=== PATIENT | male | born 1985 | race Caucasian/White ===

== ENCOUNTER 2024-01-12 14:35 | Emergency (ER) | payer SELFPAY ==
[2024-01-12 14:50] VITALS: BP 150/85; PULSE 82; TEMP 36.6; O2SAT 99; BMI 29.2
--- NOTE | 2024-01-12 14:58 | XR_ITS ---
The [address] [address] Patient Name: QUAN MAHAJAN MRN: [id number] date: 1985 Sex: M Assigned Patient Location: ER Current Patient Location: ED.MAIN Accession/Order Number: [id number] Exam Date: 01/12/2024 16:00 Report Date: 01/12/2024 16:39 At the request of: KAIT PELLETIER Procedure: XR finger RT min 2V EXAM: XR finger RT min 2V HISTORY: pain right thumb smashed with laceration COMPARISON: None. FINDINGS/IMPRESSION: 1. Oblique fracture of the first proximal phalanx with mild displacement. There is surrounding soft tissue swelling. 2. No significant joint degeneration 3. No radiopaque foreign body. Electronically authenticated by: GARY AMATO Date: 01/12/2024 16:39
--- NOTE | 2024-01-12 15:04 | ED_ITS ---
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 Patient has a laceration 2.2 cm on the dorsal surface just proximal to the IP joint of the thumb. Patient is right-hand dominant. Pain is moderate but tolerable, no active bleeding. Patient has intact motion of the thumb. He believes his tetanus shot may have been 10 years ago. Patient has family at the bedside. He denies any other injury. MD complaint: injury to: Reports right and finger (Thumb) Hand dominance: right Place: Reports home Severity: moderate Context: Reports crush and injury Related Data Home Medications ?Medication ?Instructions ?Recorded ?Confirmed baclofen 10 mg tablet 10 mg PO TID 01/12/24 01/12/24 oxybutynin chloride 10 mg 10 mg PO DAILY 01/12/24 01/12/24 tablet,extended release 24 hr propranolol 20 mg tablet 20 mg PO DAILY 01/12/24 01/12/24 Previous Rx's ?Medication ?Instructions ?Recorded cephalexin 500 mg capsule 500 mg PO TID 7 days #21 caps 01/12/24 ibuprofen 600 mg tablet 600 mg PO TID PRN pain #30 tabs 01/12/24 Allergies Allergy/AdvReac Type Severity Reaction Status Date / Time ampicillin Allergy Severe Rash Verified 01/12/24 14:49 Opioid HPI Opioid Management Most Recent Pain and Opioid Data: Last Pain Scale 6 01/12/24 15:03 Last ED Pain Assessment 01/12/24 15:03 Review of Systems ROS Constitutional Denies: fever or chills Eyes Denies: change in vision Ears, nose, mouth, and throat Denies: throat pain or neck pain Cardiovascular Denies: chest pain, palpitations or edema Respiratory Denies: shortness of breath or cough Musculoskeletal Denies: back pain, neck pain or extremity pain Neurological Denies: headache Psychiatric Denies: anxiety Hematologic/Lymphatic Denies: easy bruising Exam Narrative Exam Narrative: Nurse's notes and vital signs reviewed. Patient is not hypoxic. General: The patient appears well and in no apparent distress. Patient is resting comfortably on cart. Skin: Warm, dry, no pallor noted. Head: Normocephalic, atraumatic Eye: Normal conjunctiva Respiratory: Patient is in no distress Musculoskeletal: The Right hand and wrist shows no obvious deformity. Right thumb noted for transverse linear laceration just proximal to the IP joint dorsal surface of the thumb, no nail injury. There was minimal swelling noted. The patient had limited ROM due to pain.No evidence of tendon disruption. Able to make the okay sign. Patient demonstrates intact flexion and extension at the IP and MCP joint. No pain to the MCP joint on stressing UCL. The patient had tenderness noted To the distal phalanx, localized tenderness to laceration and proximal phalanx The patient had no tenderness in the anatomical snuff box. Pulses are intact at brachial and radial 2+. There was no deficit at the elbow or shoulder. The patient has normal capillary refill to all distal digits. The patient has no evidence of cyanosis or mottling. The patient is able to flex and extend all digits without difficulty. Neurological: A&O x4, normal sensory, normal motor Psychiatric: Cooperative Constitutional Vital Signs, click to edit/add: Last Vital Signs Temp 97.9 F 01/12/24 14:50 Pulse 82 01/12/24 14:50 Resp 20 01/12/24 14:50 BP 150/85 H 01/12/24 14:50 Pulse Ox 99 01/12/24 14:50 O2 Del Method Room Air 01/12/24 14:50 Course Vital Signs Vital signs: Vital Signs Temperature 97.9 F 01/12/24 14:50 Pulse Rate 82 01/12/24 14:50 Respiratory Rate 20 01/12/24 14:50 Blood Pressure 150/85 H 01/12/24 14:50 Pulse Oximetry 99 01/12/24 14:50 Oxygen Delivery Method Room Air 01/12/24 14:50 Temperature 97.9 F 01/12/24 14:50 Pulse Rate 82 01/12/24 14:50 Respiratory Rate 20 01/12/24 14:50 Blood Pressure 150/85 H 01/12/24 14:50 Pulse Oximetry 99 01/12/24 14:50 Oxygen Delivery Method Room Air 01/12/24 14:50 MDM - Extremity Injury (Upper) MDM Narrative Medical decision making narrative: Soft tissue laceration, patient had tetanus updated, x-ray performed given nature of injury to rule out fracture. Fracture noted on x-ray, given laceration on the dorsal surface a open fracture is noted. We discussed case with orthopedics, Dr. Villegas recommends appointment Sunday at 2:20 PM. Recommends Ancef and Keflex p.o. pending follow- up in the office. Discussed x-ray and recommendations with patient, he was verbally consenting. We discussed his history of rash remotely as a child with ampicillin. He denies any lip swelling or difficulty breathing. We discussed the importance of ice and elevation. He declines anything stronger than Motrin for pain. We discussed the importance of follow-up for optimal healing. Patient thankful The patient is to followup with Dr. Villegas on Sunday @ 2:20pm or to return to the emergency department should any of the signs or symptoms worsen or new symptoms develop. Patient had questions answered. The patient agrees with the following Diagnosis and Treatment plan and the patient will be discharged home. p Imaging Data right thumb xray: My impression: 3-view right thumb x-ray shows transverse fracture through Proximal phalanx of the thumb. Slight volar apex angulation. Discharge Plan Discharge Stand Alone Forms: Portal Instructions Chief Complaint: Extremity Injury, Upper Clinical Impression: Laceration of right thumb Open fracture of phalanx of right thumb Qualifiers: Encounter type: initial encounter Phalanx: proximal Fracture alignment: disp laced Qualified Code(s): S62.511B - Displaced fracture of proximal phalanx of right thumb, initial encounter for open fracture Patient Disposition: Home, Self-Care Time of Disposition Decision: 16:34 Condition: Good Prescriptions / Home Meds: New cephalexin 500 mg capsule 500 mg PO TID 7 Days Qty: 21 0RF ibuprofen 600 mg tablet 600 mg PO TID PRN (Reason: pain) Qty: 30 0RF No Action baclofen 10 mg tablet 10 mg PO TID oxybutynin chloride 10 mg tablet extended release 24hr 10 mg PO DAILY propranolol 20 mg tablet 20 mg PO DAILY Print Language: Salvadorean Instructions: Thumb Fracture (ED) Referrals: Kory Villegas MD [Physician] - 01/14/24 2:20 pm Procedures ED Laceration Laceration Laceration 1: Additional comments: Laceration repair: ( Right thumb) Done under sterile conditions. The use of chlorahexadine was used to prep and clean the area. Local injection with lidocaine 1% was used, approximately 4cc. The wound was irrigated copiously with normal saline. The wound was explored there was no evidence of foreign material. extensor tendon visualized, no tendon injury seen. motion intact. The laceration was approximated with 4-0 nylon. 5 simple interrupted sutures were placed.. The patient was neurovascularly intact post. the patient had bacitracin applied to the laceration and a dry sterile dressing was place. The patient will need to follow-up in the next 10 days for removal. Splint Application: The patient was placed in a thumb spica splint with Orthoglass splint material, 4 inch. The patient had 2 rolls of the web roll applied to the affected site. Patient then had the splint material placed with felt side against web roll and skin. The patient had the splint secured in place with derek bandage. The patient was neurovascularly intact post application of the splint.
[2024-01-12] MEDS: BACITRACIN 0.9 GM PACKET 1 PACKET TOPICAL (15:15)
[2024-01-12] MEDS: LIDOCAINE HCL 1% PF 20 MG/2 ML VIAL INJ ×2 (15:15)
[2024-01-12] MEDS: ADACEL DIPH,PERTUSS(ACELL),TET VAC/PF 0.5 ML ADULT SYRINGE IM (15:16)
[2024-01-12] MEDS: SODIUM CHLORIDE 0.9% IRRIG SOLUTION 1,000 ML BOTTLE 1000 ML IRR (15:18)
[2024-01-12] MEDS: CEFAZOLIN SODIUM/DEXTROSE,ISO 1 GM/50 ML IV.SOLN IV (16:20)
== END 2024-01-12 17:09 | disposition home or self-care (01) ==
PROVIDERS: Emergency Provider Emergency Medicine Emergency Medical Services; PCP Family Medicine
DX: S62.511B Displaced fracture of proximal phalanx of right thumb, initial encounter for open fracture (principal); Z23 Encounter for immunization; W23.0XXA Caught, crushed, jammed, or pinched between moving objects, initial encounter
CPT/HCPCS: 12001; 73140; 90471; 90715; 96365; 99284

== ENCOUNTER 2024-01-28 12:39 | Outpatient (OUT) | payer SELFPAY ==
--- NOTE | 2024-01-28 | XR_ITS ---
The [address] [address] Patient Name: QUAN MAHAJAN MRN: [id number] date: 1985 Sex: M Assigned Patient Location: Current Patient Location: Accession/Order Number: [id number] Exam Date: 01/28/2024 12:45 Report Date: 01/29/2024 10:32 At the request of: CARROLL CHAUDHARY Procedure: XR hand RT min 3V PROCEDURE: XR hand RT min 3V HISTORY: RIGHT HAND PAIN COMPARISON: XR finger right 01/12/2024 FINDINGS: BONES:Oblique fracture through distal diaphysis of the first digit proximal phalanx with slightly greater displacement than seen on prior study. No appreciable callus formation or increased density of the fracture line. SOFT TISSUES:Swelling of thumb. EFFUSION:None visible. OTHER: Negative. XR/XR hand RT min 3V IMPRESSION: 1. Subacute, oblique fracture of first proximal phalanx with slightly greater displacement/angulation when compared to prior study. No radiographic evidence of early bone healing. Electronically authenticated by: CARROLL WALTON Date: 01/29/2024 10:32
--- OUTSIDE RECORDS SUMMARY | 2024-01-28 12:42 | XMS_ITS | CCD ---
Author Organization [facility] Care Team Providers Care Customer Retention Specialist Name Role Phone Gabrielle Muñoz MD Primary Care Provider GABRIELLE MUÑOZ Referring Unavailable GABRIELLE MUÑOZ Primary Care Unavailable GABRIELLE MUÑOZ Referring Unavailable GABRIELLE MUÑOZ Primary Care Unavailable GABRIELLE MUÑOZ Attending Unavailable GABRIELLE MUÑOZ Attending Unavailable Medications Completed/Discontinued Medications Medication Drug Class(es) Dates Sig (Normalized) Sig (Original) sincalide (KINEVAC) 2.09 mcg in sodium chloride 0.9 % 50 mL infusion (1 source) Start: 10-20-2022 End: 10-20-2022 sincalide (KINEVAC) 2.09 mcg in sodium chloride 0.9 % 50 mL infusion technetium mebrofenin (CHOLETEC) injection 5 millicurie (1 source) Start: 10-20-2022 End: 10-20-2022 technetium mebrofenin (CHOLETEC) injection 5 millicurie Problems Problem Classification Problem Date Documented Da te Episodic/Chronic Abdominal pain (3 sources) Right upper quadrant pain; Translations: [Right upper quadrant pain] Onset: 10-20-2022 Episodic Results Test Name Value Interpretation Reference Range Facility NM HEPATOBILIARY SCAN W EJEC TION FRACTIONon 10-20-2022 No acute cholecystitis. Gallbladder ejection fraction is approximately 91%. [facility] CONSOLIDATED EXAMINATION: NUCLEAR MEDICINE HEPATOBILIARY SCINTIGRAPHY (HIDA SCAN) WITH EJECTION FRACTION. TECHNIQUE: Approximately 5.4 millicuries Tc99m Mebrofenin (Choletec) was administered IV. Then, dynamic images of the abdomen were obtained in the anterior projection for 60 mins. A right lateral view was also obtained at 60 mins. Slow infusion of 2.09 mcg cholecystokinin was administered intravenously over 30-60 mins. Images were obtained in the ARABIC projection and regions of interest were drawn around the gallbladder and ejection fraction was calculated. COMPARISON: No prior for comparison. HISTORY: ORDERING SYSTEM PROVIDED HISTORY: RUQ abdominal pain FINDINGS: Prompt, homogenous uptake by the liver is noted with normal appearance of radiotracer excretion into the biliary system. Clearance of bloodpool activity appears appropriate. Gallbladder and small bowel is visualized in appropriate sequence and time. Gallbladder ejection fraction measured 91%. Normal value is >38% for CCK protocol and >33% for Ensure protocol. Note, Ensure normal range is based on a limited study. [facility] Jerry Pimentel MD - 10/20/2022 EXAMINATION: NUCLEAR MEDICINE HEPATOBILIARY SCINTIGRAPHY (HIDA SCAN) WITH EJECTION FRACTION. TECHNIQUE: Approximately 5.4 millicuries Tc99m Mebrofenin (Choletec) was administered IV. Then, dynamic images of the abdomen were obtained in the anterior projection for 60 mins. A right lateral view was also obtained at 60 mins. Slow infusion of 2.09 mcg cholecystokinin was administered intravenously over 30-60 mins. Images were obtained in the ARABIC projection and regions of interest were drawn around the gallbladder and ejection fraction was calculated. COMPARISON: No prior for comparison. HISTORY: ORDERING SYSTEM PROVIDED HISTORY: RUQ abdominal pain FINDINGS: Prompt, homogenous uptake by the liver is noted with normal appearance of radiotracer excretion into the biliary system. Clearance of bloodpool activity appears appropriate. Gallbladder and small bowel is visualized in appropriate sequence and time. Gallbladder ejection fraction measured 91%. Normal value is >38% for CCK protocol and >33% for Ensure protocol. Note, Ensure normal range is based on a limited study. IMPRESSION: No acute cholecystitis. Gallbladder ejection fraction is approximately 91%. [employer] Phone: Radiology Study observation (narrative) [employer] Phone: NM HEPATOBILIARY SCAN W EJEC TION FRACTIONOrdered By: Jerry Armstrong on 10-20-2022 [employer] Phone: NM HEPATOBILIARY SCAN W PHAR MACOLOGICAL INTERVENTIONon 10-20-2022 NM HEPATOBILIARY SCAN W PHARMACOLOGICAL INTERVENTION EXAMINATION: NUCLEAR MEDICINE HEPATOBILIARY SCINTIGRAPHY (HIDA SCAN) WITH EJECTION FRACTION. TECHNIQUE: Approximately 5.4 millicuries Tc99m Mebrofenin (Choletec) was administered IV. Then, dynamic images of the abdomen were obtained in the anterior projection for 60 mins. A right lateral view was also obtained at 60 mins. Slow infusion of 2.09 mcg cholecystokinin was administered intravenously over 30-60 mins. Images were obtained in the ARABIC projection and regions of interest were drawn around the gallbladder and ejection fraction was calculated. COMPARISON: No prior for comparison. HISTORY: ORDERING SYSTEM PROVIDED HISTORY: RUQ abdominal pain FINDINGS: Prompt, homogenous uptake by the liver is noted with normal appearance of radiotracer excretion into the biliary system. Clearance of bloodpool activity appears appropriate. Gallbladder and small bowel is visualized in appropriate sequence and time. Gallbladder ejection fraction measured 91%. Normal value is >38% for CCK protocol and >33% for Ensure protocol. Note, Ensure normal range is based on a limited study. IMPRESSION: No acute cholecystitis. Gallbladder ejection fraction is approximately 91%. Interpreted by: Jerry Armstrong MD Signed by: Jerry Armstrong MD 10/20/22 Final result Normal [facility] US GALLBLADDER RUQon 023 US GALLBLADDER RUQ EXAMINATION: RIGHT UPPER QUADRANT ULTRASOUND 09/27/2022 11:02 am COMPARISON: None. HISTORY: ORDERING SYSTEM PROVIDED HISTORY: Right upper quadrant pain FINDINGS: LIVER: The liver demonstrates normal echogenicity without evidence of intrahepatic biliary ductal dilatation. BILIARY SYSTEM: Gallbladder is unremarkable without evidence of pericholecystic fluid, wall thickening or stones. Negative sonographic Maravilla's sign. Common bile duct is within normal limits measuring 0.3 cm. RIGHT KIDNEY: The right kidney is grossly unremarkable without evidence of hydronephrosis. PANCREAS: Visualized portions of the pancreas are unremarkable. OTHER: No evidence of right upper quadrant ascites. IMPRESSION: Unremarkable right upper quadrant ultrasound. Interpreted by: Negin Bustillos MD Signed by: Negin Bustillos MD 09/27/22 Final result Normal [facility] Unremarkable right upper quadrant ultrasound. [facility]IS CONSOLIDATED EXAMINATION: RIGHT UPPER QUADRANT ULTRASOUND 09/27/2022 11:02 am COMPARISON: None. HISTORY: ORDERING SYSTEM PROVIDED HISTORY: Right upper quadrant pain FINDINGS: LIVER: The liver demonstrates normal echogenicity without evidence of intrahepatic biliary ductal dilatation. BILIARY SYSTEM: Gallbladder is unremarkable without evidence of pericholecystic fluid, wall thickening or stones. Negative sonographic Maravilla's sign. Common bile duct is within normal limits measuring 0.3 cm. RIGHT KIDNEY: The right kidney is grossly unremarkable without evidence of hydronephrosis. PANCREAS: Visualized portions of the pancreas are unremarkable. OTHER: No evidence of right upper quadrant ascites. [facility] Negin Ibarra MD - 09/27/2022 EXAMINATION: RIGHT UPPER QUADRANT ULTRASOUND 09/27/2022 11:02 am COMPARISON: None. HISTORY: ORDERING SYSTEM PROVIDED HISTORY: Right upper quadrant pain FINDINGS: LIVER: The liver demonstrates normal echogenicity without evidence of intrahepatic biliary ductal dilatation. BILIARY SYSTEM: Gallbladder is unremarkable without evidence of pericholecystic fluid, wall thickening or stones. Negative sonographic Maravilla's sign. Common bile duct is within normal limits measuring 0.3 cm. RIGHT KIDNEY: The right kidney is grossly unremarkable without evidence of hydronephrosis. PANCREAS: Visualized portions of the pancreas are unremarkable. OTHER: No evidence of right upper quadrant ascites. IMPRESSION: Unremarkable right upper quadrant ultrasound. [employer] Phone: Radiology Study observation (narrative) [employer] Phone: US GALLBLADDER RUQOrdered By : Negin Bustillos on 09-27-2022 [employer] Phone: Q - CBC W/DIFF AND PLTon BASOABS 53 cells/uL Normal 0-200 [facility] Change Control Manager Comment on above: Order Comment: [facility] performed at: [employer] [facility], [address] [place] [address], [address] [place] [address], [id number], Laundry Folder: Otto Nuñez MD [facility] Collection Date/Time: [id number] [facility] Results Received Date/Time: [facility] Reported Date/Time: [id number] Performed By: #### 9 68T, [id number], 42A #### [facility] Default [address] [place] [address] Basophils/100 WBC (Bld) 0.9 % Normal [facility] Change Control Manager Comment on above: Order Comment: [facility] performed at: [employer] [facility], [address] [facility], [address] [place] [address], [address] [place] [address], Laundry Folder: Otto Nuñez MD [facility] Collection Date/Time: [facility] Results Received Date/Time: [facility] Reported Date/Time: Performed By: #### 9 68T, [id number], 42A #### [facility] Default [address] [place] [address] EOSABS 271 cells/uL Normal 15-500 [facility] Change Control Manager Comment on above: Order Comment: [facility] performed at: [employer] [employer] [facility], [address] [place] [address], [address] [place] [address], [address] [place] [address], Laundry Folder: Otto Nuñez MD [facility] Date/Time: [facility] Results Received Date/Time: [facility] Reported Date/Time: Performed By: #### 9 68T, [id number], 42A #### [facility] Default [address] [place] [address] Eosinophils/100 WBC (Bld) 4.6 % Normal [facility] Specialist Comment on above: Order Comment: [facility] performed at: [employer], [employer] [facility], [address] [facility], [address] [place] [address], [address] [place] [address], Laundry Folder: Otto Nuñez MD [facility] Date/Time: [facility] Results Received Date/Time: [facility] Reported Date/Time: Performed By: #### 9 68T, [id number], 42A #### [facility] Default [address] [place] [address] Erythrocyte distribution width (RBC) [Ratio] 11.9 % Normal 11.0-15.0 [facility] Specialist Comment on above: Order Comment: [facility] performed at: [employer] [employer] [facility], [address] [facility], [address] [place] [address], [address] [place] [address], Laundry Folder: Otto Nuñez MD [facility] Date/Time: [facility] Results Received Date/Time: [facility] Reported Date/Time: Performed By: #### 9 68T, [id number], 42A #### [facility] Default [address] [place] [address] Hematocrit (Bld) [Volume fraction] 50.9 % High 38.5-50.0 [facility] Change Control Manager Comment on above: Order Comment: [facility] performed at: [employer], [employer] [facility], [address] , [address] [place] [address], [address] [place] [address], Laundry Folder: Otto Nuñez MD [facility] Date/Time: [facility] Results Received Date/Time: [facility] Reported Date/Time: Performed By: #### 9 68T, [id number], 42A #### [facility] [address] [place] [address] Hemoglobin (Bld) [Mass/Vol] 17.3 g/dL High 13.2-17.1 [facility] Change Control Manager Comment on above: Order Comment: [facility] performed at: [employer] [employer] [facility], [address] [facility], [address] [place] [address], [address] [place] [address], Laundry Folder: Otto Nuñez MD [facility] Date/Time: [facility] Results Received Date/Time: [facility] Reported Date/Time: Performed By: #### 9 68T, [id number], 42A #### [facility] Default [address] [place] [address] Lymphocytes (Bld) [#/Vol] 1.611 10*3/uL Normal 850-3900 [facility] Change Control Manager Comment on above: Order Comment: [facility] performed at: [employer] [employer] [facility], [address] , [address] [place] [address], [address] [place] [address], Laundry Folder: Otto Nuñez MD [facility] Date/Time: [facility] Results Received Date/Time: [facility] Reported Date/Time: [id number] Performed By: #### 9 68T, [id number], 42A #### [facility] Default [address] [place] [address] Lymphocytes/100 WBC (Bld) 27.3 % Normal [facility] Change Control Manager Comment on above: Order Comment: [facility] performed at: [employer] [employer] [facility], [address] [place] [address], [address] [place] [address], [address] [place] [address], Laundry Folder: Otto Nuñez MD [facility] Date/Time: [facility] Results Received Date/Time: [facility] Reported Date/Time: Performed By: #### 9 68T, [id number], 42A #### [facility] [address] [place] [address] MCH (RBC) [Entitic mass] 31.3 pg Normal 27.0-33.0 [facility] Change Control Manager Comment on above: Order Comment: [facility] performed at: [employer] [employer] [facility], [address] [place] [address], [address] [place] [address], [address] [place] [address], Laundry Folder: Otto Nuñez MD [facility] Collection Date/Time: [facility] Results Received Date/Time: [facility] Reported Date/Time: Performed By: #### 9 68T, [id number], 42A #### [facility] Default [address] [place] [address] MCHC (RBC) [Mass/Vol] 34.0 g/dL Normal 32.0-36.0 [facility] Change Control Manager Comment on above: Order Comment: [facility] performed at: [employer] [employer] [facility], [address] [place] [address], [address] [place] [address], [address] [place] [address], Laundry Folder: Otto Nuñez MD [facility] Collection Date/Time: [facility] Results Received Date/Time: [facility] Reported Date/Time: Performed By: #### 9 68T, [id number], 42A #### [facility] [address] [place] [address] MCV (RBC) [Entitic vol] 92.0 fL Normal 80.0-100.0 [facility] Change Control Manager Comment on above: Order Comment: [facility] performed at: [employer] [employer] [facility], [address] [facility], [address] [place] [address], [address] [place] [address], Laundry Folder: Otto Nuñez MD [facility] Date/Time: [facility] Results Received Date/Time: [facility] Reported Date/Time: Performed By: #### 9 68T, [id number], 42A #### [facility] [address] [place] [address] MONOABS 726 cells/uL Normal 200-950 [facility] Change Control Manager Comment on above: Order Comment: [facility] performed at: [employer] [employer] [facility], [address] [place] [address], [address] [place] [address], [address] [place] [address], Laundry Folder: Otto Nuñez MD [facility] Collection Date/Time: [facility] Results Received Date/Time: [facility] Reported Date/Time: Performed By: #### 9 68T, [id number], 42A #### [facility] [address] [place] [address] Monocytes/100 WBC (Bld) 12.3 % Normal [facility] Change Control Manager Comment on above: Order Comment: [facility] performed at: [employer] [employer] [facility], [address] [place] [address], [address] [place] [address], [address] [place] [address], Laundry Folder: Otto Nuñez MD [facility] Collection Date/Time: [facility] Results Received Date/Time: [facility] Reported Date/Time: Performed By: #### 9 68T, [id number], 42A #### [facility] [address] [place] [address] Neutrophils (Bld) [#/Vol] 3.239 10*3/uL Normal 7698-9966 [facility] Change Control Manager Comment on above: Order Comment: [facility] performed at: [employer] [employer] [facility], [address] [place] [address], [address] [place] [address], [address] [place] [address], Laundry Folder: Otto Nuñez MD [facility] Collection Date/Time: [facility] Results Received Date/Time: [facility] Reported Date/Time: Performed By: #### 9 68T, [id number], 42A #### [facility] [address] [place] [address] Neutrophils/100 WBC (Bld) 54.9 % Normal [facility] Change Control Manager Comment on above: Order Comment: [facility] performed at: [employer] [employer] [facility], [address] [place] [address], [address] [place] [address], [address] [place] [address], Laundry Folder: Otto Nuñez MD [facility] Collection Date/Time: [facility] Results Received Date/Time: [facility] Reported Date/Time: Performed By: #### 9 68T, [id number], 42A #### [facility] [address] [place] [address] Platelet mean volume (Bld) [Entitic vol] 10.5 fL Normal 7.5-12.5 [facility] Change Control Manager Comment on above: Order Comment: [facility] performed at: [employer] [facility], [address] [place] [address], [address] [place] [address], [address] [place] [address], Laundry Folder: Otto Nuñez MD [facility] Date/Time: [facility] Results Received Date/Time: [facility] Reported Date/Time: Performed By: #### 9 68T, [id number], 42A #### [facility] Default [address] [place] [address] Platelets (Bld) [#/Vol] 296 10*3/uL Normal 140-400 [facility] Change Control Manager Comment on above: Order Comment: [facility] performed at: [employer] [employer] [facility], [address] [place] [address], [address] [place] [address], [address] [place] [address], Laundry Folder: Otto Nuñez MD [facility] Date/Time: [facility] Results Received Date/Time: [facility] Reported Date/Time: Performed By: #### 9 68T, [id number], 42A #### [facility] Default [address] [place] [address] RBC (Bld) [#/Vol] 5.53 10*6/uL Normal 4.20-5.80 Tyrell li [place] Change Control Manager Comment on above: Order Comment: [facility] performed at: [employer] [employer] [facility], [address] [facility], [address] [place] [address], [address] [place] [address], Laundry Folder: Otto Nuñez MD [facility] Collection Date/Time: [id number] [facility] Results Received Date/Time: [facility] Reported Date/Time: Performed By: #### 9 68T, [id number], 42A #### [facility] Default [address] [place] [address] WBC (Bld) [#/Vol] 5.9 10*3/uL Normal 3.8-10.8 Terrance mackenzie [place] Change Control Manager Comment on above: Order Comment: [facility] performed at: [employer] [employer] [facility], [address] [place] [address], [address] [place] [address], [address] [place] [address], Laundry Folder: Otto Nuñez MD [facility] Collection Date/Time: [id number] [facility] Results Received Date/Time: [facility] Reported Date/Time: Performed By: #### 9 68T, [id number], 42A #### [facility] Default [address] [place] [address] Q - COMPREHENSIVE METABOLIC PANEL W/EGFRon 10-07-2021 Albumin [Mass/Vol] 4.4 g/dL Normal 3.6-5.1 Terrance mackenzie [place] Change Control Manager Comment on above: Order Comment: [facility] performed at: [employer] [employer] [facility], [address] [facility], [address] [place] [address], [address] [place] [address], Laundry Folder: Otto Nuñez MD [facility] Collection Date/Time: [facility] Results Received Date/Time: [facility] Reported Date/Time: Performed By: #### 9 68T, [id number], 42A #### [facility] Default [address] [place] [address] Albumin/Globulin [Mass ratio] 1.7 {ratio} Normal 1.0-2.5 [facility] Specialist Comment on above: Order Comment: [facility] performed at: [employer] [employer] [facility], [address] [place] [address], [address] [place] [address], [address] [place] [address], Laundry Folder: Otto Nuñez MD [facility] Collection Date/Time: [facility] Results Received Date/Time: [facility] Reported Date/Time: Performed By: #### 9 68T, [id number], 42A #### [facility] Default [address] [place] [address] ALP [Catalytic activity/Vol] 42 U/L Normal 36-130 [facility] Change Control Manager Comment on above: Order Comment: [facility] performed at: [employer] [employer] [facility], [address] [place] [address], [address] [place] [address], [address] [place] [address], Laundry Folder: Otto Nuñez MD [facility] Date/Time: [facility] Results Received Date/Time: [facility] Reported Date/Time: Performed By: #### 9 68T, [id number], 42A #### [facility] Default [address] [place] [address] ALT [Catalytic activity/Vol] 19 U/L Normal 9-46 [facility] Change Control Manager Comment on above: Order Comment: [facility] performed at: [employer] [employer] [facility], [address] [place] [address], [address] [place] [address], [address] [place] [address], Laundry Folder: Otto Nuñez MD [facility] Date/Time: [facility] Results Received Date/Time: [facility] Reported Date/Time: Performed By: #### 9 68T, [id number], 42A #### [facility] Default [address] [place] [address] AST [Catalytic activity/Vol] 16 U/L Normal 10-40 [facility] Specialist Comment on above: Order Comment: [facility] performed at: [employer] [employer] [facility], [address] [place] [address], [address] [place] [address], [address] [place] [address], Laundry Folder: Otto Nuñez MD [facility] Collection Date/Time: [facility] Results Received Date/Time: [facility] Reported Date/Time: Performed By: #### 9 68T, [id number], 42A #### [facility] Default [address] [place] [address] Calcium [Mass/Vol] 9.5 mg/dL Normal 8.6-10.3 [facility] Comment on above: Order Comment: [facility] performed at: [employer] [employer] [facility], [address] [place] [address], [address] [place] [address], [address] [place] [address], Laundry Folder: Otto Nuñez MD [facility] Collection Date/Time: [facility] Results Received Date/Time: [facility] Reported Date/Time: Performed By: #### 9 68T, [id number], 42A #### [facility] Default [address] [place] [address] Chloride [Moles/Vol] 103 mmol/L Normal 98-110 [facility] Specialist Comment on above: Order Comment: [facility] performed at: [employer] [facility], [address] [facility], [address] [place] [address], [address] [place] [address], Laundry Folder: Otto Nuñez MD [facility] Date/Time: [facility] Results Received Date/Time: [facility] Reported Date/Time: Performed By: #### 9 68T, [id number], 42A #### [facility] Default [address] [place] [address] CO2 [Moles/Vol] 26 mmol/L Normal 20-32 [facility] Specialist Comment on above: Order Comment: [facility] performed at: [employer] [facility], [address] , [address] [place] [address], [address] [place] [address], Laundry Folder: Otto Nuñez MD [facility] Date/Time: [facility] Results Received Date/Time: [facility] Reported Date/Time: Performed By: #### 9 68T, [id number], 42A #### [facility] Default [address] [place] [address] Creatinine [Mass/Vol] 1.04 mg/dL Normal 0.60-1.35 [facility] Change Control Manager Comment on above: Order Comment: [facility] performed at: [employer] [employer] [facility], [facility], [address] [place] [address], [address] [place] [address], Laundry Folder: Otto Nuñez MD [facility] Collection Date/Time: [facility] Results Received Date/Time: [facility] Reported Date/Time: Performed By: #### 9 68T, [id number], 42A #### [facility] Default [address] [place] [address] eGFRAA ([facility]) 108 mL/min/1.73m2 Normal > OR = 60 [facility] Change Control Manager Comment on above: Order Comment: [facility] Testing performed at: [facility] [employer] [facility], [address] [facility], [address] [place] [address], [address] [place] [address], Laundry Folder: Otto Nuñez MD [facility] Date/Time: [facility] Results Received Date/Time: [facility] Reported Date/Time: Performed By: #### 9 68T, [id number], 42A #### [facility] Default [address] [place] [address] eGFRNAA ([facility]) 93 mL/min/1.73m2 Normal > OR = 60 [facility] Change Control Manager Comment on above: Order Comment: [facility] Testing performed at: [facility] [employer] [facility], [address] [facility], [address] [place] [address], [address] [place] [address], Laundry Folder: Otto Nuñez MD [facility] Date/Time: [facility] Results Received Date/Time: [facility] Reported Date/Time: Performed By: #### 9 68T, [id number], 42A #### [facility] Default [address] [place] [address] Globulin (S) [Mass/Vol] 2.6 g/dL Normal 1.9-3.7 [facility] Change Control Manager Comment on above: Order Comment: [facility] Testing performed at: [employer] [facility], [address] [place] [address], [address] [place] [address], [address] [place] [address], Laundry Folder: Otto Nuñez MD [facility] Date/Time: [facility] Results Received Date/Time: [facility] Reported Date/Time: Performed By: #### 9 68T, [id number], 42A #### [facility] [address] [place] [address] Glucose [Mass/Vol] 85 mg/dL Normal 65-[address] [facility] Specialist Comment on above: Order Comment: [facility] Testing performed at: [employer] [facility], [address] [place] [address], [address] [place] [address], [address] [place] [address], Laundry Folder: Otto Nuñez MD [facility] Date/Time: [facility] Results Received Date/Time: [facility] Reported Date/Time: Result Comment: Fasting reference interval Performed By: #### 9 68T, [id number], 42A #### [facility] Default [address] [place] [address] Potassium [Moles/Vol] 4.9 mmol/L Normal 3.5-5.3 [facility] Change Control Manager Comment on above: Order Comment: [facility] performed at: [employer] [facility], [address] [place] [address], [address] [place] [address], [address] [place] [address], Laundry Folder: Otto Nuñez MD [facility] Date/Time: [facility] Results Received Date/Time: [facility] Reported Date/Time: Performed By: #### 9 68T, [id number], 42A #### [facility] Default [address] [place] [address] Protein [Mass/Vol] 7.0 g/dL Normal 6.1-8.1 Terrance mackenzie [place] Change Control Manager Comment on above: Order Comment: [facility] performed at: [facility] [employer] [facility], [address] [place] [address], [address] [place] [address], [address] [place] [address], Laundry Folder: Otto Nuñez MD [facility] Date/Time: [facility] Results Received Date/Time: [facility] Reported Date/Time: Performed By: #### 9 68T, [id number], 42A #### [facility] Default [address] [place] [address] Sodium [Moles/Vol] 138 mmol/L Normal 135-146 Terrance rn [place] Change Control Manager Comment on above: Order Comment: [facility] performed at: [facility] [employer] [facility], [address] [place] [address], [address] [place] [address], [address] [place] [address], Laundry Folder: Otto Nuñez MD [facility] Date/Time: [facility] Results Received Date/Time: [facility] Reported Date/Time: Performed By: #### 9 68T, [id number], 42A #### [facility] [address] [place] [address] TBIL <0.3 Normal 0.2-1.2 [facility] Change Control Manager Comment on above: Order Comment: [facility] Testing performed at: [facility] [employer] [facility], [address] [place] [address], [address] [place] [address], [address] [place] [address], Laundry Folder: Otto Nuñez MD [facility] Date/Time: [facility] Results Received Date/Time: [facility] Reported Date/Time: Performed By: #### 9 68T, [id number], 42A #### [facility] [address] [place] [address] Urea nitrogen [Mass/Vol] 26 mg/dL High 7-25 [facility] Change Control Manager Comment on above: Order Comment: [facility] performed at: [facility] [employer] [facility], [address] [place] [address], [address] [place] [address], [address] [place] [address], Laundry Folder: Otto Nuñez MD [facility] Date/Time: [facility] Results Received Date/Time: [facility] Reported Date/Time: Performed By: #### 9 68T, [id number], 42A #### [facility] Default [address] [place] [address] Urea nitrogen/Creatinine [Mass ratio] 25 mg/mg High 6-22 [facility] Change Control Manager Comment on above: Order Comment: [facility] Testing performed at: [facility] [employer] [facility], [address] [place] [address], [address] [place] [address], [address] [place] [address], Laundry Folder: Otto Nuñez MD [facility] Date/Time: [facility] Results Received Date/Time: [facility] Reported Date/Time: Performed By: #### 9 68T, [id number], 42A #### [facility] Default [address] [place] [address] Q - Lipid Panelon 10-07-2021 Cholesterol [Mass/Vol] 224 mg/dL High <200 [facility] Change Control Manager Comment on above: Order Comment: [facility] performed at: [facility] [employer] [facility], [address] [place] [address], [address] [place] [address], [address] [place] [address], Laundry Folder: Otto Nuñez MD [facility] Date/Time: [facility] Results Received Date/Time: [facility] Reported Date/Time: Performed By: #### 9 68T, [id number], 42A #### [facility] Default [address] [place] [address] Cholesterol in HDL [Mass/Vol] 47 mg/dL Normal > OR = 40 [facility] Change Control Manager Comment on above: Order Comment: [facility] Testing performed at: [facility] [employer] [facility], [address] [facility], [address] [place], [place], [address] [place] [address], Laundry Folder: Otto Nuñez MD [facility] Date/Time: [facility] Results Received Date/Time: [facility] Reported Date/Time: Performed By: #### 9 68T, [id number], 42A #### [facility] Default [address] [place] [address] Cholesterol in LDL [Mass/Vol] 151 mg/dL High [facility] Change Control Manager Comment on above: Order Comment: [facility] performed at: [facility] [employer] [facility], [address] [place] [address], [address] [place] [address], [address] [place] [address], Laundry Folder: Otto Nuñez MD [facility] Collection Date/Time: [facility] Results Received Date/Time: [facility] Reported Date/Time: Result Comment: Refe rence range: <100 Desirable range <100 mg/dL for primary prevention; <70 mg/dL for patients with CHD or diabetic patients with > or = 2 CHD risk factors. LDL-C is now calculated using the Kamaljit-Velma calculation, which is a validated novel method providing better accuracy than the Friedewald equation in the estimation of LDL-C. Kamaljit SS et al. SAY. 2013;310(19): 1892-2421 (http://education.[employer].Respiratory Motion/faq/VHI233) Performed By: #### 9 68T, [id number], 42A #### [facility] Default [address] [place] [address] Cholesterol.total/C holesterol in HDL [Mass ratio] 4.8 {ratio} Normal <5.0 [facility] Change Control Manager Comment on above: Order Comment: [facility] Testing performed at: [facility] [employer] [facility], [address] [facility], [address] [place], [address] [place] [address], Laundry Folder: Otto Nuñez MD [facility] Date/Time: [facility] Results Received Date/Time: [facility] Reported Date/Time: Performed By: #### 9 68T, [id number], 42A #### [facility] Default [address] [place] [address] NON HDL CHOLESTEROL 177 mg/dL (calc) High <130 [facility] Change Control Manager Comment on above: Order Comment: [facility] performed at: [facility] [employer] [facility], [address] [facility], [address] [place], [address], Laundry Folder: Otto Nuñez MD [facility] Date/Time: [facility] Results Received Date/Time: [facility] Reported Date/Time: Result Comment: For patients with diabetes plus 1 major ASCVD risk factor, treating to a non-HDL-C goal of <100 mg/dL (LDL-C of <70 mg/dL) is considered a therapeutic option. Performed By: #### 9 68T, [id number], 42A #### [facility] Default [address] [place] [address] Triglyceride [Mass/Vol] 132 mg/dL Normal <150 [facility] Change Control Manager Comment on above: Order Comment: [facility] performed at: [facility] [employer] [facility], [facility], [address] [place] [address], [place], [address], Laundry Folder: Otto Nuñez MD [facility] Date/Time: [facility] Results Received Date/Time: [facility] Reported Date/Time: Performed By: #### 9 68T, [id number], 42A #### [facility] Default [address] [place] [address] Coding Summaryon 02-04-2021 Coding Summary HTMLBase 64 AoxiftjlZKm4tVy+PGh lYWQ+KG2ARFLtX49pmS ZxuH3SM5jIVM0PUPNXD DLJKB9JOD3mrGE4AXsk L9ZzsxJe GzirsCIoTB72SOv7TSA 1pJiqAJijqI9ngYSuD6 p3IvKeFH65gE37DAcoJ QWpGeX2GkDkrokogZJf I7smYaCkrNNxHbz+PHR hYmxlIHdpZHRoPScxMD JwOcJvxYzgRD3wNp9mC GVyLWNvbGxhcHNlOiBj w4bkLYMbXXwkCY5nnRu rI1DbuSA4EROxl4l6Ao 48dHI+FNPrGEZ2rEbfJ Jilx413BiZdm3znBTO2 zYKaHOohGYB6E94vq2C 3KAFrQKXmYBA5gFK3bK 7xkNatvsizI4NcgZGfV xJ6BVG7bQOfkE2jaJsz nixouB8gRjf+I30IES2 KUVZZPR6WNya9N5KiIw wvdHI+VB07FYZrDA36x VSbzHLwr4ogdFl5JtTr LFXzQTT7fIkdZNetn0C sRHKlF91qwCAme2C2HE MroJoteZZyHtGqeUY4l H8wHLwplimlt3fdolna Ekfty2bhpn40uY07W50 nYDvoCDDgDKK4FVBnAS RdvKslaa8peF8vQn8+I Xuwh7qpf1usjFn2NrPp PMJmnfOotSjkTFF4z1R aQb72H3HlsBrhi9CnXw c1zb44wXIhv2M7kQO8X KugKNDkhM2xATutReM3 UAIjDdMvmK27fFThDXs vUl6vwUpznPwlLQ6hSU JiehtfXQOpmP7yQMFzl JRnhRppTE5pCXSfsrpx r541LnFdCAF5ZIKwnVF qC8CdrN9aOjRdNIGiSX SdX2VagMMzOFydN637L DrmJeB8MCZiorCsH4Sc ZZTxiDzlEmB7o3O1Jw0 Fl7OtnzmwJYP8NPgcVG B4AlE4CjVlUaE6E4BkC gh1VHKhuHjpNY5eG1Hl YVSqetjmisbacSU2YZY uAZZjpB74aDLsWJpfEj 1lc2J9b442GCLbBDVql P19Ku8klZhuOSZnbXQP eT1gwxkey2zuxkvvBxM qRPVcBGa1OYc9EUFzmN hbAaTvIJR4EuD3CLH3z BHarV3lpKwwjmcxhR3m Oyc+T62irM1vBLX0NME 5hsdtNCUmxcKwVT38AL 50Q4WdZewgxWYouZB+P ONjpyIfuMqoSU2aZpJr k2yqr3XlNKjwJ8McTTA nDNcjQgw6TTLaFTR5nX Q3bF4pURRfWXwid4G6x BY8F7MyojRbgc4yy5ep KXBmUGykQ44ktWZox1Y 2JZUpxGU2MUOpoPfbHd AkyS62Dbz+PGNvbGdyb 0YpGtprk1ckt8odbYb1 IjMwJSIgdmFsaWduPSJ 1t4CsLr96P10lJYyjUE RoPSIxNSUiIHZhbGlnb e9rmV4qVd5+PGNvbCB3 yRA0yD2qFFLqAcK9MVp jI177RsVgtGJlFbbbg0 kyz6fgnIl4UsFhWTTnc qFnxBvsMEY1p0TdKo95 Z83fZKdoMFCmEUYuUPX mIGSqlBvosu1rsQ0zLg 8+OY9zt0nlxa92bB64x HI+BGUjWQH5jFjyVIje WWUejV5cQSofItI6JMJ bZeMaxL06cYJzUOtoBn 4agBoxvHvdXT4rYAAkr xbcf532XmKzk4ccLUUr aGQoPBjpBUM5B08xs2E 1FFSoOXKaERI5tLK5hW 1hbGlnbjogbGVmdDsgd qWhtHopPFgdOCqeL956 IHRvcDsnPlBhdGllbnQ tBgCtEJl5K1HfIiv5ZG HypGemRY3pzAIgABgeW f9bcRarzYuwKL8yXQId ekoee677AuBll8tcKQD prUFqNAhfWUF9E20qd5 W4VWRfPBZvETD6cYD9b B5uaXybjkooaMPsqAyh imWwsHmsZUqvPLbyU45 6IHRvcDsnPkJpcnRoIE SrqZA9WL31NK50iOLsa 4G3oJZ2F4XlGKMumavf ureqfHE5AROdESClaO2 0Tl2ipRnpRg2kDOOuAY K0DZNfvQGdO5EkbT0mP fRkCOFoTLQqT5AdeOEv BEqiW531QXgkIdW0OFZ zhwJuT6YbDSMaoQfuUk H8g0Q0Mx5DX0P4LH85Q C60oBDac3H2lBY9V3Dt MNVigwnnbeyraNS9VKE dBGXehW36Db9axAftVd 7gZKMcPQM1VSClmTPlX 7McpL6sWxBcQTRhRXWh O5NrdSKxPNbqK843QAc nQjV0NKLuokXaM6GrMY CztDkvXwJ6g9H3Ch5XN Yb4CC15BS06wZMir0M2 oLC5S2ByEYSgvaaahlv ngBC7SMAsHRUbnE23Fr 6ovSyiPm7fPONvAAO2G UIjaIIiW7MffQ4tDkKh BXFkSFDyL8WogYDlSBl gS625WBisAxT1UOGtug IuE0OqMNShyBrsYwK5l 0U0Yi3PKULaSZ64JEK4 lHN0OL07XC05S4IoSmm vdGFibGU+PHRhYmxlIH dpZHRoPScxMDAlJyBzd SmzXO7gDd2bWIPmSSJl xGbkjJRxXiVty9ylIOF cAEoxFN8ffVktL3HkcW Y5IVNqq3y5Nt41C62iO 3JvdXA+PGCcbEI6dER0 hY0iRgWaKcD1HAbmV82 5XcSczXOvPwztm4enf7 iglFm0CqD6OVIpbgWxe CiqITD6n9BuSs84W93m IHdpZHRoPSIxNSUiIHZ bsUqqkl9ifF1sFs3+PG LnjWA2qAG0cB0nBlKnS iK3CKqnM695VfTuuKSg Tkfdm8ofk9tmmFi7ByF tABKmhyVcmEalVBU7f4 SrAa11E8RchLbti0QaK mt4yg87zXTsy4R0wBF0 U8KcGJOvlfuyvRKscHj kOT5pLDBksvecNHEctB 3nUIOaR0k5XrNaEaF0A OcqQ9AfnwP1OZQvjHNm SIfcALM7G68lf3J7ZAU xIUAyJXC0oNL6nE3mlM lnbjogbGVmdDsgdmVyd ZbqYPssPOvlL086VPJd rVlgRKTvnC2iBAWvkCY hxHvpCW9oRZDbhaxuKs hBTEwsIEpBUkVEIFNDT 6UUGE83US78rFZty8M0 pBP0M9QcNBIsuhoqnvs zpIJ8PQKtFLRksQ92cO XuVSgfFp3rt2B9j894M SDbDFEoyY97Kk5uiFuy DRJgkSVIxM9oudejv0b bahisXdPeRBDsNZk8XH y2EYTceLxrThNiEQT1C mE3YMJ1aKWvqH9nqPqo qgbupY8aZqo+MDgvMTg dXSn4KztvlIB+PHRkIH Q4pYnfQZunGAYxuS2rY IQdW5y5OdPzFsQ9KRkm R1NqSTMmnbtkVz14jB2 yRvUkCjI0ZHzzS1Kfmu W2DUSnmYKyBDszGVM8I 53al4V0RTAuSWFfTZO3 vBB1mX0jwRrapeyaeEM mdDsgdmVydGljYWwtYW oxX365RGQhpGvdMkBdO HqqHVCaWE71EN49jLIj t6H3xAD8M5OxVJVqpjg otjhpvPX1RNHbJBQfbD 54vKArLHpdRn6ma5C4p 422RRVaZFAdyO24Xp4r pFmyBOXvyEPRiE5gplf sk3pphwcyXgBxUGSdRH i9YLc6TGYcjFxuSkFeM OX0VdI0GXK6iEPmbG0s xFmyskhgfW8xPng+TUF MRTwvdGQ+AECsGFF5lD ytMLntXIFmmM5vHTXwU 3q1MtWhVrT9UFfgJ6Km FJNoqsvrEv47qS9bXnC yMeB7FUuoH8RnknC3PQ XteAVqJLwjSDR6Q57eg 9I4LMXdZCGmTYI0bWV1 aX8myLnlknaksUYwnMm gdmVydGljYWwtYWxpZ2 46EPAymMgkYe4HJU82P W20Y6YjFlhpfAHuqGF+ PHRhYmxlIHdpZHRoPSc nZZFaMoAqqBneKE5pJp 9yZGVyLWNvbGxhcHNlO tEcr7vlCDBfZAalNN7c eTemJ7QiyAD5EWClg6k 0Db05H51jG8VqmHV+PG XjxYI0pUW3fX4qVoGxH uK7FWigG653HnWdhZRf Seewr9mdd1ftuJq4DaN sZKNmtmGrmMtgTKE6i4 SfJo09N53nXBkuFZDkM XVpWYRrQQWtvRjuom3q gN4mDh0+DNSztKZ4nJU 9bS9jSnPlJnX6SLyiY6 87JqIbbXDiInkzI58lU 3JvdXA+PJXfBus1QCDe yTfeZK2cpAWrHDfkEp7 zWZD7QmKpXaDhJUmdO5 QjLGSedkfeeakkaJO0Z YOmBUZrtR76De7vlIgr Ln7nVLEtFXF1ZDJdeFO nY9NnbT8aTyYeLAMfUZ WdI5MeoSIfLHouZ427S VytPrX6GXFfcmOqN4Og JJKksGwxRnL0r6G8Ra2 YcNuoqSAoQF0nVaOnLJ s0C0RmMwy6PNXzxNngG B6ntJEkTVgyNc6mcBlm jItuKS7sVUUlzqcxj06 3UuQto7fiNTNyjSIsUA kxVIP4O48xf3F4RYUpL ZZfDDR5mSP7dV3jwYbt bjogbGVmdDsgdmVydGl dGTwfABfgB798FLAjlJ epVcVVQkb0G9RqTgh4M TBriLdpAS9ehLUnRDlq Lw8sqYfayKlfEN2tGWY mnjrek772JtMbr9eeYF JjmIMoGCjtZID4W26ep 7B9GCVhDTTjHHY0jQB9 wQ3waVysdqllwQCzmZd gdmVydGljYWwtYWxpZ2 50PLYstAfmIq4DXvp5M 3SzYng7ITAvrRvrZP5q hKJfEVucVz0lrGesmBf bEJ1hIDAyflfrs077Kw Aec0eqGGZqxIKsNDhaX IZ9Q87di6C0VFXiCJBd MNJ5sFE0sX2eqJrtaln gbGVmdDsgdmVydGljYW lfUPpaD879JOObpHbfM lBheWVyOjwvdGQ+PC90 ym35A8RuPzyuHxp2SNM lGTR3yVB1uG8xMKDvTA ywi5L4dHU0U5ZowmCcj u9om6aeARTwDQdoN36g bGF (more content not included)... [facility] Provider Orderson 02-04-2021 Provider Orders [id number] Normal [facility] Sperm Count Post Vason 02-03 Post Vas Screen None [facility] Comment on above: Performed By: #### 1 [id number] #### [facility] (DEFAULT) [address] [place] [id number] Semen WBC 0-[address] [facility] Comment on above: Performed By: #### 1 [id number] #### [facility] (DEFAULT) [address] [place] [address] Coding Summaryon 01-28-2021 Coding Summary HTMLBase 64 NgswbrdjJXv0yDv+PGh lYWQ+BX6MVPLiB16hgF WxhZ5XH9mVIN1TDRAEL YFNNI9FZQ9fjFM7MMdk X2JqltQp QimelTMxAR13BFt9RCY 2tKptMLkzgV4xlFYgN1 g9TqBjEI70gM73LAjzZ BFlLwF2BsYcumiuwSDn G8vjRcSfqTYpGzy+PHR hYmxlIHdpZHRoPScxMD RgBjYdgPeqWC5yHv1uH GVyLWNvbGxhcHNlOiBj g9kvCACpEZnbSJ0piEb iO4QczSH8SZEnn8x8Oc 48dHI+YLKwXJB5gEljN Iagk292KnEro5xsSTY8 gUIuDDjyDRX0N81ys8Q 4HFEoKYJeHUV2zET1gZ 3ftYoyqjdpR5CkiTJgX rU4MXI1mHCgbZ4baUpi hmysoR2gTkl+A81YLR4 OWYCFLV5UKag4Q9HaPn wvdHI+XD85OSVnQT06d JXspHAwq1fnzTv2MtPc JJFxHYP3vJsaEAbsj0P zUVUgL33eyDFdq7U2BU DokAaneEXzLzFlxUL9k E9uHZighnezg1hnyrcd Rbbdm2qoyp39lW75W74 cIMptKQZbJFD6VAFiCH DdgRzzyu7uyD8sHw1+I Uefj5xcf2kdjZy6HbUh XOVffeAicLwnXFH3i0V dPm47R5XbiRsqe4UbIs u6bh49zRUea3W8gVM2H DemAUDbiI2nGFdsQsD4 AUBcYfYnoE27yGXjBUa rWj7ajBhzxUtbLG7oKG QlavqoRJWwkN8jTTPth CPhkAxgAL6kWMQwigzx n668RhOdYMS5SQRpqCA bF6AtbD0jZxAbDOXnSI HtH7EzfQSvVSkrW834Z OfkZdV8THZdteMpT6Tf KFTadFepAdU2o3X4Pf4 Cb0UywlxjTQM4KPuuIP C6EzM6IxKeBvN5G9JuM ky3OPDabQozDL1hJ0Rk GGWniuanfrvmaTP4VSV pAUXhiJ23cXYfHZsmFx 8hs4T3h226GHWdXVJvo S90Pw5ztUwpTROblIAM uG8nexhip6rjaafoCgW jMDCtJMx7CAy6YHIhdJ opCwCvNNQ4QyC2OXB7j JYhzH1urMispaypeR0r Oyc+M43dxA6yWEC7ODX 4tifbFENnnnQjSB88KF 58P2PuWcpfjTWpfJF+P JSbagQfmLhqWZ9nPlNa t3cuc0DeERtgE1CbJXO vIWecFta6KPZqQPQ0eZ K0eK2dFEEcINdac6C2v BY0F9CvjjPbuw5yw0ar KZGyTXvaS00wfLOfw4B 0XVNjaCM6OXHieWwaFu AthR58Pgf+PGNvbGdyb 8LaFmdzt0ery9qvlHt6 IjMwJSIgdmFsaWduPSJ 8c6LpHc18Z46uYMcbTX RoPSIxNSUiIHZhbGlnb q5nxI9eFm7+PGNvbCB3 kMU7mX6uOGVvDoS3DJj lH923BiTibQCiLpype0 tbx2pryDp2VaMhHZEgh vVnjUeeOMV1y4SeVl71 U01sDUycIACdUIFlDPR kAKCnfHlhia5luY4kXm 8+CN3te8eges00gL55b HI+YHBkDZP1dKaxEYri SNStsB4oGPwbTvX3QCL tOsGsjM42kJCqTCmxHo 2qsBkseFegTI0dFQCti nxfr678XpQod7yqIHOl uJJjMZepIRX8B56qd4G 7CCAaFEMxZTJ7sUZ8jZ 1hbGlnbjogbGVmdDsgd yLqqGlrBQloEXyzL090 IHRvcDsnPlBhdGllbnQ bGvBpONa1X8MbGex4EF LehBgeES8wxKHmTOtqZ c9jxLdygYydDP7gDLXl xsjrr024RkSzr8boTHD auSTzUPehYNX8T03aq2 C4PMZtDGLtGAO7cOD1l J2tlRryacyjqSRftCzx peXgnOfjXOicGTrmY62 6IHRvcDsnPkJpcnRoIE PmwRN5HK60HN94cSNqr 8Z2dXL2S4YiHFSvgqwh bhbieKH6QQXtSGYcrU7 5Rr8vcXdjCo5mCTPgER S0OJLugCIkV7YhgW0uT xTuKNYoOIIlM3LxfKWy EPjlJ523CLcwDcA0GRV btzNsJ2QqEUJtoEmsZs Z4h5V0Zo5HK3B3CV71P R16qNKhf1E7uXL1Z9Eq LPWcswbsvzkovBZ2XZO gNJPxwL27Pn8wgTgsZd 5jHAGiLTS2FXXdqTXyR 2AfgC8qAnDlYEXdCKOn R2RbbYSoMIqzV427LLk sDyL1UFSosaPoP9TtEB IabWakHuI6w8Z1Sq2ZA Xu0ZC55MZ97rNBin6F1 lAC4G0RfQEOjldxrpuk hlOW8YNMcRYOumG48Tx 7hjHdtQr0eYSScXSC5F WDcaFTeF2EzsH2oVpSh GJAfXSBeO1ErgQRtSCl xX366MNuxMoP6YFRvwg KrE3NdXVZawHexBiB7y 3M2Du6QQFWbAP09ZMZ5 zMB8TC97DY72P1UqRrt vdGFibGU+PHRhYmxlIH dpZHRoPScxMDAlJyBzd CrlGJ7hEv0uWTJzCOPw fHbgtWZpLjRje9tfARJ cVHbiEN2xsHakJ1VutH U9PHAxt1z2Qo29U82zK 3JvdXA+EEAdvZU6jQL3 gL1zPaAbJvM2BXliN92 9HvQxsGAmGtqoc5qeg8 fnhEt5OlD0CNNcfaFzy AffZLS8u0UjZy41D77c IHdpZHRoPSIxNSUiIHZ rwYddrv1xlB0iGu8+PG PuqQN2lIE9oO3pTcPrD mW2XMyjM821VoLlbIIg Munvx8mwa7wxiWp1WuP vNDSjsxZikMoiOFY0f8 HpBc30E7WeiCkje7AdS hl5xp82xGLxp8X9eUL5 A4AzFBFtchppyOXfxNq yNO6zFYFhlfohFLOowF 2oUFYiH7q4OkFsHkH7J KdwR8FeedE4HHHrlIVq BLnsGKY2P22tm0S1AAJ nJLCmNAC2oVV6rK5rbI lnbjogbGVmdDsgdmVyd KujRBctJRnzG616WBHw nBcpCAXdsA0kPDTaaHO tcNqwGM8tNEVzrrpgLd hBTEwsIEpBUkVEIFNDT 9KBQU59BR31jTKxe8V3 vUI1D9BcTJSxdeutvav itCP3JWYbBETkwI99lO FxFXarXx0iv8Q2q902Q FAdPOHgnL86Xb9gnQrs PXRurGGQdY4ikgufk8u qegbkLqAxXOAtHTv0KL i1WNEcuEfgCoVeNJJ0W aP8UKC3pNWgpQ4hkSkj xwkutK8aMso+MDgvMTg gOIe3MjvayCL+PHRkIH R1pXgrUKqzTUZqaL5bZ YAoS0u9MbJbOoQ4PPdz R8MoNBUcqyrsUn68zJ2 vBpKaNrW4QVnwC0Zdiq M6YWVmbKAkSNstJDK0P 39jf9S6BBMzEQCeZQP7 lCI7yA2yyZtzpinzoIS mdDsgdmVydGljYWwtYW muT204KCHmeSmoIfWaM ZbxGUWdMV32QW00bEOj l5Q8jHR4I7ZxOCMcbhd ekszuzQC3RWAtQQIagA 82gSDnOTqpLp8mr5S7j 881FWDpYVQkcO15Rg1g aUpyXHUrbTAPuI9kutp ti0dpjbleBeGxYOXiHT i2PVt3UBUscXtsMlNkX RZ5UjY8USC9tMEmdJ9z kMwvkzikiG0tVkx+TUF MRTwvdGQ+RFFrUAT3cN alUZafUQPnuA0wFGGcV 1g9GtXzVjL8RJdfL3Uz HMLoitzrAy05tO5fGoO hOlL1PHhdS6PycjJ7LJ CktQGoJZquTTO0E40nl 6P7NVOtHCDiNJH0bWO3 zE7daXqfqbordXIbbQh gdmVydGljYWwtYWxpZ2 33TCNdtIgkQk9XCW40S P39A4CbEbcuuDOdpMD+ PHRhYmxlIHdpZHRoPSc aNWXrUcDifNetIY0uXq 9yZGVyLWNvbGxhcHNlO oIwm0rhFTCpGJcaTH5j lHeqB6WjyAV5NVDbx7r 7Ue86S76xZ9LtfTH+PG XmzTT2lOP3jX6xDzAbD yR3THjjO670KiHitOAu Wvqqt4mfk5gscXr6LzA pSEMmcvTozHxgDXY2x0 DsYz82C06hWPdkQZDpE PAvUPEjQOVwlRkzio4r eU4wFv0+ASJkfOU5aTK 0qI7lGnGxQqV2YCwgA3 69EeUoaKFwXhkrT98wF 3JvdXA+WCPyHnk3LLSw eDvpUS2xcMLrFKmkVu6 pYKD0MxLkNfSzOBvpB9 JkTZEjjoyxmwfevXA7U BQsMPXbyH42Hs0obNva Li3kDVFhNXB2PRDziWJ mW3TsmU4xGeTpUGCeLW IsE9KjzWEtBRdjQ777H UrgJoH4DGCrjbSdL9Ws GGFltCgkBoO8p2W0Uo2 YmYmfaAUqXL3sDpNuUU e0P5EfGxq1ODAdgOysN T3lgBNnGQinDk9ohUma fJyxUK3vBMXvbbvwv60 5YsYpa7ypRUZlrTEpEP tkYEH1R57id2F4HDGzG SNdLVE3tVQ0eJ2koUye bjogbGVmdDsgdmVydGl fFMboKOwjV243OQBbtS riPgRXYgy2L8DdTpa7U LXhkDnkXK1kdKArNWrk Ti3jyQgzgDxsGI5bPXG fdhsvf739PzQri6ifDB HraNTjCDeqNHS0P92js 8X9SELcQXSiIRD6uWD6 bA7aiGhgpifhbIBpeMr gdmVydGljYWwtYWxpZ2 36PPRdkVtgLq9VTxd6E 8VyIrg1OWSsqLcyVN5k aNXtOFegYi2cwBnkgHq kUW2jPRTekjjjz937La Qyt7tmQJQljSLcEWrrA KJ5C09kh8W0XWKuQIOk ELP3lFU9oI1wzJsgbce gbGVmdDsgdmVydGljYW lcLSrgZ097GKUxbRlvB lBheWVyOjwvdGQ+PC90 uu10U6HdIuweHnz2EPW yCUS8rUC5rG1hDSAvEC ous3A4mAQ7C9PrwrLgu n2ad1mtMIJzCGeuQ24o bGF (more content not included)... [facility] Miscellaneous Testing LCon 0 01-28-2021 Mis. Test Result LC COMMENT Invalid Interpretation Code [facility] Comment on above: Result Comment: Test Ordered: [id number] Post VAS Semen Analysis, AUA Volume 3.4 mL FU Reference Range: Not Estab. Total Immotile Sperm Note: x10E6/mL FU No sperm seen. Reference Range: <0.10 Total Motile Sperm Note: x10E6/mL FU No motile sperm seen. Reference Interval: 0.53j99E4/mL Post-Vasectomy analysis was performed on an uncentrifuged specimen. Performed At: [facility] [address], [place] [id number] Davey Nolan PhD Ph:[phone] Performed At: [facility] [address] [place], [place] [id number] Enmanuel Dawson MD Ph:[phone] Performed By: #### 1 [id number] #### [facility] (DEFAULT) [address] [place] [address] Provider Orderson 01-27-2021 Provider Orders [id number] [facility] Miscellaneous Testing LCon 0 01-26-2021 Test Code 206347 Invalid Interpretation Code [facility] Comment on above: Performed By: #### 1 [id number] #### [facility] (DEFAULT) [address] [place] [id number] Test Name LC Semen Analysis postvasect Invalid Interpretation Code [facility] Comment on above: Performed By: #### 1 [id number] #### [facility] (DEFAULT) [address] [place] [address] Vital Signs Date Time Vital Sign Value Performing Clinician Rj gonzalez 10-20-2022 09:30-0500 Body height 182.[address] [facility] 10-20-2022 09:30-0500 Body mass index (BMI) [Ratio] 31.19 kg/m2 [facility] 10-20-2022 09:30-0500 Body weight 104.[address] [facility] Encounters Encounter Date Encounter Type Care Provider Facility Start: 11-05-2023 End: 11-05-2023 ambulatory GABRIELLE AZEVEDOA Not Available Start: 07-03-2023 End: 07-03-2023 ambulatory GABRIELLE Vidal WANDA Not Available Start: 10-20-2022 End: 10-23-2022 ambulatory GABRIELLE MUÑOZ [facility] Start: 10-20-2022 End: 10-22-2022 Subsequent hospital visit by physician [facility] Comment on above: RUQ abdominal pain Start: 09-27-2022 End: 09-30-2022 ambulatory GABRIELLE MUÑOZ [facility] Start: 09-27-2022 End: 09-29-2022 Subsequent hospital visit by physician [facility] Ultrasound Room [facility] Ultrasound Comment on above: Right upper quadrant pain Procedures Date Procedure Procedure Detail Performing Clinician Start: 10-20-2022 Hepatobil syst imag inc gb w/pharma intervenj Gabrielle Muñoz MD Work Phone: Start: 09-27-2022 Us abdominal real ti me w/image limited Gabrielle Muñoz MD Work Phone: Plan of Treatment Date Care Activity Detail Author Start: 01-30-2027 DTaP/Tdap/Td vaccine (2 - Td or Tdap) DTaP/Tdap/Td vaccine (2 - Td or Tdap) [facility] [employer] Start: 2022 Diabetes screen Diabetes screen [facility] [employer] Start: 03-13-2022 Influenza vaccination Flu vaccine (# 1) [facility] [employer] Start: 2005 Hepatitis C screening Hepatitis C sc reen [facility] [employer] Start: 2002 HIV screening HIV screen [facility] Start: 1999 Depression Screen [facility] Start[facility] 1988 Varicella vaccine (1 of 2 - 2-dose childhood series) Varicella vaccine (1 of 2 - 2-dose childhood series) [facility] [employer] Start: 1987 COVID-19 Vaccine (#1) COVID-19 Vacci ne (#1) [facility] [employer] Payers Date Payer Category Payer Medicaid [id number] 2022 Unknown [id number] 1.2.8 [id number] 1987 Unknown [id number] 2.16.8 [id number] 1987 Unknown [id number] 2.16.8 [id number] 1987 Unknown [id number] 2.16.84 [id number] 1987 Unknown [id number] Social History Date Type Detail [facility] [employer] Phone: Start: 1987 Sex Assigned At Not on file B ON [employer] Phone: Evaluation note Note Date & Type Note Facility Evaluation note Diagnosis Right upper quadrant pain Abdominal pain, right upper quadrant documented in this encounter [facility] [employer] Phone: Evaluation note Note Date & Type Note Facility Evaluation note Diagnosis RUQ abdominal pain Abdominal pain, right upper quadrant documented in this encounter [facility] [employer] Work Phone: Summary Purpose Family History No Family History Records FoundNo Family History Records FoundNo Family History Records FoundNo Family History Records Found Advance Directives No Advanced Directives Records FoundNo Advanced Directives Records FoundNo Advanced Directives Records FoundNo Advanced Directives Records Found Reason for Referral Specialty Diagnoses / Procedures Referred By Contac t Referred To Contact Radiology Diagnoses Right upper quadrant pain Procedures US GALLBLADDER RUQ Gabrielle Muñoz MD [address] [place] [id number] Referral ID Status Reason Start Date Expiration Date Visits Re quested Visits Authorized [id number] Closed 09/26/2022 09/26/2023 1 1 Specialty Diagnoses / Procedures Referred By Contac t Referred To Contact Radiology Diagnoses RUQ abdominal pain Procedures NM HEPATOBILIARY SCAN W EJECTION FRACTION Gabrielle Muñoz MD [address] [place] [address] Referral ID Status Reason Start Date Expiration Date Visits Re quested Visits Authorized [id number] Closed 10/10/2022 10/10/2023 1 1 Additional Source Comments (unrecognized sect ion and content) No Status Records FoundNo Status Records FoundNo Status Records FoundNo Status Records Found INFORMATION SOURCE (unrecogn ized section and content) DATE CREATED AUTHOR 02/05/2021 [facility] DATE CREATED AUTHOR AUTHOR'S ORGANIZ ATION 10/09/2021 [facility] dical Specialist DATE CREATED AUTHOR AUTHOR'S ORGANIZ ATION 10/22/2022 [facility] DATE CREATED AUTHOR AUTHOR'S ORGANIZ ATION 11/05/2023 [facility] dical Specialists EPIC Reason for Visit (unrecogniz ed section and content) Specialty Diagnoses / Procedures Referred By Contac t Referred To Contact Radiology Diagnoses Right upper quadrant pain Procedures US GALLBLADDER RUQ Gabrielle Muñoz MD [address] [place] [address] Referral ID Status Reason Start Date Expiration Date Visits Re quested Visits Authorized [id number] Closed 09/26/2022 09/26/2023 1 1 Specialty Diagnoses / Procedures Referred By Contac t Referred To Contact Radiology Diagnoses RUQ abdominal pain Procedures NM HEPATOBILIARY SCAN W EJECTION FRACTION Gabrielle Muñoz MD [address] [place] [address] Referral ID Status Reason Start Date Expiration Date Visits Re quested Visits Authorized [id number] Closed 10/10/2022 10/10/2023 1 1 Care Teams (unrecognized sec tion and content) Customer Retention Specialist Relationship 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 [place] [address] PCP - General Family Medicine 09/26/22 Customer Retention Specialist Relationship 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 [place] [address] PCP - General Family Medicine 09/26/22 FOR RECORDS PERTAINING TO PATIENTS WHO ARE OR HAVE BEEN ENROLLED IN A CHEMICAL DEPENDENCY/SUBSTANCEABUSE PROGRAM, SOME INFORMATION MAY BE OMITTED. This clinical summary was aggregated from multiple sources. Caution should be exercised in using it in the provision of clinical care. This summary normalizes information from multiple sources, and as a consequence, information in this document may materially change the coding, format and clinical context of patient data. In addition, data may be omitted in some cases. CLINICAL DECISIONS SHOULD BE BASED ON THE PRIMARY CLINICAL RECORDS. [employer] provides no warranty or guarantee of the accuracy or completeness of information in this document.
== END 2024-01-28 12:40 | disposition home or self-care (01) ==
LOC: EC 12:40
PROVIDERS: PCP Family Medicine; Visit Provider Orthopaedic Surgery
DX: S62.514B Nondisplaced fracture of proximal phalanx of right thumb, initial encounter for open fracture (principal)
CPT/HCPCS: 73130

== ENCOUNTER 2024-01-29 14:51 | Day surgery (SDC) | payer SELFPAY ==
[2024-01-29] VITALS (11 sets, daily range): BP systolic 126–144; BP diastolic 52–88; PULSE 84–99; TEMP 36.1–36.6; O2SAT 90–97; BMI 29.0
--- OUTSIDE RECORDS SUMMARY | 2024-01-29 15:05 | XMS_ITS | CCD ---
Author Organization [facility] Care Team Providers Care Cotton Ginner Helper Name Role Phone Gabrielle Muñoz MD Primary [...] cholecystitis. Gallbladder ejection fraction is approximately 91%. [facility] CONSOLIDATED EXAMINATION: NUCLEAR MEDICINE HEPATOBILIARY SCINTIGRAPHY (HIDA SCAN) WITH EJECTION FRACTION. TECHNIQUE: Approximately 5.4 millicuries Tc99m Mebrofenin (Choletec) was administered IV. Then, dynamic images of the abdomen were obtained in the anterior projection for 60 mins. A right lateral view was also obtained at 60 mins. Slow infusion of 2.09 mcg cholecystokinin was administered intravenously over 30-60 mins. Images were obtained in the ALBANIAN projection and regions of interest were drawn [...] range is based on a limited study. [facility] Jerry Pimentel MD - 10/20/2022 EXAMINATION: NUCLEAR [...] 30-60 mins. Images were obtained in the ALBANIAN projection and regions of interest were drawn [...] cholecystitis. Gallbladder ejection fraction is approximately 91%. [employer] Phone: Radiology Study observation (narrative) [employer] Phone: NM HEPATOBILIARY SCAN W EJEC TION FRACTIONOrdered By: Jerry Armstrong on 10-20-2022 [employer] Phone: NM HEPATOBILIARY SCAN W PHAR MACOLOGICAL [...] 30-60 mins. Images were obtained in the ALBANIAN projection and regions of interest were drawn [...] Jerry Armstrong MD 10/20/22 Final result Normal [facility] US GALLBLADDER RUQon 023 US GALLBLADDER RUQ [...] Negin Bustillos MD 09/27/22 Final result Normal [facility] Unremarkable right upper quadrant ultrasound. [facility] RIS CONSOLIDATED EXAMINATION: RIGHT UPPER QUADRANT ULTRASOUND [...] No evidence of right upper quadrant ascites. [facility] Negin Ibarra MD - 09/27/2022 EXAMINATION: RIGHT [...] ascites. IMPRESSION: Unremarkable right upper quadrant ultrasound. [employer] Phone: Radiology Study observation (narrative) [employer] Phone: US GALLBLADDER RUQOrdered By : Negin Bustillos on 09-27-2022 [employer] Phone: Q - CBC W/DIFF AND PLTon BASOABS 53 cells/uL Normal 0-200 [facility] Calendar Control Clerk Comment on above: Order Comment: [facility] performed at: [employer] [facility], [address] [place] [address], [address] [place] [address], [id number], [employer]: Otto Nuñez MD [facility] Collection Date/Time: [id number] [facility] Results Received Date/Time: [facility] Reported Date/Time: [id number] Performed By: #### 9 68T, [id number], 42A #### [facility] Default [address] [place] [address] Basophils/100 WBC (Bld) 0.9 % Normal [facility] Calendar Control Clerk Comment on above: Order Comment: [facility] performed at: [employer] [facility], [address], [address] [place] [address], [address] [place] [address], [employer]: Otto Nuñez MD [facility] Collection Date/Time: [facility] Results Received Date/Time: [facility] Reported Date/Time: Performed By: #### 9 68T, [id number], 42A #### [facility] Default [address] [place] [address] EOSABS 271 cells/uL Normal 15-500 [facility] Blood Bank Calendar Control Clerk Comment on above: Order Comment: [facility] performed at: [employer], [address] [place] [address], [address] [place] [address], [address] [place] [address], [employer]: Otto Nuñez MD [facility] Collection Date/Time: [facility] Results Received Date/Time: [facility] Reported Date/Time: Performed By: #### 9 68T, [id number], 42A #### [facility] Default [address] [place] [address] Eosinophils/100 WBC (Bld) 4.6 % Normal [facility] Specialist Comment on above: Order Comment: [facility] performed at: [employer], [address], [address] [place] [address], [address] [place] [address], [employer]: Otto Nuñez MD [facility] Collection Date/Time: [facility] Results Received Date/Time: [facility] Reported Date/Time: Performed By: #### 9 68T, [id number], 42A #### [facility] Default [address] [place] [address] Erythrocyte distribution width (RBC) [Ratio] 11.9 % Normal 11.0-15.0 [facility] Specialist Comment on above: Order Comment: [facility] performed at: [employer], [address], [address] [place] [address], [address] [place] [address], [employer]: Otto Nuñez MD [facility] Collection Date/Time: [facility] Results Received Date/Time: [facility] Reported Date/Time: Performed By: #### 9 68T, [id number], 42A #### [facility] Default [address] [place] [address] Hematocrit (Bld) [Volume fraction] 50.9 % High 38.5-50.0 [facility] Calendar Control Clerk Comment on above: Order Comment: [facility] performed at: [employer], [address] , [address] [place] [address], [address] [place] [address], [employer]: Otto Nuñez MD [facility] Collection Date/Time: [facility] Results Received Date/Time: [facility] Reported Date/Time: Performed By: #### 9 68T, [id number], 42A #### [facility] Default [address] [place] [address] Hemoglobin (Bld) [Mass/Vol] 17.3 g/dL High 13.2-17.1 [facility] Calendar Control Clerk Comment on above: Order Comment: [facility] performed at: [employer], [address], [address] [place] [address], [address] [place] [address], [employer]: Otto Nuñez MD [facility] Collection Date/Time: [facility] Results Received Date/Time: [facility] Reported Date/Time: Performed By: #### 9 68T, [id number], 42A #### [facility] Default [address] [place] [address] Lymphocytes (Bld) [#/Vol] 1.611 10*3/uL Normal 850-3900 [facility] Calendar Control Clerk Comment on above: Order Comment: [facility] performed at: [employer], [address] , [address] [place] [address], [address] [place] [address], [employer]: Otto Nuñez MD [facility] Collection Date/Time: [facility] Results Received Date/Time: [facility] Reported Date/Time: [id number] Performed By: #### 9 68T, [id number], 42A #### [facility] Default [address] [place] [address] Lymphocytes/100 WBC (Bld) 27.3 % Normal [facility] Calendar Control Clerk Comment on above: Order Comment: [facility] performed at: [employer], [address] [place] [address], [address] [place] [address], [address] [place] [address], [employer]: Otto Nuñez MD [facility] Collection Date/Time: [facility] Results Received Date/Time: [facility] Reported Date/Time: Performed By: #### 9 68T, 59250M, 42A #### [facility] Default [address] [place] [address] MCH (RBC) [Entitic mass] 31.3 pg Normal 27.0-33.0 [facility] Calendar Control Clerk Comment on above: Order Comment: [facility] performed at: [employer], [address] [place] [address], [address] [place] [address], [address] [place] [address], [employer]: Otto Nuñez MD [facility] Collection Date/Time: [facility] Results Received Date/Time: [facility] Reported Date/Time: Performed By: #### 9 68T, [id number], 42A #### [facility] Default [address] [place] [address] MCHC (RBC) [Mass/Vol] 34.0 g/dL Normal 32.0-36.0 [facility] Calendar Control Clerk Comment on above: Order Comment: [facility] performed at: [employer], [address] [place] [address], [address] [place] [address], [address] [place] [address], [employer]: Otto Nuñez MD [facility] Collection Date/Time: [facility] Results Received Date/Time: [facility] Reported Date/Time: Performed By: #### 9 68T, [id number], 42A #### [facility] Default [address] [place] [address] MCV (RBC) [Entitic vol] 92.0 fL Normal 80.0-100.0 [facility] Calendar Control Clerk Comment on above: Order Comment: [facility] performed at: [employer], [address], [address] [place] [address], [address] [place] [address], [employer]: Otto Nuñez MD [facility] Collection Date/Time: [facility] Results Received Date/Time: [facility] Reported Date/Time: Performed By: #### 9 68T, 07578S, 42A #### [facility] Default [address] [place] [address] MONOABS 726 cells/uL Normal 200-950 [facility] Blood Bank Calendar Control Clerk Comment on above: Order Comment: [facility] performed at: [employer], [address] [place] [address], [address] [place] [address], [address] [place] [address], [employer]: Otto Nuñez MD [facility] Collection Date/Time: [facility] Results Received Date/Time: [facility] Reported Date/Time: Performed By: #### 9 68T, [id number], 42A #### [facility] Default [address] [place] [address] Monocytes/100 WBC (Bld) 12.3 % Normal [facility] Calendar Control Clerk Comment on above: Order Comment: [facility] performed at: [employer], [address] [place] [address], [address] [place] [address], [address] [place] [address], [employer]: Otto Nuñez MD [facility] Collection Date/Time: [facility] Results Received Date/Time: [facility] Reported Date/Time: Performed By: #### 9 68T, [id number], 42A #### [facility] Default [address] [place] [address] Neutrophils (Bld) [#/Vol] 3.239 10*3/uL Normal 5483-3691 [facility] Calendar Control Clerk Comment on above: Order Comment: [facility] performed at: [employer], [address] [place] [address], [address] [place] [address], [address] [place] [address], [employer]: Otto Nuñez MD [facility] Collection Date/Time: [facility] Results Received Date/Time: [facility] Reported Date/Time: Performed By: #### 9 68T, 87235S, 42A #### [facility] Default [address] [place] [address] Neutrophils/100 WBC (Bld) 54.9 % Normal [facility] Calendar Control Clerk Comment on above: Order Comment: [facility] performed at: [employer], [address] [place] [address], [address] [place] [address], [address] [place] [address], [employer]: Otto Nuñez MD [facility] Collection Date/Time: [facility] Results Received Date/Time: [facility] Reported Date/Time: Performed By: #### 9 68T, [id number], 42A #### [facility] Default [address] [place] [address] Platelet mean volume (Bld) [Entitic vol] 10.5 fL Normal 7.5-12.5 [facility] Calendar Control Clerk Comment on above: Order Comment: [facility] performed at: [employer] [facility], [address] [place] [address], [address] [place] [address], [address] [place] [address], [employer]: Otto Nuñez MD [facility] Collection Date/Time: [facility] Results Received Date/Time: [facility] Reported Date/Time: Performed By: #### 9 68T, [id number], 42A #### [facility] Default [address] [place] [address] Platelets (Bld) [#/Vol] 296 10*3/uL Normal 140-400 [facility] Calendar Control Clerk Comment on above: Order Comment: [facility] performed at: [employer] [facility], [address] [place] [address], [address] [place] [address], [address] [place] [address], [employer]: Otto Nuñez MD [facility] Collection Date/Time: [facility] Results Received Date/Time: [facility] Reported Date/Time: Performed By: #### 9 68T, 90315G, 42A #### [facility] Default [address] [place] [address] RBC (Bld) [#/Vol] 5.53 10*6/uL Normal 4.20-5.80 [facility] [place] [facility] Calendar Control Clerk Comment on above: Order Comment: [facility] performed at: [employer], [address], [address] [place] [address], [address] [place] [address], [employer]: Otto Nuñez MD [facility] Collection Date/Time: [id number] [facility] Results Received Date/Time: [facility] Reported Date/Time: Performed By: #### 9 68T, [id number], 42A #### [facility] Default [address] [place] [address] WBC (Bld) [#/Vol] 5.9 10*3/uL Normal 3.8-10.8 Terrance mackenzie [place] [facility] Calendar Control Clerk Comment on above: Order Comment: [facility] performed at: [employer], [address] [place] [address], [address] [place] [address], [address] [place] [address], [employer]: Otto Nuñez MD [facility] Collection Date/Time: [id number] [facility] Results Received Date/Time: [facility] Reported Date/Time: Performed By: #### 9 68T, 12577K, 42A #### [facility] Default [address] [place] [address] Q - COMPREHENSIVE METABOLIC PANEL W/EGFRon 10-07-2021 Albumin [Mass/Vol] 4.4 g/dL Normal 3.6-5.1 Terrance mackenzie [place] [facility] Calendar Control Clerk Comment on above: Order Comment: [facility] performed at: [employer], [address], [address] [place] [address], [address] [place] [address], [employer]: Otto Nuñez MD [facility] Collection Date/Time: [facility] Results Received Date/Time: [facility] Reported Date/Time: Performed By: #### 9 68T, 11863D, 42A #### [facility] Default [address] [place] [address] Albumin/Globulin [Mass ratio] 1.7 {ratio} Normal 1.0-2.5 [facility] Specialist Comment on above: Order Comment: [facility] performed at: [employer], [address] [place] [address], [address] [place] [address], [address] [place] [address], [employer]: Otto Nuñez MD [facility] Collection Date/Time: [facility] Results Received Date/Time: [facility] Reported Date/Time: Performed By: #### 9 68T, [id number], 42A #### [facility] Default [address] [place] [address] ALP [Catalytic activity/Vol] 42 U/L Normal 36-130 [facility] Calendar Control Clerk Comment on above: Order Comment: [facility] performed at: [employer], [address] [place] [address], [address] [place] [address], [address] [place] [address], [employer]: Otto Nuñez MD [facility] Collection Date/Time: [facility] Results Received Date/Time: [facility] Reported Date/Time: Performed By: #### 9 68T, [id number], 42A #### [facility] Default [address] [place] [address] ALT [Catalytic activity/Vol] 19 U/L Normal 9-46 [facility] Calendar Control Clerk Comment on above: Order Comment: [facility] performed at: [employer], [address] [place] [address], [address] [place] [address], [address] [place] [address], [employer]: Otto Nuñez MD [facility] Collection Date/Time: [facility] Results Received Date/Time: [facility] Reported Date/Time: Performed By: #### 9 68T, [id number], 42A #### [facility] Default [address] [place] [address] AST [Catalytic activity/Vol] 16 U/L Normal 10-40 [facility] Specialist Comment on above: Order Comment: [facility] performed at: [employer] [facility], [address] [place] [address], [address] [place] [address], [address] [place] [address], [employer]: Otto Nuñez MD [facility] Collection Date/Time: [facility] Results Received Date/Time: [facility] Reported Date/Time: Performed By: #### 9 68T, [id number], 42A #### [facility] Default [address] [place] [address] Calcium [Mass/Vol] 9.5 mg/dL Normal 8.6-10.3 [facility] Comment on above: Order Comment: [facility] performed at: [employer], [address] [place] [address], [address] [place] [address], [address] [place] [address], [employer]: Otto Nuñez MD [facility] Collection Date/Time: [facility] Results Received Date/Time: [facility] Reported Date/Time: Performed By: #### 9 68T, 59120U, 42A #### [facility] Default [address] [place] [address] Chloride [Moles/Vol] 103 mmol/L Normal 98-110 [facility] Specialist Comment on above: Order Comment: [facility] performed at: [employer] [facility], [address], [address] [place] [address], [address] [place] [address], [employer]: Otto Nuñez MD [facility] Collection Date/Time: [facility] Results Received Date/Time: [facility] Reported Date/Time: Performed By: #### 9 68T, [id number], 42A #### [facility] Default [address] [place] [address] CO2 [Moles/Vol] 26 mmol/L Normal 20-32 [facility] Specialist Comment on above: Order Comment: [facility] performed at: [employer] [facility], [address] , [address] [place] [address], [address] [place] [address], [employer]: Otto Nuñez MD [facility] Collection Date/Time: [facility] Results Received Date/Time: [facility] Reported Date/Time: Performed By: #### 9 68T, 15546E, 42A #### [facility] Default [address] [place] [address] Creatinine [Mass/Vol] 1.04 mg/dL Normal 0.60-1.35 [facility] Calendar Control Clerk Comment on above: Order Comment: [facility] performed at: [employer], [address], [address] [place] [address], [address] [place] [address], [employer]: tOto Nuñez MD [facility] Collection Date/Time: [facility] Results Received Date/Time: [facility] Reported Date/Time: Performed By: #### 9 68T, [id number], 42A #### [facility] Default [address] [place] [address] eGFRAA ([facility]) 108 mL/min/1.73m2 Normal > OR = 60 [facility] Blood Bank Calendar Control Clerk Comment on above: Order Comment: [facility] Testing performed at: [employer], [address], [address] [place] [address], [address] [place] [address], [employer]: Otto Nuñez MD [facility] Collection Date/Time: [facility] Results Received Date/Time: [facility] Reported Date/Time: Performed By: #### 9 68T, [id number], 42A #### [facility] Default [address] [place] [address] eGFRNAA ([facility]) 93 mL/min/1.73m2 Normal > OR = 60 [facility] Blood Bank Calendar Control Clerk Comment on above: Order Comment: [facility] performed at: [employer], [address], [address] [place] [address], [address] [place] [address], [employer]: Otto Nuñez MD [facility] Collection Date/Time: [facility] Results Received Date/Time: [facility] Reported Date/Time: Performed By: #### 9 68T, 48490X, 42A #### [facility] Default [address] [place] [address] Globulin (S) [Mass/Vol] 2.6 g/dL Normal 1.9-3.7 [facility] Calendar Control Clerk Comment on above: Order Comment: [facility] performed at: [employer] [facility], [address] [place] [address], [address] [place] [address], [address] [place] [address], [employer]: Otto Nuñez MD [facility] Collection Date/Time: [facility] Results Received Date/Time: [facility] Reported Date/Time: Performed By: #### 9 68T, [id number], 42A #### [facility] Default [address] [place] [address] Glucose [Mass/Vol] 85 mg/dL Normal 65-99 [facility] Specialist Comment on above: Order Comment: [facility] performed at: [employer] [facility], [address] [place] [address], [address] [place] [address], [address] [place] [address], [employer]: Otto Nuñez MD [facility] Collection Date/Time: [facility] Results Received Date/Time: [facility] Reported Date/Time: Result Comment: Fasting reference interval Performed By: #### 9 68T, 74342M, 42A #### [facility] Default [address] [place] [address] Potassium [Moles/Vol] 4.9 mmol/L Normal 3.5-5.3 [facility] Calendar Control Clerk Comment on above: Order Comment: [facility] performed at: [employer] [facility], [address] [place] [address], [address] [place] [address], [address] [place] [address], [employer]: Otto Nuñez MD [facility] Collection Date/Time: [facility] Results Received Date/Time: [facility] Reported Date/Time: Performed By: #### 9 68T, 77146X, 42A #### [facility] Default [address] [place] [address] Protein [Mass/Vol] 7.0 g/dL Normal 6.1-8.1 Terrance mackenzie [place] [facility] Calendar Control Clerk Comment on above: Order Comment: [facility] performed at: [employer], [address] [place] [address], [address] [place] [address], [address] [place] [address], [employer]: Otto Nuñez MD [facility] Collection Date/Time: [facility] Results Received Date/Time: [facility] Reported Date/Time: Performed By: #### 9 68T, [id number], 42A #### [facility] Default [address] [place] [address] Sodium [Moles/Vol] 138 mmol/L Normal 135-146 Terrance rn [place] [facility] Calendar Control Clerk Comment on above: Order Comment: [facility] performed at: [employer], [address] [place] [address], [address] [place] [address], [address] [place] [address], [employer]: Otto Nuñez MD [facility] Collection Date/Time: [facility] Results Received Date/Time: [facility] Reported Date/Time: Performed By: #### 9 68T, 05361S, 42A #### [facility] Default [address] [place] [address] TBIL <0.3 Normal 0.2-1.2 [facility] Calendar Control Clerk Comment on above: Order Comment: [facility] performed at: [employer], [address] [place] [address], [address] [place] [address], [address] [place] [address], [employer]: Otto Nuñez MD [facility] Collection Date/Time: [facility] Results Received Date/Time: [facility] Reported Date/Time: Performed By: #### 9 68T, [id number], 42A #### [facility] Default [address] [place] [address] Urea nitrogen [Mass/Vol] 26 mg/dL High 7-25 [facility] Calendar Control Clerk Comment on above: Order Comment: [facility] performed at: [employer], [address] [place] [address], [address] [place] [address], [address] [place] [address], [employer]: Otto Nuñez MD [facility] Collection Date/Time: [facility] Results Received Date/Time: [facility] Reported Date/Time: Performed By: #### 9 68T, [id number], 42A #### [facility] Default [address] [place] [address] Urea nitrogen/Creatinine [Mass ratio] 25 mg/mg High 6-22 [facility] Calendar Control Clerk Comment on above: Order Comment: [facility] performed at: [employer], [address] [place] [address], [address] [place] [address], [address] [place] [address], [employer]: Otto Nuñez MD [facility] Collection Date/Time: [facility] Results Received Date/Time: [facility] Reported Date/Time: Performed By: #### 9 68T, [id number], 42A #### [facility] Default [address] [place] [address] Q - Lipid Panelon 10-07-2021 Cholesterol [Mass/Vol] 224 mg/dL High <200 [facility] Calendar Control Clerk Comment on above: Order Comment: [facility] Testing performed at: [facility], [facility], [address] [place] [address], [address] [place] [address], [address] [place] [address], [facility]: Otto Nuñez MD [facility] Collection Date/Time: [facility] Results Received Date/Time: [facility] Reported Date/Time: Performed By: #### 9 68T, 29338S, 42A #### [facility] Default [address] [place] [address] Cholesterol in HDL [Mass/Vol] 47 mg/dL Normal > OR = 40 [facility] Calendar Control Clerk Comment on above: Order Comment: [facility] performed at: [facility], [facility], [address], [address] [place], [place], [address] [place] [address], [facility]: Otto Nuñez MD [facility] Collection Date/Time: [facility] Results Received Date/Time: [facility] Reported Date/Time: Performed By: #### 9 68T, 52762S, 42A #### [facility] Default [address] [place] [address] Cholesterol in LDL [Mass/Vol] 151 mg/dL High [facility] Calendar Control Clerk Comment on above: Order Comment: [facility] performed at: [facility], [facility], [address] [place] [address], [address] [place] [address], [address] [place] [address], [facility]: Otto Nuñez MD [facility] Date/Time: [facility] [...] LDL-C. Kamaljit SS et al. SAY. 2013;310(19): 3461-0171 (http://education.KidBook.Ohlalapps/faq/WNB104) Performed By: #### 9 68T, 54158Q, 42A #### [facility] Default [address] [place] [address] Cholesterol.total/C holesterol in HDL [Mass ratio] 4.8 {ratio} Normal <5.0 [facility] Calendar Control Clerk Comment on above: Order Comment: [facility] performed at: [facility], [facility], [address], [address] [place], [address] [place] [address], [employer]: Otto Nuñez MD [facility] Collection Date/Time: [facility] Results Received Date/Time: [facility] Reported Date/Time: Performed By: #### 9 68T, [id number], 42A #### [facility] Default [address] [place] [address] NON HDL CHOLESTEROL 177 mg/dL (calc) High <130 [facility] Calendar Control Clerk Comment on above: Order Comment: [facility] performed at: [facility], [facility], [address], [address] [place], [address], [facility] [employer]: Otto Nuñez MD [facility] Date/Time: [facility] Results Received Date/Time: [facility] Reported Date/Time: Result Comment: For patients with diabetes plus 1 major ASCVD risk factor, treating to a non-HDL-C goal of <100 mg/dL (LDL-C of <70 mg/dL) is considered a therapeutic option. Performed By: #### 9 68T, 31377Y, 42A #### [facility] Default [address] [place] [address] Triglyceride [Mass/Vol] 132 mg/dL Normal <150 [facility] Calendar Control Clerk Comment on above: Order Comment: [facility] performed at: [facility], [facility], [address], [address] [place] [address], [place], [address], [facility]: Otto Nuñez MD [facility] Date/Time: [facility] Results Received Date/Time: [facility] Reported Date/Time: Performed By: #### 9 68T, 77704F, 42A #### [facility] Default [address] [place] [address] Coding Summaryon 02-04-2021 Coding Summary HTMLBase 64 WrgutltfPTe7sOn+PGh lYWQ+BD8YLGFqO82awK DzqH1TD8uDFA3DZDORN VJNDG6WXL7qbPT5VYqh Z1MmcsHn QwhozCDxED11AIw0NXE 6rEazKKlrsW1syQPmV8 i4PtLyPC96iP40CNcjZ CRgQnN5XnLzgfsdaVWd R4moHkIlrZRpDss+PHR hYmxlIHdpZHRoPScxMD LsRqEvwRbpOF2rFo8bV GVyLWNvbGxhcHNlOiBj t4waFPWfFDdcTI8kkPl qQ2RubMX2KWOqf9y0Ch 48dHI+AJMjOWA1vOpqU Spyz128DpTgd2ggXPM2 aOKfMMutZJT5V79wr6A 8DPOdMDBjSGR1kPR3rS 4ewWnfflefU3LcgLDgJ bP2DHL0oSBoiP8faXjp gmrolQ4wNuy+O75WSR5 HDZQUVA9CMre8L0VjGw wvdHI+YH63LOCuOS88p VIpfUWvk8vllVk6JaJv MRClKDN0mAmoMUbif4Q gGHScR84wwVSfr5T7XZ YefEnnoSAuLzXyyGO8b M9cGUphytook7xnyrfx Vczwe1eycu48cX36Y49 gFVorXRGkJFU5GIJeYU MbjZrrdt9auL5pDq1+I Wzch0zzg6choVb2LsTd BQZtfnTocSzdXKF0o5S ePt08L4WqoExav8KpSh x4xh97yYTyz5L2kRR5X SxiTYYhkT1pIMyaLxD3 QFHeOtAdhA55mZKaCOk sTj4euAkkpAwsEE7aNL KccrnzFFBmjZ8aXHEnl UUfyUjqAZ4hSKLdybwo l510LcTxCUC0SJScsWZ lN6GokM2vSwHoGKWsQK YhT7NnmXWrUImgD229U HtsIsE0PULlqvIiU1Fi OWSzfEpfAmC7j3F2Kc0 Pu4AlggntXLN7ILokUJ X3AfE8NcQwEnN6C5YhI ar5FNXijEyfGA5bX4Qx TQCenprapehnwZS2IUE nSOUsiZ61kGTbCOaiSm 3fl0C0s172OUVgIVZfo Z30Zu8alOshUZCmoWWA mV6padpkr3ftggkyWqJ uDUSpZKk2EEi9WACfxK vzLzMlXDY5ScY6XSX4b BTgnC9deXtohzhmnM3a Oyc+P51pjL9gGKC6RMH 0gereMSVktgQzTN07JG 84D3LcVzbfyIPtpJE+P CFlxwNerQnyNG9eEgVr x5ywg2WgLNqvB1EuJOR iCMufWng9ZBBzUYA9zP C8fM9qVMZvSMeym6O3r RF2I6GiadRhlp9gx4pq WYMvFMviC81egQPui4W 0CYHsxWQ0HSBefXmdPw ZosF32Emw+PGNvbGdyb 0HsPiqvj3bkq3dlcAf3 IjMwJSIgdmFsaWduPSJ 2s8GvAa93K01fFFguFM RoPSIxNSUiIHZhbGlnb g1ajU4oEe7+PGNvbCB3 jRE9dF3gATMcFkV9SKi rI712BnTvbLNtGjyzn5 gei4jcqSh8KiAlIBBbk fRknBkkROG0b4OkYp69 S73xQDlpYIOxWPXuWLN aRZCesJpjgk4rnF9mUr 8+ZV9al0fhdb33mC50m HI+KEPzETL6pVqvSSnv XQUnjB7lJFvyOrS1ULK kOhMmhS53fAYeONseXx 3wjGxhiVapBF3sJZOch sjiu056KzWfa0scVYIo lGTmJMcbWMR5U18vb2P 6PIYqYOKjECE9gVJ7sX 1hbGlnbjogbGVmdDsgd iWhgEtuVMzwYOpmO534 IHRvcDsnPlBhdGllbnQ aUkFhBRh4G6IdGrs7GH QymBizHW7snNWdJWfqH j6wbTvaeWgkVL8tNPFk zfife133OrZsl4bwBUN mfSWlJKsnLRH4I97lj3 V8LLKfMIAoPLB7hDM0j R9mvCgirvwvmLHtuCuu mkQafZzrBOtuYXnaN58 6IHRvcDsnPkJpcnRoIE SveTM2VI56NB07wFIiv 5A3fRB1D7TfBCDevomc gyhbqTS3GYNlAQRwfT0 7Ez6sgZwoCu2lWBTeEI X9IQXujDRsJ3YdaX7cB mVwOEDcLJLhB2QglXJb NOgnJ292WDccOoQ2EZH zlnNtQ8BbPSDytUbrSq O6r3Y7Wp9TD3Z0EB33A M95yHWyl3O3qUE1U7Mf VBGtpfziihvfhOL5QTA eSZNnuW33Wd3lrIufAl 1gVOUcTVO8TDOkwMJxV 4FcqL1vZnRsCUQoCFVg O7JygLIaSWfuY261FZt mJfT0EGEoygBoO4ZxNU NtsUhqYhJ0y1G0El1UZ Td3WQ00ZL47jWQfw6I4 sCQ9X7IePHNfansyvsn lnXK8XTPsJWImhF25Wb 5ijVuqHy1cMDIfVRJ7G ZHtoPHvN7WtjU2wHzVi NICoVSMaO9AcbTRwMVc xA846VBotWbA9OOHmwv CcL2XyTAJvbLjcDpR8v 6R4Hb5LYYQeWN07OCW3 nEM8UB93TR43J7HfLeo vdGFibGU+PHRhYmxlIH dpZHRoPScxMDAlJyBzd DgwEA5wSd9bWXBkFKWl sJpwpAAiHtMba9plBJG sYFokLW1kiGivH5HzlV C8XGFyu9o3My65T97xX 3JvdXA+FUXvuDF2dPR2 sE8uBwUnRhJ3VJzmR09 1NdBzyUEyLflsy0qto1 qcdMt5WcH6FTGryjIda OyjVIR1t5SkQu18D93z IHdpZHRoPSIxNSUiIHZ qlCovag7imD3oSe1+PG QaaEY9sRA2rM3eCjRtK gM3ILimU898BhPdeJTe Juubp0evn9ilnDf5GxA sGPLftbSsoTpuKCQ0q8 QsJc39W9LalItxk6EmH io7tx26oWDwv8D3iJW7 S5LeIAYqqbjeqGXigYz eDL4qVSTagnwpNBYmiA 0iHUHuX5t7ZxRoVpI9Z EbhT1CxznO2XITrnIDl DHlyJQO1B66xc3X5HOE hLMOmISI6uDI8fV1dpT lnbjogbGVmdDsgdmVyd MagVJhzBEklH369LBXy zKgiAKAajT7oOEQxkQA tcApmNN2eSRJhvplzVm hBTEwsIEpBUkVEIFNDT 0WMOV52WQ08rJYrq2K6 eGF5A8JeKWEmcjjzytm vwCN4XKDkMBAlmW75kC EwKVjfLl8qg2Q8j074Q BNiPBFskN94Rw7amOpb PIExeKJOxB4aepaty9y xodwnGeNsOYCzPRj8AR a1MOHkdUakOpWuQDK8W aI9JEQ9uBRffM9ahTov uekdlX7cTow+MDgvMTg wPYr9KtzvwJB+PHRkIH S5qZsvDUwcGFXfdY8uO LWlK3n9BiYyAhO5QFzz J3EzHTCusrtpVy38eM4 wRpJzUiF2SOsjD6Fwqj T0ILVoqMWbOKegRBI8A 80yd2K3LZOyDNVmXKN9 bPX2qN0vgTbudtkdqFX mdDsgdmVydGljYWwtYW uwN209GDHdnXgpKvMrS NahZONdWT95SF87eIGi g5W1fPS1H0OdEHMqble qjtoxvFO1IQWuPMXziJ 45iUJvTNwdRf0dd0B6w 127EXPtWZEuiA77Nx9n nIjtWRJawGNPmE4wngo am0sfwrhvYrAdRWEfZY j2APl7UOMenOgrXaWuU KG9IkL4WQE1qTJmfH3b rPjflhqnxC5vQrs+TUF MRTwvdGQ+HXWnWRH8xI ooPKsnKHZloY4gFIWaN 8o8MdCbXwM8BWdtQ7Nu QAZpobnqVz88vK9fFqO nOoH4VMlnN2EypmL6YA ZxnCUyTDjcIYK2K51or 7Y8QRRjLFUrABW5gMF7 zB3pwHiwcyofxOUplIv gdmVydGljYWwtYWxpZ2 69DFIkgIleQu6ATZ24J Z27G8SqWlorvUXjeNZ+ PHRhYmxlIHdpZHRoPSc iVWZiVfCkqEhyRN7gQv 9yZGVyLWNvbGxhcHNlO bElx1bcFPQtNButKN7w qHplS5LeiEF2NELmv7v 6Lp18Z49bY2RqkFF+PG AbtEP5qLR5xR1dToXwQ iO4XSshX565WlDnjFAs Mkyex4tlp9zuwNu0AtL hOTXjnoWfhDqiWUT7e9 UlXa37M95bWXgnYIQcS WIbZDGxRMHblOibrr1z fE6jJj7+WNNxoIM3wIL 0hR3fAeEeMrN9BAgtL6 01RqTkbEGnQglmL55bM 3JvdXA+GCHaPek7UOPz bSepXB0byZHlCYwhUs4 hYMS7WhVqKcVtJNuiQ8 AwSHNtaxkeddhrzWB1A EYqSSIsrU02Yg8hbIhk Ge9uTWQnIOW8DOPzjWM lS3BtiU7xXxNiNYYnKL LmZ2TiyCMmEAuiA955Y AiqTwR9ZIUcryEkB1Nk WDTzsAzeTdM8j8E2Bl9 VnNjnkTVcUO5zCvAaXF w2L6FmGsy9NUQlwSbxN H9mhKRmBVujEs2nnTie pAilMS6dGGNszuclo58 3AgPla6tyRLAxuHNcAH lnTGH9K51cr9V9XIGiQ FRfAJF0aCF1lL1rqRdb bjogbGVmdDsgdmVydGl qGRkdMPvfI218YEEtfT umWhGSBdj7Q8KjQvv7A SBnzKljEU6ysTVuBKcs Xo4jxEdpgWeuKC2bPIS nrezng546HaRct5waXT MqgZDmYThqSSP5O11ju 9U6DFRxDAYnZZW5aSN7 jP0koBngpnwgqFEfiZc gdmVydGljYWwtYWxpZ2 49BRQzsAmlJc0IJcc7U 7OtFbh2QYYqbQmxEA2f uMMqNBycNa1bxTdsvYz wBV3nOMIiqeylt836Yw Fqe3wjGBFgcWTfBBovX HI1C34da3Y8MRFxUCNn SFB0mGZ6nI0kdVueopt gbGVmdDsgdmVydGljYW bhTWahL942DLPblDkjP lBheWVyOjwvdGQ+PC90 uq18P7YhFtgdHqv8QJX uMNI2wGW4dA2jBECgSW kwr4N1kAQ6E4JvxvPtx b0ua1vgDUKrLOapX61i bGF (more content not included)... [facility] Provider Orderson 02-04-2021 Provider Orders [id number] Normal [facility] Sperm Count Post Vason 02-03 Post Vas Screen None [facility] Comment on above: Performed By: #### 1 [id number] #### [facility] (DEFAULT) [address] [place] [id number] Semen WBC 0-2 [facility] Comment on above: Performed By: #### 1 [id number] #### [facility] (DEFAULT) [address] [place] [address] Coding Summaryon 01-28-2021 Coding Summary HTMLBase 64 ParzpmnhBPi0xOo+PGh lYWQ+UN1SSAAzX49viG AqrL8DW4dBYG0ASHQUZ DDMNV9MQS7fhGR2EKot Y9PdsjIc CbeajNBzRQ53MAc5NPC 7fBrcWDgvuO2jxGJpS3 x3JcLoVQ75vH68ZNsdF RYyBkO8ExJwowmrnEYl C7zpHmQvaMAyJoj+PHR hYmxlIHdpZHRoPScxMD VfGxOizIlrDC9nTj1lG GVyLWNvbGxhcHNlOiBj u0fmUHCtRZzoIQ9voLm oP2YopBU7UOOin6v9Fv 48dHI+RSDsUZH5lIflK Fmxf261VyNmk1ycMBY6 sJMxPCokZGK3B27qn9U 3ABGpUMXhDMT6qDM3gP 2yuKdrjpzyI7JoeUQvX iB7IOC1oUZjcR5ebHef bgrxrH1oJiq+T99TPK7 VERGYDL1CZnz2B8IrJp wvdHI+BX90VVTtQM14n GBsvTYrr2uxmOa5VxNh HIOqGJQ0xEtpMKqvg0V pTLRrO28vjFUfy8X9UR UttWfzdMYyYjTfvKH2g L5qKUlzdxcdm5filzbk Gcoai1odyf05qR00L39 oAFajOFDyMCC0QQMnDS VytVpmvj9euY8bPj0+I Vnru1ozm8vssAg0CaHr GJJupjBgeBviBRK1o8N qTy26L3GdkSulf3LuEv q7oj60uAIif2C3bYZ5Y SolYAPgdU3vZGjgJkO0 JHYbZlHyeV63eRClDOs nHw4sxZnudTtfCY5kYZ CemnzeBITprM9sDZDvp RZziCnaVE0kRNRhjprl b767AnOoDKJ6PYZazCM pP3YpnE5cDvBuUZFqGQ CcV0LamVHuNQabG200Y JzaRpG0VJBctxCtQ8Bm LHRhcIrbPpN6q1D6Od3 Ot5MukjaiMCK6SYgtWS Z7JoX3LwMgQpW5O2VfG bt5KLSmiPaaJS5tB5Ig DEJjevfwfinuuFB8ONA aZNPatK37tYLsWLtpTo 7pv1Y9v853QSNaDXQxr C44Vp8ieNutUJXguDNQ yF8ofzjig0yghusmJaE aYREuXNq7YRo6GFLzpT hjRuIgOBS2IpO5KOJ4f OYnpR2gzIfbiiaupH9q Oyc+V36hfB0mZNS3IUP 3arnkHZUuxfPfJW90ZJ 71H1UoNilhzEBalES+P WVxmjUtzEqhPR1zQrGd h4bqv6NqGExaI5PqGEO sSBmzUty2ROAxNMU4fI J5cD5lEFAxPBbqb8I1e EH8W6GdfjCxnq4hb6ru MATrCPibH58ctYHac2D 8SQCjpFF4ZCEsxZosFy KufT28Gli+PGNvbGdyb 9YtAngzu0tsu2dpkDf6 IjMwJSIgdmFsaWduPSJ 4i1VwEm74M65jVVuhAH RoPSIxNSUiIHZhbGlnb v3msZ0sUz4+PGNvbCB3 aWJ8tV4oNDSiOnR2RBp wG485SeUcsBSaAbqzn6 sle9azeRj1JuLdHUFut eSpuYzqQTH1l2MvJm10 I70eIYvkQQYkCJKyNAV sPQSkrCwflk0wzN3oJv 8+UC1cz5lwpx68aQ86s HI+SHWyZCS3kFyaDMzu GFGxdA5kDJjdIoS3JZX qHrPlmK22kWDpMLnvPs 5zbRgmrWwdOE3zCHCrc qbtn628EcEcp2csPKDh aKRqEBikHRJ4B69ml2C 1CJXuUBRkCKJ1bSC8lJ 1hbGlnbjogbGVmdDsgd hQnsCvsEVurHSexT486 IHRvcDsnPlBhdGllbnQ sLwTcQSa2V2JuXwd5OR AifGbuZT2aqTUoZTroQ y9lrOxmvTmjII2eCHIf vwglr450TcUbm8jgXLF dlRFwGSroEAG7D46cs0 S3JCMrGCEgSTU2wII6g H3zgYmdolanwJTwlBrp wsUtrRwuVZjcZIwwH69 6IHRvcDsnPkJpcnRoIE JqiQV4FO93TX33zVBeh 5D8eCH0D7TpOBRtzypj tehteHL5OJYsGPAipG2 4On8rnWurAh7jJRXdUQ K1AFEteQBzX4AwrB9vB qTaIGUwCBBiT0LexXEo CQphO384KNhwHiV8JIK hqzTuN5GhANAgnDzsCx E2v3D2Ka5PI0I3HG16T L27oWRqp7L9rMC9B8Xf KCRqtebgcqhndSF3HDJ hTWHtuD28Ye3xeVrdAh 8lLOZcDDM1UXDnmSTaO 4SesU6jPxAlFEDiRNVu A7VreKWuESklR105DAk wYjN2JSTchjMdG5XpQP QaaAbuZbA3y2H6Uy8XK Qy1WA43BJ84lKOoo8A6 bOG0W6CsPLBxqnpreoq ocLE8FSCdBITtvW32Ih 7jwGftNg4iCFVxHOY5R WAmtCXiP3JryP0oRlOv IVSnDNRlN4AhjCGuITy nN807SLjmDqH4WCVouf YrF0QxUXKlaIytUhU1j 9W3Au0KFRJtPS65YYI3 kNU2VM77FD98T5HsGaf vdGFibGU+PHRhYmxlIH dpZHRoPScxMDAlJyBzd UukHZ7oBz5pIECtBYFr cJzrwEXfRfIrf3bnKBV pVDmuTG1vrCqyG4PvpJ I3EJDea9h1Si89A01sH 3JvdXA+NCGkbPI3jUC4 nO7jIaJiFlT1MJdhV03 9PdRnjOEaJplce2vyj4 souFr5YiY5JZLoaeBtj JdrUYD8o2EaYy27O91o IHdpZHRoPSIxNSUiIHZ hlSyahf0dgI7wKy9+PG ZnuCR4hEO0xC8xSwRsT sW0GIocN657PgAdpUWd Ohtvc5jmj0efhGs8PpS dGXNjioOyuXoiYET5v0 HwCk23W3FdyQitw5GuY de8vt19sZDdk3V4jTQ0 O8ErBJYsgrjybKWwlHp iPR5xIAYgoeklYODxkJ 7sFXXyM1f2QvWbYaA6N BwaG3JpfmS7QSLyjBCv HTwxAXO0G84kf7E4DAG qFKOcYYL9wYO5nM7zrE lnbjogbGVmdDsgdmVyd CxcYQlaREvhA203PQGl nPwaZEMptD4tHURqgYE dhMqkOV2iKXPapsmzJp hBTEwsIEpBUkVEIFNDT 9KZYV85BM32iDAqf1D1 rCQ6K7ZxNXErktwsjjx huAW8RPEfCHFamA17aA LvFZpwUt9jt9T3a375Z WPsAKZikH18Ad6tkYed HIYhrOPDnQ0jendla0k wmgsoJbLvJRDpHYm3LJ h4BLRawWxrTtOmVAB1G aM5ODK7kEDiuF3ljImq myizaC6uWnl+MDgvMTg oKCy8DerkgNB+PHRkIH A1uXmdKLyjLZSvlC0jK QJmF6d2CjUkDcJ9KNgn I7CeKAUunczmWd57tJ3 iOnGwMoX5BGkeK9Gcjy B4YSFgiXJhEXnbQVA4A 77xw1K7TVUhHGYzWCT2 mCY3oO5gfHeyxirlwAM mdDsgdmVydGljYWwtYW hbO813CYAfqWojOfFpT VrhTZXlKU33KS24iATu t4K5sZM2H1RoVZSdgfz dzxskjYE7MTUbVAEgjV 04jICqAEzpWh3na0E4m 861THJjGWMrlL08Hz8i mDyzEDEusOJRhH1amhe fm6biiiqxGkAhCBRmKS b2HFa4KXZohQouYaWcW PX0MsE0YHN9qDPiwJ4x oQsaulskwH6tAfj+TUF MRTwvdGQ+EFTgZZB7sU zhUJfzDOOneN9jQULzM 8o1ZbRzDqA3IWmgV3Bc KJTocoujUd09aW4iOxL mWsK9NWrlM2QdhuQ0DD StlFGdUVwiWXY4P24jk 3G9WWYvQWVvBGZ2uQD8 pW3kzCbxgpbgaFXttZt gdmVydGljYWwtYWxpZ2 94XVYjeTqbYm9XPI34U Q99V2GyHdyrbVSykBS+ PHRhYmxlIHdpZHRoPSc wNWZmFzUloYwsEM2fNm 9yZGVyLWNvbGxhcHNlO jAyu0asZRIxEPvwAC7k rXvcX9QuxWQ4FYPqa3d 9Ue18F93yR5DurDI+PG JknJG6kBY3fG2hQsXbM xD9JGhyH092YuZihLAu Yzeog6jfk9qoyLd1UpD tUUXhnbWzbBusOUR6h5 KcEh02R79kTPmsTWTfB YTlBGDoBQIucQtunc5k tO3hBq5+XRSacBY4uYP 8cK5hQsMaWsA1IMqpN1 45KcOyfCOfVrmdS57oC 3JvdXA+IFJbRhe5VSLk oAyrBB3kqHIfZOvpQz8 dSJX8MbLlNrFgTXznG1 ZoJZCwpjzyznqtpDU0E MGlLXXouS23Ky9wuPyo Zn2iWXOdVYM8SSNbdTT mQ5LsjQ7iXqGuGRDfRU GnH3FhkVKdIShbX007Q VfkDhI3CCNucuCuP5Hc YROnnDxoRrM2t3E7Ck3 VrIxvuGDgEX7bFiLrZG y3E8AqRof3FXUnoZzdQ T8isNIpPNrrIb4kkFco sNxvHB4uASKspeeoh24 2NhHxt2tiJSOfeZIxOX tiTEC8Z94zm1S1RMOaX EYbMFK5yUA1zW3uqQuq bjogbGVmdDsgdmVydGl kHAnsRKmpQ966ARMxoN mwGnSIRjx0B1UaBhq0P PWwbOabWZ6pfRUbOLtc Ud8cbFwrjTkbVS1xBKX jfbpmh207JuXhu3hqRQ BmwWHpBNbkHTF6Z86ko 3U3MKDdLMHbDRB0yQM2 pR0maUxtrmyrrEOubLp gdmVydGljYWwtYWxpZ2 64CWMilIlvFr5KVir6V 4ZuAsi4SJQayXkgED1h cOWtPLrlDu0onRqctQq aMA8xWZZdzuuxd446Hd Dsz4tyGNEmyHEzSGvbT UF2J21tb2O4XRVhLDLv YNI5zUY0tC2paZzbvgz gbGVmdDsgdmVydGljYW ffHJalN527BUYtiPzfT lBheWVyOjwvdGQ+PC90 sn18G8HnVomeOyx9CGC oHLV5kWU0lU8aFQYgMO mdy2T2kWC9J1RfmgTew v3ul8sgKGSjVEgzN31e bGF (more content not included)... [facility] Miscellaneous Testing LCon 0 01-28-2021 Mis. Test Result LC COMMENT Invalid Interpretation Code [facility] Comment on above: Result Comment: Test Ordered: [id number] Post VAS Semen Analysis, AUA Volume 3.4 mL FU Reference Range: Not Estab. Total Immotile Sperm Note: x10E6/mL FU No sperm seen. Reference Range: <0.10 Total Motile Sperm Note: x10E6/mL FU No motile sperm seen. Reference Interval: 0.15q08U4/mL Post-Vasectomy analysis was performed on an uncentrifuged specimen. Performed At: [facility] [address] [place] [address], [place] [id number] Davey Nolan PhD Ph:[phone] Performed At: [facility] [address] [place], [place] [id number] Enmanuel Dawson MD Ph:[phone] Performed By: #### 1 [id number] #### [facility] (DEFAULT) [address] [place] [address] Provider Orderson 01-27-2021 Provider Orders [id number] 33#1.00OTGTIFF [facility] Miscellaneous Testing LCon 0 01-26-2021 Test Code 186518 Invalid Interpretation Code [facility] Comment on above: Performed By: #### 1 [id number] #### [facility] (DEFAULT) [address] [place] [address] Test Name LC Semen Analysis postvasect Invalid Interpretation Code [facility] Comment on above: Performed By: #### 1 [id number] #### [facility] (DEFAULT) [address] [place] [address] Vital Signs Date Time Vital Sign Value Performing Clinician Rj gonzalez 10-20-2022 09:30-0500 Body height 182.9 cm [facility] 10-20-2022 09:30-0500 Body mass index (BMI) [Ratio] 31.19 kg/m2 [facility] 10-20-2022 09:30-0500 Body weight 104.33 kg [facility] Encounters Encounter Date Encounter Type Care Provider Facility Start: 11-05-2023 End: 11-05-2023 ambulatory GABRIELLE AZEVEDOA Not Available Start: 07-03-2023 End: 07-03-2023 ambulatory GABRIELLE Vidal WANDA Not Available Start: 10-20-2022 End: 10-23-2022 ambulatory GABRIELLE MUÑOZ [facility] Start: 10-20-2022 End: 10-22-2022 Subsequent hospital visit by physician [facility] Comment on above: RUQ abdominal pain Start: 09-27-2022 End: 09-30-2022 ambulatory GABRIELLE MUÑOZ [facility] Start: 09-27-2022 End: 09-29-2022 Subsequent hospital visit by physician [facility] Ultrasound Room [facility] Ultrasound Comment on above: Right upper [...] DTaP/Tdap/Td vaccine (2 - Td or Tdap) [facility] [employer] Start: 2022 Diabetes screen Diabetes screen [facility] Start: 03-13-2022 Influenza vaccination Flu vaccine (# 1) [facility] Start: 2005 Hepatitis C screening Hepatitis C sc reen [facility] Start: 2002 HIV screening HIV screen [facility] Start: 1999 Depression Screen [facility] Start: 1988 Varicella vaccine (1 of 2 - 2-dose childhood series) Varicella vaccine (1 of 2 - 2-dose childhood series) [facility] Start: 1987 COVID-19 Vaccine (#1) COVID-19 Vacci ne (#1) [facility] [employer] Payers Date Payer Category Payer Medicaid [id number] 1. [id number] 2022 Unknown [id number] 1.2.8 [id number] 1987 Unknown [id number] 2.16.8 [id number] 1987 Unknown [id number] 2.16.8 [id number] 1987 Unknown [id number] 2.16.84 [id number] 1987 Unknown [id number] Social History Date Type Detail Facility [facility] [address] Phone: Start: 1987 Sex Assigned At Not on file B [place] [address] Phone: Evaluation note Note Date & Type Note Facility Evaluation note Diagnosis Right upper quadrant pain Abdominal pain, right upper quadrant documented in this encounter [facility] [address] Phone: Evaluation note Note Date & Type Note Facility Evaluation note Diagnosis RUQ abdominal pain Abdominal pain, right upper quadrant documented in this encounter [facility] [employer] Work Phone: Summary Purpose Family History No [...] Procedures US GALLBLADDER RUQ Gabrielle Muñoz MD [address] [place] [address] Referral ID Status Reason Start Date Expiration Date Visits Re quested Visits Authorized [id number] Closed 09/26/2022 09/26/2023 1 1 Specialty Diagnoses / Procedures Referred By Contac t Referred To Contact Radiology Diagnoses RUQ abdominal pain Procedures NM HEPATOBILIARY SCAN W EJECTION FRACTION Gabrielle Muñoz MD [address] [place] [address] Referral ID Status Reason Start Date Expiration Date Visits Re quested Visits Authorized [id number] Closed 10/10/2022 10/10/2023 1 1 Additional Source Comments (unrecognized sect ion and content) No Status Records FoundNo Status Records FoundNo Status Records FoundNo Status Records Found INFORMATION SOURCE (unrecogn ized section and content) DATE CREATED AUTHOR 02/05/2021 [facility] DATE CREATED AUTHOR AUTHOR'S ORGANIZ ATION 10/09/2021 [facility] DATE CREATED AUTHOR AUTHOR'S ORGANIZ ATION 10/22/2022 [facility] DATE CREATED AUTHOR AUTHOR'S ORGANIZ ATION 11/05/2023 [facility] EPIC Reason for Visit (unrecogniz ed section and content) Specialty Diagnoses / Procedures Referred By Contac t Referred To Contact Radiology Diagnoses Right upper quadrant pain Procedures US GALLBLADDER RUQ Gabrielle Muñoz MD [address] [place] [address] Referral ID Status Reason Start Date Expiration Date Visits Re quested Visits Authorized [id number] Closed 09/26/2022 09/26/2023 1 1 Specialty Diagnoses / Procedures Referred By Contac t Referred To Contact Radiology Diagnoses RUQ abdominal pain Procedures NM HEPATOBILIARY SCAN W EJECTION FRACTION Gabrielle Muñoz MD [address] [place] [address] Referral ID Status Reason Start Date Expiration Date Visits Re quested Visits Authorized [id number] Closed 10/10/2022 10/10/2023 1 1 Care Teams (unrecognized sec tion and content) 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 [place] [address] PCP - General Family Medicine 09/26/22 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 [place] [address] PCP - General Family Medicine [...] BE BASED ON THE PRIMARY CLINICAL RECORDS. [employer] provides no warranty or guarantee of the accuracy or completeness of information in this document.
[2024-01-29] MEDS: LACTATED RINGER'S SOLUTION 1,000 ML 50 ML IV (16:16)
[2024-01-29] MEDS: CEFAZOLIN SODIUM/DEXTROSE,ISO 2 GM/50 ML PIGGYBACK IV (16:17)
--- NOTE | 2024-01-29 16:39 | P.ORPRC_ITS ---
Procedure Note Date of procedure: 01/29/24 Pre-op diagnosis: Right thumb proximal phalanx fracture Post-op diagnosis: same as pre-op Procedure: Operation: right thumb proximal phalanx fracture open reduction internal fixation Operative procedure: After informed consent was obtained the patient brought to the operating room where general anesthetic was administered. Patient received 2 g of Ancef. The right arm was prepped and draped in usual sterile fashion. A well-padded proximal arm tourniquet was placed. The right arm was prepped and draped in usual sterile fashion. Digital block was performed using a total of 5 mL 0.5% Marcaine plain combined with 5 mL 1% lidocaine plain. Under sterile fluoroscopy guidance attempted closed reduction was performed but adequate reduction could not be achieved. The arm was elevated, exsanguinated, and the tourniquet was inflated to 225 mmHg. Incision was made just dorsal to the mid axial line on the radial aspect of the thumb. This was the appropriate location due to the laceration that it incompletely healed over the dorsum and more ulnar aspect of his thumb. Blunt dissection was carried down through soft tissue and the fracture was identified. Subperiosteal dissection was performed and the fracture was reduced without difficulty. A Synthes 1.5 mm locking plate was then contoured and secured with a 1.5 mm nonlocking screw in the oblong hole. X-rays revealed appropriate plate placement and screw placement. Proximally an additional 2 bicortical locking screws were placed and then distally total of 3 bicortical locking screws were placed in the standard fashion. Final x-rays in multiple planes revealed a reduced thumb proximal phalanx in multiple planes and appropriate implant placement and lengths. Wounds were irrigated. Tourniquet was deflated. Hemostasis was achieved with bipolar electrocautery. The prior laceration was repaired with a 3-0 nylon suture. Skin was closed with absorbable suture in layers. Steri-Strips were placed. Sterile dressing was placed in a well-padded thumb spica cast was placed made of fiberglass. Patient was awakened and brought to the recovery room in stable condition. There were no intraoperative or immediate postoperative complications. Anesthesia: General-LMA Surgeon: Kory Villegas Chips Screen Tender: Hina Willis Estimated blood loss (mL): 5 Pathology: none sent Condition: stable Disposition: PACU
[2024-01-29] MEDS: LIDOCAINE HCL 1%-EPINEPHRINE 1:100,000 20 ML MDV 10 ML INJ (17:16)
[2024-01-29] MEDS: BUPIVACAINE HCL 0.5% PF 50 MG/10 ML VIAL INJ (17:16)
--- NOTE | 2024-01-29 20:44 | PC.NURSE ---
193 Pt from recovery, alert and oriented. Crackers and drink given. Denies and nausea. Cast to the right hand/arm - elevated on multiple blankets. Pt does not feel much discomfort since the nerve block still working. Fingers warm and pink. Questions answered. at pharmacy getting pain med that was ordered. 2014 here, RN went over discharge instructions. Patient asking to be discharged now. IV removed from left hand, pt tolerated well, little bleeding. Band-aid applied. Pt denies feeling light headed or dizzy. assisting pt into getting dressed. Patient and made aware that Dr. Villegas wants to see him on 02/03 and appt. needs made if not already. 2024 RN assisted pt to the car via wheelchair without incident. Andreina, RN
== END 2024-01-29 21:03 | disposition home or self-care (01) ==
LOC: SURGOUT 16:36 → MS 19:57
PROVIDERS: PCP Family Medicine; Visit Provider Orthopaedic Surgery
PROC: (CPT 01830; principal; 2024-01-29 16:20)
DX: S62.511B Displaced fracture of proximal phalanx of right thumb, initial encounter for open fracture (principal); W23.0XXA Caught, crushed, jammed, or pinched between moving objects, initial encounter
CPT/HCPCS: 01830; 26735; 76000; C1713; J0665; J0690; J1100; J1885; J2250; J2405; J2704; J3010

== ENCOUNTER 2024-02-04 08:26 | Outpatient (OUT) | payer SELFPAY ==
--- NOTE | 2024-02-04 | XR_ITS ---
The [address] [address] Patient Name: QUAN MAHAJAN MRN: [id number] date: 1985 Sex: M Assigned Patient Location: Current Patient Location: Accession/Order Number: [id number] Exam Date: 02/04/2024 08:26 Report Date: 02/04/2024 09:41 At the request of: CARROLL CHAUDHARY Procedure: XR hand RT min 3V PROCEDURE: XR hand RT min 3V COMPARISON: 01/28/2024 HISTORY: RIGHT HAND PAIN FINDINGS: BONES:Following reduction internal fixation of a first proximal phalanx fracture with a plate and screws. Interval increase in sclerosis with partial bony bridging. SOFT TISSUES:Negative. No visible soft tissue swelling. EFFUSION:None visible. OTHER: Bone details obscured by overlying fiberglass cast XR/XR hand RT min 3V IMPRESSION: Stable healing first proximal phalanx fracture with internal fixation Electronically authenticated by: ELDER LUCAS Date: 02/04/2024 09:41
--- OUTSIDE RECORDS SUMMARY | 2024-02-04 08:46 | XMS_ITS | CCD ---
Author Organization [facility] Care Team Providers Care Credit Reporter Name Role Phone Gabrielle Muñoz MD Primary [...] cholecystitis. Gallbladder ejection fraction is approximately 91%. [facility] CONSOLIDATED EXAMINATION: NUCLEAR MEDICINE HEPATOBILIARY [...] 30-60 mins. Images were obtained in the ROMANIAN projection and regions of interest were drawn [...] range is based on a limited study. [facility] Jerry Pimentel MD - 10/20/2022 [...] 30-60 mins. Images were obtained in the ROMANIAN projection and regions of interest were drawn [...] cholecystitis. Gallbladder ejection fraction is approximately 91%. [employer] Phone: Radiology Study observation (narrative) [employer] Phone: NM HEPATOBILIARY SCAN W EJEC TION FRACTIONOrdered By: Jerry Armstrong on 10-20-2022 [employer] Phone: NM HEPATOBILIARY SCAN W PHAR MACOLOGICAL [...] 30-60 mins. Images were obtained in the ROMANIAN projection and regions of interest were drawn [...] Jerry Armstrong MD 10/20/22 Final result Normal [facility] US GALLBLADDER RUQon 023 US GALLBLADDER RUQ [...] Negin Bustillos MD 09/27/22 Final result Normal [facility] Unremarkable right upper quadrant ultrasound. [facility] RIS CONSOLIDATED EXAMINATION: RIGHT UPPER [...] No evidence of right upper quadrant ascites. [facility] Negin Ibarra MD - 09/27/2022 [...] ascites. IMPRESSION: Unremarkable right upper quadrant ultrasound. [employer] Phone: Radiology Study observation (narrative) [employer] Phone: US GALLBLADDER RUQOrdered By : Negin Bustillos on 09-27-2022 [employer] Phone: Q - CBC W/DIFF AND PLTon BASOABS 53 cells/uL Normal 0-200 [facility] Plant Technician Comment on above: Order Comment: [facility] performed at: [employer] [facility], [address] [place] [address], [address] [place] [address], [id number], Neck Band Maker: Otto Nuñez MD [facility] Collection Date/Time: [id number] [facility] Results Received Date/Time: [facility] Reported Date/Time: [id number] Performed By: #### 9 68T, [id number], 42A #### [facility] Default [address] [place] [address] Basophils/100 WBC (Bld) 0.9 % Normal [facility] Plant Technician Comment on above: Order Comment: [facility] performed at: [email or web address] [facility], [address] [facility], [address] [place] [address], [address] [place] [address], Neck Band Maker: Otto Nuñez MD [facility] Date/Time: [facility] Results Received Date/Time: [facility] Reported Date/Time: Performed By: #### 9 68T, [id number], 42A #### [facility] Default [address] [place] [address] EOSABS 271 cells/uL Normal 15-500 [facility] Plant Technician Comment on above: Order Comment: [facility] performed at: [employer] [email or web address] [facility], [address] [place] [address], [address] [place] [address], [address] [place] [address], Neck Band Maker: Otto Nuñez MD [facility] Date/Time: [facility] Results Received Date/Time: [facility] Reported Date/Time: Performed By: #### 9 68T, [id number], 42A #### [facility] Default [address] [place] [address] Eosinophils/100 WBC (Bld) 4.6 % Normal [facility] Specialist Comment on above: Order Comment: [facility] performed at: [employer] [email or web address] [facility], [address] [facility], [address] [place] [address], [address] [place] [address], Neck Band Maker: Otto Nuñez MD [facility] Date/Time: [facility] Results Received Date/Time: [facility] Reported Date/Time: Performed By: #### 9 68T, [id number], 42A #### [facility] [address] [place] [address] Erythrocyte distribution width (RBC) [Ratio] 11.9 % Normal 11.0-15.0 [facility] Specialist Comment on above: Order Comment: [facility] performed at: [employer] [email or web address] [facility], [address] [facility], [address] [place] [address], [address] [place] [address], Neck Band Maker: Otto Nuñez MD [facility] Date/Time: [facility] Results Received Date/Time: [facility] Reported Date/Time: Performed By: #### 9 68T, [id number], 42A #### [facility] Default [address] [place] [address] Hematocrit (Bld) [Volume fraction] 50.9 % High 38.5-50.0 [facility] Plant Technician Comment on above: Order Comment: [facility] performed at: [employer], [email or web address] [facility], [address] [place] , [address] [place] [address], [address] [place] [address], Neck Band Maker: Otto Nuñez MD [facility] Date/Time: [facility] Results Received Date/Time: [facility] Reported Date/Time: Performed By: #### 9 68T, 44935A, 42A #### [facility] [address] [place] [address] Hemoglobin (Bld) [Mass/Vol] 17.3 g/dL High 13.2-17.1 [facility] Plant Technician Comment on above: Order Comment: [facility] performed at: [employer], [email or web address] [facility], [address] [facility], [address] [place] [address], [address] [place] [address], Neck Band Maker: Otto Nuñez MD [facility] Date/Time: [facility] Results Received Date/Time: [facility] Reported Date/Time: Performed By: #### 9 68T, 13484O, 42A #### [facility] [address] [place] [address] Lymphocytes (Bld) [#/Vol] 1.611 10*3/uL Normal 850-3900 [facility] Plant Technician Comment on above: Order Comment: [facility] performed at: [employer], [email or web address] [facility], [address] [place] , [address] [place] [address], [address] [place] [address], Neck Band Maker: Otto Nuñez MD [facility] Date/Time: [facility] Results Received Date/Time: [facility] Reported Date/Time: [id number] Performed By: #### 9 68T, [id number], 42A #### [facility] Default [address] [place] [address] Lymphocytes/100 WBC (Bld) 27.3 % Normal [facility] Plant Technician Comment on above: Order Comment: [facility] performed at: [employer], [email or web address] [facility], [address] [place] [address], [address] [place] [address], [address] [place] [address], Neck Band Maker: Otto Nuñez MD [facility] Date/Time: [facility] Results Received Date/Time: [facility] Reported Date/Time: Performed By: #### 9 68T, [id number], 42A #### [facility] Default [address] [place] [address] MCH (RBC) [Entitic mass] 31.3 pg Normal 27.0-33.0 [facility] Plant Technician Comment on above: Order Comment: [facility] performed at: [employer], [email or web address] [facility], [address] [place] [address], [address] [place] [address], [address] [place] [address], Neck Band Maker: Otto Nuñez MD [facility] Date/Time: [facility] Results Received Date/Time: [facility] Reported Date/Time: Performed By: #### 9 68T, 01603V, 42A #### [facility] [address] [place] [address] MCHC (RBC) [Mass/Vol] 34.0 g/dL Normal 32.0-36.0 [facility] Plant Technician Comment on above: Order Comment: [facility] performed at: [employer], [email or web address] [facility], [address] [place] [address], [address] [place] [address], [address] [place] [address], Neck Band Maker: Otto Nuñez MD [facility] Date/Time: [facility] Results Received Date/Time: [facility] Reported Date/Time: Performed By: #### 9 68T, 17773P, 42A #### [facility] Default [address] [place] [address] MCV (RBC) [Entitic vol] 92.0 fL Normal 80.0-100.0 [facility] Plant Technician Comment on above: Order Comment: [facility] performed at: [employer], [email or web address] [facility], [address] [facility], [address] [place] [address], [address] [place] [address], Neck Band Maker: Otto Nuñez MD [facility] Date/Time: [facility] Results Received Date/Time: [facility] Reported Date/Time: Performed By: #### 9 68T, 83034H, 42A #### [facility] [address] [place] [address] MONOABS 726 cells/uL Normal 200-950 [facility] Plant Technician Comment on above: Order Comment: [facility] performed at: [employer] [email or web address] [facility], [address] [place] [address], [address] [place] [address], [address] [place] [address], Neck Band Maker: Otto Nuñez MD [facility] Date/Time: [facility] Results Received Date/Time: [facility] Reported Date/Time: Performed By: #### 9 68T, 03922D, 42A #### [facility] [address] [place] [address] Monocytes/100 WBC (Bld) 12.3 % Normal [facility] Plant Technician Comment on above: Order Comment: [facility] performed at: [employer] [email or web address] [facility], [address] [place] [address], [address] [place] [address], [address] [place] [address], Neck Band Maker: Otto Nuñez MD [facility] Collection Date/Time: [facility] Results Received Date/Time: [facility] Reported Date/Time: Performed By: #### 9 68T, [id number], 42A #### [facility] Default [address] [place] [address] Neutrophils (Bld) [#/Vol] 3.239 10*3/uL Normal 2167-9340 [facility] Plant Technician Comment on above: Order Comment: [facility] performed at: [employer] [email or web address] [facility], [address] [place] [address], [address] [place] [address], [address] [place] [address], Neck Band Maker: Otto Nuñez MD [facility] Date/Time: [facility] Results Received Date/Time: [facility] Reported Date/Time: Performed By: #### 9 68T, [id number], 42A #### [facility] Default [address] [place] [address] Neutrophils/100 WBC (Bld) 54.9 % Normal [facility] Plant Technician Comment on above: Order Comment: [facility] performed at: [employer] [email or web address] [facility], [address] [place] [address], [address] [place] [address], [address] [place] [address], Neck Band Maker: Otto Nuñez MD [facility] Collection Date/Time: [facility] Results Received Date/Time: [facility] Reported Date/Time: Performed By: #### 9 68T, 71104H, 42A #### [facility] Default [address] [place] [address] Platelet mean volume (Bld) [Entitic vol] 10.5 fL Normal 7.5-12.5 [facility] Plant Technician Comment on above: Order Comment: [facility] performed at: [employer] [facility], [address] [place] [address], [address] [place] [address], [address] [place] [address], Neck Band Maker: Otto Nuñez MD [facility] Date/Time: [facility] Results Received Date/Time: [facility] Reported Date/Time: Performed By: #### 9 68T, 44766V, 42A #### [facility] Default [address] [place] [address] Platelets (Bld) [#/Vol] 296 10*3/uL Normal 140-400 [facility] Plant Technician Comment on above: Order Comment: [facility] performed at: [employer] [email or web address] [facility], [address] [place] [address], [address] [place] [address], [address] [place] [address], Neck Band Maker: Otto Nuñez MD [facility] Date/Time: [facility] Results Received Date/Time: [facility] Reported Date/Time: Performed By: #### 9 68T, 94909G, 42A #### [facility] Default [address] [place] [address] RBC (Bld) [#/Vol] 5.53 10*6/uL Normal 4.20-5.80 Tyrell li [place] Plant Technician Comment on above: Order Comment: [facility] performed at: [employer] [email or web address] [facility], [address] [facility], [address] [place] [address], [address] [place] [address], Neck Band Maker: Otto Nuñez MD [facility] Date/Time: [id number] [facility] Results Received Date/Time: [facility] Reported Date/Time: Performed By: #### 9 68T, 26919C, 42A #### [facility] Default [address] [place] [address] WBC (Bld) [#/Vol] 5.9 10*3/uL Normal 3.8-10.8 Terrance mackenzie [place] [facility] Techn[facility] Comment on above: Order Comment: [facility] performed at: [employer] [email or web address] [facility], [address] [place] [address], [address] [place] [address], [address] [place] [address], Neck Band Maker: Otto Nuñez MD [facility] Collection Date/Time: [id number] [facility] Results Received Date/Time: [facility] Reported Date/Time: Performed By: #### 9 68T, 04496M, 42A #### [facility] Default [address] [place] [address] Q - COMPREHENSIVE METABOLIC PANEL W/EGFRon 10-07-2021 Albumin [Mass/Vol] 4.4 g/dL Normal 3.6-5.1 Terrance mackenzie [place] [facility] Technician Comment on above: Order Comment: [facility] performed at: [employer], [email or web address] [facility], [address] [facility], [address] [place] [address], [address] [place] [address], Neck Band Maker: Otto Nuñez MD [facility] Date/Time: [facility] Results Received Date/Time: [facility] Reported Date/Time: Performed By: #### 9 68T, 80810V, 42A #### [facility] Default [address] [place] [address] Albumin/Globulin [Mass ratio] 1.7 {ratio} Normal 1.0-2.5 [facility] Specialist Comment on above: Order Comment: [facility] performed at: [employer], [email or web address] [facility], [address] [place] [address], [address] [place] [address], [address] [place] [address], Neck Band Maker: Otto Nuñez MD [facility] Collection Date/Time: [facility] Results Received Date/Time: [facility] Reported Date/Time: Performed By: #### 9 68T, 50189E, 42A #### [facility] Default [address] [place] [address] ALP [Catalytic activity/Vol] 42 U/L Normal 36-130 [facility] Plant Technician Comment on above: Order Comment: [facility] performed at: [employer], [email or web address] [facility], [address] [place] [address], [address] [place] [address], [address] [place] [address], Neck Band Maker: Otto Nuñez MD [facility] Collection Date/Time: [facility] Results Received Date/Time: [facility] Reported Date/Time: Performed By: #### 9 68T, 21998P, 42A #### [facility] Default [address] [place] [address] ALT [Catalytic activity/Vol] 19 U/L Normal 9-46 [facility] Plant Technician Comment on above: Order Comment: [facility] performed at: [employer] [email or web address] [facility], [address] [place] [address], [address] [place] [address], [address] [place] [address], Neck Band Maker: Otto Nuñez MD [facility] Collection Date/Time: [facility] Results Received Date/Time: [facility] Reported Date/Time: Performed By: #### 9 68T, [id number], 42A #### [facility] Default [address] [place] [address] AST [Catalytic activity/Vol] 16 U/L Normal 10-40 [facility] Specialist Comment on above: Order Comment: [facility] performed at: [employer] [email or web address] [facility], [address] [place] [address], [address] [place] [address], [address] [place] [address], Neck Band Maker: Otto Nuñez MD [facility] Collection Date/Time: [facility] Results Received Date/Time: [facility] Reported Date/Time: Performed By: #### 9 68T, 58643O, 42A #### [facility] Default [address] [place] [address] Calcium [Mass/Vol] 9.5 mg/dL Normal 8.6-10.3 [facility] Comment on above: Order Comment: [facility] performed at: [employer], [email or web address] [facility], [address] [place] [address], [address] [place] [address], [address] [place] [address], Neck Band Maker: Otto Nuñez MD [facility] Collection Date/Time: [facility] Results Received Date/Time: [facility] Reported Date/Time: Performed By: #### 9 68T, [id number], 42A #### [facility] Default [address] [place] [address] Chloride [Moles/Vol] 103 mmol/L Normal 98-110 [facility] Specialist Comment on above: Order Comment: [facility] performed at: [employer] [facility], [address] [facility], [address] [place] [address], [address] [place] [address], Neck Band Maker: Otto Nuñez MD [facility] Collection Date/Time: [facility] Results Received Date/Time: [facility] Reported Date/Time: Performed By: #### 9 68T, 24593X, 42A #### [facility] Default [address] [place] [address] CO2 [Moles/Vol] 26 mmol/L Normal 20-32 [facility] Specialist Comment on above: Order Comment: [facility] performed at: [employer] [facility], [address] , [address] [place] [address], [address] [place] [address], Neck Band Maker: Otto Nuñez MD [facility] Collection Date/Time: [facility] Results Received Date/Time: [facility] Reported Date/Time: Performed By: #### 9 68T, 76480Y, 42A #### [facility] Default [address] [place] [address] Creatinine [Mass/Vol] 1.04 mg/dL Normal 0.60-1.35 [facility] Plant Technician Comment on above: Order Comment: [facility] performed at: [employer] [email or web address] [facility], [address] [facility], [address] [place] [address], [address] [place] [address], Neck Band Maker: Otto Nuñez MD [facility] Collection Date/Time: [facility] Results Received Date/Time: [facility] Reported Date/Time: Performed By: #### 9 68T, 24596K, 42A #### [facility] Default [address] [place] [address] eGFRAA ([facility]) 108 mL/min/1.73m2 Normal > OR = 60 [facility] Plant Technician Comment on above: Order Comment: [facility] performed at: [email or web address] [facility], [address] [facility], [address] [place] [address], [address] [place] [address], Neck Band Maker: Otto Nuñez MD [facility] Collection Date/Time: [facility] Results Received Date/Time: [facility] Reported Date/Time: Performed By: #### 9 68T, 06754Q, 42A #### [facility] Default [address] [place] [address] eGFRNAA ([facility]) 93 mL/min/1.73m2 Normal > OR = 60 [facility] Plant Technician Comment on above: Order Comment: [facility] performed at: [email or web address] [facility], [address] [facility], [address] [place] [address], [address] [place] [address], Neck Band Maker: Otto Nuñez MD [facility] Collection Date/Time: [facility] Results Received Date/Time: [facility] Reported Date/Time: Performed By: #### 9 68T, 60371L, 42A #### [facility] Default [address] [place] [address] Globulin (S) [Mass/Vol] 2.6 g/dL Normal 1.9-3.7 [facility] Plant Technician Comment on above: Order Comment: [facility] performed at: [employer] [facility], [address] [place] [address], [address] [place] [address], [address] [place] [address], Neck Band Maker: Otto Nuñez MD [facility] Date/Time: [facility] Results Received Date/Time: [facility] Reported Date/Time: Performed By: #### 9 68T, 20292K, 42A #### [facility] Default [address] [place] [address] Glucose [Mass/Vol] 85 mg/dL Normal 65-99 [facility] Specialist Comment on above: Order Comment: [facility] performed at: [employer] [facility], [address] [place] [address], [address] [place] [address], [address] [place] [address], Neck Band Maker: Otto Nuñez MD [facility] Collection Date/Time: [facility] Results Received Date/Time: [facility] Reported Date/Time: Result Comment: Fasting reference interval Performed By: #### 9 68T, 88088T, 42A #### [facility] Default [address] [place] [address] Potassium [Moles/Vol] 4.9 mmol/L Normal 3.5-5.3 [facility] Plant Technician Comment on above: Order Comment: [facility] performed at: [employer] [facility], [address] [place] [address], [address] [place] [address], [address] [place] [address], Neck Band Maker: Otto Nuñez MD [facility] Collection Date/Time: [facility] Results Received Date/Time: [facility] Reported Date/Time: Performed By: #### 9 68T, 82185S, 42A #### [facility] Default [address] [place] [address] Protein [Mass/Vol] 7.0 g/dL Normal 6.1-8.1 Terrance mackenzie [place] Plant Technician Comment on above: Order Comment: [facility] performed at: [email or web address] [facility], [address] [place] [address], [address] [place] [address], [address] [place] [address], Neck Band Maker: Otto Nuñez MD [facility] Collection Date/Time: [facility] Results Received Date/Time: [facility] Reported Date/Time: Performed By: #### 9 68T, [id number], 42A #### [facility] Default [address] [place] [address] Sodium [Moles/Vol] 138 mmol/L Normal 135-146 Terrance rn [place] Plant Technician Comment on above: Order Comment: [facility] performed at: [email or web address] [facility], [address] [place] [address], [address] [place] [address], [address] [place] [address], Neck Band Maker: Otto Nuñez MD [facility] Collection Date/Time: [facility] Results Received Date/Time: [facility] Reported Date/Time: Performed By: #### 9 68T, 75839L, 42A #### [facility] Default [address] [place] [address] TBIL <0.3 Normal 0.2-1.2 [facility] Plant Technician Comment on above: Order Comment: [facility] performed at: [employer] [email or web address] [facility], [address] [place] [address], [address] [place] [address], [address] [place] [address], Neck Band Maker: Otto Nuñez MD [facility] Date/Time: [facility] Results Received Date/Time: [facility] Reported Date/Time: Performed By: #### 9 68T, [id number], 42A #### [facility] Default [address] [place] [address] Urea nitrogen [Mass/Vol] 26 mg/dL High 7-25 [facility] Plant Technician Comment on above: Order Comment: [facility] performed at: [employer] [email or web address] [facility], [address] [place] [address], [address] [place] [address], [address] [place] [address], Neck Band Maker: Otto Nuñez MD [facility] Date/Time: [facility] Results Received Date/Time: [facility] Reported Date/Time: Performed By: #### 9 68T, 54141L, 42A #### [facility] Default [address] [place] [address] Urea nitrogen/Creatinine [Mass ratio] 25 mg/mg High 6-22 [facility] Plant Technician Comment on above: Order Comment: [facility] performed at: [employer] [email or web address] [facility], [address] [place] [address], [address] [place] [address], [address] [place] [address], Neck Band Maker: Otto Nuñez MD [facility] Date/Time: [facility] Results Received Date/Time: [facility] Reported Date/Time: Performed By: #### 9 68T, 79777M, 42A #### [facility] Default [address] [place] [address] Q - Lipid Panelon 10-07-2021 Cholesterol [Mass/Vol] 224 mg/dL High <200 [facility] Plant Technician Comment on above: Order Comment: [facility] performed at: [employer] [email or web address] [facility], [address] [place] [address], [address] [place] [address], [address] [place] [address], Neck Band Maker: Otto Nuñez MD [facility] Date/Time: [facility] Results Received Date/Time: [facility] Reported Date/Time: Performed By: #### 9 68T, [id number], 42A #### [facility] Default [address] [place] [address] Cholesterol in HDL [Mass/Vol] 47 mg/dL Normal > OR = 40 [facility] Plant Technician Comment on above: Order Comment: [facility] performed at: [employer], [email or web address] [facility], [address] [facility], [address] [place], [place], [address] [place] [address], Neck Band Maker: Otto Nuñez MD [facility] Collection Date/Time: [facility] Results Received Date/Time: [facility] Reported Date/Time: Performed By: #### 9 68T, [id number], 42A #### [facility] Default [address] [place] [address] Cholesterol in LDL [Mass/Vol] 151 mg/dL High [facility] Techn[facility] Comment on above: Order Comment: [facility] Testing performed at: [email or web address], [email or web address] [facility], [address] [place] [address], [address] [place] [address], [address] [place] [address], Neck Band Maker: Otto Nuñez MD [facility] Date/Time: [facility] [...] LDL-C. Kamaljit SS et al. SAY. 2013;310(19): 1530-9710 (http://[email or web address] Your Campaign.Raise Your Flag/faq/XLU643) Performed By: #### 9 68T, [id number], 42A #### [facility] Default [address] [place] [address] Cholesterol.total/C holesterol in HDL [Mass ratio] 4.8 {ratio} Normal <5.0 [facility] Comment on above: Order Comment: [facility] Testing performed at: [email or web address], [email or web address] [facility], [address] [facility], [address] [place], [address] [place] [address], Neck Band Maker: Otto Nuñez MD [facility] Date/Time: [facility] Results Received Date/Time: [facility] Reported Date/Time: Performed By: #### 9 68T, [id number], 42A #### [facility] Default [address] [place] [address] NON HDL CHOLESTEROL 177 mg/dL (calc) High <130 [facility] Technician Comment on above: Order Comment: [facility] Testing performed at: [email or web address], [email or web address] [facility], [address] [facility], [address] [place], [address], Neck Band Maker: Otto Nuñez MD [facility] Date/Time: [facility] Results Received Date/Time: [facility] Reported Date/Time: Result Comment: For patients with diabetes plus 1 major ASCVD risk factor, treating to a non-HDL-C goal of <100 mg/dL (LDL-C of <70 mg/dL) is considered a therapeutic option. Performed By: #### 9 68T, [id number], 42A #### [facility] Default [address] [place] [address] Triglyceride [Mass/Vol] 132 mg/dL Normal <150 [facility] Techn[facility] Comment on above: Order Comment: [facility] Testing performed at: [email or web address], [email or web address] [facility], 5 [facility], [address] [place] [address], [place], [address], Neck Band Maker: Otto Nuñez MD [facility] Date/Time: [facility] Results Received Date/Time: [facility] Reported Date/Time: Performed By: #### 9 68T, [id number], 42A #### [facility] Default [address] [place] [address] Coding Summaryon 02-04-2021 Coding Summary HTMLBase 64 VglrotfqXEv4xWs+PGh lYWQ+TB3FLJUnW51koD GusR8XK9rADH6KGZLIN XMNGA4VJO9mkCY9TCwj K9LiawVa XstleEZcVX67TTs2XDC 7uYhtYSxhdY8obCIdN1 z8PpRaKD40cS67DEtaX PEsCdM0DiDkazjjzLWk R5seXxGjxFPyZll+PHR hYmxlIHdpZHRoPScxMD BlDdXkoDlfIM7mKr0sT GVyLWNvbGxhcHNlOiBj o0fwDYPrCZfsNR1qzNt yB0RbzIY9CIXuy0j8Hm 48dHI+YSXiLZI6xHotM Ktwy760SrIyq8vmSYW9 bFDnAQyuXBM8T64cn3T 4GUEhWYKbIYH5ePN2yF 9ygHmuwpjrF2JbkEGgK kW9CCF1kAEilL8vdMwx dsrlsU4fWer+R80MIH8 LAFPDNG7OVsq3Z2BhOo wvdHI+XN00IFQoQM52g WVfvOWdb9gizWb4TfIr KIWrVVQ3zEgrIBwdw5Q rCGNeU51ecWVbt4G8DV XgbVvemHHpOiHbtPA4r V2jGZluryozs5myenjw Zkcej1gndo86xT02G60 qVTciNPIrHRU7HLZoVR NwoYlhnc0nwD9gYz7+I Uuua6jpp4yanDy9FxQw LLZapwJkxBkxMGA8c0C uVc71L0SmsPons4ElWu p3kg56fRVlp3T2xUQ6A CofTHAsbU5gXFwiRkR9 WVYbSdEusT60xPGlSUl lCr1lzEnvjLghEG9gZW YrmkwjJRVrrO6vQKYfs ZRghTaiEO2bFGOalpsm n094SrZqWHS4BDRyvZS sR8HjpT1zKbUrZVZmZD FhC0ObaAYlXTbxC973G SgeByA6ZWAnszKrW8Qr TOKrxEyxDhY4p5E1Ia8 Am9PsbpubEJO6ONcmKZ S9IqR4CaTsUdR4R4VnD fu1PBBvjTjaCL2vU1Kw JKYlacnttfcfgEW0VDG kZILskB74kXXkKWcvNb 5sy7H7t404LZYfOTRdm K49Wt0nmAqkJAEupWJU nA7yamock1enfykxDyL nMXEeCZu3LLq6LWXzpB buUrCsDYF8EcL4ACS3j PWloZ3lmTpdbfbatQ9q Oyc+C93dfT0bCGE1HDP 1sbwoFAGxxzWcBX80QH 13Y4BqZvwezYVqxKU+P FApcoPjjVqqXV4aHuJi o6edv3NvLExnF7AlHMP cGQzjQin5DEQvYRB5nI W8eF4aUOHxTHokh5H6t BL5H4AkmcRvsk4it4zi VYNzOTmgZ64lhLDyd3G 8BLNimGJ4IECrvKlmWb LwtY07Xgk+PGNvbGdyb 4DrRgrbw9zxs4atqDj3 IjMwJSIgdmFsaWduPSJ 8s9WvRt35N11sXGfqWE RoPSIxNSUiIHZhbGlnb y6bjW9rUf0+PGNvbCB3 gDX4iD8jHJQuVnM4QIg lD540YbPyzECuZhpie7 moq9xtvEk6ZzQpSOOts lHzeUiwUBL7u1JjPq34 A02uSTwvRCOuBYHlBNU cJZZnpLwfwo8hrQ9gIx 8+HC2wz7imzx80aC82h HI+DTKwEHW7vXsuYJzs EBEanU6xVLnjWjI9BSZ nMzFhsJ92aIMwSTftKi 6yrPznzXupJW0pFCCwe quui378GtCqy0fzCIGi kBFpHXlbFGA5V53zg2J 4ACVoCLOeFCY6pSC7tC 1hbGlnbjogbGVmdDsgd mKdfEktEKxcXWwbV636 IHRvcDsnPlBhdGllbnQ yIkHdNBs0J1OwMao0SP MwkVvtJH9bdNSrNLdvH a9wiOdpzYyxSG2fRKAe hbzij973KaZrz2uyXSA euRPjVKwfUSP4L39mb6 A7XCLvHWOdNSG0bBD3r B6ksUzjvzpcfHWtzFwf otLjqQyeDJmyVAxkR88 6IHRvcDsnPkJpcnRoIE GryTT4LO36XL15hAGoe 6A9cYF3K6QrOCQjippb ihumjUG3XJGbJBAfnL4 7Iw4zrWljYt4xSFXqUI P1JXJbyWImC2UytU7jA oUgIYHxZPEgX0NpqLDt DHjvS757IEaoIfY9HPJ locAtF8SfTUKoiEjyWy U4c2G2Zv5ZG0U8LN00R C20vPHzf6H7uSY2D1Lg BOBgdnyzhmshhYU6HLA eATNrhA05Bd8abGwwGt 9cRFAvMEY8RYYyhNPaT 0JbvG2bXxFtFJNxADNa R6LoyFClHAybZ514NVf qXtS0NXGowfHzF4KmGF EqaUtcKmM5x2G0Rz3WR Ky9GT53FS07bFOmt0P2 uOJ8X8LlDRXwvjuzenq upTO8HZHiCNDbjY46Yg 0gbCgkKh5bYQXxWXJ0K XXblSLkE5XpbL0cHgMo LBLqGCAcK6GfbHZyRUg vB914VQbxHdU5XREntk JiR8NtWPVniLstZwM2k 9I7Ny0TXFXhXI99MVU1 rCW1GU10PG41V5KrRdx vdGFibGU+PHRhYmxlIH dpZHRoPScxMDAlJyBzd UemWX1bMd9wTWZeCKRb nOcvfQUtLiCdp0eiWFR kHSmtUC2peHlpW7YbpX G9PYYtq4f7Jk48N13tJ 3JvdXA+FOAglOJ3bKD3 rZ5bRuUwHsR6VCmaR27 2PyLzxQGuCvtwx7hvv6 zbgZg6GvM5PJIangNgh EqqAFA1h2HlVt42Q65c IHdpZHRoPSIxNSUiIHZ tdGqhnt7hmI7sXy4+PG QlxOJ6gDQ2yR9pWmQwJ bH1LYkaR890IcMoeXIw Fuudz5bgh4ghfCe7HxS pUGNqswPttWjcFPK0e1 VvGl44G1IphSprc9RuP bz2pg87gYWnr9Z1sFY8 R8JpPXWmnhzxzLAbzWd rHN9pLSFezgskUKQphV 4xAROxM9h7OoOuGhE7W RjmK6AsmjF3LRLvzVLp QNniJCX8Z91om6O2VGU pKLFxMPB8oIQ5fF9rtP lnbjogbGVmdDsgdmVyd JpdJNddYRanO402KZFc xPsxHMAwlF2wCWLhhFY ilGmiHS9hHVDjyvfcAl hBTEwsIEpBUkVEIFNDT 8NKFP50FS64xFOhn9N6 zBP4F4EfRIFlujegliy ssWM6LRHkZYMxkY65mY WrRVhvTy6ir5Q1e702P TVhNYCnoY08Ks4pdHhd BIEbwWQTyW6yhgwcu4n xxuuwIaGtBAHuJGt4ZF c8UGQubTvjSxGdSMH7D uV0WDR2uYUyfV1zeJaz cdjukN4qNbu+MDgvMTg vVOe2MbmjhDT+PHRkIH C8eVihFBttTJBquS0wQ KGgE2c3TbVeWuT4QTxv B4MoGPKzgxtqIm02dS2 uWnVcYtW9DAuhN4Crjd E2URAwvDNmONfoPRP4Q 99ft5A3XVCoCFIkMVJ8 tTE5lK3ntHgovnczgMQ mdDsgdmVydGljYWwtYW hiF587BGUjsGgqWuFfP WraQMFdHY70PQ32pUWb b0L2kOL8A2SxCIAudmb rhuqekYI6XALmSDSsbV 64dGDwLVwvNp0vl9F0j 860ZRJsDSDfxD25Rm3p eVkjZHJxeSEIjS9chcm ip1afjzuoFiPsYUKkLH f7COt1YETjuZuiGkKsS EW8ZtM5QHS5vPYmeK8l pSmuoiitkB6uQkm+TUF MRTwvdGQ+LYBxMJO3cV hnPQjtWMNuqW5iOWSbO 8i1AsZaXpL4GRunK7Jk SPTcezntOx53xC2sHsD yFhZ5YLeiU6JvjjE3AC HtpKOkFUkrFPE2S42jo 0V3XXMeFGVlWMS1qYL1 kD7ziZabwrbjiKYlqAo gdmVydGljYWwtYWxpZ2 64ORJegRezSa1PXV08R D29Q3RiMmzxmBIoaIT+ PHRhYmxlIHdpZHRoPSc qPSSbUrIeeCdgKZ5oNo 9yZGVyLWNvbGxhcHNlO eVcq5zbTTUbBHaaXJ2g hQyvV7PfyAT3VRKif3c 0Cq99O93iY0DodKA+PG EyyBS9vGI6yG8wXtVkP oO8ATrhF141HgFpvTNk Bjlrv0owx6cgcBk3FdK zUFCffoUveYngCBX6i2 MpHp56X95mRCdxHWTbG BHsWZKmLZCcvUwxjo4q iJ7jDy2+HXIsuDF7eND 3iD5kAxDbYvD3HJadQ5 13GnRrvUCdMgnmI14tH 3JvdXA+EVSjJaz9YFGx fSziPB6lpRKeICimDk6 zNPP0OuYvFtDiXBqcS7 HoURRvlxdwtuhzcVE0W VWdKABtbT97Zy8fnCaj Hm8xFZLaOIR3IOKxcAN yO0XcnJ9kLwPbAAAoAC IvW2OndUIlVEaeQ739I QgpVwS1KKImpcJuP8Hl OPYoeKdbRrU5b8Q9Kk1 PpXpzrMPxLX9oAcVpGK l1Z8GlWwb1COCyqHifS D7qmQCfFThiOf0qyWad nLsqUS1fCTZgmpxwt72 6WoHyv6zkWRXbfGGoFR joQKH3Y94yd8F8MNJgN GShZRW6wFB7cA6hbUha bjogbGVmdDsgdmVydGl fRPycBPzbQ705GAIpcU roXuDDHvv5Z1McLux0U MXbzSthJE5jcXStQPpo Qz6hcVkgrPabFX6bREW umyuph571TzHxu1utKR QvhWFiSXqaBIU3W83pw 3F3GWBxBDKwYRY5pDN5 hU6xwJmtenwxwJHeiLz gdmVydGljYWwtYWxpZ2 62GSAgtTraGt0FYfn9K 5PcEdq4HTDgcHccKE7b xBOtQXqdAd5dvVmvbQq dOU7bERZugnncz368Ks Llj8mxBKUpvAKlZQebD VC4D55di2O4UJMsSPXz DBA7gUF6xV1wbUkmiwa gbGVmdDsgdmVydGljYW wxGMggI053ICVfnGxxY lBheWVyOjwvdGQ+PC90 wn88D8YwCdxsWhy2EUX hGYJ3gTY0nA8lGHLsMH dld1K4iJJ8A8CussZcz f7gf1epZVZjEWbuQ90i bGF (more content not included)... [facility] Provider Orderson 02-04-2021 Provider Orders [id number] Normal [facility] Sperm Count Post Vason 02-03 Post Vas Screen None [facility] Comment on above: Performed By: #### 1 [id number] #### [facility] (DEFAULT) [address] [place] [id number] Semen WBC 0-2 [facility] Comment on above: Performed By: #### 1 [id number] #### [facility] (DEFAULT) [address] [place] [address] Coding Summaryon 01-28-2021 Coding Summary HTMLBase 64 ZwjhybznSAi1vYl+PGh lYWQ+DG1SJTQpS44muQ FtvC3SW3lPNF6IVJUFZ ZGCEP4OVN9znDX0XNnl U7KkwhHf VpuuzTUqYN53NHk5BFC 6cQqqDEnarG7hoSIgY0 h2BeNtXP82sT44CTaaS UHwZeU7YyYnkpprrFNg C4szUwYenNTfFrv+PHR hYmxlIHdpZHRoPScxMD UnXoWxaLieFO6kXb8hZ GVyLWNvbGxhcHNlOiBj c1vuEYJnLQrrSA2mzRv kZ3JogUT6OSUfm0t0We 48dHI+RDLcRJA6uUivX Ttqz879YdEry4lhOTX2 mHXlFVlnSEP7C50xd0V 1XVKkRJZlOVW2xFD2vR 0rcRgibvvuL1SdiFUnQ jX1BCV2jXJeiN2fsWve ntfhtB4pRcc+P00QKA4 RAOHHAK2CXzy5W8OwFs wvdHI+OO72STUbTP41s KBpvKRnl5mifAu7WxAx IJAgWLK8dLghFDnmy6S gFRYiB29djVKyh6Q3NA HowCioyHUiXyEglCR6b X2lHHbylmwny1neguyg Dxvgf8ehpq21wB88P30 kLNxtCUXuEAO5OVJyAC RheXblqz8ehP9lVu9+I Vsvi3voc7zieJi8UcYc TTJqudUgxYziPGU4x2M nMw67V7TzpRnav5EoNm h6fp68aWClk9R8dGC2W DuiXJPtlF3fSUrtZbT6 VYOzXoPtjP42aSAiYVq bQf5vlOlclHmuVO5jDR HlqlklUQJqbF1cEOEmw NGdjGsvKN6nAQGcvfnn m165BlJcBPS0VMLnwJE cW4KszR3pPvOlSYRfYT KuP6GpwEQrMTxdR035F PwoOaG6VRQkuuUkZ5Qv GIWkuGfuNwF3f3R9Rq7 Bs4WhqktgAIU5VSstAP X9GbL0XtBcQiU5R9ZdF wi1MMCsmTrfOP2fA9Rt SPGwpvgjnqeaxHK9EOR kGNKydW81rUCqZElgFw 5og9G7o149MBVlYQXid C91Kd9poHasKLDxzRDI iL5xcyidb3byrqciLwG mXSLwKYh8VSc6IGJboT kdShIzKUB0InK8OGR1v OEymQ3ykDsmwxdebS3k Oyc+J64tmJ3tJTG9VHY 7yrkyFPHocqAiUM37ZH 92U5SaJqgnfNHvmEE+P RGnysXvdKpfVO2qShRz y4afk9OaIDlsV4JjPAJ mXAsdGvg4ZEToFEZ3rM X2eZ8bNXLvJVmop8W5f DL1G2KxamPyry1rb1ro GSFaJFduR27pjXLqr1W 9NDIstQR9CZHyuCijOh GvdS60Ewn+PGNvbGdyb 4HiAuvlv8ele3yidHh2 IjMwJSIgdmFsaWduPSJ 2g4TzXy28B97qHWsdLH RoPSIxNSUiIHZhbGlnb r6djE2sJe6+PGNvbCB3 wIM7tZ1uPIKkWzM6RGl vF306KdDxwATyRkpoy0 ksy8uqwAx5FaNuNJCvf nAyoOnoKRI5f0MaEm22 F80oEHgoGHYnSCAeRLK hNMZbkLgtxf5moY3qGi 8+DG6mt2psgo21iF76u HI+RYSqXON7oJckIKza AVObeT4zAPoaCxL1QDN wNnVwfF80lGUaPPceNj 8ppCjezIyaUZ3rBHJyv gdnp202BnQjo5zpGXFe dZPeGXqyEUW6I52xa5B 1DTQuGBSxSQZ0oHX9sQ 1hbGlnbjogbGVmdDsgd lNazVyuVAbaIGfoB123 IHRvcDsnPlBhdGllbnQ sDvChWBt4U9JdFob6AE PydNbcAL2vkADtJPyvG v8nmUiwcMdzBE1hTFSc aaako264CeYsg1zvGJB foDYrETwqJXH0S39ei4 I8NJWlBBUuQAO3wME0x R3caJyqdntrwNLqdEvx fjXviHmyYFfmAZtmE71 6IHRvcDsnPkJpcnRoIE JypLT4OI52LW38hYKlj 4H6fDX4D6RkCTFbmvmj kkamrAY8SYOtVPKoxI6 6Vq8dcAehMy4aOFDzTR J8KQKtoFHsP4BesV8fT sPsDKNsRVPyM4NieLDv NAleG404KBykEdT6DPW ufvBlW0WeQWYqgGwiDm L1g3C0Ne3AH4L6CV65S U81dKKtw0I0iYO8V1Ct FKMbnuypwvivaWR1YRU gOGKewG28Vu7uhBrxRq 4bGXMxBHD3NZRvxJPgX 4MycA4hVlWtYWLxQLVt G3CadDOqWJbpI619TSw gUcT6UKUqlnFiS2VtNX KvuLvlPdS5v5I6Th9YA Rk5ZA21WI62eYEuv9W7 vYZ5P2InNUGwlhjqaqg xeAM4JHRoUBTmdK58Kq 9kwYsvLt2zQWXeABV4W FEurZTdQ8YrxI2xDyNc DOQpZKHtZ3NprJKfZGf jP805YIvrCzP4VQRonc JyJ0KyXQQgpXmmDwU3v 3E7Yh4CEWYrCR62OOG8 mRP5DU87RU63Y3MkXfd vdGFibGU+PHRhYmxlIH dpZHRoPScxMDAlJyBzd SvwGH6jHe3lNNWtNKYj nFseoOOmBkQjr9gxVTV dAVqyWM0kmIlvX0RduP W1HWDwk0l1Qt75F10jB 3JvdXA+OLXteZR9lPD8 cO7qXbQaWvR5FFybC18 1ZoOnfUTuSkwbb3jlh1 wtlNg4HmH8BKTobcJpk UqgHYZ8t9YtFk94R48x IHdpZHRoPSIxNSUiIHZ rtMghnj1hwM7yHe3+PG NymRO9iGP0cL0hKeLjR iJ6XFdlO855WuGelZLr Mvwni1jvu5wagDr7FrN tPUYesgOfmPhvGOA9o9 AsYj54S8RylPeup2KzE cb0un02aKIui0L6wLK3 I9PzZIAsmseodIRktTs fVA6tYSEmarztELImxT 4jKLGaF4z9WrKnFwO6Y KwkU3WyuuY1VBXjdJDt ZUrtGCJ5H53wh2H1NQE qHMSyBCE2nYB6zI3pbR lnbjogbGVmdDsgdmVyd OqzCLzyNZcdK906YVZi uQndJZInqO2nRPZjsGF whNenMS2eOGLzqdgeDi hBTEwsIEpBUkVEIFNDT 5PQUV39LJ83kEOqz0R8 hYR4K5JoCACpvcttbrb hlOU9OKCaCHRnxY61bO VmNSwrJw0vx3Y8v097Z QOqBRXfsP16Ym5gtLht DBAsnTUTjH9xjnsas8l ligrtPgGnWAKqZVo8EM j1SFSfsFgrWxUfRWA5J bJ3QDS1zIMvyW2ygPpx xhfwuG3fHjr+MDgvMTg rPBd5FnmasLF+PHRkIH W5cRxjCEkaJAChsQ9cL QDpK8k9HrAjCcY5MGzv K4KpJRJdmtbbWy57uN1 iMrJtIyN1FOtpX4Rtgp K6TVIotMXoUMeyAZH8C 62bp6K3TAAsJUCeOTX0 jBV5bG9luKnwfjbtlMA mdDsgdmVydGljYWwtYW vgJ576DBFomBfoJfNmJ TvqKFFrCJ53AV51nCZn p5Q9tRG3S7MjMTUpydg wqwzrlER5SLDkTENvgP 63gWXvOWmkQs4jn7G0p 055LUPuFUTfqS13Gt9m mYhuPJFjgTOJqY3ezgb hl4iojltrOeGeDOUaLW o8FKi8MRPmbJcmNdDsB QQ1TbY8LPU3uOFzrF3t kRsmdqgkjT3dXma+TUF MRTwvdGQ+EEYnDSD8fK hrYOksNQVgpT4eWXGsH 3a4AhEhLqX5HHwzL8Kv WQJbbachDa88hG5hXzR rUcY1DMcuZ0JkhiS1WF MpqYVrVSxpJTM7U16io 4W6VUBwGQVyJHP0fJM7 nG3tbOunyqwltHBeoEg gdmVydGljYWwtYWxpZ2 65VHKojNecOv2WAT77X D84R7CyWfzogXMtbDR+ PHRhYmxlIHdpZHRoPSc iMQJbYjKtvRahPQ3zRs 9yZGVyLWNvbGxhcHNlO cZly5pkWMAgZMtlNR0a pQqxB6VnaRG5FYJvp3q 2Se45W27qS6FhqSQ+PG SexKJ1jCH1rD3mOjMtN dR7GLghD067OjEbaIHv Vrgko6szd8xjqEk2NkY nQHBwwpZegLhkWTY8l7 StUx62O18dNTrtKBYfE NAvODFtDTZllAfurd0v vO8pWq1+CSGvsFJ8lBJ 7qO3zNxRuCvQ8XSyzW5 56UyGooUKoTpdaB52uP 3JvdXA+DCMtZvw3ONZr oPycQW5kiYQkMYuvVv3 jWYL8CiIpXbAkVUovW7 XmVIYynvlzfjfreBL5B QVxPFVsbI07Ne5noJkm Ma0xFUGqKOG1ZUMokPS jL7HjeB2sEbUlQEMoAZ YpK3BkiOLoGEfaE998V FzgVsE5ETAixuGmF0To QAGqzKxrFnQ1s8N9Pv4 AjIfdgKMeHV5wGtQsGK n7P6YlMsl1MQVynNtxV C2kpOWqLXzfMw0ycZtt rJsjOW8rYZAfrzjqm26 6UsWzt0msFEFmjYZyOE doYDM0I78kg8W6JFXrA EVyFOM4pCP3kK0hkMiq bjogbGVmdDsgdmVydGl vYSwbUEcwW684SKKtpU ftFxULHsj1O3XqRzp6P PLyqAxmJO2rrQFgRFjy Ej6pmVrecUhdBH4cRSL wftkzs095VqUsf6dbIN SwnVFeWGdmOLY1C84qm 3D4ROStDXKfBKU7vVH7 xQ8ygSiktwucsAVrtLt gdmVydGljYWwtYWxpZ2 25RTFzrRfhEg8OExh9E 7LaUeo1NUKiaRiuBA2y hIDhHBvsRt6ibCpbmYo qSE6xUILrmivvo742Mi Bhc2sbYJTlaQGkRJkgE OL0K87pm6M2ABZnHAHk RKP4jXB4bR1xiRkhuyx gbGVmdDsgdmVydGljYW ssXOdaB967RNJrjQjfN lBheWVyOjwvdGQ+PC90 mo36R7UfTawuGce0PWE pHAD9sNP5vA1tMFOkFG srm1B0oKZ2G9EdzpVsi h3hc3lmULOvJYngV70p bGF (more content not included)... [facility] Miscellaneous Testing LCon 0 01-28-2021 Mis. Test Result LC COMMENT Invalid Interpretation Code [facility] Comment on above: Result Comment: Test Ordered: [id number] Post VAS Semen Analysis, AUA Volume 3.4 mL FU Reference Range: Not Estab. Total Immotile Sperm Note: x10E6/mL FU No sperm seen. Reference Range: <0.10 Total Motile Sperm Note: x10E6/mL FU No motile sperm seen. Reference Interval: 0.54j36T0/mL Post-Vasectomy analysis was performed on an uncentrifuged specimen. Performed At: [facility] [address] [place], [place] [id number] Davey Nolan PhD Ph:[phone] Performed At: [facility] [address] [place], [place] [id number] Enmanuel Dawson MD Ph:[phone] Performed By: #### 1 [id number] #### [facility] (DEFAULT) [address] [place] [address] Provider Orderson 01-27-2021 Provider Orders [id number] 33#[id number] [facility] Miscellaneous Testing LCon 0 01-26-2021 Test Code 915678 Invalid Interpretation Code [facility] Comment on above: Performed By: #### 1 [id number] #### [facility] (DEFAULT) [address] [place] [address] Test Name LC Semen Analysis postvasect Invalid Interpretation Code [facility] Comment on above: Performed By: #### 1 [id number] #### [facility] (DEFAULT) [address] [place] [address] Vital Signs Date Time Vital Sign Value Performing Clinician Rj gonzalez 10-20-2022 09:30-0500 Body height 182.9 cm [facility] 10-20-2022 09:30-0500 Body mass index (BMI) [Ratio] 31.19 kg/m2 [facility] 10-20-2022 09:30-0500 Body weight 104.33 kg [facility] Encounters Encounter Date Encounter Type Care Provider Facility Start: 11-05-2023 End: 11-05-2023 ambulatory GABRIELLE AZEVEDOA Not Available Start: 07-03-2023 End: 07-03-2023 ambulatory GABRIELLE Vidal WANDA Not Available Start: 10-20-2022 End: 10-23-2022 ambulatory GABRIELLE MUÑOZ [facility] Start: 10-20-2022 End: 10-22-2022 Subsequent hospital visit by physician [facility] Nuclear [facility] Nuclear Medicine Comment on above: RUQ abdominal pain Start: 09-27-2022 End: 09-30-2022 ambulatory GABRIELLE MUÑOZ [facility] Start: 09-27-2022 End: 09-29-2022 Subsequent hospital visit by physician [facility] Ultrasound Room [facility] Ultrasound Comment on above: Right upper quadrant [...] DTaP/Tdap/Td vaccine (2 - Td or Tdap) [facility] Start: 2022 Diabetes screen Diabetes screen [facility] Start: 03-13-2022 Influenza vaccination Flu vaccine (# 1) [facility] Start: 2005 Hepatitis C screening Hepatitis C sc reen [facility] Start: 2002 HIV screening HIV screen [facility] Start: 1999 [facility]: 1988 Varicella vaccine (1 of 2 - 2-dose childhood series) Varicella vaccine (1 of 2 - 2-dose childhood series) [facility] Start: 1987 COVID-19 Vaccine (#1) COVID-19 Vacci ne (#1) [facility] [employer] Payers Date Payer Category Payer Medicaid [id number]. [id number] 2022 Unknown [id number] [id number] 1987 Unknown [id number] 2.16.8 [id number] 1987 Unknown [id number] 2.16.8 [id number] 1987 Unknown [id number] 2.16.84 [id number] 1987 Unknown [id number] Social History Date Type Detail [facility] unknown [facility] [employer] Phone: Start: 1985 Sex Assigned At Not on file B ON [employer] Phone: Evaluation note Note Date & Type Note Facility Evaluation note Diagnosis Right upper quadrant pain Abdominal pain, right upper quadrant documented in this encounter [facility] [employer] Phone: Evaluation note Note Date & Type Note Facility Evaluation note Diagnosis RUQ abdominal pain Abdominal pain, right upper quadrant documented in this encounter [facility] [employer] Work Phone: Summary Purpose Family History No [...] Procedures US GALLBLADDER RUQ Gabrielle Muñoz MD [address] [place] [address] Referral ID Status Reason Start Date Expiration Date Visits Re quested Visits Authorized [id number] Closed 09/26/2022 09/26/2023 1 1 Specialty Diagnoses / Procedures Referred By Contac t Referred To Contact Radiology Diagnoses RUQ abdominal pain Procedures NM HEPATOBILIARY SCAN W EJECTION FRACTION Gabrielle Muñoz MD [address] [place] [address] Referral ID Status Reason Start Date Expiration Date Visits Re quested Visits Authorized [id number] Closed 10/10/2022 10/10/2023 1 1 Additional Source Comments (unrecognized sect ion and content) No Status Records FoundNo Status Records FoundNo Status Records FoundNo Status Records Found INFORMATION SOURCE (unrecogn ized section and content) DATE CREATED AUTHOR 02/05/2021 [facility] DATE CREATED AUTHOR AUTHOR'S ORGANIZ ATION 10/09/2021 [facility] dical Specialist DATE CREATED AUTHOR AUTHOR'S ORGANIZ ATION 10/22/2022 [facility] DATE CREATED AUTHOR AUTHOR'S ORGANIZ ATION 11/05/2023 [facility] dical Specialists EPIC Reason for Visit (unrecogniz ed section and content) Specialty Diagnoses / Procedures Referred By Contac t Referred To Contact Radiology Diagnoses Right upper quadrant pain Procedures US GALLBLADDER RUQ Gabrielle Muñoz MD [address] [place] [address] Referral ID Status Reason Start Date Expiration Date Visits Re quested Visits Authorized [id number] Closed 09/26/2022 09/26/2023 1 1 Specialty Diagnoses / Procedures Referred By Contac t Referred To Contact Radiology Diagnoses RUQ abdominal pain Procedures NM HEPATOBILIARY SCAN W EJECTION FRACTION Gabrielle Muñoz MD [address] [place] [address] Referral ID Status Reason Start Date Expiration Date Visits Re quested Visits Authorized [id number] Closed 10/10/2022 10/10/2023 1 1 Care Teams (unrecognized sec tion and content) Credit Reporter Relationship 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 [place] [address] PCP - General Family Medicine 09/26/22 Credit Reporter Relationship 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 [place] [address] PCP - General Family Medicine [...] BE BASED ON THE PRIMARY CLINICAL RECORDS. [employer] provides no warranty or guarantee of the accuracy or completeness of information in this document.
== END 2024-02-04 08:27 | disposition home or self-care (01) ==
LOC: EC 08:26
PROVIDERS: PCP Family Medicine; Visit Provider Orthopaedic Surgery
DX: S62.514D Nondisplaced fracture of proximal phalanx of right thumb, subsequent encounter for fracture with routine healing (principal)
CPT/HCPCS: 73130

== ENCOUNTER 2024-02-11 07:44 | Outpatient (OUT) | payer SELFPAY ==
--- NOTE | 2024-02-11 | XR_ITS ---
The [address] [address] Patient Name: QUAN MAHAJAN MRN: [id number] date: 1985 Sex: M Assigned Patient Location: Current Patient Location: Accession/Order Number: [id number] Exam Date: 02/11/2024 07:45 Report Date: 02/11/2024 15:50 At the request of: CARROLL CHAUDHARY Procedure: XR hand RT min 3V PROCEDURE: XR hand RT min 3V HISTORY: RIGHT HAND PAIN COMPARISON: XR hand right 02/04/2024 FINDINGS: BONES:Prior comminuted fracture and surgical repair of first proximal phalanx via a lateral plate and screws. No appreciable hardware fracture loosening. SOFT TISSUES:Images were obtained through cast material. EFFUSION:None visible. OTHER: Negative. XR/XR hand RT min 3V IMPRESSION: 1. Stable surgical repair of first proximal phalanx without evidence of hardware failure or change in alignment. Electronically authenticated by: CARROLL WALTON Date: 02/11/2024 15:50
--- OUTSIDE RECORDS SUMMARY | 2024-02-11 07:50 | XMS_ITS | CCD ---
Author Organization [facility] Care Team Providers Care Coil Shaper Name Role Phone Gabrielle Muñoz MD Primary [...] cholecystitis. Gallbladder ejection fraction is approximately 91%. [facility] CONSOLIDATED EXAMINATION: NUCLEAR MEDICINE HEPATOBILIARY SCINTIGRAPHY (HIDA SCAN) WITH EJECTION FRACTION. TECHNIQUE: Approximately 5.4 millicuries Tc99m Mebrofenin (Choletec) was administered IV. Then, dynamic images of the abdomen were obtained in the anterior projection for 60 mins. A right lateral view was also obtained at 60 mins. Slow infusion of 2.09 mcg cholecystokinin was administered intravenously over 30-60 mins. Images were obtained in the PASHTO projection and regions of interest were drawn [...] range is based on a limited study. [facility] Jerry Pimentel MD - 10/20/2022 EXAMINATION: [...] 30-60 mins. Images were obtained in the PASHTO projection and regions of interest were drawn [...] cholecystitis. Gallbladder ejection fraction is approximately 91%. [employer] Phone: Radiology Study observation (narrative) [employer] Phone: NM HEPATOBILIARY SCAN W EJEC TION FRACTIONOrdered By: Jerry Armstrong on 10-20-2022 [employer] Phone: NM HEPATOBILIARY SCAN W PHAR MACOLOGICAL [...] 30-60 mins. Images were obtained in the PASHTO projection and regions of interest were drawn [...] Jerry Armstrong MD 10/20/22 Final result Normal [facility] US GALLBLADDER RUQon 023 US GALLBLADDER RUQ [...] Negin Bustillos MD 09/27/22 Final result Normal [facility] Unremarkable right upper quadrant ultrasound. [facility] RIS CONSOLIDATED EXAMINATION: RIGHT UPPER QUADRANT [...] No evidence of right upper quadrant ascites. [facility] Negin Ibarra MD - 09/27/2022 EXAMINATION: [...] ascites. IMPRESSION: Unremarkable right upper quadrant ultrasound. [employer] Phone: Radiology Study observation (narrative) [employer] Phone: US GALLBLADDER RUQOrdered By : Negin Bustillos on 09-27-2022 [employer] Phone: Q - CBC W/DIFF AND PLTon BASOABS 53 cells/uL Normal 0-200 [facility] [employer] Comment on above: Order Comment: [facility] performed at: [employer] [facility], [address] [place] [address], [address] [place] [address], [id number], Electronic Security Technician: Otto Nuñez MD [facility] Date/Time: [id number] [facility] Results Received Date/Time: [facility] Reported Date/Time: [id number] Performed By: #### 9 68T, [id number], [id number] #### [facility] Default [address] [place] [address] Basophils/100 WBC (Bld) 0.9 % Normal [facility] [employer] Comment on above: Order Comment: [facility] performed at: [employer] [facility], [address] [facility], [address] [place] [address], [address] [place] [address], Electronic Security Technician: Otto Nuñez MD [facility] Date/Time: [facility] Results Received Date/Time: [facility] Reported Date/Time: Performed By: #### 9 68T, [id number], [id number] #### [facility] [address] [place] [address] EOSABS 271 cells/uL Normal 15-500 [facility] [employer] Comment on above: Order Comment: [facility] performed at: [employer] [employer] [facility], [address] [place] [address], [address] [place] [address], [address] [place] [address], Electronic Security Technician: Otto Nuñez MD [facility] Date/Time: [facility] Results Received Date/Time: [facility] Reported Date/Time: Performed By: #### 9 68T, [id number], [id number] #### [facility] [address] [place] [address] Eosinophils/100 WBC (Bld) 4.6 % Normal [facility] Specialist Comment on above: Order Comment: [facility] performed at: [employer] [employer] [facility], [address] [facility], [address] [place] [address], [address] [place] [address], Electronic Security Technician: Otto Nuñez MD [facility] Date/Time: [facility] Results Received Date/Time: [facility] Reported Date/Time: Performed By: #### 9 68T, [id number], [id number] #### [facility] [address] [place] [address] Erythrocyte distribution width (RBC) [Ratio] 11.9 % Normal 11.0-15.0 [facility] Specialist Comment on above: Order Comment: [facility] performed at: [employer] [employer] [facility], [address] [facility], [address] [place] [address], [address] [place] [address], Electronic Security Technician: Otto Nuñez MD [facility] Date/Time: [facility] Received Date/Time: [facility] Reported Date/Time: Performed By: #### 9 68T, [id number], [id number] #### [facility] [address] [place] [address] Hematocrit (Bld) [Volume fraction] 50.9 % High 38.5-50.0 [facility] [employer] Comment on above: Order Comment: [facility] performed at: [employer] [employer] [facility], [address] [place] , [address] [place] [address], [address] [place] [address], Electronic Security Technician: Otto Nuñez MD [facility] Date/Time: [facility] Results Received Date/Time: [facility] Reported Date/Time: Performed By: #### 9 68T, [id number], [id number] #### [facility] [address] [place] [address] Hemoglobin (Bld) [Mass/Vol] 17.3 g/dL High 13.2-17.1 [facility] [employer] Comment on above: Order Comment: [facility] performed at: [employer] [employer] [facility], [address] [facility], [address] [place] [address], [address] [place] [address], Electronic Security Technician: Otto Nuñez MD [facility] Date/Time: [facility] Results Received Date/Time: [facility] Reported Date/Time: Performed By: #### 9 68T, [id number], [id number] #### [facility] [address] [place] [address] Lymphocytes (Bld) [#/Vol] 1.611 10*3/uL Normal 850-3900 [facility] [employer] Comment on above: Order Comment: [facility] performed at: [employer] [employer] [facility], [address] [place] , [address] [place] [address], [address] [place] [address], Electronic Security Technician: Otto Nuñez MD [facility] Date/Time: [facility] Results Received Date/Time: [facility] Reported Date/Time: [id number] Performed By: #### 9 68T, [id number], [id number] #### [facility] [address] [place] [address] Lymphocytes/100 WBC (Bld) 27.3 % Normal [facility] [employer] Comment on above: Order Comment: [facility] performed at: [employer] [employer] [facility], [address] [place] [address], [address] [place] [address], [address] [place] [address], Electronic Security Technician: Otto Nuñez MD [facility] Date/Time: [facility] Results Received Date/Time: [facility] Reported Date/Time: Performed By: #### 9 68T, [id number], [id number] #### [facility] [address] [place] [address] MCH (RBC) [Entitic mass] 31.3 pg Normal 27.0-33.0 [facility] [employer] Comment on above: Order Comment: [facility] performed at: [employer] [employer] [facility], [address] [place] [address], [address] [place] [address], [address] [place] [address], Electronic Security Technician: Otto Nuñez MD [facility] Date/Time: [facility] Results Received Date/Time: [facility] Reported Date/Time: Performed By: #### 9 68T, [id number], [id number] #### [facility] [address] [place] [address] MCHC (RBC) [Mass/Vol] 34.0 g/dL Normal 32.0-36.0 [facility] [employer] Comment on above: Order Comment: [facility] performed at: [employer] [employer] [facility], [address] [place] [address], [address] [place] [address], [address] [place] [address], Electronic Security Technician: Otto Nuñez MD [facility] Date/Time: [facility] Results Received Date/Time: [facility] Reported Date/Time: Performed By: #### 9 68T, [id number], [id number] #### [facility] [address] [place] [address] MCV (RBC) [Entitic vol] 92.0 fL Normal 80.0-100.0 [facility] [employer] Engineer Comment on above: Order Comment: [facility] performed at: [employer] [employer] [facility], [address] [facility], [address] [place] [address], [address] [place] [address], Electronic Security Technician: Otto Nuñez MD [facility] Date/Time: [facility] Results Received Date/Time: [facility] Reported Date/Time: Performed By: #### 9 68T, [id number], [id number] #### [facility] [address] [place] [address] MONOABS 726 cells/uL Normal 200-950 [facility] [employer] Engineer Comment on above: Order Comment: [facility] performed at: [employer] [employer] [facility], [address] [place] [address], [address] [place] [address], [address] [place] [address], Electronic Security Technician: Otto Nuñez MD [facility] Date/Time: [facility] Results Received Date/Time: [facility] Reported Date/Time: Performed By: #### 9 68T, [id number], [id number] #### [facility] [address] [place] [address] Monocytes/100 WBC (Bld) 12.3 % Normal [facility] [employer] Engineer Comment on above: Order Comment: [facility] performed at: [employer] [employer] [facility], [address] [place] [address], [address] [place] [address], [address] [place] [address], Electronic Security Technician: Otto Nuñez MD [facility] Date/Time: [facility] Results Received Date/Time: [facility] Reported Date/Time: Performed By: #### 9 68T, [id number], [id number] #### [facility] [address] [place] [address] Neutrophils (Bld) [#/Vol] 3.239 10*3/uL Normal 0664-4893 [facility] [employer] Comment on above: Order Comment: [facility] performed at: [employer] [employer] [facility], [address] [place] [address], [address] [place] [address], [address] [place] [address], Electronic Security Technician: Otto Nuñez MD [facility] Date/Time: [facility] Results Received Date/Time: [facility] Reported Date/Time: Performed By: #### 9 68T, [id number], [id number] #### [facility] [address] [place] [address] Neutrophils/100 WBC (Bld) 54.9 % Normal [facility] [employer] Comment on above: Order Comment: [facility] performed at: [employer] [employer] [facility], [address] [place] [address], [address] [place] [address], [address] [place] [address], Electronic Security Technician: Otto Nuñez MD [facility] Date/Time: [facility] Results Received Date/Time: [facility] Reported Date/Time: Performed By: #### 9 68T, [id number], 42A #### [facility] [address] [place] [address] Platelet mean volume (Bld) [Entitic vol] 10.5 fL Normal 7.5-12.5 [facility] [employer] Comment on above: Order Comment: [facility] performed at: [employer] [facility], [address] [place] [address], [address] [place] [address], [address] [place] [address], Electronic Security Technician: Otto Nuñez MD [facility] Date/Time: [facility] Results Received Date/Time: [facility] Reported Date/Time: Performed By: #### 9 68T, [id number], [id number] #### [facility] [address] [place] [address] Platelets (Bld) [#/Vol] 296 10*3/uL Normal 140-400 [facility] [employer] Comment on above: Order Comment: [facility] performed at: [employer] [employer] [facility], [address] [place] [address], [address] [place] [address], [address] [place] [address], Electronic Security Technician: Otto Nuñez MD [facility] Date/Time: [facility] Results Received Date/Time: [facility] Reported Date/Time: Performed By: #### 9 68T, [id number], [id number] #### [facility] [address] [place] [address] RBC (Bld) [#/Vol] 5.53 10*6/uL Normal 4.20-5.80 Tyrell li [place] [employer] Engineer Comment on above: Order Comment: [facility] performed at: [employer] [employer] [facility], [address] [facility], [address] [place] [address], [address] [place] [address], Electronic Security Technician: Otto Nuñez MD [facility] Date/Time: [id number] [facility] Results Received Date/Time: [facility] Reported Date/Time: Performed By: #### 9 68T, [id number], [id number] #### [facility] [address] [place] [address] WBC (Bld) [#/Vol] 5.9 10*3/uL Normal 3.8-10.8 Terrance mackenzie [place] [employer] Comment on above: Order Comment: [facility] performed at: [employer] [employer] [facility], [address] [place] [address], [address] [place] [address], [address] [place] [address], Electronic Security Technician: Otto Nuñez MD [facility] Date/Time: [id number] [facility] Results Received Date/Time: [facility] Reported Date/Time: Performed By: #### 9 68T, [id number], 42A #### [facility] [address] [place] [address] Q - COMPREHENSIVE METABOLIC PANEL W/EGFRon 10-07-2021 Albumin [Mass/Vol] 4.4 g/dL Normal 3.6-5.1 Terrance mackenzie [place] [employer] Comment on above: Order Comment: [facility] performed at: [employer] [employer] [facility], [address] [facility], [address] [place] [address], [address] [place] [address], Electronic Security Technician: Otto Nuñez MD [facility] Date/Time: [facility] Results Received Date/Time: [facility] Reported Date/Time: Performed By: #### 9 68T, [id number], [id number] #### [facility] [address] [place] [address] Albumin/Globulin [Mass ratio] 1.7 {ratio} Normal 1.0-2.5 [facility] Specialist Comment on above: Order Comment: [facility] performed at: [employer] [employer] [facility], [address] [place] [address], [address] [place] [address], [address] [place] [address], Electronic Security Technician: Otto Nuñez MD [facility] Date/Time: [facility] Results Received Date/Time: [facility] Reported Date/Time: Performed By: #### 9 68T, [id number], [id number] #### [facility] [address] [place] [address] ALP [Catalytic activity/Vol] 42 U/L Normal 36-130 [facility] [employer] Engineer Comment on above: Order Comment: [facility] performed at: [employer] [employer] [facility], [address] [place] [address], [address] [place] [address], [address] [place] [address], Electronic Security Technician: Otto Nuñez MD [facility] Date/Time: [facility] Results Received Date/Time: [facility] Reported Date/Time: Performed By: #### 9 68T, [id number], [id number] #### [facility] [address] [place] [address] ALT [Catalytic activity/Vol] 19 U/L Normal 9-46 [facility] [employer] Comment on above: Order Comment: [facility] performed at: [employer] [employer] [facility], [address] [place] [address], [address] [place] [address], [address] [place] [address], Electronic Security Technician: Otto Nuñez MD [facility] Date/Time: [facility] Results Received Date/Time: [facility] Reported Date/Time: Performed By: #### 9 68T, [id number], [id number] #### [facility] [address] [place] [address] AST [Catalytic activity/Vol] 16 U/L Normal 10-40 [facility] Specialist Comment on above: Order Comment: [facility] performed at: [employer] [facility], [address] [place] [address], [address] [place] [address], [address] [place] [address], Electronic Security Technician: Otto Nuñez MD [facility] Date/Time: [facility] Results Received Date/Time: [facility] Reported Date/Time: Performed By: #### 9 68T, [id number], [id number] #### [facility] [address] [place] [address] Calcium [Mass/Vol] 9.5 mg/dL Normal 8.6-10.3 [facility] Comment on above: Order Comment: [facility] performed at: [employer] [facility], [address] [place] [address], [address] [place] [address], [address] [place] [address], Electronic Security Technician: Otto Nuñez MD [facility] Date/Time: [facility] Results Received Date/Time: [facility] Reported Date/Time: Performed By: #### 9 68T, [id number], 42A #### [facility] [address] [place] [address] Chloride [Moles/Vol] 103 mmol/L Normal 98-110 [facility] Specialist Comment on above: Order Comment: [facility] performed at: [employer] [facility], [address] [facility], [address] [place] [address], [address] [place] [address], Electronic Security Technician: Otto Nuñez MD [facility] Date/Time: [facility] Results Received Date/Time: [facility] Reported Date/Time: Performed By: #### 9 68T, [id number], [id number] #### [facility] [address] [place] [address] CO2 [Moles/Vol] 26 mmol/L Normal 20-32 [facility] Specialist Comment on above: Order Comment: [facility] performed at: [employer] [facility], [address] [place] , [address] [place] [address], [address] [place] [address], Electronic Security Technician: Otto Nuñez MD [facility] Date/Time: [facility] Results Received Date/Time: [facility] Reported Date/Time: Performed By: #### 9 68T, [id number], 42A #### [facility] [address] [place] [address] Creatinine [Mass/Vol] 1.04 mg/dL Normal 0.60-1.35 [facility] [employer] Engineer Comment on above: Order Comment: [facility] performed at: [employer] [employer] [facility], [address] [facility], [address] [place] [address], [address] [place] [address], Electronic Security Technician: Otto Nuñez MD [facility] Date/Time: [facility] Results Received Date/Time: [facility] Reported Date/Time: Performed By: #### 9 68T, [id number], [id number] #### [facility] [address] [place] [address] eGFRAA ([facility]) 108 mL/min/1.73m2 Normal > OR = 60 [facility] [employer] Engineer Comment on above: Order Comment: [facility] performed at: [employer] [employer] [facility], [address] [facility], [address] [place] [address], [address] [place] [address], Electronic Security Technician: Otto Nuñez MD [facility] Date/Time: [facility] Results Received Date/Time: [facility] Reported Date/Time: Performed By: #### 9 68T, [id number], [id number] #### [facility] [address] [place] [address] eGFRNAA ([facility]) 93 mL/min/1.73m2 Normal > OR = 60 [facility] [employer] Comment on above: Order Comment: [facility] performed at: [employer] [employer] [facility], [address] [facility], [address] [place] [address], [address] [place] [address], Electronic Security Technician: Otto Nuñez MD [facility] Date/Time: [facility] Results Received Date/Time: [facility] Reported Date/Time: Performed By: #### 9 68T, [id number], [id number] #### [facility] [address] [place] [address] Globulin (S) [Mass/Vol] 2.6 g/dL Normal 1.9-3.7 [facility] [employer] Comment on above: Order Comment: [facility] performed at: [employer] [facility], [address] [place] [address], [address] [place] [address], [address] [place] [address], Electronic Security Technician: Otto Nuñez MD [facility] Date/Time: [facility] Results Received Date/Time: [facility] Reported Date/Time: Performed By: #### 9 68T, [id number], [id number] #### [facility] [address] [place] [address] Glucose [Mass/Vol] 85 mg/dL Normal 65-99 [facility] Specialist Comment on above: Order Comment: [facility] performed at: [employer] [facility], [address] [place] [address], [address] [place] [address], [address] [place] [address], Electronic Security Technician: Otto Nuñez MD [facility] Date/Time: [facility] Results Received Date/Time: [facility] Reported Date/Time: Result Comment: Fasting reference interval Performed By: #### 9 68T, [id number], [id number] #### [facility] [address] [place] [address] Potassium [Moles/Vol] 4.9 mmol/L Normal 3.5-5.3 [facility] [employer] Comment on above: Order Comment: [facility] performed at: [employer] [facility], [address] [place] [address], [address] [place] [address], [address] [place] [address], Electronic Security Technician: Otto Nuñez MD [facility] Date/Time: [facility] Results Received Date/Time: [facility] Reported Date/Time: Performed By: #### 9 68T, [id number], [id number] #### [facility] [address] [place] [address] Protein [Mass/Vol] 7.0 g/dL Normal 6.1-8.1 Terrance mackenzie [place] [employer] Comment on above: Order Comment: [facility] performed at: [employer] [facility], [address] [place] [address], [address] [place] [address], [address] [place] [address], Electronic Security Technician: Otto Nuñez MD [facility] Date/Time: [facility] Results Received Date/Time: [facility] Reported Date/Time: Performed By: #### 9 68T, [id number], [id number] #### [facility] [address] [place] [address] Sodium [Moles/Vol] 138 mmol/L Normal 135-146 Terrance rn [place] [employer] Comment on above: Order Comment: [facility] performed at: [employer] [employer] [facility], [address] [place] [address], [address] [place] [address], [address] [place] [address], Electronic Security Technician: Otto Nuñez MD [facility] Date/Time: [facility] Results Received Date/Time: [facility] Reported Date/Time: Performed By: #### 9 68T, [id number], [id number] #### [facility] [address] [place] [address] TBIL <0.3 Normal 0.2-1.2 [facility] [employer] Comment on above: Order Comment: [facility] performed at: [employer] [employer] [facility], [address] [place] [address], [address] [place] [address], [address] [place] [address], Electronic Security Technician: Otto Nuñez MD [facility] Date/Time: [facility] Results Received Date/Time: [facility] Reported Date/Time: Performed By: #### 9 68T, [id number], [id number] #### [facility] [address] [place] [address] Urea nitrogen [Mass/Vol] 26 mg/dL High 7-25 [facility] [employer] Comment on above: Order Comment: [facility] performed at: [employer] [employer] [facility], [address] [place] [address], [address] [place] [address], [address] [place] [address], Electronic Security Technician: Otto Nuñez MD [facility] Date/Time: [facility] Results Received Date/Time: [facility] Reported Date/Time: Performed By: #### 9 68T, [id number], 42A #### [facility] [address] [place] [address] Urea nitrogen/Creatinine [Mass ratio] 25 mg/mg High 6-22 [facility] [employer] Comment on above: Order Comment: [facility] performed at: [facility], [address] [place] [address], [address] [place] [address], [address] [place] [address], Electronic Security Technician: Otto Nuñez MD [facility] Date/Time: [facility] Results Received Date/Time: [facility] Reported Date/Time: Performed By: #### 9 68T, [id number], 42A #### [facility] [address] [place] [address] Q - Lipid Panelon 10-07-2021 Cholesterol [Mass/Vol] 224 mg/dL High <200 [facility] [employer] Comment on above: Order Comment: [facility] performed at: [facility], [address] [place] [address], [address] [place] [address], [address] [place] [address], Electronic Security Technician: Otto Nuñez MD [facility] Date/Time: [facility] Results Received Date/Time: [facility] Reported Date/Time: Performed By: #### 9 68T, [id number], 42A #### [facility] [address] [place] [address] Cholesterol in HDL [Mass/Vol] 47 mg/dL Normal > OR = 40 [facility] [employer] Comment on above: Order Comment: [facility] performed at: [facility], [address] [facility], [address] [place] [place], [address] [place] [address], Electronic Security Technician: Otto Nuñez MD [facility] Date/Time: [facility] Results Received Date/Time: [facility] Reported Date/Time: Performed By: #### 9 68T, 29543A, 42A #### [facility] [address] [place] [address] Cholesterol in LDL [Mass/Vol] 151 mg/dL High [facility] [employer] Comment on above: Order Comment: [facility] performed at: [facility], [address] [place] [address], [address] [place] [address], [address] [place] [address], Electronic Security Technician: Otto Nuñez MD [facility] Date/Time: [facility] [...] LDL-C. Kamaljit SS et al. SAY. 2013;310(19): 8616-9468 (http://education.Myrio.VisionGate/faq/[email or web address]) Performed By: #### 9 68T, [id number], 42A #### [facility] [address] [place] [address] Cholesterol.total/C holesterol in HDL [Mass ratio] 4.8 {ratio} Normal <5.0 [facility] [employer] Comment on above: Order Comment: [facility] performed at: [facility], [address] [facility], [address] [place], [address] [place] [address], Electronic Security Technician: Otto Nuñez MD [facility] Date/Time: [facility] Results Received Date/Time: [facility] Reported Date/Time: Performed By: #### 9 68T, [id number], 42A #### [facility] [address] [place] [address] NON HDL CHOLESTEROL 177 mg/dL (calc) High <130 [facility] [employer] Comment on above: Order Comment: [facility] performed at: [facility], [address] [facility], [address] [place], [address], Electronic Security Technician: Otto Nuñez MD [facility] Date/Time: [facility] Results Received Date/Time: [facility] Reported Date/Time: Result Comment: For patients with diabetes plus 1 major ASCVD risk factor, treating to a non-HDL-C goal of <100 mg/dL (LDL-C of <70 mg/dL) is considered a therapeutic option. Performed By: #### 9 68T, 02941I, 42A #### [facility] [address] [place] [address] Triglyceride [Mass/Vol] 132 mg/dL Normal <150 [facility] [employer] Comment on above: Order Comment: [facility] performed at: [facility], [address] [facility], [address] [place] [address], [place], [address], Electronic Security Technician: Otto Nuñez MD [facility] Date/Time: [facility] Results Received Date/Time: [facility] Reported Date/Time: Performed By: #### 9 68T, [id number], 42A #### [facility] [address] [place] [address] Coding Summaryon 02-04-2021 Coding Summary HTMLBase 64 NrmuvjtsMKy2xVv+PGh lYWQ+UW8QBGCnX95tfE SdhG8FS4lOUR4BVTDLZ RSNPX3JLD7fyNK1AEll K1KnsdLo YpbkgCSzCR36LFl9PMY 1jEbgSTrppT0bhKUnV0 u9YuOoIK24zY98QEajT NVmDdP1IwWsusqavAMx G3wuIsLtoQZyVne+PHR hYmxlIHdpZHRoPScxMD LwCbQpmCrcPB4tCd3lS GVyLWNvbGxhcHNlOiBj q2ukHJTmSEseKF3hrEl zK2SjfSN5KPZwk2t4It 48dHI+SLJjYQA4kGuxA Wgdi273DmVbz7elDUB3 eKXnDCwmZLD9L22zn6E 1FNAuLOXyNKE7uVG7sF 5xvAqlkacnF9DsxWAhY oX6EQC3cYXcaE4nrUmb gfzafM0bDkk+O95PQO3 MTSGGWO3EFcm8G6OaXm wvdHI+LV99ZWGtNU20z URnzTOrl3bwcUd4LmBn PQPkIBF6pBnsLBvib5O sGZLaB22hmTBvk7A8QT QsoTevwXEdTcOhsCP3w O3oDWlagmfkd7skvuik Sogio9nqow48eK41J10 uOWdcPFFvYLB0FSWyPU NerCkidg2chP3gNn1+I Qavm9sza7hdwNr2YiZp TTCbluCfdXnnNUO7n1X oPy05Y1ZqkRuzq6KeWg b2om92aPMam3Y5zME2V VluISCuwI8uAGcnVbQ7 CEMnLlXovR51xOIvBUf wTf3reUdmsHlhKU1dGX IoidbdRWDqrB6aKGEfa WImeQvzNT3aBNZhifyb a460JtZuPEJ0VRLdvTN bF4KwaH3wFeSvXIPlDM LjH0IhwYHfIGgyL828C HgeDeM5IBTtdiQxY6Ag YXEzkLadRgR4g7Q5We6 Sn0HpqbgyBYI5NXcbTE J1OvX4SdIzDhY6C7KlV gs9BFBroBqpOA2kE6Gn YZVkrvuhycohtXI8CGA rFCKvgY26jUBmRDwvNo 5mv3S5h828JYZtXBNuf Y37Fa3stEpiMTKlrNVZ eL3aojnoc2jkjkasFqK sGYOdAVs2BLw6FNRgbB pqNaCsKFL6OkR7GCN2z UXkdX2vhHwmchuqgM6a Oyc+M06mqJ8nTIW0BGC 8asmqJFZjbdSrCP06HU 75H0GuFhbyzTYrwSM+P SSuhvZqoDbzDI9kVnSf e8ifx7OxLIkzD2DkSUC tGCogQui5TTDvITX6sM P4pK5pOXVhNAvkc0U3k DD6D2WecvFhzk3am8ve NCVbREieT67ajMDid2F 6ZPGtrVV3DLUqtXycYt KdaD42Oon+PGNvbGdyb 9KnYeucn2ygq3ckbVp7 IjMwJSIgdmFsaWduPSJ 8r7AiHs17X56rETykIN RoPSIxNSUiIHZhbGlnb v9cjX0pUg2+PGNvbCB3 yLW8jB7aBGHmJwF0JDf rM363DqLqjSAmPywfm2 vhk4ikcTt1HtMnDYZdz hYebPtlAYQ6j4XxXk45 X50qFIfcHPImHOUhZSO bHWNdsOwfmr8rwK2oYv 8+EY0lt7rwbn61iZ24b HI+BPQuVSI4zLlbYCag YBXpgJ1vENppZzT1ESC yHbCsjI52tJRpWQmrJa 7dsImzvTwmPW9bWJWjj ecvy795PsYyx5olETSm tAQgONjrIMD8Z20up3V 7IVLfKNHoNGV0tUH0kG 1hbGlnbjogbGVmdDsgd nCbiXloHFeyDMepJ968 IHRvcDsnPlBhdGllbnQ jIoEmJAf7C5IaJkv9TM PpxViyJL2prJXsKFnsV l5zeNbrcJsnKX2gBATq tstcl691DnWoj7ouVXK djWCuRQulAFV4Z89nr5 I4PXVtGCLoBRO3hEJ0v C7hxYhyjjfupCYzxKbj rxTllHioORguWEivK37 6IHRvcDsnPkJpcnRoIE RyvVE9OM71ZD79wGZhz 6Z8vWY5A4IoIPKrbzxd bjalmFO4RPJnXLFdpH7 9Hh4znDpqYf9xAMApXM B1YTIumIZvR0GsvP8dT jJgJLMyYJIrH2UyxYHw GEycL731SWeyMpS3LAG offSsT0XwMCPatBckJk S8v5G9Qr8OM9D7IK23N A26cVPpk5M0xTW2G9Gl ZVHptdoxxcqxfEQ2BUE hRLOgiF65Vu0lzFiqYq 1iHBTiLGD7ELAnwEYeK 6DiuE8pWzFjATDbYJAl E4LslOEtXAarA323ZAg xQdM4WMOcgjDbT3QqPE YjzTtzItZ7p2M4Ry4QA Ut7QH64JT00yJLfs2N5 oPS5K0EuSYTdfnhrtrr klNL1ZZSmRGLmwG30Kp 6rrCvoQj3kCXIkGJD6H YGopNXmD5BisV0sUqYd FGClKKDpA9HzwJIvSHd rN388OUotQmU7OIQzxp FsF0HvONYnrVobQgI1i 5A1Ol3BFVCdYC82VDM9 nDV2XB07IK30S5DmBkt vdGFibGU+PHRhYmxlIH dpZHRoPScxMDAlJyBzd VlkSM3dPz3fQQBuMUXy iWsdgKOkOrGzr9wyARF xKNxmHM3biSemF2HhwS Z2RVBvw1m8Sv99C08jJ 3JvdXA+BOElfCR2qUZ0 qK1mYtPhGuB4MQpsK37 9GjCeyYPnQnqpy0wkx3 dzsJf0DiF4LLRsqdPow QtiZEV6j0WoNc78V41h IHdpZHRoPSIxNSUiIHZ wqMdorx7lyX7xHz9+PG TevOR9eDB4jV1yYvHiB iG9AJqlJ601DeOnvHAt Ukuig0szc9xaiFn6HxB mKQAnojNxyCxkCUN3k4 NeBq41O2CitSmba1EkW bc1lj50wAUmv3A7iHD7 S9UaDMQrvcnxyGYvcSb lWH7mHGXtxdspVXNanV 0oRJTfA2l2HrNySbB8E ArlZ2MogiM4UZFmyBGs YHmgVJN8Q39db1N1EHP oMHHgSYY4nNT0bO2dzW lnbjogbGVmdDsgdmVyd RfyGVgiLFxdA281NEIk oNwaZAShrA6gSGBtyWN jiGcdUU1zACAssqxtSp hBTEwsIEpBUkVEIFNDT 7MLCT34QS03vMScf2E8 eVB2T8UmVGZkkdsxnww olRT3VMJgRXBeuE59bC PjXXuhDp0rr3V2s206I TDsLVHoaO35Wm3mfRan EXZmsJMHlM5gknbjm3r angwwZnKzENGiAMf4ZP z6NNCixYfkIaMgUXO0W hW9HRD6uJSfjU7guZqu wgxcoC6fOli+MDgvMTg yNFn6SqzedRQ+PHRkIH W1dEfdMAkrODMvaC1eQ KKzV8e2YcQxPhJ4XZwx U6WcHMWcgnviUf48rE3 yArMqBxL2TNoyH6Msqp P1EBHtmZVsOQkrUPE1V 19ex3C6ZVFsAOFvCPW0 kRC4oI6btDaghepncLS mdDsgdmVydGljYWwtYW sjO017VBFavBrnPoUfP PhjTRYbRU50UE98oUCv m2J6mJY9F8FzUWNggfo nsvrqiXE6RSFmHGYcaD 48aUJsORqkBi6im8H6n 986IMOlKCPdfV52Nl0c gZgqSIRseNMAtF9lndj vz8tuutmlInZsFDOlTV v9LRd5OQUhsSkbYtIiS GV5ImQ3ENJ2mBAxlA8i pKencgmxoN8hAzk+TUF MRTwvdGQ+MFQmUSY4dN nlYNibUATfwU6vRRUnY 4c4IzNlFiX7IUaaQ2Hz MLDfqtpbYb85tP6pCjS jUeE7ORutY4QjpvD1ZS DmhICvXLxjEBZ6B50is 3F2SSNrOVNkNFP4gEF5 jY8cjUgteaqkyCWvgOw gdmVydGljYWwtYWxpZ2 84XXJnxVvpHc5VKW77T G12R6IcRurnwSPwiNI+ PHRhYmxlIHdpZHRoPSc kCRBiGxWoxOjqFF9aSf 9yZGVyLWNvbGxhcHNlO jCgc7wvNAAmSDesMG6s oOevY7FknMM9JCFtm6t 7Rr80N19uV0BgzFW+PG TteQT8sKJ6kF1lKpNoB nF3UTrdD364EmXxcQLp Pbkjo6tps3ocpHx7ThP uCRCeljYqxCaaJAC6x4 PuOq75O42rHPnfGWWhB KJeUKLrWJTjaGfttf4c sP8tVs2+CPMvuFL3tMK 3iF6iZzEqCkB0WPznS7 95UpXieECeSgfuZ98oX 3JvdXA+ZRGwSxt2GIWw bXgjOP9sgKTdMQkwZy5 rOAD3CjOsWmPdUFkqR4 EfQAUriicrsuuxbOA5A YNkNCUfrW69Yp1shXjr Kr3yOYGuONF9SXHguYU pA5IwkA8tTuSwGUWqCL OaL1LqaJVhKXiqV918R TotEhL2PVPnizXqY6Lb ORNpeEttJqI5z4K9Pk5 EbRhgaFNwNV4zNnXrFT b1T0JzDct8CMVxyLdeD B3tzJQwPIrkJb8dlAzf vPudLA5iBACyvytdl20 0NrHdy8oxZDVgfVYlRP coEBE4R25rk4M2BOIdS LMlQNQ7fLV9hI2wvGzs bjogbGVmdDsgdmVydGl hJJkhBZblX577DHZfnD xeOiKNZuj3Y1DbZtx9S ODmeJviOE7ulEWxBGdx Us5dyTnddKtuMY0vVDY gzoeiz475MfQdw7icPH RywEVzXMbmVXA2C76go 3O1TWMnCVSnLQH4lUE1 oU5xsOowellvpGIsmKh gdmVydGljYWwtYWxpZ2 13SNBnaHvcLw6BLmj1E 0LjEag5QGOzfQjxNW5r sAIuXWzpWo0ybBvjuPk xOE4qQRHtudwax665Wg Sxu9pyIFMhmTIzBDttL LL8S78us2G0YNTsTDHq JKX8kJK2gS0bsUkjawn gbGVmdDsgdmVydGljYW icEBaxA297SDRmwWruM lBheWVyOjwvdGQ+PC90 ey74P0TsAjaoDvd7EDZ lRCV6vZP8xS4tPZNpHE ikw7Z3wZJ0I8HwjoXvy x7cw4zkNJUfNQwgU91q bGF (more content not included)... [facility] Provider Orderson 02-04-2021 Provider Orders [id number] Normal [facility] Sperm Count Post Vason 02-03 Post Vas Screen None [facility] Comment on above: Performed By: #### 1 [id number] #### [facility] (DEFAULT) [address] [place] [id number] Semen WBC 0-2 [facility] Comment on above: Performed By: #### 1 [id number] #### [facility] (DEFAULT) [address] [place] [address] Coding Summaryon 01-28-2021 Coding Summary HTMLBase 64 OvinrwdwNYu5mKh+PGh lYWQ+BW4KVBPhM90dnK FbnZ9AW8yEGD3DEQWPX ZALFA6JMQ1fsBW9JEnv L4XttjOc ZtiouOGpWI07YOj3VVN 6kHufKKqhhP9ujDUxH3 t4NtRbAH79xD16SQvvT BRzHbG1TiYlatfoaCOs H3qgMoQcpYWqFze+PHR hYmxlIHdpZHRoPScxMD KrWhZncHivYJ7pBy7cW GVyLWNvbGxhcHNlOiBj v4odTVXbEIipHF2qjJt pX4QurZP1QADlx2v0Pl 48dHI+ITBlTGN8iHybN Kdtj910YpQzz0ddFYJ2 lFFfQZiwRFR7V50eb9V 4EABsHJLyAFI6wKF3kX 9fgQmizabbJ4VxzBXwR dU5KMG3iZHgbO3aiXcn fqvkgX3iHzc+V83SLS0 QJINOXD5DVma7A0XdHp wvdHI+AI31SIJqSY08n OLhjDUce8bzjOx0SvCt AVXkOVC2eJnhSLivs3C pFKUdZ46klQVhg6X9ZE BeeTgynJQvZvVugZZ2h O1yRIxyjplwg0iydsml Cuezw0utbd44uH70I20 hNBduBSAsWMN6VCLgUX IusMxjxz6vpQ5dXs3+I Klyx9srt4qizTl8PoAn HLSqwhHidExdMDL1u1A zAe75X9TukImxt9YrWf s8px78nWRtv6U5eGK4U RaeQDWvmS1wZRwqIdR7 QBMiIxKnlZ34aIMhLQo lJx3ouCozkWkfTL2zHX GmupudIKGczI9pQSNqc MWsfAabZL5dINOgxagj q624CaSnFMP1LVGveKN aV3NgnH3iMmSlCEThUS UjV8XfdDJoNQsgE581H ZibEtF6ELEcxsEuR1Ej UIMfaUbuGqZ5u9Q7Go4 Ym6KcfmjvXKR9MOoqMQ A0WtE0RwUmTaF9L2TlR fm6MDKbjDkwBZ2dK4Lg REQjkgjljnpjkDM6LLW rGBSvdS05qVMcWPcnGa 4tn1K1n587TFDxUFIqm I09Zd6tmJivCLMdfWKL sP9eyjysp6drdqblPkW sBAZaCDk9IYg7YIJvjC mhJoArXKG9LdC3ZVP7v AUxjS1piRddyhwitG6p Oyc+G42ygU7nGJP8MTL 2zmjaWAIyqjRmAF63LY 22S0UsWctoxDRifWP+P HLtrhZipSgjYM3xPnPl h9upd9KbBXqhX9RoAID xDCzzGpf0YVBqGHU7hQ J5eD5dFZDvYIjeo6U1w FY1Y9HifrRnlo4et6wt XXJyTBenN52evDXjq4Q 1CCHekWP9ADFufYhrMu AisW52Fqg+PGNvbGdyb 6VqNbrdh2thf8ndsMn4 IjMwJSIgdmFsaWduPSJ 7q9NcXa14T38lRIugGK RoPSIxNSUiIHZhbGlnb i1yxV9kDn2+PGNvbCB3 zKR5cA2vWHUuXwS8ZBc uK303CzXrjOLdNqvgc5 yms7hdtHd5QiVjNKBfo sHkxScxOHA8i4EsTd14 U75iIGtlKVLhPYToNUF sYGSkbVnduf2xjN4zAj 8+PI5wj2xtzd37zB79h HI+XBXzLYE4wDkxAFgt JFDeoQ9gLJqfNsO0OOO xIlAldL68gFItZOihLq 0edWuixGxuYZ4mSNDyg bexm522PsOys5lcDSOa nAJxQCrgZQX5C03xj7B 7CMZtXZBgSVD8yUO5lX 1hbGlnbjogbGVmdDsgd yTjrBisBNujQOlaM956 IHRvcDsnPlBhdGllbnQ oHjMuMRy8P2VpQqr5EC XtqYxpFJ3onRVqYFcpX w9brYdjgAiuGG0cFYRr fkpcg844AbUau2wqVLC coIXwEBmzNGB1T17xh8 A0YVGxOFLcIHL3zOK9x V1azAxlkonfoCUifKzp iyFmnRaiEQfzNZqcA99 6IHRvcDsnPkJpcnRoIE NftHU1YZ26WV39nMGrz 0G1xSS7B5DsJUCefumo nkbysPE2PANwJDUebW1 8Sf8maIjxWi5qWCWbVV E8AEWneYJnA7AugI0bR uNzOLDrPZSlM9AtmEWv DDyjI207WWcyYbO6ZPW gcvTzY0RsCAVtoWtmEl M8h0G6Ry3ZO9L8LN38Z O05oXHjo7B3cEF8D9Fo ARJtcruvwfqqaBG1VQA cQMYhcL55Ln5hkWzdGu 0wRMZrYDT6TFPhoDFqN 9FrgK0qYiDmLHPwYQRy Z6VxnUAgAWurP679QKm jXgC9BWOtquFcJ6YwJC UlzIyeMrT0h5M2Ao1JA Eg5WG64BI48hXOjg9J0 tRB1C8ZxAZRagtdintu woXU1VXNyIFLceB86Dp 9gaRxjJs0qFHVwPEF3Q ZHnzOBoH0WwxL1bVmXl FTUfDUPeJ9UazTHkJYy fI220RUyyYoA8IDZkkm BcQ8EaKMHssLesIvO5r 2C2Cg8PWWGgNE78RGQ8 xSD6DJ36IY12R4SuEky vdGFibGU+PHRhYmxlIH dpZHRoPScxMDAlJyBzd JgyFL8xKt8jHLGzIDOp mPhbwCUrEaAja1bmRMS rQMdpDX0gwAuaM2VnfH J8JQQki9j5Qx15X68zR 3JvdXA+SWSspPS3fJY5 wL1hDfUfMhB8AUrcN52 3LzMtfPJvHbpdx8tdi2 cnlWn8GmI5EYYhtdLwq BjzOUT7c3LxBd00Z31u IHdpZHRoPSIxNSUiIHZ qkJkpoa1jsZ9wIs5+PG JekAK4mXF7lR5nMbFoV gS9DOuzQ562LeXsfRAx Ofxev4qgj3mmqAs9OdB cYNWialTpyMbaGBC2l1 UuRl00S0WjbWpns0AsX ps5fa71aQKit3Q7vUZ2 S1MsDIKmdhsyzKCjqIg tBC9nXRNxcdjdMOMhhM 2nYUBjQ2b2GcAfVjX7V DxlY1PfslB5UOYitPJw EXrkICD9N20na9T1PII eFASjMFZ1zHM7kV2hnW lnbjogbGVmdDsgdmVyd UxvBCpbFMihU487CJRr eKxsSFHmaX1kLYEmiYX ecKepDH5fYNBvqieaCf hBTEwsIEpBUkVEIFNDT 9OMSC70LW13jNEgk1V9 xID6R2PpJQDgxibyvpc oiQB1PIBbKJLoeW53mD JgVScnOv5mt4N0g906T IXuWXIapN16Ox0tcKdx GZKeqPJLkC3iuqkwv9t ydaymBwBxEVBiGNs1XN b5FLSwyIekYmOqSGM7G gT0FTL6hOLayX8naNsg uidusN6bCma+MDgvMTg cCYv3NwmvuXV+PHRkIH L9uJhkBWakNPLmaX2zF SUhW1o0MwXhPwL1COxb Z3VuHAXuxezsMr25oV7 dKyBzNsK8PMfiQ2Ruuq Z9FBRasMRjXCprPIN3S 48jg9G9AMJjYTQeSXJ0 vEC2rX9deYittdqqwMY mdDsgdmVydGljYWwtYW qdJ871MVTfjYqtYoJjG TiuXVLsFG57WG43rQCv z7N1xCW3I9KoBPOmmyk ulltweHV4XZBtEKBjsO 64cKYpMOmpEj0bz0F8h 138PUAwITMjuF59Jq3p aYthDKIjbTOSpH6cfus cf5glgvumTyZoTZInXB o6FDh1WFJysFcdBeHvA IK2WlC5TVX4aQCriV2a cGlbylfxpU9aQyv+TUF MRTwvdGQ+GPEpIDD3sN rwVNfpTNXjeE2eUUIxN 3z9RgAxEeH8CQfeJ6Xf FZIerlqeUg19pT5mPhD tZbF3BMflC7UwjhW5KV MwtVKsYXxdHPD8O25by 4R4BUVbYXSqZOL3nXK7 eE0meLxswfpfzOVkoKf gdmVydGljYWwtYWxpZ2 86NEOtiLhgXr9XIT51D R73O6VdSuijwMOqpAL+ PHRhYmxlIHdpZHRoPSc cWDYsDcCnkNgsNI8iSz 9yZGVyLWNvbGxhcHNlO uFzz3xpMIRuIZpiGO0p iKcbK7CrtVM8BAWqq2t 7Iu61Z15aE0GooSL+PG VvkEM1lOC9rR5lEkPgJ nD7FIrpC748RqXpwAQg Gwcnr1lgu2hcfEa3NzF qUXDrfiNlzQmvLOX4u0 EwTi65D79yXYztBMXtL TKoINJcCBFxeQwhyc2k uB6kZi4+BMNdmTG7aTX 6oX6xAwFyGgI0OZspP8 57SsIbnSMvTaelZ87oZ 3JvdXA+UKDcKvx1IXFc nMtxQU9usYBcARkqBf4 iQRN4WgTnKbDcKBdgN3 CwHOUguglljywshNI2J KBdYWMynQ57Aa9fjCpx Ws7yBOBsXSI2RBYjmEJ zI8GfwD5vWlUvRYBfAR KrT6RsyGHbAWywY692C JvbPqN9CMFllaTkZ3Qp FCUozFknXgP7k4C9Yh4 UnYgqbGMeUR8xHeSnMO r3V9IwGup0LAMhnTymB D2dkZJdKKhpTq6nbGdl jJoxKA2rZJNlaskbb12 9ZhXuv9piAJPpoFQkSL hfLVJ2K96yb2J9EAJmN AFdVRQ1pNV3aB0xdUuu bjogbGVmdDsgdmVydGl tQIfvUWqjO670ONZxzR rkKeZBElx1S3JhFnt8F VErxJxcWG7wwZHtXWym Vw6syDmyzWfxMR3dAEJ ioltxi555UiNem4xmUV EchUFbIEdoOSB9U97ov 6K1WWBxFOIcOVD0sYW2 vN6qiIvxullytAHwkQj gdmVydGljYWwtYWxpZ2 56UHYozOkuTv1HKij6F 0HaUsl0SUBuaYmgPM3u wTXlBTauQz1hwGpdjZx dCY5dMYLivdwvu654Tg Yqb0ngMYFcxORtPRbdO AG5C20ja8Y9NCCvUOPz WDF7gWL8vY6noIbvgyq gbGVmdDsgdmVydGljYW idVZiyK383BKVriJvnU lBheWVyOjwvdGQ+PC90 kc48B1AkXjbfOjo1VJN zQIQ9pUY8sJ7mLQZwPM squ7Q3kLA1U7EufrGmm p8nu2xeLWBdLCkvK03c bGF (more content not included)... [facility] Miscellaneous Testing LCon 0 01-28-2021 Mis. Test Result LC COMMENT Invalid Interpretation Code [facility] Comment on above: Result Comment: Test Ordered: [id number] Post VAS Semen Analysis, AUA Volume 3.4 mL FU Reference Range: Not Estab. Total Immotile Sperm Note: x10E6/mL FU No sperm seen. Reference Range: <0.10 Total Motile Sperm Note: x10E6/mL FU No motile sperm seen. Reference Interval: 0.24h38V7/mL Post-Vasectomy analysis was performed on an uncentrifuged specimen. Performed At: [facility] [address] [place], [place] [id number] Davey Nolan PhD Ph:[phone] Performed At: [facility] [address] [place], [place] [id number] Enmanuel Dawson MD Ph:[phone] Performed By: #### 1 [id number] #### [facility] (DEFAULT) [address] [place] [address] Provider Orderson 01-27-2021 Provider Orders [id number] 33#[id number] [facility] Miscellaneous Testing LCon 0 01-26-2021 Test Code 534543 Invalid Interpretation Code [facility] Comment on above: Performed By: #### 1 [id number] #### [facility] (DEFAULT) [address] [place] [address] Test Name LC Semen Analysis postvasect Invalid Interpretation Code [facility] Comment on above: Performed By: #### 1 [id number] #### [facility] (DEFAULT) [address] [place] [address] Vital Signs Date Time Vital Sign Value Performing Clinician Rj gonzalez 10-20-2022 09:30-0500 Body height 182.9 cm [facility] 10-20-2022 09:30-0500 Body mass index (BMI) [Ratio] 31.19 kg/m2 [facility] 10-20-2022 09:30-0500 Body weight 104.33 kg [facility] Encounters Encounter Date Encounter Type Care Provider Facility Start: 11-05-2023 End: 11-05-2023 ambulatory GABRIELLE AZEVEDOA Not Available Start: 07-03-2023 End: 07-03-2023 ambulatory GABRIELLE Vidal WANDA Not Available Start: 10-20-2022 End: 10-23-2022 ambulatory GABRIELLE MUÑOZ [facility] Start: 10-20-2022 End: 10-22-2022 Subsequent hospital visit by physician [facility] Nuclear Medicine Comment on above: RUQ abdominal pain Start: 09-27-2022 End: 09-30-2022 ambulatory GABRIELLE MUÑOZ [facility] Start: 09-27-2022 End: 09-29-2022 Subsequent hospital visit by physician [facility] Ultrasound Room [facility] Ultrasound Comment on above: Right upper quadrant [...] DTaP/Tdap/Td vaccine (2 - Td or Tdap) [facility] [employer] Start: 2022 Diabetes screen Diabetes screen [facility] [employer] Start: 03-13-2022 Influenza vaccination Flu vaccine (# 1) [facility] [employer] Start: 2005 Hepatitis C screening Hepatitis C sc reen [facility] [employer] Start: 2002 HIV screening HIV screen [facility] Start: 1999 [facility] Start: 1988 Varicella vaccine (1 of 2 - 2-dose childhood series) Varicella vaccine (1 of 2 - 2-dose childhood series) [facility] [employer] Start: 1987 COVID-19 Vaccine (#1) COVID-19 Vacci ne (#1) [facility] [employer] Payers Date Payer Category Payer Medicaid [id number]. [id number] 2022 Unknown [id number] [id number] 1987 Unknown [id number] 2.16.8 [id number] 1987 Unknown [id number] 2.16.8 [id number] 1987 Unknown [id number] 2.16.84 [id number] 1987 Unknown [id number] Social History Date Type Detail Facility [facility] [employer]: Start: 1985 Sex Assigned At Not on file B ON [employer]: Evaluation note Note Date & Type Note Facility Evaluation note Diagnosis Right upper quadrant pain Abdominal pain, right upper quadrant documented in this encounter [facility] [employer]: Evaluation note Note Date & Type Note Facility Evaluation note Diagnosis RUQ abdominal pain Abdominal pain, right upper quadrant documented in this encounter [facility] [employer] Work Phone: Summary Purpose Family History No [...] Procedures US GALLBLADDER RUQ Gabrielle Muñoz MD [address] [place] [address] Referral ID Status Reason Start Date Expiration Date Visits Re quested Visits Authorized [id number] Closed 09/26/2022 09/26/2023 1 1 Specialty Diagnoses / Procedures Referred By Contac t Referred To Contact Radiology Diagnoses RUQ abdominal pain Procedures NM HEPATOBILIARY SCAN W EJECTION FRACTION Gabrielle Muñoz MD [address] [place] [address] Referral ID Status Reason Start Date Expiration Date Visits Re quested Visits Authorized [id number] Closed 10/10/2022 10/10/2023 1 1 Additional Source Comments (unrecognized sect ion and content) No Status Records FoundNo Status Records FoundNo Status Records FoundNo Status Records Found INFORMATION SOURCE (unrecogn ized section and content) DATE CREATED AUTHOR 02/05/2021 [facility] DATE CREATED AUTHOR AUTHOR'S ORGANIZ ATION 10/09/2021 [facility] d[facility] Specialist DATE CREATED AUTHOR AUTHOR'S ORGANIZ ATION 10/22/2022 [facility] DATE CREATED AUTHOR AUTHOR'S ORGANIZ ATION 11/05/2023 [facility] dical Specialists EPIC Reason for Visit (unrecogniz ed section and content) Specialty Diagnoses / Procedures Referred By Contac t Referred To Contact Radiology Diagnoses Right upper quadrant pain Procedures US GALLBLADDER RUQ Gabrielle Muñoz MD [address] [place] [address] Referral ID Status Reason Start Date Expiration Date Visits Re quested Visits Authorized [id number] Closed 09/26/2022 09/26/2023 1 1 Specialty Diagnoses / Procedures Referred By Contac t Referred To Contact Radiology Diagnoses RUQ abdominal pain Procedures NM HEPATOBILIARY SCAN W EJECTION FRACTION Gabrielle Muñoz MD [address] [place] [address] Referral ID Status Reason Start Date Expiration Date Visits Re quested Visits Authorized [id number] Closed 10/10/2022 10/10/2023 1 1 Care Teams (unrecognized sec tion and content) [employer] Relationship 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 [place] [address] PCP - General Family Medicine 09/26/22 [employer] Relationship 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 [place] [address] PCP - General Family Medicine [...] BE BASED ON THE PRIMARY CLINICAL RECORDS. [employer] provides no warranty or guarantee of the accuracy or completeness of information in this document.
== END 2024-02-11 07:45 | disposition home or self-care (01) ==
LOC: EC 07:44
PROVIDERS: PCP Family Medicine; Visit Provider Orthopaedic Surgery
DX: S62.514D Nondisplaced fracture of proximal phalanx of right thumb, subsequent encounter for fracture with routine healing (principal)
CPT/HCPCS: 73130

== ENCOUNTER 2024-03-10 08:16 | Outpatient (OUT) | payer MEDICAID, SELFPAY ==
--- NOTE | 2024-03-10 | XR_ITS ---
The [address] [address] Patient Name: QUAN MAHAJAN MRN: [id number] date: 1985 Sex: M Assigned Patient Location: Current Patient Location: Accession/Order Number: [id number] Exam Date: 03/10/2024 08:17 Report Date: 03/11/2024 05:51 At the request of: CARROLL CHAUDHARY Procedure: XR hand RT min 3V PROCEDURE: XR hand RT min 3V HISTORY: RIGHT HAND PAIN ; follow-up right thumb fracture COMPARISON: XR hand right 02/11/2024 FINDINGS: BONES:Surgical repair of first proximal phalanx via a lateral plate and screws; no appreciable hardware fracture loosening. Normal alignment appears to be maintained. Persistent fracture line. SOFT TISSUES:Soft tissue swelling. EFFUSION:None visible. OTHER: Negative. XR/XR hand RT min 3V IMPRESSION: 1. Stable surgical changes without evidence of hardware failure or change in alignment. 2. Ongoing bone healing. Electronically authenticated by: CARROLL WALTON Date: 03/11/2024 05:51
--- OUTSIDE RECORDS SUMMARY | 2024-03-10 08:19 | XMS_ITS | CCD ---
Author Organization [facility] Care Team Providers Care Information Security Specialist Name Role Phone Gabrielle Muñoz MD [...] cholecystitis. Gallbladder ejection fraction is approximately 91%. [facility] CONSOLIDATED EXAMINATION: NUCLEAR MEDICINE HEPATOBILIARY [...] 30-60 mins. Images were obtained in the UZBEK projection and regions of interest were drawn [...] range is based on a limited study. [facility] Jerry Pimentel MD - 10/20/2022 EXAMINATION: [...] 30-60 mins. Images were obtained in the UZBEK projection and regions of interest were drawn [...] cholecystitis. Gallbladder ejection fraction is approximately 91%. [facility] Phone: Radiology Study observation (narrative) [facility] Phone: NM HEPATOBILIARY SCAN W EJEC TION FRACTIONOrdered By: Jerry Armstrong on 10-20-2022 [facility] Phone: NM HEPATOBILIARY SCAN W PHAR MACOLOGICAL [...] 30-60 mins. Images were obtained in the UZBEK projection and regions of interest were drawn [...] Jerry Armstrong MD 10/20/22 Final result Normal [facility] US GALLBLADDER RUQon 023 US GALLBLADDER [...] Negin Bustillos MD 09/27/22 Final result Normal [facility] Unremarkable right upper quadrant ultrasound. [facility] RIS CONSOLIDATED EXAMINATION: RIGHT UPPER QUADRANT [...] No evidence of right upper quadrant ascites. [facility] Negin Ibarra MD - 09/27/2022 EXAMINATION: [...] ascites. IMPRESSION: Unremarkable right upper quadrant ultrasound. [facility] Phone: Radiology Study observation (narrative) [facility] Phone: US GALLBLADDER RUQOrdered By : Negin Bustillos on 09-27-2022 [facility] Phone: Q - CBC W/DIFF AND PLTon BASOABS 53 cells/uL Normal 0-200 [facility] [employer] Comment on above: Order Comment: [facility] performed at: [facility], [address] [place] [address], [address] [place] [address], [id number], [employer]: Otto Nuñez MD [facility] Collection Date/Time: [id number] [facility] Results Received Date/Time: [facility] Reported Date/Time: [id number] Performed By: #### 9 68T, [id number], 42A #### [facility] [address] [place] [address] Basophils/100 WBC (Bld) 0.9 % Normal [facility] [employer] Comment on above: Order Comment: [facility] performed at: [employer] [facility] [facility], [address] [facility], [address] [place] [address], [address] [place] [address], [employer]: Otto Nuñez MD [facility] Collection Date/Time: [facility] Results Received Date/Time: [facility] Reported Date/Time: Performed By: #### 9 68T, 14305M, 42A #### [facility] [address] [place] [address] EOSABS 271 cells/uL Normal 15-500 [facility] [employer] Maker Comment on above: Order Comment: [facility] performed at: [employer] [employer] [facility], [address] [place] [address], [address] [place] [address], [address] [place] [address], [employer]: Otto Nuñez MD [facility] Collection Date/Time: [facility] Results Received Date/Time: [facility] Reported Date/Time: Performed By: #### 9 68T, [id number], 42A #### [facility] [address] [place] [address] Eosinophils/100 WBC (Bld) 4.6 % Normal [facility] Specialist Comment on above: Order Comment: [facility] performed at: [employer] [employer] [facility], [address] [facility], [address] [place] [address], [address] [place] [address], [employer]: Otto Nuñez MD [facility] Collection Date/Time: [facility] Results Received Date/Time: [facility] Reported Date/Time: Performed By: #### 9 68T, 10289J, 42A #### [facility] [address] [place] [address] Erythrocyte distribution width (RBC) [Ratio] 11.9 % Normal 11.0-15.0 [facility] Specialist Comment on above: Order Comment: [facility] performed at: [employer] [employer] [facility], [address] [facility], [address] [place] [address], [address] [place] [address], [employer]: Otto Nuñez MD [facility] Date/Time: [facility] Results Received Date/Time: [facility] Reported Date/Time: Performed By: #### 9 68T, 00102A, 42A #### [facility] [address] [place] [address] Hematocrit (Bld) [Volume fraction] 50.9 % High 38.5-50.0 [facility] [employer] Comment on above: Order Comment: [facility] performed at: [employer] [employer] [facility], [address] , [address] [place] [address], [address] [place] [address], [employer]: Otto Nuñez MD [facility] Date/Time: [facility] Results Received Date/Time: [facility] Reported Date/Time: Performed By: #### 9 68T, 85686V, 42A #### [facility] [address] [place] [address] Hemoglobin (Bld) [Mass/Vol] 17.3 g/dL High 13.2-17.1 [facility] [employer] Comment on above: Order Comment: [facility] performed at: [employer] [employer] [facility], [address] [facility], [address] [place] [address], [address] [place] [address], [employer]: Otto Nuñez MD [facility] Date/Time: [facility] Results Received Date/Time: [facility] Reported Date/Time: Performed By: #### 9 68T, 98198P, 42A #### [facility] [address] [place] [address] Lymphocytes (Bld) [#/Vol] 1.611 10*3/uL Normal 850-3900 [facility] [employer] Comment on above: Order Comment: [facility] performed at: [employer] [employer] [facility], [address] , [address] [place] [address], [address] [place] [address], [employer]: Otto Nuñez MD [facility] Date/Time: [facility] Results Received Date/Time: [facility] Reported Date/Time: [id number] Performed By: #### 9 68T, 88189X, 42A #### [facility] [address] [place] [address] Lymphocytes/100 WBC (Bld) 27.3 % Normal [facility] [employer] Comment on above: Order Comment: [facility] performed at: [employer] [employer] [facility], [address] [place] [address], [address] [place] [address], [address] [place] [address], [employer]: Otto Nuñez MD [facility] Collection Date/Time: [facility] Results Received Date/Time: [facility] Reported Date/Time: Performed By: #### 9 68T, [id number], 42A #### [facility] [address] [place] [address] MCH (RBC) [Entitic mass] 31.3 pg Normal 27.0-33.0 [facility] [employer] Comment on above: Order Comment: [facility] performed at: [employer] [facility], [address] [place] [address], [address] [place] [address], [address] [place] [address], [employer]: Otto Nuñez MD [facility] Collection Date/Time: [facility] Results Received Date/Time: [facility] Reported Date/Time: Performed By: #### 9 68T, [id number], 42A #### [facility] [address] [place] [address] MCHC (RBC) [Mass/Vol] 34.0 g/dL Normal 32.0-36.0 [facility] [employer] Comment on above: Order Comment: [facility] performed at: [employer] [employer] [facility], [address] [place] [address], [address] [place] [address], [address] [place] [address], [employer]: Otto Nuñez MD [facility] Collection Date/Time: [facility] Results Received Date/Time: [facility] Reported Date/Time: Performed By: #### 9 68T, [id number], 42A #### [facility] [address] [place] [address] MCV (RBC) [Entitic vol] 92.0 fL Normal 80.0-100.0 [facility] [employer] Comment on above: Order Comment: [facility] performed at: [employer] [employer] [facility], [address] [facility], [address] [place] [address], [address] [place] [address], [employer]: Otto Nuñez MD [facility] Collection Date/Time: [facility] Results Received Date/Time: [facility] Reported Date/Time: Performed By: #### 9 68T, 01055M, 42A #### [facility] [address] [place] [address] MONOABS 726 cells/uL Normal 200-950 [facility] [employer] Comment on above: Order Comment: [facility] performed at: [employer] [employer] [facility], [address] [place] [address], [address] [place] [address], [address] [place] [address], [employer]: Otto Nuñez MD [facility] Collection Date/Time: [facility] Results Received Date/Time: [facility] Reported Date/Time: Performed By: #### 9 68T, 73344M, 42A #### [facility] [address] [place] [address] Monocytes/100 WBC (Bld) 12.3 % Normal [facility] [employer] Comment on above: Order Comment: [facility] performed at: [employer] [employer] [facility], [address] [place] [address], [address] [place] [address], [address] [place] [address], [employer]: Otto Nuñez MD [facility] Collection Date/Time: [facility] Results Received Date/Time: [facility] Reported Date/Time: Performed By: #### 9 68T, 40900V, 42A #### [facility] [address] [place] [address] Neutrophils (Bld) [#/Vol] 3.239 10*3/uL Normal 8916-3176 [facility] [employer] Comment on above: Order Comment: [facility] performed at: [employer] [facility], [address] [place] [address], [address] [place] [address], [address] [place] [address], [employer]: Otto Nuñez MD [facility] Collection Date/Time: [facility] Results Received Date/Time: [facility] Reported Date/Time: Performed By: #### 9 68T, 24296B, 42A #### [facility] [address] [place] [address] Neutrophils/100 WBC (Bld) 54.9 % Normal [facility] [employer] Comment on above: Order Comment: [facility] performed at: [employer] [employer] [facility], [address] [place] [address], [address] [place] [address], [address] [place] [address], [employer]: Otto Nuñez MD [facility] Collection Date/Time: [facility] Results Received Date/Time: [facility] Reported Date/Time: Performed By: #### 9 68T, 31124H, 42A #### [facility] [address] [place] [address] Platelet mean volume (Bld) [Entitic vol] 10.5 fL Normal 7.5-12.5 [facility] [employer] Comment on above: Order Comment: [facility] performed at: [facility], [address] [place] [address], [address] [place] [address], [address] [place] [address], [employer]: Otto Nuñez MD [facility] Collection Date/Time: [facility] Results Received Date/Time: [facility] Reported Date/Time: Performed By: #### 9 68T, 03014I, 42A #### [facility] [address] [place] [address] Platelets (Bld) [#/Vol] 296 10*3/uL Normal 140-400 [facility] [employer] Comment on above: Order Comment: [facility] performed at: [employer] [facility], [address] [place] [address], [address] [place] [address], [address] [place] [address], [employer]: Otto Nuñez MD [facility] Collection Date/Time: [facility] Results Received Date/Time: [facility] Reported Date/Time: Performed By: #### 9 68T, 04092N, 42A #### [facility] [address] [place] [address] RBC (Bld) [#/Vol] 5.53 10*6/uL Normal 4.20-5.80 Tyrell li [place] [employer] Comment on above: Order Comment: [facility] performed at: [employer] [facility], [address] [facility], [address] [place] [address], [address] [place] [address], [employer]: Otto Nuñez MD [facility] Collection Date/Time: [id number] [facility] Results Received Date/Time: [facility] Reported Date/Time: Performed By: #### 9 68T, 48710Y, 42A #### [facility] [address] [place] [address] WBC (Bld) [#/Vol] 5.9 10*3/uL Normal 3.8-10.8 Terrance mackenzie [place] [employer] Comment on above: Order Comment: [facility] performed at: [employer] [facility], [address] [place] [address], [address] [place] [address], [address] [place] [address], [employer]: Otto Nuñez MD [facility] Collection Date/Time: [id number] [facility] Results Received Date/Time: [facility] Reported Date/Time: Performed By: #### 9 68T, 75872N, 42A #### [facility] [address] [place] [address] Q - COMPREHENSIVE METABOLIC PANEL W/EGFRon 10-07-2021 Albumin [Mass/Vol] 4.4 g/dL Normal 3.6-5.1 Terrance mackenzie [place] [employer] Comment on above: Order Comment: [facility] performed at: [employer] [facility], [address] [facility], [address] [place] [address], [address] [place] [address], [employer]: Otto Nuñez MD [facility] Collection Date/Time: [facility] Results Received Date/Time: [facility] Reported Date/Time: Performed By: #### 9 68T, 67275A, 42A #### [facility] [address] [place] [address] Albumin/Globulin [Mass ratio] 1.7 {ratio} Normal 1.0-2.5 [facility] Specialist Comment on above: Order Comment: [facility] performed at: [employer] [facility], [address] [place] [address], [address] [place] [address], [address] [place] [address], [employer]: Otto Nuñez MD [facility] Collection Date/Time: [facility] Results Received Date/Time: [facility] Reported Date/Time: Performed By: #### 9 68T, [id number], 42A #### [facility] [address] [place] [address] ALP [Catalytic activity/Vol] 42 U/L Normal 36-130 [facility] [employer] Comment on above: Order Comment: [facility] performed at: [employer] [facility], [address] [place] [address], [address] [place] [address], [address] [place] [address], [employer]: Otto Nuñez MD [facility] Collection Date/Time: [facility] Results Received Date/Time: [facility] Reported Date/Time: Performed By: #### 9 68T, [id number], 42A #### [facility] [address] [place] [address] ALT [Catalytic activity/Vol] 19 U/L Normal 9-46 [facility] [employer] Comment on above: Order Comment: [facility] performed at: [employer] [facility], [address] [place] [address], [address] [place] [address], [address] [place] [address], [employer]: Otto Nuñez MD [facility] Collection Date/Time: [facility] Results Received Date/Time: [facility] Reported Date/Time: Performed By: #### 9 68T, [id number], 42A #### [facility] [address] [place] [address] AST [Catalytic activity/Vol] 16 U/L Normal 10-40 [facility] Specialist Comment on above: Order Comment: [facility] performed at: [employer] [facility], [address] [place] [address], [address] [place] [address], [address] [place] [address], [employer]: Otto Nuñez MD [facility] Collection Date/Time: [facility] Results Received Date/Time: [facility] Reported Date/Time: Performed By: #### 9 68T, 25899R, 42A #### [facility] [address] [place] [address] Calcium [Mass/Vol] 9.5 mg/dL Normal 8.6-10.3 [facility] Comment on above: Order Comment: [facility] performed at: [employer] [facility], [address] [place] [address], [address] [place] [address], [address] [place] [address], [employer]: Otto Nuñez MD [facility] Collection Date/Time: [facility] Results Received Date/Time: [facility] Reported Date/Time: Performed By: #### 9 68T, 55167W, 42A #### [facility] [address] [place] [address] Chloride [Moles/Vol] 103 mmol/L Normal 98-110 [facility] Specialist Comment on above: Order Comment: [facility] performed at: [facility], [address] [facility], [address] [place] [address], [address] [place] [address], [employer]: Otto Nuñez MD [facility] Collection Date/Time: [facility] Results Received Date/Time: [facility] Reported Date/Time: Performed By: #### 9 68T, 79588H, 42A #### [facility] [address] [place] [address] CO2 [Moles/Vol] 26 mmol/L Normal 20-32 [facility] Specialist Comment on above: Order Comment: [facility] performed at: [facility], [address] , [address] [place] [address], [address] [place] [address], [employer]: Otto Nuñez MD [facility] Collection Date/Time: [facility] Results Received Date/Time: [facility] Reported Date/Time: Performed By: #### 9 68T, [id number], 42A #### [facility] [address] [place] [address] Creatinine [Mass/Vol] 1.04 mg/dL Normal 0.60-1.35 [facility] [employer] Maker Comment on above: Order Comment: [facility] performed at: [employer] [facility], [address] [facility], [address] [place] [address], [address] [place] [address], [employer]: Otto Nuñez MD [facility] Collection Date/Time: [facility] Results Received Date/Time: [facility] Reported Date/Time: Performed By: #### 9 68T, 65507F, 42A #### [facility] [address] [place] [address] eGFRAA ([facility]) 108 mL/min/1.73m2 Normal > OR = 60 [facility] [employer] Maker Comment on above: Order Comment: [facility] performed at: [employer] [employer] [facility], [address] [facility], [address] [place] [address], [address] [place] [address], [employer]: Otto Nuñez MD [facility] Collection Date/Time: [facility] Results Received Date/Time: [facility] Reported Date/Time: Performed By: #### 9 68T, 83796H, 42A #### [facility] [address] [place] [address] eGFRNAA ([facility]) 93 mL/min/1.73m2 Normal > OR = 60 [facility] [employer] Maker Comment on above: Order Comment: [facility] Testing performed at: [employer] [facility], [address] [facility], [address] [place] [address], [address] [place] [address], [employer]: Otto Nuñez MD [facility] Collection Date/Time: [facility] Results Received Date/Time: [facility] Reported Date/Time: Performed By: #### 9 68T, 61013V, 42A #### [facility] [address] [place] [address] Globulin (S) [Mass/Vol] 2.6 g/dL Normal 1.9-3.7 [facility] [employer] Comment on above: Order Comment: [facility] performed at: [facility], [address] [place] [address], [address] [place] [address], [address] [place] [address], [employer]: Otto Nuñez MD [facility] Collection Date/Time: [facility] Results Received Date/Time: [facility] Reported Date/Time: Performed By: #### 9 68T, [id number], 42A #### [facility] [address] [place] [address] Glucose [Mass/Vol] 85 mg/dL Normal 65-99 [facility] Specialist Comment on above: Order Comment: [facility] performed at: [facility], [address] [place] [address], [address] [place] [address], [address] [place] [address], [employer]: Otto Nuñez MD [facility] Collection Date/Time: [facility] Results Received Date/Time: [facility] Reported Date/Time: Result Comment: Fasting reference interval Performed By: #### 9 68T, 12333F, 42A #### [facility] [address] [place] [address] Potassium [Moles/Vol] 4.9 mmol/L Normal 3.5-5.3 [facility] [employer] Comment on above: Order Comment: [facility] performed at: [facility], [address] [place] [address], [address] [place] [address], [address] [place] [address], [employer]: Otto Nuñez MD [facility] Collection Date/Time: [facility] Results Received Date/Time: [facility] Reported Date/Time: Performed By: #### 9 68T, 18906L, 42A #### [facility] [address] [place] [address] Protein [Mass/Vol] 7.0 g/dL Normal 6.1-8.1 Terrance mackenzie [place] [employer] Comment on above: Order Comment: [facility] performed at: [employer] [facility], [address] [place] [address], [address] [place] [address], [address] [place] [address], [employer]: Otto Nuñez MD [facility] Collection Date/Time: [facility] Results Received Date/Time: [facility] Reported Date/Time: Performed By: #### 9 68T, [id number], 42A #### [facility] [address] [place] [address] Sodium [Moles/Vol] 138 mmol/L Normal 135-146 Terrance rn [place] [employer] Comment on above: Order Comment: [facility] performed at: [employer], [address] [place] [address], [address] [place] [address], [address] [place] [address], [employer]: Otto Nuñez MD [facility] Collection Date/Time: [facility] Results Received Date/Time: [facility] Reported Date/Time: Performed By: #### 9 68T, [id number], 42A #### [facility] [address] [place] [address] TBIL <0.3 Normal 0.2-1.2 [facility] [employer] Comment on above: Order Comment: [facility] performed at: [employer], [address] [place] [address], [address] [place] [address], [address] [place] [address], [employer]: Otto Nuñez MD [facility] Date/Time: [facility] Results Received Date/Time: [facility] Reported Date/Time: Performed By: #### 9 68T, 21929P, 42A #### [facility] [address] [place] [address] Urea nitrogen [Mass/Vol] 26 mg/dL High 7-25 [facility] [employer] Comment on above: Order Comment: [facility] performed at: [employer], [address] [place] [address], [address] [place] [address], [address] [place] [address], [employer]: Otto Nuñez MD [facility] Collection Date/Time: [facility] Results Received Date/Time: [facility] Reported Date/Time: Performed By: #### 9 68T, 93683M, 42A #### [facility] [address] [place] [address] Urea nitrogen/Creatinine [Mass ratio] 25 mg/mg High 6-22 [facility] [employer] Comment on above: Order Comment: [facility] performed at: [employer], [address] [place] [address], [address] [place] [address], [address] [place] [address], [employer]: Otto Nuñez MD [facility] Date/Time: [facility] Results Received Date/Time: [facility] Reported Date/Time: Performed By: #### 9 68T, 75460U, 42A #### [facility] [address] [place] [address] Q - Lipid Panelon 10-07-2021 Cholesterol [Mass/Vol] 224 mg/dL High <200 [facility] [employer] Comment on above: Order Comment: [facility] performed at: [employer], [address] [place] [address], [address] [place] [address], [address] [place] [address], [employer]: Otto Nuñez MD [facility] Collection Date/Time: [facility] Results Received Date/Time: [facility] Reported Date/Time: Performed By: #### 9 68T, 70620V, 42A #### [facility] [address] [place] [address] Cholesterol in HDL [Mass/Vol] 47 mg/dL Normal > OR = 40 [facility] [employer] Maker Comment on above: Order Comment: [facility] performed at: [employer], [address] [facility], [address] [place], [address] [place] [address], [employer]: Otto Nuñez MD [facility] Collection Date/Time: [facility] Results Received Date/Time: [facility] Reported Date/Time: Performed By: #### 9 68T, 11718F, 42A #### [facility] [address] [place] [address] Cholesterol in LDL [Mass/Vol] 151 mg/dL High [facility] [employer] Maker Comment on above: Order Comment: [facility] performed at: [employer], [address] [place] [address], [address] [place] [address], [address] [place] [address], Engraver Block: Otto Nuñez MD [facility] Date/Time: [facility] [...] LDL-C. Kamaljit SS et al. SAY. 2013;310(19): 1006-9529 ([email or web address]) Performed By: #### 9 68T, 41409G, 42A #### [facility] Default [address] [place] [address] Cholesterol.total/C holesterol in HDL [Mass ratio] 4.8 {ratio} Normal <5.0 [facility] Cinder Block Maker Comment on above: Order Comment: [facility] performed at: [facility], [employer] [facility], [address] [facility], [address] [place], [place], [address] [place] [address], Engraver Block: Otto Nuñez MD [facility] Date/Time: [facility] Results Received Date/Time: [facility] Reported Date/Time: Performed By: #### 9 68T, 78916K, 42A #### [facility] Default [address] [place] [address] NON HDL CHOLESTEROL 177 mg/dL (calc) High <130 [facility] C[employer] Block Maker Comment on above: Order Comment: [facility] performed at: [facility], [employer] [facility], [address] [facility], [address] [place], [address], Engraver Block: Otto Nuñez MD [facility] Date/Time: [facility] Results Received Date/Time: [facility] Reported Date/Time: Result Comment: For patients with diabetes plus 1 major ASCVD risk factor, treating to a non-HDL-C goal of <100 mg/dL (LDL-C of <70 mg/dL) is considered a therapeutic option. Performed By: #### 9 68T, 74453H, 42A #### [facility] Default [address] [place] [address] Triglyceride [Mass/Vol] 132 mg/dL Normal <150 [facility] Cinder Block Maker Comment on above: Order Comment: [facility] performed at: [employer], [employer] [facility], [address] [facility], [address] [place] [address], [place], [address], Engraver Block: Otto Nuñez MD [facility] Date/Time: [facility] Results Received Date/Time: [facility] Reported Date/Time: Performed By: #### 9 68T, 16821N, 42A #### [facility] Default [address] [place] [address] Coding Summaryon 02-04-2021 Coding Summary HTMLBase 64 WtgqredcVQr3lGh+PGh lYWQ+RG1LGFJmR79hdP BowI9EP6mRUL8NMAIZD CUHLG9PFP5mpTH2TZrg Q6MvfdCv NvsmwCNjJF58SIx1MXB 8cRixQKwdtK8zzUIvQ5 v7KiShKH97tE37QQshM EBrHwC4AvZdciuroRKk Q6zoEuMsxOQjCpv+PHR hYmxlIHdpZHRoPScxMD YjCyZmtJbnTZ9zZy2lY GVyLWNvbGxhcHNlOiBj a7haFUGhVYvhPY0ioYh vG0EgdQP9QIGus1k9Xv 48dHI+DKXtUMY8iCitF Kuua264GmMse4xkEZB8 rFKvRSgaIGZ6C68rk0L 2LGPjFSGsPDM0tMS1uL 4amRxvwxsqH2KweBExC pQ7MID6tDIdmD7eeSnu vxlfzR5vOpn+B26CRT9 HULDZLU4KDsl2Z1QnFa wvdHI+YR76RKTvUL14s XZbqITor0ljzTw1WdZq HQBaACZ8lVvlSScvq2R wXFAqH42siQJvn3I4EY QuhPzndVEvIeNzhZJ2w P1bCZaeylfnr6nojpyk Pyphz0hymd66uX98C80 oEYjbWGGuBBV9JMLeWI JboWikoh4vsA2gSn6+I Moum7yuo9sieRm5SxQc RGAlaeXeeAmfFAG4k9D dPr88O9YqvUiyy3TxDe m7da59zWYgk9V8dTX8A SlsMXWiaS9pHHroXhW4 KDPjWePbvB88zAGzHCv xPz4exOdwzAnaID4yDS EwptixSJXbuO3uQPPzh KRphPyrCV8cIJEwpwht l486MdYeNFK2EJIaeIA sK3UzkK7gOaUcRJZgQS LnF1LekLIxZVikH544M JdvAzD1UJKamhOzP1Yb ZJIjfPimOdL7q2S6Fn9 Kb5RykxbhIIO3APhaFN L9PbC1MjMdCdP8L1HcJ qi2ZSBxnPynNF8oO4Yt OLAeejtxxflwdHJ0ZZW oFYBclI56xTMzHCrkXw 5np4I9h869IVQeUPWkd M26Es5lvFgxAHTmoRFS lE4bajpbk0mgdeskLwG lGMNgZOh2LAv2JATuwB gyKbLxGUK2IaN8ZRP5x ENxxJ2osKwzxvikeF5p Oyc+Q28euG7fPTA7YJJ 9mmmkUVPfcnCgSC87TV 15B9UmQjojbFNqyOP+P HEbmbBxqVzoPL0mByNy j9vif1PiRIszX4BnQHM uZVvdUja0KCViXVV4rH G0fW6tXELaLDplt3I7t WR1C3QvwpUhfq2cv6se PRDgNJwvK56vqMBug9T 9PTYsnJS9GYQwfSifXw OkaC21Kxk+PGNvbGdyb 3ZhYtbsw2dzd5qisSt2 IjMwJSIgdmFsaWduPSJ 0z9LdZa27H65sQRrqXY RoPSIxNSUiIHZhbGlnb s8fqQ4zFr4+PGNvbCB3 dMD1jD8xFBHqRwZ0RAk aQ751TxZlbDHpNgxsa6 xpv1xwkRj3PuQzUOKou wDmkYnySRQ7c2NxZs99 F12lQInaDRAsALAeRKY oHJFzlBudad5voC7hTb 8+EZ6th4cbvi51aD88o HI+TMLoJRH7sWbyIRbh OGVypA8sKTmyPbR3RZM iGcAqjC60zVAmMFsoTq 0sdQimfGvvTZ3zQXVyb smeu696OzBfs2wfMBIa vSCeYXpuOTO4P80wm8Z 3GRPnRVTfUDR1cFQ1xE 1hbGlnbjogbGVmdDsgd uSacUflADdfWBphZ345 IHRvcDsnPlBhdGllbnQ nJyJtUNj7Z4BbHfc4WQ LakGhvFY5jsNYaFUdiI v5dtDtaiKdrFE0uYUFe ufrll344GjYkr3hsCDX tgBThHTfdQUK5R81hv4 M4QVTwQJIbRZA1iLP6l Z8fzRnydyccyGRgaBkf xyVnsTbiZFukVRdpC87 6IHRvcDsnPkJpcnRoIE ViaRY2KI83JA26aZFib 5S9tFR8H0VqPABeknon aswrcHV3QCZsTOUhbX7 6Ch8xzDnfQx8zQGQmIF Y4CIZgvSUjB1QxxC5dY sAhDEEnGOKlN0NgmITe PNelE658SMzdWiS7NVT kynZcO3JzOROerAwkGd T7r7A3Ka3RL3X6IX46W V14kOViq0J9wGU8Z6Pp LGBvelfazscmaVB0CPX dPHMbnF25Bv5snPybNk 6fVTCcQLH4NBFzqXFvL 3NdqQ8qOwNnPOHeQGGv K0LwjZFtWJxwG297NKo lZlN2PMXkcuEpN2RnJM CrgIzmXxP5z8A2Rt9DN Kr3JX51GY50eIPwx4U4 nWD4R2MsEXSlgfdzfbx stKZ7QSIeTUNxnE73Jr 6elLeqMw3yNWKdZVF7T EGinCAtS1SnkS5wQfUr AVOmFJYjC3OzeQMoQPg pO188QOksDmT5ZQHxfk ZsN6MmFAAthYnrJnE6a 8Q0He8DYFQeWN46WCK0 nZA1LR68AI66V3ChSmv vdGFibGU+PHRhYmxlIH dpZHRoPScxMDAlJyBzd ZlkRT7aHo5eILGjUVBp rKhztLRpHcIwq7ceEBE oOOtkVD1yhRrrG1HhoW F3PYVtd3x4Ao63G87jB 3JvdXA+MUSkrRR6tGC4 xM9sElVsTyU0HXxpE85 2StZrtEPhLvghb5ofm2 fpkCh4VvV7FYSnqzFop TgoEAM6f4IcIi51P96i IHdpZHRoPSIxNSUiIHZ jhRekic0ixC9fZg8+PG ZonHH4bMD9gR9qHyYtV yF9IRgrW653GbVvoBSt Scfri6dlv6mjdQg0MsJ bXGLkviTceBokRQM2j8 IoLb20A6OqrWqse8UpD gi6vl96mSEwi2G0yLM3 N0QgGSHanavsxUZazYi yFV2vZVGytghwBDArxD 6lMWOcZ5k5GnKyYfV6G YymP9MvnkN9VZPqhUWn DJhrWWF9Z92ej7T0BKH aJRUiPNU8lKJ0vF0vkC lnbjogbGVmdDsgdmVyd AyzGYboZBuwI321AJHh mEcaMAEsyT0lGGJehCG ghLauJO4hQXPsfiavRf hBTEwsIEpBUkVEIFNDT 1IDHX68UR43dWGqs2V7 iND0W3PpXXTrhzzoljd xlZL4MGWpRJLfaY90aB RiJEmyFz9sj1V5q450O FSrPKXjoS41Jl0lbFpf TOCtxXJAhU2kujmfe2w ezsvzDdFbKCBvPSn3UR p1PBBmdDxvKwXfMGE8W vD6QOF3cLIoxE5loAvu afkcyA3aEnw+MDgvMTg tKMq7RyewfIN+PHRkIH N2oHwvGCnbJKXwkH4tQ RLaC5y2FpZbZuO8IQvv F5NtPREjijcnOs53uT9 jUsHnGbW9UTcvX6Ntbh B4FEKxzIGuFBijYQZ2A 65ds0O3IFZwXNVqTSB6 qHR3vF6raPbhqgbkfTB mdDsgdmVydGljYWwtYW heA203WIXgwTddJeBqS DsrPFUiSM57MM34bDHz m1K1kHJ0I3OhYTBwrdg dbmlxoON8CGHjCPLchP 85nVUqSHluFp3ae7G5r 387LGHiTMLksX19Gl1z sHruCQJtvZCHdF9rwpq tt1qhpohnVpWiFBMfGI d9IWt2TVUogOemQtDbP YG9OfH6EMC6bJAsnP8y vRzvsscvsE6hTxz+TUF MRTwvdGQ+PAYkREC5yE vpBJcoWDAgjM7hFUXbC 0i6NrKxEpF4SKmxW3Fi MMSrfpqwNt04dX0gLtB vWyV8DNdnO4VmwvM3VS FheORwEAydYIH5H33eo 4S3TNOaVBMtWNT7sYS1 eE2eePuslqqxlZYcuEc gdmVydGljYWwtYWxpZ2 84JQYxhAkaRh1PGJ74W H78C5NjPgahmJJekWX+ PHRhYmxlIHdpZHRoPSc kNYQdTvAirElsOP5vCl 9yZGVyLWNvbGxhcHNlO yVry4wtFAPjCXuuGC6l bBonJ9HeyEK3VTPmx7k 8Ma08I95cN6SpwOO+PG TppGY9bMJ2zS1vAsJvI hM5REsjT708GuVugLYr Ldfzc7fom0ifnSb2IfX wSTFmtbXqhEfxAIH1p0 PvAa53M65hVTegLDKaV UXoYQQiXXDzjCbcvw4e eZ1yPg8+JLWwpXR2wVQ 6oF5lFlMaPnC9RUjgA0 45KwEfdOKzQociD67mO 3JvdXA+AESbVnn2QDJz uLhbLD7gcWJfTMcyTh9 eMLX1KhYkYeLrEUdsJ6 GsQIFmvngxaahhjXF9V HWfPFLwoH06Mm9kjWpf Si4tCEXtJBB2QZSrvWW aB2YxlW4oZkSrBTGqUJ AgD6UfqULtMCueG159H AteCkE9CWQcorIlC4Ff IJRbyQjrUlQ8l0J1Qo5 YwMibuGZdMS2cFpMvOU x9X6XxKxd2IQAolYfpQ S7baXXwPSeiTg9etWyz xDflAM5iLIElrezpo95 6PhFhq5jtDEAmqVGiBA zmXSG3P97zj0H5FWFbP FPmWNO1hAD1mS8egIll bjogbGVmdDsgdmVydGl lHCvqSMvoP343ZFRwbP auRvTUWcf8G1DxAvd7A ZAleOubYU8miFRkUAap Wf9wlMmwdZjlJT0wIUG tretnl977SzKqo2xfKS SltWKkTQbbVYZ6T68hl 5H5YYFsPDLgPWY4uBZ5 yV8cuJbdxhpbqBCrfMk gdmVydGljYWwtYWxpZ2 40GNEmyBdjRd1ZTds6D 6AsYxp0MSEtpTcvVO0i kDCxTOfrGy0btXiebSc fMJ2iVOQfautrp890Nz Tup9okGCXryINnLFskZ VM7R83kl0P1THRrKMLx HDZ5hTE8bP9afXeqvgp gbGVmdDsgdmVydGljYW stMXxwA460GWSlkLraY lBheWVyOjwvdGQ+PC90 qz07M2RlWjfcEmj5DOG gAGZ8eEI0hG5sVHDxTZ tmx0W3kJC2H7KeizZfc p0cw4uvPDUtWDzuF39m bGF (more content not included)... [facility] Provider Orderson 02-04-2021 Provider Orders [id number] Normal [facility] Sperm Count Post Vason 02-03 Post Vas Screen None [facility] Comment on above: Performed By: #### 1 [id number] #### [facility] (DEFAULT) [address] [place] [address] Semen WBC 0-2 [facility] Comment on above: Performed By: #### 1 [id number] #### [facility] (DEFAULT) [address] [place] [address] Coding Summaryon 01-28-2021 Coding Summary HTMLBase 64 BdtxxrkbPNy4qTj+PGh lYWQ+PR5FSNYpK00mgC NxmY0HI7tLME5TEWJVL GHAXB8CAJ1rhPL9KQul B2WoznGc XeddoAHzQD22PMj3ABJ 4mKhrSDnipR5gmBJgU0 f6FpUnYG88uU30WEgkR VVpXkI3LxHwpuzeoCLg W2qzZaIzrQVzNkd+PHR hYmxlIHdpZHRoPScxMD ZzFuBcmBicQN2yZq9xY GVyLWNvbGxhcHNlOiBj p1vxLCBsHQucHS2xxGl xE6ChrQL6DVUsu3w9En 48dHI+UQEpFCX2vOwjT Zbuv345EmWbp3vzPJL3 cBEpLOcwLQR9K18au7C 2IYFiENNkKMO5vTG1nJ 6nhJodiovxM1IfnBYiV yE9PUN4dNXwpJ5rbHpb vwlzgC9zRxo+A03FRI8 ULLFHSH9XSwy4S0ZzYi wvdHI+SM74JISaTA37w MBhrHIkl6qioBu6ItDg MDEwKIK9gUxyFIkuu1F uVCWzE54vhMHqo5D0KQ QmyPyssWJkFzZmrJH2b L3wOWwoprgyr2sfmnaa Epsyv1xfig99jM34O24 qGLuuMUPuZLV7JLXwWH NmnTdfwe9yeF2lFb0+I Jbfx9rob8gshHe6NaEq EXZfzoMneAtjZOY8h4T dTd84D8WpvMedl8RkPj r4jm12zYNdf8W9kLV0E ZrtHACmxF8rBEyvNlY3 TRBkNeZjlN86gZEhTJl oMv1nyHztkSuzHY8qAN EqdapdCPRhcK7aOLGzq BEqgWyjGC7nOEXvgkvd l343SoRwQIS1MESutYH tO9ExeU7fPcLmZMNjJA SgH8XcoPYlSJesB572Q FaaEeT0OXJsccOpQ0Ie AKAgqVkjBrE7x6Y6Ji2 Ak2XnphkxNNX4ZRnsDW H0OvO6IlQnWfZ3D3RnH qr2TVTwyFebLE2mL3Hy KWPslvwffbuihNB4HQA fPUSxvU88zSTjRWyaDx 5yu6A0h908OCBtXACnu G37Eu6omBfaVKVrtNNJ pN1uyegfx2tfqyvrVhL lWVSpVBx2VSj1IPMsqR ysPlHrTDJ2ArR9UBK1n CEnuG6cwXulvoqpnC9l Oyc+U42tzO0rARB0HRI 1pjlzLQDjqcUlCP73NW 40N0QyPvezpTRfpSX+P LTehdJvpCnkXI6wYvRo v4cvv5BjFHjpT6OoWCN aBEjwOtm7ARVdKQU6qQ N1uK0mPDSkQSyed8K7l RA9T8TnhbWhme4cq4eq CARxZWjoE35hdNTbx3L 6NGIktXJ9CEZhlScdZf GvqG59Acm+PGNvbGdyb 3DjRhjlc1bvi1mplOt0 IjMwJSIgdmFsaWduPSJ 6a6ZnTp96I44eIGdvEZ RoPSIxNSUiIHZhbGlnb m4yxU8cHb1+PGNvbCB3 zFS7rC6xXWJkGyK8IWp tE876MtWwnDXmNoebd2 uvg1nxrGx6DsFaETGgj rQomXgdXLP1c0QsXb95 D81gCBsvFTUlCDTsIAR hKMKvaDhjcy5wnJ8wOz 8+TS9rq8gsvw45xO83u HI+GUYbVMO8cFfhYMyx ZXZunH9sNGgqWrB6PWC kRgJrmZ37fBNiOOddLa 0xfHcdsMfyOH0iEQDiu oisa113XoEco8bnTUUa oXWoONteBLD7T93gf9Y 1LMHhMGXnCTM4mNO2yL 1hbGlnbjogbGVmdDsgd cUdvJafSJzdTCwjW630 IHRvcDsnPlBhdGllbnQ pUeCbDKa2B3ZvPvh7XD HtgEhuTK4xhNCgSKzzZ y4hyPlfvUisFG3nLMNf qjlti516JtRba5qaRIH nnJXpCBuaAXS0T04md6 H8YNNuAGPvRFQ8fXZ7u H0syXndysvtbHEtcGms maOjbMmpTKpqUUbhA30 6IHRvcDsnPkJpcnRoIE BkoCE2SZ46LI11yFWka 1G8hHP0C0JxIONhbfko iahnmMI4LSLmLJGxxT3 8Rs0wdYwhUg9bDLYvXY P9YHIurDOhY4KohU5fN gFzMCFkSRZcD2MejITr VVyjC977MKlaEwP2PJS aahSzP7AlUFIyoFduYo J3u9J0En6AN2M3JP02T T92wGMln7C1xWM1U7Um LLGprgcvzkmpxOQ4DST tAXMwtW14Jy2lvIulSn 8pYBCuMTX1VCJkcEYkL 4TszM8oZrPmWSNiZUUa W3VijLGbHHdrT976RMj rQgL0ZRDpxrYnK8DmWR AxeDzlAbU0h7U3Ct5PG Ww1DR31DQ37xFAus5K4 yWS4M1VtTCFkazxbbvj pfEK8RRCaAIRcdA37Uc 3ibMecDg1dKOOzPRN5M ERuhKRuZ3VkuC1fAqNd ABCjJTSwO4WioLYtJGp nV681JTibAzG0CCItrl WoX2DkOAEjqMifTvZ7k 1T6El1JXQEsGC76XPF4 tMD1MR80VX22L2RtTvu vdGFibGU+PHRhYmxlIH dpZHRoPScxMDAlJyBzd HdcAA0rSw1lNZJdYLNd wQcfzKEdNbIyi4qgMYQ pWMxwIE3ubUmjC9TpdW D0WLUjo5t6Hl34N38vH 3JvdXA+CUEqzYW7mWZ9 yF5qKgAiYoR5NFpmM56 1TvXivMNmLyhqj3lqa9 fyoAt8UaG6KRFlfvCir BwfRZK1n2JtXo08U62x IHdpZHRoPSIxNSUiIHZ oaTwivo2esP5dZb2+PG IojZG5dAY1gX9lZbGmG eR2FJzqT028YnPlmPWl Gwcts7ijc7nidKb4MxQ tGOEdxmVltDgtFAS7k8 WlEi31J4EehUxip3HxF tb8fg00dCPql6K5jOJ6 K2IkYLSztlumdZDfvUy bNN6qDXSjqfwkLOFhgQ 9gMJNlH7p9JrMhCsS6W BqxL9QyuaO0ZIJwhCIv TUijGZJ5P04of8M6QVI pRCSiMBE3yVY1aG6idC lnbjogbGVmdDsgdmVyd SwfUBrhRKisS931DHQz gEzhHWZxfS5gYAMmiUR zvCxvXH4hICLgkmvlMa hBTEwsIEpBUkVEIFNDT 2LKNV53RR24zNDmc1U3 jWY8K7MqOFKiqeersvk veUE6ZVUnOOFyiR58bP UcZNxiIm3de3T0p039X SBgFFYhuZ82Xu8ewIim PWZofMROyA7kiffiv6a cmfqbNqIsGPDsXEp1GQ r7QWAlcKpuJsVvINC2V gJ8VLZ9pOVgzB0zwMak xwjioH1nQrd+MDgvMTg jAEa4BlxagGL+PHRkIH W1qVhlJKhuESQmkO7uT CIgT3n0PrDwAoZ5ZAax D4MaAQUylhfqWq69yN2 zZtInClI8YQtcK2Obaj M9EQZdxIVgADmpKDR3G 67rt8P0WNOpAHWgKOY1 eXS0qX2rjZalyfdiyGO mdDsgdmVydGljYWwtYW atU696QUMkxEdwTkSkA OtgYJYhQH03WA29ySYz f0S8sBC3F9GiOUOrljr oatfdaLB7PRHzRANymH 51bLFwUTaiXm8kv6S0w 801HERuQHRcrG10Ks1a bRkkKQGcxFVThW0whwi hl8toxirdVjXvKFRzXX r8MUh0XMAmaAglDrMxS GH7HuJ8TQK6zNPurC4f eWnbajbyhY2uSri+TUF MRTwvdGQ+AYXcAAT6zN bjXFdiSVNtcI2kLSLdD 6b1ZcEwRrA3BTmiO3Gv VOQqexmmMg70dF0vIiV wUoR8VWrpN1TxnsO3MO KhbHXaBQaqSSW4W55bn 7S5NAMlXIAfCGZ0yFW3 hD3wbBbevktpsSNycCk gdmVydGljYWwtYWxpZ2 08GJFrjZzwVi3ZSX42R G79X6MgZdiptQXgiAX+ PHRhYmxlIHdpZHRoPSc bLMSsTsKdoWmfDB8nCr 9yZGVyLWNvbGxhcHNlO fLjv5laMVIzVNibJI2x nQqoH0XiiWC1PJXxc7z 5Vs30N48fB6VayYC+PG FkgGW0pRB4sO8fRzXfM kU3YLwaT771PxTktGQx Wsrrj4xsx9qccTg2UkQ xELQdhrTqlSkxIKO2u6 UlDp65B19xUCayUXXnG HXePYMlWLMepVlven9q aA3rJs5+GNSuzDI5bJW 6cY2bKhDvYwK3FFbpS1 13IyWewLRaFwabX28hL 3JvdXA+BKPjMbe3XUQr rUumFW5uvKKyEXeqCr4 yRVS6JlExBjVqCTuuK1 RyEJTlbxjaymgdiYB0K OCsZAKufL95Uf7loMbv Js5qTETfYGQ3ASYvgGD xV7OifA6aVgCxTBSsJC VyU7MksPUaBSocS564J QpyJxA3OCSsodIpM4Im PQQabLebJgB6n7K8Ip2 NdSudvKHlWF2kXiAhJJ y5R5SvAzg9TJWayNhsK B7ymTWlXDrqMq4aiJfm kHfiWD2dVVLpsupej86 0ZeYzv6jcHFDnlOLeUC tuEGM1C86cy1A7JPQpA FNhKTP4pNN0cK2qkGkf bjogbGVmdDsgdmVydGl jFLriPEabG098WGYsaI svKcACSlx8V4AlFql0M PLotCipHC6lxXAyMFdj Hu2jgUkdmVvlIN6pNZF dlreqy173GrQuu3jlND IezYDnHHipHMG3L08lt 1L6SALxHVRcEBG7eYP3 rH2cwSuhdswdvSOjvMn gdmVydGljYWwtYWxpZ2 68TYRuhPbxNf7IRuf4G 8KrEyr9RQJwbBddNS4a lRSbXXevLk2iaCqhpMh qCK4uUIDgfonkz099Ta Std3mpOVYlpTFxWPxaQ KU3W18jp3B2OUOeSHTz IBD5mGU9wT9jfEainnl gbGVmdDsgdmVydGljYW luGZwlO938EVAtiHnkU lBheWVyOjwvdGQ+PC90 ri25M9AvXqgvHjk7ZWR uCGL7cIB4zN5sUTClOV ebh7X8hVB7I2GcflIxy n7it2daDEGgSEqdP25m bGF (more content not included)... [facility] Miscellaneous Testing LCon 0 01-28-2021 Mis. Test Result LC COMMENT Invalid Interpretation Code [facility] Comment on above: Result Comment: Test Ordered: [id number] Post VAS Semen Analysis, AUA Volume 3.4 mL FU Reference Range: Not Estab. Total Immotile Sperm Note: x10E6/mL FU No sperm seen. Reference Range: <0.10 Total Motile Sperm Note: x10E6/mL FU No motile sperm seen. Reference Interval: 0.38a06X5/mL Post-Vasectomy analysis was performed on an uncentrifuged specimen. Performed At: [facility] [address] [place], [place] [id number] Davey Nolan PhD Ph:[phone] Performed At: [facility] [address] [place], [place] [id number] Enmanuel Dawson MD Ph:[phone] Performed By: #### 1 [id number] #### [facility] (DEFAULT) [address] [place] [address] Provider Orderson 01-27-2021 Provider Orders [id number] 33#[id number] [facility] Miscellaneous Testing LCon 0 01-26-2021 Test Code [id number] Invalid Interpretation Code [facility] Comment on above: Performed By: #### 1 [id number] #### [facility] (DEFAULT) [address] [place] [id number] Test Name LC Semen Analysis postvasect Invalid Interpretation Code [facility] Comment on above: Performed By: #### 1 [id number] #### [facility] (DEFAULT) [address] [place] [address] Vital Signs Date Time Vital Sign Value Performing Clinician Rj gonzalez 10-20-2022 09:30-0500 Body height 182.9 cm [facility] 10-20-2022 09:30-0500 Body mass index (BMI) [Ratio] 31.19 kg/m2 [facility] 10-20-2022 09:30-0500 Body weight 104.33 kg [facility] Encounters Encounter Date Encounter Type Care Provider Facility Start: 11-05-2023 End: 11-05-2023 ambulatory GABRIELLE AZEVEDOA Not Available Start: 07-03-2023 End: 07-03-2023 ambulatory GABRIELLE Vidal WANDA Not Available Start: 10-20-2022 End: 10-23-2022 ambulatory GABRIELLE MUÑOZ [facility] Start: 10-20-2022 End: 10-22-2022 Subsequent hospital visit by physician [facility] Nuclear [facility] Comment on above: RUQ abdominal pain Start: 09-27-2022 End: 09-30-2022 ambulatory GABRIELLE MUÑOZ [facility] Start: 09-27-2022 End: 09-29-2022 Subsequent hospital visit by physician [facility] Ultrasound Room [facility] Ultrasound Comment on above: Right upper [...] DTaP/Tdap/Td vaccine (2 - Td or Tdap) [facility] [employer] Start: 2022 Diabetes screen Diabetes screen [facility] [employer] Start: 03-13-2022 Influenza vaccination Flu vaccine (# 1) [facility] [employer] Start: 2005 Hepatitis C screening Hepatitis C sc reen [facility] [employer] Start: 2002 HIV screening HIV screen [facility] Start: 1999 Depression Screen [facility] Start: 1988 Varicella vaccine (1 of 2 - 2-dose childhood series) Varicella vaccine (1 of 2 - 2-dose childhood series) [facility] [employer] Start: 1987 COVID-19 Vaccine (#1) COVID-19 Vacci ne (#1) [facility] [employer] Payers Date Payer Category Payer Medicaid [id number]. [id number] 2022 Unknown [id number] [id number] 1987 Unknown [id number] 2.16.8 [id number] 1987 Unknown [id number] 2.16.8 [id number] 1987 Unknown [id number] 2.16.84 [id number] 1987 Unknown [id number] Social History Date Type Detail Facility [facility] [employer] Phone: Start: 1985 Sex Assigned At Not on file B ON [employer] Phone: Evaluation note Note Date & Type Note Facility Evaluation note Diagnosis Right upper quadrant pain Abdominal pain, right upper quadrant documented in this encounter [facility] [employer] Phone: Evaluation note Note Date & Type Note Facility Evaluation note Diagnosis RUQ abdominal pain Abdominal pain, right upper quadrant documented in this encounter [facility] [employer] Work Phone: Summary Purpose Family History No [...] Procedures US GALLBLADDER RUQ Gabrielle Muñoz MD [address] [place] [id number] Referral ID Status Reason Start Date Expiration Date Visits Re quested Visits Authorized [id number] Closed 09/26/2022 09/26/2023 1 1 Specialty Diagnoses / Procedures Referred By Contac t Referred To Contact Radiology Diagnoses RUQ abdominal pain Procedures NM HEPATOBILIARY SCAN W EJECTION FRACTION Gabrielle Muñoz MD [address] [place] [address] Referral ID Status Reason Start Date Expiration Date Visits Re quested Visits Authorized [id number] Closed 10/10/2022 10/10/2023 1 1 Additional Source Comments (unrecognized sect ion and content) No Status Records FoundNo Status Records FoundNo Status Records FoundNo Status Records Found INFORMATION SOURCE (unrecogn ized section and content) DATE CREATED AUTHOR 02/05/2021 [facility] DATE CREATED AUTHOR AUTHOR'S ORGANIZ ATION 10/09/2021 [facility] DATE CREATED AUTHOR AUTHOR'S ORGANIZ ATION 10/22/2022 [facility] DATE CREATED AUTHOR AUTHOR'S ORGANIZ ATION 11/05/2023 [facility] EPIC Reason for Visit (unrecogniz ed section and content) Specialty Diagnoses / Procedures Referred By Contac t Referred To Contact Radiology Diagnoses Right upper quadrant pain Procedures US GALLBLADDER RUQ Gabrielle Muñoz MD [address] [place] [address] Referral ID Status Reason Start Date Expiration Date Visits Re quested Visits Authorized [id number] Closed 09/26/2022 09/26/2023 1 1 Specialty Diagnoses / Procedures Referred By Contac t Referred To Contact Radiology Diagnoses RUQ abdominal pain Procedures NM HEPATOBILIARY SCAN W EJECTION FRACTION Gabrielle Muñoz MD [address] [place] [address] Referral ID Status Reason Start Date Expiration Date Visits Re quested Visits Authorized [id number] Closed 10/10/2022 10/10/2023 1 1 Care Teams (unrecognized sec tion and content) Information Security Specialist Relationship 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 [place] [address] PCP - General Family Medicine 09/26/22 Information Security Specialist Relationship 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 [place] [address] PCP - General Family Medicine [...] BE BASED ON THE PRIMARY CLINICAL RECORDS. [employer] provides no warranty or guarantee of the accuracy or completeness of information in this document.
== END 2024-03-10 08:17 | disposition home or self-care (01) ==
LOC: EC 08:16
PROVIDERS: PCP Family Medicine; Visit Provider Orthopaedic Surgery
DX: S62.514D Nondisplaced fracture of proximal phalanx of right thumb, subsequent encounter for fracture with routine healing (principal)
CPT/HCPCS: 73130

== ENCOUNTER 2024-04-07 08:19 | Outpatient (OUT) | payer MEDICAID, SELFPAY ==
--- NOTE | 2024-04-07 | XR_ITS ---
The [address] [address] Patient Name: QUAN AMHAJAN MRN: [id number] date: 1985 Sex: M Assigned Patient Location: Current Patient Location: Accession/Order Number: [id number] Exam Date: 04/07/2024 08:20 Report Date: 04/08/2024 05:56 At the request of: CARROLL CHAUDHARY Procedure: XR hand RT min 3V PROCEDURE: XR hand RT min 3V HISTORY: RIGHT HAND PAIN COMPARISON: XR hand right 03/10/2024 through 01/28/2024 FINDINGS: BONES:Prior mechanical repair of first proximal phalanx via a lateral plate and screws; no appreciable hardware fracture loosening. Persistent fracture lines. SOFT TISSUES:No visible soft tissue swelling. EFFUSION:None visible. OTHER: Negative. XR/XR hand RT min 3V IMPRESSION: 1. Normal alignment and stable hardware. 2. Persistent fracture lines without significantly increasing density over time. Electronically authenticated by: CARROLL WALTON Date: 04/08/2024 05:56
--- OUTSIDE RECORDS SUMMARY | 2024-04-07 08:38 | XMS_ITS | CCD ---
Author Organization [facility] Care Team Providers Care Looping Inspector Name Role Phone Gabrielle Muñoz MD Primary Care Provider GABRIELLE MUÑOZ Referring Unavailable GABRIELLE MUÑOZ Primary Care Unavailable GABRIELLE MUÑOZ Referring Unavailable GABRIELLE MUÑOZ Primary Care Unavailable GABRIELLE MUÑOZ Attending Unavailable GABRIELLE MUÑOZ Attending Unavailable GABRIELLE MUÑOZ [...] cholecystitis. Gallbladder ejection fraction is approximately 91%. [facility] CONSOLIDATED EXAMINATION: NUCLEAR MEDICINE HEPATOBILIARY [...] 30-60 mins. Images were obtained in the BELARUSIAN projection and regions of interest were drawn [...] range is based on a limited study. [facility] Jerry Pimentel MD - 10/20/2022 EXAMINATION: [...] 30-60 mins. Images were obtained in the BELARUSIAN projection and regions of interest were drawn [...] cholecystitis. Gallbladder ejection fraction is approximately 91%. [facility] Phone: Radiology Study observation (narrative) [facility] Phone: NM HEPATOBILIARY SCAN W EJEC TION FRACTIONOrdered By: Jerry Armstrong on 10-20-2022 [facility] Phone: NM HEPATOBILIARY SCAN W PHAR MACOLOGICAL [...] 30-60 mins. Images were obtained in the BELARUSIAN projection and regions of interest were drawn [...] Jerry Armstrong MD 10/20/22 Final result [facility] US GALLBLADDER RUQon 09-27- 023 US GALLBLADDER RUQ EXAMINATION: RIGHT UPPER [...] Negin Bustillos MD 09/27/22 Final result [facility] Unremarkable right upper quadrant ultrasound. PN RIS CONSOLIDATED EXAMINATION: RIGHT UPPER QUADRANT ULTRASOUND [...] No evidence of right upper quadrant ascites. [facility] Negin Ibarra MD - 09/27/2022 EXAMINATION: [...] ascites. IMPRESSION: Unremarkable right upper quadrant ultrasound. [facility] Phone: Radiology Study observation (narrative) [facility] Phone: US GALLBLADDER RUQOrdered By : Negin Bustillos on 09-27-2022 [facility] Phone: Q - CBC W/DIFF AND PLTon BASOABS 53 cells/uL Normal 0-200 [facility] Treatment Plant Operator Comment on above: Order Comment: [facility] performed at: [employer], [address] [place] [address], [address] [place] [address], [phone], Community Service Worker: Otto Nuñez MD [facility] Collection Date/Time: [id number] [facility] Results Received Date/Time: [id number] [facility] Reported Date/Time: [id number] Performed By: #### 9 68T, [id number], 42A #### [facility] [address] [place] [address] Basophils/100 WBC (Bld) 0.9 % Normal [facility] Treatment Plant Operator Comment on above: Order Comment: [facility] performed at: [employer] [facility], [address] , [address] [place] [address], [address] [place] [address], Community Service Worker: Otto Nuñez MD [facility] Date/Time: [facility] Results Received Date/Time: [facility] Reported Date/Time: Performed By: #### 9 68T, [id number], [id number] #### [facility] [address] [place] [address] EOSABS 271 cells/uL Normal 15-500 [facility] Treatment Plant Operator Comment on above: Order Comment: [facility] performed at: [employer] [facility], [address] [facility], [address] [place] [address], [address] [place] [address], Community Service Worker: Otto Nuñez MD [facility] Date/Time: [facility] Results Received Date/Time: [facility] Reported Date/Time: Performed By: #### 9 68T, [id number], [id number] #### [facility] [address] [place] [address] Eosinophils/100 WBC (Bld) 4.6 % Normal [facility] Treatment Plant Operator Comment on above: Order Comment: [facility] performed at: [employer] [facility], [address] , [address] [place] [address], [address] [place] [address], Community Service Worker: Otto Nuñez MD [facility] Date/Time: [facility] Results Received Date/Time: [facility] Reported Date/Time: Performed By: #### 9 68T, [id number], 42A #### [facility] [address] [place] [address] Erythrocyte distribution width (RBC) [Ratio] 11.9 % Normal 11.0-15.0 [facility] Treatment Plant Operator Comment on above: Order Comment: [facility] performed at: [employer] [facility], [address] , [address] [place] [address], [address] [place] [address], Community Service Worker: Otto Nuñez MD [facility] Date/Time: [facility] Results Received Date/Time: [facility] Reported Date/Time: Performed By: #### 9 68T, [id number], 42A #### [facility] [address] [place] [address] Hematocrit (Bld) [Volume fraction] 50.9 % High 38.5-50.0 [facility] Treatment Plant Operator Comment on above: Order Comment: [facility] performed at: [employer] [facility], [address] [facility], [address] [place] [address], [address] [place] [address], Community Service Worker: Otto Nuñez MD [facility] Date/Time: [facility] Results Received Date/Time: [facility] Reported Date/Time: Performed By: #### 9 68T, [id number], 42A #### [facility] [address] [place] [address] Hemoglobin (Bld) [Mass/Vol] 17.3 g/dL High 13.2-17.1 [facility] Treatment Plant Operator Comment on above: Order Comment: [facility] performed at: [employer] [facility], [address] [place] [address], [address] [place] [address], [address] [place] [address], Community Service Worker: Otto Nuñez MD [facility] Date/Time: [facility] Results Received Date/Time: [facility] Reported Date/Time: Performed By: #### 9 68T, [id number], 42A #### [facility] [address] [place] [address] Lymphocytes (Bld) [#/Vol] 1.611 10*3/uL Normal 850-3900 [facility] Treatment Plant Operator Comment on above: Order Comment: [facility] performed at: [employer] [facility], [address] [facility], [address] [place] [address], [address] [place] [address], Community Service Worker: Otto Nuñez MD [facility] Date/Time: [facility] Results Received Date/Time: [facility] Reported Date/Time: Performed By: #### 9 68T, [id number], 42A #### [facility] [address] [place] [address] Lymphocytes/100 WBC (Bld) 27.3 % Normal [facility] Treatment Plant Operator Comment on above: Order Comment: [facility] performed at: [employer] [facility], [address] [place] [address], [address] [place] [address], [address] [place] [address], Community Service Worker: Otto Nuñez MD [facility] Date/Time: [facility] Results Received Date/Time: [facility] Reported Date/Time: Performed By: #### 9 68T, [id number], 42A #### [facility] [address] [place] [address] MCH (RBC) [Entitic mass] 31.3 pg Normal 27.0-33.0 [facility] Treatment Plant Operator Comment on above: Order Comment: [facility] performed at: [employer] [facility], [address] [place] [address], [address] [place] [address], [address] [place] [address], Community Service Worker: Otto Nuñez MD [facility] Date/Time: [facility] Results Received Date/Time: [facility] Reported Date/Time: Performed By: #### 9 68T, [id number], 42A #### [facility] [address] [place] [address] MCHC (RBC) [Mass/Vol] 34.0 g/dL Normal 32.0-36.0 [facility] Treatment Plant Operator Comment on above: Order Comment: [facility] performed at: [employer] [facility], [address] [place] [address], [address] [place] [address], [address] [place] [address], Community Service Worker: Otto Nuñez MD [facility] Date/Time: [facility] Results Received Date/Time: [facility] Reported Date/Time: Performed By: #### 9 68T, [id number], 42A #### [facility] [address] [place] [address] MCV (RBC) [Entitic vol] 92.0 fL Normal 80.0-100.0 [facility] Specialist Comment on above: Order Comment: [facility] performed at: [employer] [facility], [address] [place] [address], [address] [place] [address], [address] [place] [address], Community Service Worker: Otto Nuñez MD [facility] Date/Time: [facility] Results Received Date/Time: [facility] Reported Date/Time: Performed By: #### 9 68T, [id number], 42A #### [facility] [address] [place] [address] MONOABS 726 cells/uL Normal 200-950 [facility] Comment on above: Order Comment: [facility] performed at: [employer] [facility], [address] [place] [address], [address] [place] [address], [address] [place] [address], Community Service Worker: Otto Nuñez MD [facility] Date/Time: [facility] Results Received Date/Time: [facility] Reported Date/Time: Performed By: #### 9 68T, [id number], 42A #### [facility] [address] [place] [address] Monocytes/100 WBC (Bld) 12.3 % Normal [facility] Specialist Comment on above: Order Comment: [facility] performed at: [employer] [facility], [address] [place] [address], [address] [place] [address], [address] [place] [address], Community Service Worker: Otto Nuñez MD [facility] Date/Time: [facility] Results Received Date/Time: [facility] Reported Date/Time: Performed By: #### 9 68T, [id number], 42A #### [facility] [address] [place] [address] Neutrophils (Bld) [#/Vol] 3.239 10*3/uL Normal 2350-1462 [facility] Specialist Comment on above: Order Comment: [facility] performed at: [employer] [facility], [address] , [address] [place] [address], [address] [place] [address], Community Service Worker: Otto Nuñez MD [facility] Date/Time: [facility] Results Received Date/Time: [facility] Reported Date/Time: Performed By: #### 9 68T, [id number], 42A #### [facility] [address] [place] [address] Neutrophils/100 WBC (Bld) 54.9 % Normal [facility] Treatment Plant Operator Comment on above: Order Comment: [facility] performed at: [employer] [facility], [address] [place] [address], [address] [place] [address], [address] [place] [address], Community Service Worker: Otto Nuñez MD [facility] Date/Time: [facility] Results Received Date/Time: [facility] Reported Date/Time: Performed By: #### 9 68T, [id number], 42A #### [facility] [address] [place] [address] Platelet mean volume (Bld) [Entitic vol] 10.5 fL Normal 7.5-12.5 [facility] Treatment Plant Operator Comment on above: Order Comment: [facility] performed at: [employer] [facility], [address] [facility], [address] [place] [address], [address] [place] [address], Community Service Worker: Otto Nuñez MD [facility] Date/Time: [facility] Results Received Date/Time: [facility] Reported Date/Time: Performed By: #### 9 68T, [id number], 42A #### [facility] [address] [place] [address] Platelets (Bld) [#/Vol] 296 10*3/uL Normal 140-400 [facility] [place] Treatment Plant Operator Comment on above: Order Comment: [facility] performed at: [employer] [facility], [address] [facility], [address] [place] [address], [address] [place] [address], Community Service Worker: Otto Nuñez MD [facility] Date/Time: [facility] Results Received Date/Time: [facility] Reported Date/Time: Performed By: #### 9 68T, [id number], 42A #### [facility] [address] [place] [address] RBC (Bld) [#/Vol] 5.53 10*6/uL Normal 4.20-5.80 [facility] [place] Treatment Plant Operator Comment on above: Order Comment: [facility] performed at: [employer] [facility], [address] [place] [address], [address] [place] [address], [address] [place] [address], Community Service Worker: Otto Nuñez MD [facility] Date/Time: [facility] Results Received Date/Time: [facility] Reported Date/Time: Performed By: #### 9 68T, [id number], 42A #### [facility] [address] [place] [address] WBC (Bld) [#/Vol] 5.9 10*3/uL Normal 3.8-10.8 [facility] [place] Treatment Plant Operator Comment on above: Order Comment: [facility] performed at: [employer] [facility], [address] [place] [address], [address] [place] [address], [address] [place] [address], Community Service Worker: Otto Nuñez MD [facility] Collection Date/Time: [facility] Results Received Date/Time: [facility] Reported Date/Time: Performed By: #### 9 68T, [id number], 42A #### [facility] [address] [place] [address] Q - COMPREHENSIVE METABOLIC PANEL W/EGFRon 10-07-2021 Albumin [Mass/Vol] 4.4 g/dL Normal 3.6-5.1 [facility] [place] Treatment Plant Operator Comment on above: Order Comment: [facility] performed at: [employer] [facility], [address] [place] [address], [address] [place] [address], [address] [place] [address], Community Service Worker: Otto Nuñez MD [facility] Collection Date/Time: [facility] Results Received Date/Time: [facility] Reported Date/Time: Performed By: #### 9 68T, [id number], 42A #### [facility] [address] [place] [address] Albumin/Globulin [Mass ratio] 1.7 {ratio} Normal 1.0-2.5 [facility] Specialist Comment on above: Order Comment: [facility] performed at: [employer] [facility], [address] [place] [address], [address] [place] [address], [address] [place] [address], Community Service Worker: Otto Nuñez MD [facility] Date/Time: [facility] Results Received Date/Time: [facility] Reported Date/Time: Performed By: #### 9 68T, [id number], 42A #### [facility] [address] [place] [address] ALP [Catalytic activity/Vol] 42 U/L Normal 36-130 [facility] Treatment Plant Operator Comment on above: Order Comment: [facility] performed at: [employer] [facility], [address] [place] [address], [address] [place] [address], [address] [place] [address], Community Service Worker: Otto Nuñez MD [facility] Date/Time: [facility] Results Received Date/Time: [facility] Reported Date/Time: Performed By: #### 9 68T, [id number], 42A #### [facility] [address] [place] [address] ALT [Catalytic activity/Vol] 19 U/L Normal 9-46 [facility] Treatment Plant Operator Comment on above: Order Comment: [facility] performed at: [employer] [facility], [address] [place] [address], [address] [place] [address], [address] [place] [address], Community Service Worker: Otto Nuñez MD [facility] Date/Time: [facility] Results Received Date/Time: [facility] Reported Date/Time: Performed By: #### 9 68T, [id number], 42A #### [facility] Default [address] [place] [address] AST [Catalytic activity/Vol] 16 U/L Normal 10-40 [facility] Specialist Comment on above: Order Comment: [facility] performed at: [employer] [facility], [address] [place] [address], [address] [place] [address], [address] [place] [address], Community Service Worker: Otto Nuñez MD [facility] Date/Time: [facility] Results Received Date/Time: [facility] Reported Date/Time: Performed By: #### 9 68T, [id number], 42A #### [facility] Default [address] [place] [address] Calcium [Mass/Vol] 9.5 mg/dL Normal 8.6-10.3 [facility] Comment on above: Order Comment: [facility] performed at: [employer] [facility], [address] [place] [address], [address] [place] [address], [address] [place] [address], Community Service Worker: Otto Nuñez MD [facility] Collection Date/Time: [facility] Results Received Date/Time: [facility] Reported Date/Time: Performed By: #### 9 68T, [id number], 42A #### [facility] Default [address] [place] [address] Chloride [Moles/Vol] 103 mmol/L Normal 98-110 [facility] Specialist Comment on above: Order Comment: [facility] performed at: [employer] [facility], [address] [place] [address], [address] [place] [address], [address] [place] [address], Community Service Worker: Otto Nuñez MD [facility] Collection Date/Time: [facility] Results Received Date/Time: [facility] Reported Date/Time: Performed By: #### 9 68T, [id number], 42A #### [facility] [address] [place] [address] CO2 [Moles/Vol] 26 mmol/L Normal 20-32 [facility] Treatment Plant Operator Comment on above: Order Comment: [facility] performed at: [employer] [facility], [address] [facility], [address] [place] [address], [address] [place] [address], Community Service Worker: Otto Nuñez MD [facility] Date/Time: [facility] Results Received Date/Time: [facility] Reported Date/Time: Performed By: #### 9 68T, [id number], 42A #### [facility] [address] [place] [address] Creatinine [Mass/Vol] 1.04 mg/dL Normal 0.60-1.35 [facility] Treatment Plant Operator Comment on above: Order Comment: [facility] performed at: [employer] [facility], [address] [place] [address], [address] [place] [address], [address] [place] [address], Community Service Worker: Otto Nuñez MD [facility] Date/Time: [facility] Results Received Date/Time: [facility] Reported Date/Time: Performed By: #### 9 68T, [id number], 42A #### [facility] Default [address] [place] [address] eGFRAA ([facility]) 108 mL/min/1.73m2 Normal > OR = 60 [facility] Treatment Plant Operator Comment on above: Order Comment: [facility] performed at: [employer] [facility], [address] [place] [address], [address] [place] [address], [address] [place] [address], Community Service Worker: Otto Nuñez MD [facility] Collection Date/Time: [facility] Results Received Date/Time: [facility] Reported Date/Time: Performed By: #### 9 68T, 29021S, 42A #### [facility] Default [address] [place] [address] eGFRNAA ([facility]) 93 mL/min/1.73m2 Normal > OR = 60 [facility] Treatment Plant Operator Comment on above: Order Comment: [facility] performed at: [employer] [facility], [address] [place] [address], [address] [place] [address], [address] [place] [address], Community Service Worker: Otto Nuñez MD [facility] Collection Date/Time: [facility] Results Received Date/Time: [facility] Reported Date/Time: Performed By: #### 9 68T, [id number], 42A #### [facility] Default [address] [place] [address] Globulin (S) [Mass/Vol] 2.6 g/dL Normal 1.9-3.7 [facility] Treatment Plant Operator Comment on above: Order Comment: [facility] performed at: [employer] [facility], [address] [place] [address], [address] [place] [address], [phone], Community Service Worker: Otto Nuñez MD [facility] Date/Time: [facility] Results Received Date/Time: [facility] Reported Date/Time: Performed By: #### 9 68T, [id number], 42A #### [facility] Default [address] [place] [address] Glucose [Mass/Vol] 85 mg/dL Normal 65-99 [facility] Comment on above: Order Comment: [facility] performed at: [employer] [facility], [address] [place] [address], [address] [place] [address], [phone], Community Service Worker: Otto Nuñez MD [facility] Date/Time: [facility] Results Received Date/Time: [facility] Reported Date/Time: Result Comment: Fasting reference interval Performed By: #### 9 68T, [id number], 42A #### [facility] Default [address] [place] [address] Potassium [Moles/Vol] 4.9 mmol/L Normal 3.5-5.3 [facility] Treatment Plant Operator Comment on above: Order Comment: [facility] performed at: [employer] [facility], [address] [place] [address], [address] [place] [address], [phone], Community Service Worker: Otto Nuñez MD [facility] Date/Time: [facility] Results Received Date/Time: [facility] Reported Date/Time: Performed By: #### 9 68T, [id number], 42A #### [facility] Default [address] [place] [address] Protein [Mass/Vol] 7.0 g/dL Normal 6.1-8.1 [facility] [place] Treatment Plant Operator Comment on above: Order Comment: [facility] performed at: [employer] [facility], [address] [facility], [address] [place] [address], [address] [place] [address], Community Service Worker: Otto Nuñez MD [facility] Date/Time: [facility] Results Received Date/Time: [facility] Reported Date/Time: Performed By: #### 9 68T, [id number], 42A #### [facility] Default [address] [place] [address] Sodium [Moles/Vol] 138 mmol/L Normal 135-146 [facility] [place] [facility] Plant Operator Comment on above: Order Comment: [facility] performed at: [employer] [facility], [address] [facility], [address] [place] [address], [address] [place] [address], Community Service Worker: Otto Nuñez MD [facility] Date/Time: [facility] Results Received Date/Time: [facility] Reported Date/Time: Performed By: #### 9 68T, [id number], 42A #### [facility] Default [address] [place] [address] TBIL <0.3 Normal 0.2-1.2 [facility] Treatment Plant Operator Comment on above: Order Comment: [facility] performed at: [employer] [facility], [address] [facility], [address] [place] [address], [address] [place] [address], Community Service Worker: Otto Nuñez MD [facility] Date/Time: [facility] Results Received Date/Time: [facility] Reported Date/Time: Performed By: #### 9 68T, [id number], 42A #### [facility] Default [address] [place] [address] Urea nitrogen [Mass/Vol] 26 mg/dL High 7-25 [facility] Treatment Plant Operator Comment on above: Order Comment: [facility] performed at: [employer] [facility], [address] [place] [address], [address] [place] [address], [address] [place] [address], Community Service Worker: Otto Nuñez MD [facility] Date/Time: [facility] Results Received Date/Time: [facility] Reported Date/Time: Performed By: #### 9 68T, [id number], 42A #### [facility] Default [address] [place] [address] Urea nitrogen/Creatinine [Mass ratio] 25 mg/mg High 6-22 [facility] Treatment Plant Operator Comment on above: Order Comment: [facility] performed at: [employer] [facility], [address] [place] [address], [address] [place] [address], [address] [place] [address], Community Service Worker: Otto Nuñez MD [facility] Date/Time: [facility] Results Received Date/Time: [facility] Reported Date/Time: Performed By: #### 9 68T, [id number], 42A #### [facility] Default [address] [place] [address] Q - Lipid Panelon 10-07-2021 Cholesterol [Mass/Vol] 224 mg/dL High <200 [facility] Treatment Plant Operator Comment on above: Order Comment: [facility] performed at: [employer] [facility], [address] [place] [address], [address] [place] [address], [address] [place] [address], Community Service Worker: Otto Nuñez MD [facility] Date/Time: [facility] Results Received Date/Time: [facility] Reported Date/Time: Performed By: #### 9 68T, [id number], 42A #### [facility] Default [address] [place] [address] Cholesterol in HDL [Mass/Vol] 47 mg/dL Normal > OR = 40 [facility] Treatment Plant Operator Comment on above: Order Comment: [facility] performed at: [employer] [facility], [address] [facility], [address] [place], [address] [place] [address], Community Service Worker: Otto Nuñez MD [facility] Date/Time: [facility] Results Received Date/Time: [facility] Reported Date/Time: Performed By: #### 9 68T, [id number], 42A #### [facility] Default [address] [place] [address] Cholesterol in LDL [Mass/Vol] 151 mg/dL High [place] Treatment Plant Operator Comment on above: Order Comment: [facility] performed at: [employer] [facility], [address] [place] [address], [address] [place] [address], [address] [place] [address], Community Service Worker: Otto Nuñez MD [facility] Date/Time: [facility] [...] equation in the estimation of LDL-C. Kamaljit STONER et al. SAY. 2013;310(19): 1547-1726 (http://education.GMI Ratings/faq/GUT066) Performed By: #### 9 68T, 58576L, 42A #### [facility] Default [address] [place] [address] Cholesterol.total/C holesterol in HDL [Mass ratio] 4.8 {ratio} Normal <5.0 [facility] Operator Comment on above: Order Comment: [facility] Testing performed at: [employer] [facility], [address] [facility], [address] [place], [place], [address] [place] [address], Community Service Worker: Otto Nuñez MD [facility] Date/Time: [facility] Results Received Date/Time: [facility] Reported Date/Time: Performed By: #### 9 68T, 12792Y, 42A #### [facility] [address] [place] [address] NON HDL CHOLESTEROL 177 mg/dL (calc) High <130 [facility] Operator Comment on above: Order Comment: [facility] Testing performed at: [employer] [facility], [address] [facility], [address] [place], [address] [place] [address], Community Service Worker: Otto Nuñez MD [facility] Date/Time: [facility] Results Received Date/Time: [facility] Reported Date/Time: Result Comment: For patients with diabetes plus 1 major ASCVD risk factor, treating to a non-HDL-C goal of <100 mg/dL (LDL-C of <70 mg/dL) is considered a therapeutic option. Performed By: #### 9 68T, 16013O, 42A #### [facility] [address] [place] [address] Triglyceride [Mass/Vol] 132 mg/dL Normal <150 [facility] Operator Comment on above: Order Comment: [facility] performed at: [employer] [facility], [address] [facility], [address] [place] [address], [address] [place] [address], Community Service Worker: Otto Nuñez MD [facility] Date/Time: [facility] Results Received Date/Time: [facility] Reported Date/Time: Performed By: #### 9 68T, 06120Y, 42A #### [facility] Default [address] [place] [address] Coding Summaryon 02-04-2021 Coding Summary HTMLBase 64 IurgoaqhUCx2eGv+PGh lYWQ+FP3JYHNxG13feK SzyM4HX7wWPC4RLFOKC OLYMP0PCH9ndBM3ZNfb F7NvgiBs KiojqPPlJC26GTr0WYB 4fAbbBUicdJ4qmQWxN6 p7ArOaFY92mK42SMahE ZFdXhN6EkUowxrzmZXh T7uyWeVqnORjPlc+PHR hYmxlIHdpZHRoPScxMD VrRnSzyMigAE4lQc8rN GVyLWNvbGxhcHNlOiBj v4jnPBClIZvxVS8hoBr cQ6EfqEC2AFLwa0n5Sx 48dHI+RFApPCM6vFxnU Mztl472IpFwu7xqPVR1 qVSxTUdbHHT7H46rc9T 0LGUrGXCaEFZ7eBX4mM 8zjMtkdifpO3JwcAIoW kI7CDW2yIUsvI7rvGem eovkwX7cNnl+T39SPN5 DQSYFQR7PCdf2N1ZaVq wvdHI+QV76EBNmKU27s JMhgPMmo5zhoTi5LoBk LCQaTDC6rQwrYRmoc2B dZLXyA02wgYKdx5O6IA PzxAeosWTrNiOhxQM2a H8dJAthqbrca1yolfyf Jfcqh7bjur68sX73J20 iWArbDALqXEX5HEHqQD SqbWevjw2cgL1qIr4+I Tdrv4poi9cdoYv3EpBf UHUcfxFmqZhgXAY0x4V nZl55H5ZujKylx8KqOm k5tp41fOFri7O4lZP9H IdfXJLouC9wUKboVgT6 IJOtJrPlhE06dNGrUJy vSa1oxPkwnDvdQO0sNE OybstuHXDmlQ7iJMZhw XVyqZorBV1vGZQiohlh i180WxXfLTW9JQMkyMP cF4GisQ8eJhUyOYKaSV FjJ2YwbFItMTbsU573O KliBuX0AMXnlrFoV8Qc NYTtfYmlZfE6y0M6Ag3 Xe7PpnmvmKBU1XTsxBN F7ScS4MzCnXsI6D0RsK xk3XHFdpZxcBH8hA7Uz XOGldarsljbbaQU5KNO sXIJaeT70vUIjRJlgKb 1au3A4e426HNLmVJAvf M69Sf1mxZkoFGNjkPWH rL3adtlfv5sftckkGbY qCTKjIMn4NQg5VCKymB xdDpQuLSM8GfG6ZXZ3b TOrxY2kkEhtyxxsnV4n Oyc+Q77arK9nSOH5CYZ 6afndBUZdeaNwEE67RH 33D3IqFrxytTEfeSS+P IRnzpIxbYemJW1vRxTe j8zxt1KoYSmdW0OdTGD eZTbwYxf5FXAtCYT2dS K7fP2iIXNlDQgll6B5m QF6M0SnadJtbs1xe1mu AHHfCXbaN62xqRRqp5W 4CWKcyRV9DMBpkXxjEe FgqH21Mdw+PGNvbGdyb 3MoUjwik8fiw9bbaYm9 IjMwJSIgdmFsaWduPSJ 4n4InPl44R91eXGjoND RoPSIxNSUiIHZhbGlnb r2nwT4zLa8+PGNvbCB3 sDC3xY4tNFLiGuG6OCi wC445UuMayQOgDylay9 pkd8cwjTi2KcRdKREgc mRnyUsdYYX2b0DsPn41 R99mUVlmGFLsGHYzDDK vIQDlrBamqq5ndK9fYy 8+KI5wk4esxz06pH64j HI+MZTzPQX8tLkiSJwe UFIpqV5pZRnjFuV3YEB hEtZboC16vTYbHYsmJk 9phGeivMatVQ1gBKAwl bcys487ZdQfz6rkOFVo xZRyEZtrTFV3O22in2T 7DOMbQQGyGYY7xWJ8rQ 1hbGlnbjogbGVmdDsgd mPrgBqlLNfqGXiuC449 IHRvcDsnPlBhdGllbnQ jGlHqOLa8I9EqEbt3JM NbqJyaFW4upARnQXamK f2orEeosYwbMA6qXBPn jsvdt491RuEbk7coSTZ jyZOjREuwWGC4Y07dq1 G9MBYiSIHaITV4fJL6j X4zmPxxwxmwmZBaeZug dlGvgJvnKKxkXCvmG93 6IHRvcDsnPkJpcnRoIE BwlXZ6QH62IU40oRPqy 6L1wIU0K7NrRJPmnvja uabthCJ4SFRdSQVyiO6 8Vj8agVggOi9sGFDxTQ S4STTrhVRxN1DffT1kP hXfKEEeJOXxT1KfqTQg WQzjT907MJueGkT3DLW kxhHkF5TsVYWbnOjoWi H7t8V2Kn3XS3Y4GH13X M66hOOap8M5lZK6W1Pl OIJallyimcnqgAI4FCZ mUGUmuF82Pm6wiFuxGr 8rMGIgQYT2CVHywRAjF 7QuwG4zKuGpLSYqFTNy M7IxoMFdEIxgL879CBu nSlF5YVWtfcXpG2SqVT SaaRhnAdG1z8T2Ce3OX Gf8PP76UC47hAHce4K9 uRX3M3TdUBHmpmoxfuu weQB6PNLtDCDpvF76Mf 3dvCreUq8sQIWaTSF7O SScfQPhF5LrdX5rZhAf JEVqFJJtV7XxmLQgXSv wA652LTuzVrY8FSOpbk NgF1UbGMHxmQkaLnD9x 7T0Hc0XUZMaZY00UZE8 oBB6BO00KY52G9KlZoy vdGFibGU+PHRhYmxlIH dpZHRoPScxMDAlJyBzd LolTZ8tWw3iCGPfRCTv hChjvPGmXvTiq0dhABJ wEPgxQP1naEnpF1NvfP O9LBQkp9r5Al93L67oS 3JvdXA+JNFwdUN7wZP7 qV3cWgFvQrM3PZzsQ67 8HeAslVPsJxagp7oaw7 aijSy7XiC3BFLstzUhj PwdBSS4x1HqIx36Z05b IHdpZHRoPSIxNSUiIHZ isGsvho8htI1yQo0+PG DzmSF9mCB7rM4aHiKgG zH8KSafF218GxHsxMRw Aaarq0ycr2xfpHd2WyB iWKXheqIapSyfFIQ2n7 QnRu25V9StgOiav1BrS zr4km81zEAbf5S0dJL4 I7BtQVXyksrjzLSxhEl cUI3dJSMhjsarMIRimM 3tSWQmE8m1GkRfGtO5I QzdF5SymkX2CSJtkSUk POxaJFS7F28gh8W2IVP qKNGnPDT3bYN2nP7tlA lnbjogbGVmdDsgdmVyd UrqLRaiBRpdQ652CACz yPvqTMXoeS2oEVRqkBQ fzBjuKI2zBYOqkfjzMv hBTEwsIEpBUkVEIFNDT 1SNCH67ZR47qKPdh1N0 tHJ1G8FtYJNckxaxlca hoDJ3QJItSWCpcA37hE DoKYcpPw8rd4L3y927R YRpTLEkjW88Nd4sbEpp TWUugCNQiW7gmqbfq5f jspnfZvWaHGXtMSv3XM x8IPOgrYpiIgFwIXF0F jH9JOD7dFBpjW3wiOss fhshlL9uZjw+MDgvMTg iAFd8JrnhwGR+PHRkIH K1eIqfNJpyNHMnfW0jC WIzN0o2IePeXgZ4QXxc B2JdFAPnogyiPc79mO6 yHaGvRlJ4RNpgC3Rwze B8EWLrtPGuCPzcNKG2K 38pj4C5XXZdHQFnEUQ7 fPA5oW9xtBcycthnfRO mdDsgdmVydGljYWwtYW gaN050RIPqgSgeVgRaM AgnDRAzDG77AE86jILg s2U4yZE6W2NeEQKrarv wtvcltHJ3LRZoVVIcpJ 09xESjMLomAj6us9T8w 527YKNxPMBseS10Tc0w gGweOUHqnOGSpV2zohy hm5ofuzbbDdUlXFVxWI a1PNj9OOKjvNvpIaAnZ LU2JmS8ICW6xQAkbF9f uKydokvjhE3fJit+TUF MRTwvdGQ+QGSrUXC1eF ooPAetSDZrkY2dYXZiT 2m8JqTbBuV7VKqrS2Ct OBIsiftfFf66pD0xXcW vIkU5VUvnH1MfrlO0WX RmwSAwBCyzDUT5I89fx 7G5BGWsQMExZPD9gOW5 uW0jaCsohiinwEKcrNg gdmVydGljYWwtYWxpZ2 36ZUApvDtvOk5EFF72Y N05D4EoIfrvcVZynPR+ PHRhYmxlIHdpZHRoPSc yGPQrQhRtnWbwIV4mSg 9yZGVyLWNvbGxhcHNlO bZgl3zsOTXfVPjqEB4j nVxvS9QngBD3PSUxf5x 1Ee16V35kH0ErcXI+PG HloUS7cBZ3dU8pWhBtC fZ6SYxfH778OoGopIOz Qqnqq7xrm4manYi0MrS nQQIwekXqkRrgWBJ1t0 QhXi66O81jUPrqTFJkC VFtXOPlYWMbaFfhss0p cI0cJn4+ELHwfYD2yBH 8wY7eCyLgHpM5MVvjS2 61MvBysBErTjobW86bE 3JvdXA+DWRvJnv1HLGg fKlzKW9czOKjQAzmLp6 zTPS3MpKiMhCiMKteP3 WrQREkgebhlxjyqQG4S SDyXKNlvR25Ck6hsWrr Fu0qYQYaGIO8ZVCcjZQ qB9DrsI5eUjOgXXGcQF VbD2XppOGiJOuoR138J HpiTuY2GFAdbzMwG5Ts LZRbtZaoUdR5f0F7Yv9 LaYjvuAFjYN0hVhYqLH r4L1ZuByh9BQNjbKlgE H1wmFIkUKkdEo4bpJtr vBzlCJ0rTHWguiofl31 1YiSeb3ykKVLvuPWzHO ruUCC4R19dg2O7PFTrU BIgYSK8bGW0kF2nnYpg bjogbGVmdDsgdmVydGl vYEdxBExtV535NQZfsA dbQhCLEjh7S9SaNtr3O ARjaYmyDY3lgIEfEYjp Oj7yzWltaAmxNL5gZQC pcclui245MgLxm9sdLK LdpVZtUBnrRIX0G59cn 9G4PXMiXYNgBXH9yDM3 oA4gmXgvmpbiaXEczDf gdmVydGljYWwtYWxpZ2 31BWKctKtsSf8ZTyw3J 0OdIsg8SVXoiQwmJT7m aQJdZYqlXw1oxShjfHx sMX8aNVMbznwef778Xm Cdz7ruAWYxaANfYUcjC QT4R53va2A8ALXuNYDz YON2fAJ9eK0ccVmkfeh gbGVmdDsgdmVydGljYW ofAVrjJ328PMCrgUtxN lBheWVyOjwvdGQ+PC90 uo86Y9GuJwjsCrk7EJT eKUO3eUU7kE3xOMDzJD akm3P5mGA0A8FgryIgt t1bz2uyHMVlCJzfX73t bGF (more content not included)... [facility] Provider Orderson 02-04-2021 Provider Orders [id number] Post Vas Screen None [facility] Comment on above: Performed By: #### 1 [id number] #### [facility] (DEFAULT) [address] [place] [address] Semen WBC 0-2 [facility] Comment on above: Performed By: #### 1 [id number] #### [facility] (DEFAULT) [address] [place], [place] [id number] Coding Summaryon 01-28-2021 Coding Summary HTMLBase 64 JbkgddreWYm9fRr+PGh lYWQ+PO6SYGSwI95vvO KafU8YO3eYTJ2XBHFRB DBHVO0KZL9nqGU2XKth Z9ErhbKj UempkAGaZE07YXc7BNL 8zUfcECulyR3kuZAcC0 e6YbAkUF13nT23RYbxF IShNkP7UxFwqkucgAOt H7ukOiYzdDTnEyf+PHR hYmxlIHdpZHRoPScxMD EtKdWygCimVK8lMm1tI GVyLWNvbGxhcHNlOiBj e6nvHAEvXLpyWW6djMu fT1UnsFN4TULmu2s2Hc 48dHI+LTUsJXV3lHkbJ Ptet834BzNnv8duVXH2 cRMtXEafUTI0Z28xa8V 5QNCvIYHnIVC1yIB3uJ 9xgZnjkrzuL5AtyBLsJ kB4ORL4mZVunV6hwLvj gmrzoU2yVds+E16PGQ5 OINEZTT5AJku1S1TyDm wvdHI+WE06QPFtOD84g UCffGAyz1ekiTc2RpRp EYAkEGH8rKixMHnli8W nWRPaU89heINrq0W1LV IniJrvhCSlIoMcjPV8y V5yZKjrzokux3ejomzb Cmkzl0kuzi46wL09H39 xBShwMAZkBES8OYUiXM MnoRjfit5ahK0nOk9+I Tmqn9jcy1mchDa4WnTg OXGkduUsdNnsETK2c3W dVg13R6DpkNcox1AmWb h2bn35rGEwi2W7bKD2G EbmMXBdyO2nLMbzMmU1 AFNpZqMqyI29qRKdANi oFz5uhHsdaJcgQL9kZY FcvrltBDLenD2yHOPft HFbmJenHB8iTCHkvodn o454HfBnBZD2YVHijIG rZ5UrxM3vQfUeEZDcZG RiP6SpqYZjQRodC800I JnhGwR9LJPfcyWpS0Xe WZUxiWczHpF8z2F2Pl7 Oz6KyzqeeWNI0MAxhLN O3PeQ0ZtSqDjC9G2CiC si0DQIcoPbuJK8nW6Tr VELsanqxuuhvrRY3TQH gZAZgsU76rKBgNXyrAf 0cs6E0i671DAKbFACum H96Og0atBznKPXqfQDF xI2gtbahp5zcreplRxH lIQSmTEh3IVd3IPMgaH ruPaBaQIM3JpG5UOI7k DVcgS1bpWbjuppesI1w Oyc+J06enT1xYTX8MVM 9gaifDHUejqRkKS54ZC 70K2TxPavnpMVzqTZ+P TXlwlQkrHioVZ4dLhGj b8meu0HwDSknH2TbQES hJKnbDmf7WVMeYKR5eB Q0eA7oDGGiPEqav2U4l QE8Y6JzkwFtno4xy9dn WKMfQGuyT72rtZOox9B 4COJyaMA2TJNhzAfzHo ZepX17Gyz+PGNvbGdyb 5ZyKtgpq4mmw4vrkQw2 IjMwJSIgdmFsaWduPSJ 0u6DbWd45I53eXUezXK RoPSIxNSUiIHZhbGlnb r9jnY0iOt7+PGNvbCB3 jPC7yM2fBDMeRjT1MCj qH214ZcDqgJCpByrhd5 riy8cdpRh2HsMnQVZwy rQycCwgBLI8i9ZiWs63 T98vLLusMCEoZPLsRZU aIMBfsAedir7bsC5gNz 8+BR1hn6ytfo50xQ96r HI+EVShDLM9lMugOAqc QOCqbP6wWSkbSqY3YEB nKfNexK12nTXhYMwaQf 0nnCdahDeoTS4vEACle rawc945DuJke6eeARVn sLFrFCrvUHC1Z33qh3V 2IOYxDGApSCJ7eLP3aZ 1hbGlnbjogbGVmdDsgd qVqiGxwDVqhQEiuK992 IHRvcDsnPlBhdGllbnQ gKwSbGSm0Z2UcYvc3ZE CywSapMO8xzISpSAdyX x1jaOlisNvfNA2nPGMd bdpqi458AiBkh7sdWNO fiMGbSIxpWML9L02wi3 D6VJMpCZHnHCI2vQB2b L5hxDqwtamdpULkfNar quAcdVroQPljKUyeW45 6IHRvcDsnPkJpcnRoIE RcpOW0QL46GX10vMPxl 3D2kXL4T9ZyCDOfqdjm flnkzVA9YGEgANZloX1 2Cr2hcIbiMg0dQLPkOS O7CQBelKPzZ6GizD7sB dSgLRFjCLTyB0GjtINk GJtaS666QGqxTiG3FGD yadIdC5XfKSOjhUhuLw Q8q6O2Cu9VS3R6CI34Y Y32mBIfs9A4yDV1V1Fh XWLshjdailrrlNE7VNT rKBYgfM07Zi0ssIumXl 2cKIIiTNK8VZTybSZtZ 5AbeO1yMlMxQUOkARZv U0RdjOGtZZpxK071QFx hOeX2IUKdyqOiE8IgED AbtAltThY4f9N2Au3IK Lh3FZ37SE60aTHct3S8 zTF7O0WkVXHjeqtkpbm ycRT6BPFnTVTyjP42Md 8kkEixBe8kSXOfXZN7Y EWbbVQfY6DwcY3jEyMo QKVfDWBoZ1IegHThQQf aM951MLliHaN8ZKYgcd AnA4JpXPBljOakVhS4d 4V2Yv7BGNBeIF23ZEU0 gVB4SQ42FM80U3IyDpp vdGFibGU+PHRhYmxlIH dpZHRoPScxMDAlJyBzd QqdTC5cXz0rCPPzKTLh hQxmmMXbEaAcf3rrGGQ fOPzhPI8khZmnX3HyzS V3ISQtj1m5Wa57S48mJ 3JvdXA+AJHmfAO6mKS4 wT0eRbGaClM3LFbkM57 1RhSyyTHaYnxhf3zki7 qbxRt4FvP8EWCcdwAws YttETC9o9UzGz72G06w IHdpZHRoPSIxNSUiIHZ duYafrl5zhT1vKn4+PG BvqRP4wDA4aQ4nRqNdE mZ6VVbnV140PiCskQJg Qqldw1yna6jtpRo6MlT gJJMhzxMjiKpmZDH8w2 GaNc83B5NifBoel5JjA do7as32fKNpt7J7rNM4 J7McUWOonfxgzZTwvPd lHS0hRVTfctkoITIggZ 3iTYJkS3g2DtNjObV6B IpbX5NpjrQ6VTLpuEFa SAfzVSW8N31vo1L3ODF fWPHqCOL8gBP2dI1kqG lnbjogbGVmdDsgdmVyd WteZJgcDCkaO224UTFy rOnsILZljX0dMWBmqQS eaOtrVI9fSZBtnhgtPt hBTEwsIEpBUkVEIFNDT 3XVIK50DZ53sQBuv2O5 zVA2H9UlHMPrnhdjzrg haPS4JKZeOJJaeO56jG AsOWwzSk7ro2X9a810A JRjHKTufT79Uj1twCpp MPGpbRFRxZ2fjkfhk9z bmsunRaQxJBTxLUx8JH r6LDWnmBliUbPyWUC8U kB2LBF6kVRzjD5tpKbb kuwehK7jVvd+MDgvMTg mGDw4OnmqxXZ+PHRkIH G0bJxfHFxoYFQkuM5jL OHcM4x8EsPlJyS6TVdn Z8CcLZRootdsFp12aX5 kMkJqMlP6LIjdS3Aiey M9YVOahQPuLAfcBMX4H 73hk9F3PZCpBELcUCZ8 xRT0eV9vzQyvlqhpfMF mdDsgdmVydGljYWwtYW lbZ022ZPIuqWowNvVyC IhjEGZsQS26HJ87fUCp a8H6aVL8D7UgDHEymjz tahjfpDT6JVFlXSBvyG 93eKNeSCzsZm6xh3I9e 910GGAtGDZjrX22Pk6f rUlaGOHkwOKMnG2lkep al6gyltwdRdLrLDQmCY c7IFq0NPQujMprSsBvV VQ4JwD3ICU7dNSnvO9o dYralxvxpJ3eAtf+TUF MRTwvdGQ+PRKlQXU9vN siBQptLQMmoI8bQYBbN 1i0TrZpUnP2KXccK3Cf AYTktecoEc86tV6lQsJ jGbV2EKcwX8UuxmL4VG RszMHlJEvbDUV7K06cv 7U4TSPfCDZmJBK4fEL1 sG4fmWyugzqryHKtkSm gdmVydGljYWwtYWxpZ2 51HBFftSxkTz6UNH92Y R01L1DjXoizbBCgbAP+ PHRhYmxlIHdpZHRoPSc kYKLzUxKhhFpiJF5bEm 9yZGVyLWNvbGxhcHNlO dXem8bcYQUsLLreER9j pUhmH2OgxJQ0JSXlu4q 8Gv50G46nQ9XbfQS+PG MocOK2lVD1dS3dObDuI eP2FBayV339XeYraCMf Mzxwi5fnl6xswLl6ZzB jBFNzknMbyKbkXZY5h2 FvPq84W44jWKjhERNzS QXmDKRtIXDggZuizf9h zU8oYe2+NMEheKG0qFS 8yC8lFfKnKjF1ZVyaW1 62SfAmnAMuIcyqP20qN 3JvdXA+ZOKcBmv8MRBm pGgoDZ1iyYBtMTviWf5 uIAD8WlMgJqSoJSrdL0 SqXBXonnfuxvslrRC4B DUtTNAgpN46Ng8ceRci Br0eZYFoDAC8TBObfVN hI7IsnX3xLeApRWSgLU WaO1UynGHnHOxvL807S GggBwY1ZNOnmuFlS2Yt UKQrhBdsEfX9o8C8Wb7 DdIezeRKwFW2oMsVfSR h2U5ExIft9MTAusYjxM D4kbAZhTDekHw3tbSgr iBpsRV6cZOUqjqosf04 7CjVux6eeFSPscQVnLO lvBTV0N18ij8Q8UTUeG LGoNDQ3wVK6xF8bcUio bjogbGVmdDsgdmVydGl cVIuhMWczQ684VYKcyG gcJgEHBfb8T1RzWzj4L MOtiBkbVY7skYRsXJcr Tn4elChidCmwKK6nUQR vtjutu841FfEkx6ysUZ GphDMrAZiqNJW1B50zd 8V1IWAkGITbEKX3mJL0 kS9kcFgqcgdmsIAjzPd gdmVydGljYWwtYWxpZ2 95KKHvuUxgCd5MZqp1E 4IbUmc5ZVDxqPplCW2h nMBkONcmXm6hlOgweJx fOP4vEYIncsbfv453Bv Rqm4okAFJurQZyTGwvN NP6G64xt2B8CAJrJVQf BNY3lTV1rS8duGzhyjy gbGVmdDsgdmVydGljYW utMExrY699WOTvpUwhK lBheWVyOjwvdGQ+PC90 qs90T9JoJxkvGtw0CKX mAFD1iMG2aG2yVAKnAO eho1D6gGF2N3NfsjOpr t1gy5gsROSgQMtvU89l bGF (more content not included)... [facility] Miscellaneous Testing LCon 0 01-28-2021 Misc. Test Result LC COMMENT Invalid Interpretation Code [facility] Comment on above: Result Comment: Test Ordered: [id number] Post VAS Semen Analysis, AUA Volume 3.4 mL FU Reference Range: Not Estab. Total Immotile Sperm Note: x10E6/mL FU No sperm seen. Reference Range: <0.10 Total Motile Sperm Note: x10E6/mL FU No motile sperm seen. Reference Interval: 0.95s43Q1/mL Post-Vasectomy analysis was performed on an uncentrifuged specimen. Performed At: [facility] [address] [place], [place] [id number] Davey Nolan PhD Ph:[phone] Performed At: [facility] [address] [place], [place] [id number] Enmanuel Dawson MD Ph:[phone] Performed By: #### 1 [id number] #### [facility] (DEFAULT) [address] [id number] Provider Orderson 01-27-2021 Provider Orders [id number] 33#[id number] [facility] Miscellaneous Testing LCon 0 01-26-2021 Test Code [id number] Invalid Interpretation Code [facility] Comment on above: Performed By: #### 1 [id number] #### [facility] (DEFAULT) [address] [place] [address] Test Name LC Semen Analysis postvasect Invalid Interpretation Code [facility] Comment on above: Performed By: #### 1 [id number] #### [facility] (DEFAULT) [address] [place] [id number] Vital Signs Date Time Vital Sign Value Performing Clinician Rj gonzalez 10-20-2022 09:30-0500 Body height 182.9 cm [facility] 10-20-2022 09:30-0500 Body mass index (BMI) [Ratio] 31.19 kg/m2 [facility] 10-20-2022 09:30-050 Body weight 104.33 kg [facility] Encounters Encounter Date Encounter Type Care Provider Facility Start: 03-11-2024 End: 03-11-2024 ambulatory RUGEN M WANDA Not Available Start: 11-05-2023 End: 11-05-2023 ambulatory RUGEN M WANDA Not Available Start: 07-03-2023 End: 07-03-2023 ambulatory RUGEN M WANDA Not Available Start: 10-20-2022 End: 10-23-2022 ambulatory [facility] Start: 10-20-2022 End: 10-22-2022 Subsequent hospital visit by physician [facility] Nuclear Room [facility] Nuclear Medicine Comment on above: RUQ abdominal pain Start: 09-27-2022 End: 09-30-2022 ambulatory RUGEN M WANDA [facility] Start: 09-27-2022 End: 09-29-2022 Subsequent hospital visit by physician [facility] Ultrasound Room [facility] Ultrasound Comment on above: Right upper [...] DTaP/Tdap/Td vaccine (2 - Td or Tdap) [facility] Start: 2022 Diabetes screen Diabetes screen [facility] Start: 03-13-2022 Influenza vaccination Flu vaccine (# 1) [facility] Start: 2005 Hepatitis C screening Hepatitis C sc reen [facility] Start: 2002 HIV screening HIV screen [facility] Start: 1999 Depression Screen Depression Screen [facility] Start: 1988 Varicella vaccine (1 of 2 - 2-dose childhood series) Varicella vaccine (1 of 2 - 2-dose childhood series) [facility] Start: 1987 COVID-19 Vaccine (#1) COVID-19 Vacci ne (#1) [facility] Payers Date Payer Category Payer Unknown [id number] [id number] 2022 Medicaid [id number] 1987 Unknown [id number] 2.16.8 [id number] 1987 Unknown [id number] 2.16.8 [id number] 1987 Unknown [id number] 2.16.84 [id number] 1987 Unknown [id number] 2.16.84 [id number] 1987 Unknown [id number] Social History Date Type Detail Facility Tobacco smoking stat [facility] Tobacco smoking consumption unknown [facility] Work Phone: Start: 1985 Sex Assigned At Not on file [facility] [employer] Phone: Evaluation note Note Date & Type Note Facility Evaluation note Diagnosis Right upper quadrant pain Abdominal pain, right upper quadrant documented in this encounter [facility] [employer] Phone: Evaluation note Note Date & Type Note Facility Evaluation note Diagnosis RUQ abdominal pain Abdominal pain, right upper quadrant documented in this encounter [facility] [employer] Phone: Summary Purpose Family History No Family History Records FoundNo Family History Records FoundNo Family History Records FoundNo Family History Records Found Advance Directives No Advanced Directives Records FoundNo Advanced Directives Records FoundNo Advanced Directives Records FoundNo Advanced Directives Records Found Reason for Referral Specialty Diagnoses / Procedures Referred By Aubrey benitez Referred To Contact Radiology Diagnoses Right upper quadrant pain Procedures US GALLBLADDER RUQ Gabrielle Muñoz MD [address] [place] [address] Referral ID Status Reason Start Date Expiration Date Visits Re quested Visits Authorized [id number] Closed 09/26/2022 09/26/2023 1 1 Specialty Diagnoses / Procedures Referred By Aubrey t Referred To Contact Radiology Diagnoses RUQ abdominal pain Procedures NM HEPATOBILIARY SCAN W EJECTION FRACTION Gabrielle Muñoz MD [address] [place] [address] Referral ID Status Reason Start Date Expiration Date Visits Re quested Visits Authorized [id number] Closed 10/10/2022 10/10/2023 1 1 Additional Source Comments (unrecognized sect ion and content) No Status Records FoundNo Status Records FoundNo Status Records FoundNo Status Records Found INFORMATION SOURCE (unrecogn ized section and content) DATE CREATED AUTHOR 02/05/2021 [facility] DATE CREATED AUTHOR AUTHOR'S ORGANIZ ATION 10/09/2021 [facility] DATE CREATED AUTHOR AUTHOR'S ORGANIZ ATION 10/22/2022 [facility] [place] [facility] DATE CREATED AUTHOR AUTHOR'S ORGANIZ ATION 03/13/2024 [facility] EPIC Reason for Visit (unrecogniz ed section and content) Specialty Diagnoses / Procedures Referred By Contac t Referred To Contact Radiology Diagnoses Right upper quadrant pain Procedures US GALLBLADDER RUQ Gabrielle Muñoz MD [address] [place] [address] Referral ID Status Reason Start Date Expiration Date Visits Re quested Visits Authorized [id number] Closed 09/26/2022 09/26/2023 1 1 Specialty Diagnoses / Procedures Referred By Contac t Referred To Contact Radiology Diagnoses RUQ abdominal pain Procedures NM HEPATOBILIARY SCAN W EJECTION FRACTION Gabrielle Muñoz MD [address] [place] [address] Referral ID Status Reason Start Date Expiration Date Visits Re quested Visits Authorized [id number] Closed 10/10/2022 10/10/2023 1 1 Care Teams (unrecognized sec tion and content) Looping Inspector Relationship 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 [place] [address] PCP - General Family Medicine 09/26/22 Looping Inspector Relationship 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 [place] [address] PCP - General Family Medicine [...] BE BASED ON THE PRIMARY CLINICAL RECORDS. [employer] provides no warranty or guarantee of the accuracy or completeness of information in this document.
== END 2024-04-07 08:20 | disposition home or self-care (01) ==
LOC: EC 08:19
PROVIDERS: PCP Family Medicine; Visit Provider Orthopaedic Surgery
DX: S62.514D Nondisplaced fracture of proximal phalanx of right thumb, subsequent encounter for fracture with routine healing (principal)
CPT/HCPCS: 73130

== ENCOUNTER 2024-04-15 07:59 | Outpatient (OUT) | payer MEDICAID, SELFPAY ==
--- NOTE | 2024-04-15 | XR_ITS ---
The [address] [address] Patient Name: QUAN MAHAJAN MRN: [id number] date: 1985 Sex: M Assigned Patient Location: Current Patient Location: Accession/Order Number: [id number] Exam Date: 04/15/2024 08:15 Report Date: 04/16/2024 06:15 At the request of: CARROLL CHAUDHARY Procedure: XR hand RT min 3V PROCEDURE: XR hand RT min 3V HISTORY: RIGHT HAND PAIN COMPARISON: XR hand right 04/07/2024 FINDINGS: BONES:Prior comminuted fracture of first proximal phalanx with lateral plate and screw repair. No visible lucency within the proximal and distal marrow cavity. No significant increased density of the fracture lines or callus formation. SOFT TISSUES:Soft tissue swelling of the thumb. EFFUSION:None visible. OTHER: Negative. XR/XR hand RT min 3V IMPRESSION: 1. Prior repair/fixation of comminuted first metacarpal fracture with stable alignment. No significant evidence of bone healing. Electronically authenticated by: CARROLL WALTON Date: 04/16/2024 06:15
--- OUTSIDE RECORDS SUMMARY | 2024-04-15 08:04 | XMS_ITS | CCD ---
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 Images were obtained in the ERITREAN projection and regions of interest were drawn [...] range is based on a limited study. [facility] Jerry Pimentel MD - 10/20/2022 [...] 30-60 mins. Images were obtained in the ERITREAN projection and regions of interest were drawn [...] cholecystitis. Gallbladder ejection fraction is approximately 91%. [employer] Phone: Radiology Study observation (narrative) [employer] Phone: NM HEPATOBILIARY SCAN W EJEC TION FRACTIONOrdered By: Jerry Armstrong on 10-20-2022 [employer] Phone: NM HEPATOBILIARY SCAN W PHAR MACOLOGICAL [...] 30-60 mins. Images were obtained in the ERITREAN projection and regions of interest were drawn [...] Jerry Armstrong MD 10/20/22 Final result Normal [facility] US GALLBLADDER RUQon 09-27- 023 US [...] Negin Bustillos MD 09/27/22 Final result Normal [facility] Unremarkable right upper quadrant ultrasound. PN [...] No evidence of right upper quadrant ascites. [facility] Negin Ibarra MD - 09/27/2022 [...] ascites. IMPRESSION: Unremarkable right upper quadrant ultrasound. [employer] Phone: Radiology Study observation (narrative) [employer] Phone: US GALLBLADDER RUQOrdered By : Negin Bustillos on 09-27-2022 [employer] Phone: Q - CBC W/DIFF AND PLTon BASOABS 53 cells/uL Normal 0-200 [facility] Clinical Staff Pharmacist Comment on above: Order Comment: [facility] performed at: [employer], [address] [place] [address], [address] [place] [address], [phone], Production Broacher: Otto Nuñez MD [facility] Collection Date/Time: [id number] [facility] Results Received Date/Time: [id number] [facility] Reported Date/Time: [id number] Performed By: #### 9 68T, [id number], 42A #### [facility] Default [address] [place] [address] Basophils/100 WBC (Bld) 0.9 % Normal [facility] Clinical Staff Pharmacist Comment on above: Order Comment: [facility] performed at: [facility] [employer] [facility], [address] , [address] [place] [address], [address] [place] [address], Production Broacher: Otto Nuñez MD [facility] Date/Time: [facility] Results Received Date/Time: [facility] Reported Date/Time: Performed By: #### 9 68T, [id number], 42A #### [facility] Default [address] [place] [address] EOSABS 271 cells/uL Normal 15-500 [facility] Clinical Staff Pharmacist Comment on above: Order Comment: [facility] performed at: [facility] [employer] [facility], [address] [facility], [address] [place] [address], [address] [place] [address], Production Broacher: Otto Nuñez MD [facility] Date/Time: [facility] Results Received Date/Time: [facility] Reported Date/Time: Performed By: #### 9 68T, [id number], 42A #### [facility] [address] [place] [address] Eosinophils/100 WBC (Bld) 4.6 % Normal [facility] Clinical Staff Pharmacist Comment on above: Order Comment: [facility] performed at: [facility] [employer] [facility], [address] , [address] [place] [address], [address] [place] [address], Production Broacher: Otto Nuñez MD [facility] Date/Time: [facility] Results Received Date/Time: [facility] Reported Date/Time: Performed By: #### 9 68T, [id number], 42A #### [facility] [address] [place] [address] Erythrocyte distribution width (RBC) [Ratio] 11.9 % Normal 11.0-15.0 [facility] Clinical Staff Pharmacist Comment on above: Order Comment: [facility] performed at: [facility] [employer] [facility], [address] , [address] [place] [address], [address] [place] [address], Production Broacher: Otto Nuñez MD [facility] Date/Time: [facility] Results Received Date/Time: [facility] Reported Date/Time: Performed By: #### 9 68T, [id number], 42A #### [facility] [address] [place] [address] Hematocrit (Bld) [Volume fraction] 50.9 % High 38.5-50.0 [facility] Clinical Staff Pharmacist Comment on above: Order Comment: [facility] performed at: [facility] [employer] [facility], [address] [facility], [address] [place] [address], [address] [place] [address], Production Broacher: Otto Nuñez MD [facility] Date/Time: [facility] Results Received Date/Time: [facility] Reported Date/Time: Performed By: #### 9 68T, [id number], 42A #### [facility] [address] [place] [address] Hemoglobin (Bld) [Mass/Vol] 17.3 g/dL High 13.2-17.1 [facility] Clinical Staff Pharmacist Comment on above: Order Comment: [facility] performed at: [facility] [employer] [facility], [address] [place] [address], [address] [place] [address], [address] [place] [address], Production Broacher: Otto Nuñez MD [facility] Date/Time: [facility] Results Received Date/Time: [facility] Reported Date/Time: Performed By: #### 9 68T, [id number], 42A #### [facility] [address] [place] [address] Lymphocytes (Bld) [#/Vol] 1.611 10*3/uL Normal 850-3900 [facility] Clinical Staff Pharmacist Comment on above: Order Comment: [facility] performed at: [facility] [employer] [facility], [address] [facility], [address] [place] [address], [address] [place] [address], Production Broacher: Otto Nuñez MD [facility] Date/Time: [facility] Results Received Date/Time: [facility] Reported Date/Time: Performed By: #### 9 68T, [id number], 42A #### [facility] [address] [place] [address] Lymphocytes/100 WBC (Bld) 27.3 % Normal [facility] Clinical Staff Pharmacist Comment on above: Order Comment: [facility] performed at: [facility] [employer] [facility], [address] [place] [address], [address] [place] [address], [address] [place] [address], Production Broacher: Otto Nuñez MD [facility] Date/Time: [facility] Results Received Date/Time: [facility] Reported Date/Time: Performed By: #### 9 68T, [id number], 42A #### [facility] [address] [place] [address] MCH (RBC) [Entitic mass] 31.3 pg Normal 27.0-33.0 [facility] Clinical Staff Pharmacist Comment on above: Order Comment: [facility] performed at: [employer] [facility], [address] [place] [address], [address] [place] [address], [address] [place] [address], Production Broacher: Otto Nuñez MD [facility] Date/Time: [facility] Results Received Date/Time: [facility] Reported Date/Time: Performed By: #### 9 68T, [id number], 42A #### [facility] Default [address] [place] [address] MCHC (RBC) [Mass/Vol] 34.0 g/dL Normal 32.0-36.0 [facility] Clinical Staff Pharmacist Comment on above: Order Comment: [facility] performed at: [employer] [facility], [address] [place] [address], [address] [place] [address], [address] [place] [address], Production Broacher: Otto Nuñez MD [facility] Date/Time: [facility] Results Received Date/Time: [facility] Reported Date/Time: Performed By: #### 9 68T, [id number], 42A #### [facility] [address] [place] [address] MCV (RBC) [Entitic vol] 92.0 fL Normal 80.0-100.0 [facility] Specialist Comment on above: Order Comment: [facility] performed at: [employer] [facility], [address] [place] [address], [address] [place] [address], [address] [place] [address], Production Broacher: Otto Nuñez MD [facility] Date/Time: [facility] Results Received Date/Time: [facility] Reported Date/Time: Performed By: #### 9 68T, [id number], 42A #### [facility] [address] [place] [address] MONOABS 726 cells/uL Normal 200-950 [facility] Comment on above: Order Comment: [facility] performed at: [employer] [facility], [address] [place] [address], [address] [place] [address], [address] [place] [address], Production Broacher: Otto Nuñez MD [facility] Date/Time: [facility] Results Received Date/Time: [facility] Reported Date/Time: Performed By: #### 9 68T, [id number], 42A #### [facility] [address] [place] [address] Monocytes/100 WBC (Bld) 12.3 % Normal [facility] Specialist Comment on above: Order Comment: [facility] performed at: [employer] [facility], [address] [place] [address], [address] [place] [address], [address] [place] [address], Production Broacher: Otto Nuñez MD [facility] Date/Time: [facility] Results Received Date/Time: [facility] Reported Date/Time: Performed By: #### 9 68T, [id number], 42A #### [facility] [address] [place] [address] Neutrophils (Bld) [#/Vol] 3.239 10*3/uL Normal 2264-5074 [facility] Specialist Comment on above: Order Comment: [facility] performed at: [employer] [facility], [address] , [address] [place] [address], [address] [place] [address], Production Broacher: Otto Nuñez MD [facility] Date/Time: [facility] Results Received Date/Time: [facility] Reported Date/Time: Performed By: #### 9 68T, [id number], 42A #### [facility] Default [address] [place] [address] Neutrophils/100 WBC (Bld) 54.9 % Normal [facility] Clinical Staff Pharmacist Comment on above: Order Comment: [facility] performed at: [facility] [employer] [facility], [address] [place] [address], [address] [place] [address], [address] [place] [address], Production Broacher: Otto Nuñez MD [facility] Date/Time: [facility] Results Received Date/Time: [facility] Reported Date/Time: Performed By: #### 9 68T, [id number], 42A #### [facility] [address] [place] [address] Platelet mean volume (Bld) [Entitic vol] 10.5 fL Normal 7.5-12.5 [facility] Clinical Staff Pharmacist Comment on above: Order Comment: [facility] performed at: [facility] [employer] [facility], [address] [facility], [address] [place] [address], [address] [place] [address], Production Broacher: Otto Nuñez MD [facility] Date/Time: [facility] Results Received Date/Time: [facility] Reported Date/Time: Performed By: #### 9 68T, [id number], 42A #### [facility] [address] [place] [address] Platelets (Bld) [#/Vol] 296 10*3/uL Normal 140-400 [place] Clinical Staff Pharmacist Comment on above: Order Comment: [facility] performed at: [facility] [employer] [facility], [address] [facility], [address] [place] [address], [address] [place] [address], Production Broacher: Otto Nuñez MD [facility] Collection Date/Time: [facility] Results Received Date/Time: [facility] Reported Date/Time: Performed By: #### 9 68T, [id number], 42A #### [facility] Default [address] [place] [address] RBC (Bld) [#/Vol] 5.53 10*6/uL Normal 4.20-5.80 Tyrell li [place] Clinical Staff Pharmacist Comment on above: Order Comment: [facility] performed at: [facility] [employer] [facility], [address] [place] [address], [address] [place] [address], [address] [place] [address], Production Broacher: Otto Nuñez MD [facility] Collection Date/Time: [facility] Results Received Date/Time: [facility] Reported Date/Time: Performed By: #### 9 68T, [id number], 42A #### [facility] [address] [place] [address] WBC (Bld) [#/Vol] 5.9 10*3/uL Normal 3.8-10.8 Terrance mackenzie [place] Clinical Staff Pharmacist Comment on above: Order Comment: [facility] performed at: [facility] [employer] [facility], [address] [place] [address], [address] [place] [address], [address] [place] [address], Production Broacher: tOto Nuñez MD [facility] Date/Time: [facility] Results Received Date/Time: [facility] Reported Date/Time: Performed By: #### 9 68T, [id number], 42A #### [facility] Default [address] [place] [address] Q - COMPREHENSIVE METABOLIC PANEL W/EGFRon 10-07-2021 Albumin [Mass/Vol] 4.4 g/dL Normal 3.6-5.1 Terrance mackenzie [place] Clinical Staff Pharmacist Comment on above: Order Comment: [facility] performed at: [facility] [employer] [facility], [address] [place] [address], [address] [place] [address], [address] [place] [address], Production Broacher: Otto Nuñez MD [facility] Date/Time: [facility] Results Received Date/Time: [facility] Reported Date/Time: Performed By: #### 9 68T, [id number], 42A #### [facility] Default [address] [place] [address] Albumin/Globulin [Mass ratio] 1.7 {ratio} Normal 1.0-2.5 [facility] Specialist Comment on above: Order Comment: [facility] performed at: [facility] [employer] [facility], [address] [place] [address], [address] [place] [address], [address] [place] [address], Production Broacher: Otto Nuñez MD [facility] Date/Time: [facility] Results Received Date/Time: [facility] Reported Date/Time: Performed By: #### 9 68T, [id number], 42A #### [facility] Default [address] [place] [address] ALP [Catalytic activity/Vol] 42 U/L Normal 36-130 [facility] Clinical Staff Pharmacist Comment on above: Order Comment: [facility] performed at: [facility] [employer] [facility], [address] [place] [address], [address] [place] [address], [address] [place] [address], Production Broacher: Otto Nuñez MD [facility] Date/Time: [facility] Results Received Date/Time: [facility] Reported Date/Time: Performed By: #### 9 68T, [id number], 42A #### [facility] [address] [place] [address] ALT [Catalytic activity/Vol] 19 U/L Normal 9-46 [facility] Clinical Staff Pharmacist Comment on above: Order Comment: [facility] performed at: [facility] [employer] [facility], [address] [place] [address], [address] [place] [address], [address] [place] [address], Production Broacher: Otto Nuñez MD [facility] Date/Time: [facility] Results Received Date/Time: [facility] Reported Date/Time: Performed By: #### 9 68T, [id number], 42A #### [facility] Default [address] [place] [address] AST [Catalytic activity/Vol] 16 U/L Normal 10-40 [facility] Specialist Comment on above: Order Comment: [facility] performed at: [facility] [employer] [facility], [address] [place] [address], [address] [place] [address], [address] [place] [address], Production Broacher: Otto Nuñez MD [facility] Collection Date/Time: [facility] Results Received Date/Time: [facility] Reported Date/Time: Performed By: #### 9 68T, [id number], 42A #### [facility] Default [address] [place] [address] Calcium [Mass/Vol] 9.5 mg/dL Normal 8.6-10.3 [facility] Comment on above: Order Comment: [facility] performed at: [employer] [facility], [address] [place] [address], [address] [place] [address], [address] [place] [address], Production Broacher: Otto Nuñez MD [facility] Collection Date/Time: [facility] Results Received Date/Time: [facility] Reported Date/Time: Performed By: #### 9 68T, [id number], 42A #### [facility] Default [address] [place] [address] Chloride [Moles/Vol] 103 mmol/L Normal 98-110 [facility] Specialist Comment on above: Order Comment: [facility] performed at: [employer] [facility], [address] [place] [address], [address] [place] [address], [address] [place] [address], Production Broacher: Otto Nuñez MD [facility] Date/Time: [facility] Results Received Date/Time: [facility] Reported Date/Time: Performed By: #### 9 68T, [id number], 42A #### [facility] Default [address] [place] [address] CO2 [Moles/Vol] 26 mmol/L Normal 20-32 [facility] Clinical Staff Pharmacist Comment on above: Order Comment: [facility] performed at: [facility] [employer] [facility], [address] [facility], [address] [place] [address], [address] [place] [address], Production Broacher: Otto Nuñez MD [facility] Collection Date/Time: [facility] Results Received Date/Time: [facility] Reported Date/Time: Performed By: #### 9 68T, [id number], 42A #### [facility] Default [address] [place] [address] Creatinine [Mass/Vol] 1.04 mg/dL Normal 0.60-1.35 [facility] Clinical Staff Pharmacist Comment on above: Order Comment: [facility] performed at: [facility] [employer] [facility], [address] [place] [address], [address] [place] [address], [address] [place] [address], Production Broacher: Otto Nuñez MD [facility] Collection Date/Time: [facility] Results Received Date/Time: [facility] Reported Date/Time: Performed By: #### 9 68T, [id number], 42A #### [facility] Default [address] [place] [address] eGFRAA ([facility]) 108 mL/min/1.73m2 Normal > OR = [address] [facility] Clinical Staff Pharmacist Comment on above: Order Comment: [facility] performed at: [facility] [employer] [facility], [address] [place] [address], [address] [place] [address], [address] [place] [address], Production Broacher: Otto Nuñez MD [facility] Date/Time: [facility] Results Received Date/Time: [facility] Reported Date/Time: Performed By: #### 9 68T, [id number], 42A #### [facility] Default [address] [place] [address] eGFRNAA ([facility]) 93 mL/min/1.73m2 Normal > OR = 60 [facility] Clinical Staff Pharmacist Comment on above: Order Comment: [facility] performed at: [facility] [employer] [facility], [address] [place] [address], [address] [place] [address], [address] [place] [address], Production Broacher: Otto Nuñez MD [facility] Date/Time: [facility] Results Received Date/Time: [facility] Reported Date/Time: Performed By: #### 9 68T, [id number], 42A #### [facility] Default [address] [place] [address] Globulin (S) [Mass/Vol] 2.6 g/dL Normal 1.9-3.7 [facility] Clinical Staff Pharmacist Comment on above: Order Comment: [facility] performed at: [facility] [employer] [facility], [address] [place] [address], [address] [place] [address], [id number], Production Broacher: Otto Nuñez MD [facility] Date/Time: [facility] Results Received Date/Time: [facility] Reported Date/Time: Performed By: #### 9 68T, [id number], 42A #### [facility] Default [address] [place] [address] Glucose [Mass/Vol] 85 mg/dL Normal 65-99 [facility] Comment on above: Order Comment: [facility] performed at: [facility] [employer] [facility], [address] [place] [address], [address] [place] [address], [id number], Production Broacher: Otto Nuñez MD [facility] Date/Time: [facility] Results Received Date/Time: [facility] Reported Date/Time: Result Comment: Fasting reference interval Performed By: #### 9 68T, [id number], 42A #### [facility] Default [address] [place] [address] Potassium [Moles/Vol] 4.9 mmol/L Normal 3.5-5.3 [facility] Clinical Staff Pharmacist Comment on above: Order Comment: [facility] performed at: [facility] [employer] [facility], [address] [place] [address], [address] [place] [address], [phone], Production Broacher: Otto Nuñez MD [facility] Date/Time: [facility] Results Received Date/Time: [facility] Reported Date/Time: Performed By: #### 9 68T, 12111H, 42A #### [facility] Default [address] [place] [address] Protein [Mass/Vol] 7.0 g/dL Normal 6.1-8.1 Terrance rn [place] Clinical Staff Pharmacist Comment on above: Order Comment: [facility] performed at: [facility] [employer] [facility], [address] [facility], [address] [place] [address], [address] [place] [address], Production Broacher: Otto Nuñez MD [facility] Date/Time: [facility] Results Received Date/Time: [facility] Reported Date/Time: Performed By: #### 9 68T, [id number], 42A #### [facility] Default [address] [place] [address] Sodium [Moles/Vol] 138 mmol/L Normal 135-146 Terrance rn [place] Clinical Staff Pharmacist Comment on above: Order Comment: [facility] performed at: [facility] [employer] [facility], [address] [facility], [address] [place] [address], [address] [place] [address], Production Broacher: Otto Nuñez MD [facility] Date/Time: [facility] Results Received Date/Time: [facility] Reported Date/Time: Performed By: #### 9 68T, [id number], 42A #### [facility] Default [address] [place] [address] TBIL <0.3 Normal 0.2-1.2 [facility] Clinical Staff Pharmacist Comment on above: Order Comment: [facility] performed at: [facility] [employer] [facility], [address] [facility], [address] [place] [address], [address] [place] [address], Production Broacher: Otto Nuñez MD [facility] Date/Time: [facility] Results Received Date/Time: [facility] Reported Date/Time: Performed By: #### 9 68T, [id number], 42A #### [facility] Default [address] [place] [address] Urea nitrogen [Mass/Vol] 26 mg/dL High 7-25 [facility] Clinical Staff Pharmacist Comment on above: Order Comment: [facility] performed at: [employer] [facility], [address] [place] [address], [address] [place] [address], [address] [place] [address], Production Broacher: Otto Nuñez MD [facility] Date/Time: [facility] Results Received Date/Time: [facility] Reported Date/Time: Performed By: #### 9 68T, [id number], 42A #### [facility] Default [address] [place] [address] Urea nitrogen/Creatinine [Mass ratio] 25 mg/mg High 6-22 [facility] Clinical Staff Pharmacist Comment on above: Order Comment: [facility] performed at: [employer] [facility], [address] [place] [address], [address] [place] [address], [address] [place] [address], Production Broacher: Otto Nuñez MD [facility] Date/Time: [facility] Results Received Date/Time: [facility] Reported Date/Time: Performed By: #### 9 68T, [id number], 42A #### [facility] Default [address] [place] [address] Q - Lipid Panelon 10-07-2021 Cholesterol [Mass/Vol] 224 mg/dL High <200 [facility] Clinical Staff Pharmacist Comment on above: Order Comment: [facility] performed at: [facility] [facility], [address] [place] [address], [address] [place] [address], [address] [place] [address], Production Broacher: Otto Nuñez MD [facility] Date/Time: [facility] Results Received Date/Time: [facility] Reported Date/Time: Performed By: #### 9 68T, [id number], 42A #### [facility] Default [address] [place] [address] Cholesterol in HDL [Mass/Vol] 47 mg/dL Normal > OR = 40 [facility] Clinical Staff Pharmacist Comment on above: Order Comment: [facility] Testing performed at: [facility], [address] [facility], [address] [place], [place], [address] [place] [address], Production Broacher: Otto Nuñez MD [facility] Date/Time: [facility] Results Received Date/Time: [facility] Reported Date/Time: Performed By: #### 9 68T, [id number], 42A #### [facility] Default [address] [place] [address] Cholesterol in LDL [Mass/Vol] 151 mg/dL High [place] Clinical Staff Pharmacist Comment on above: Order Comment: [facility] Testing performed at: [facility], [employer] [facility], [address] [place] [address], [address] [place] [address], [address] [place] [address], Production Broacher: Otto Nuñez MD [facility] Date/Time: [facility] [...] LDL-C. Kamaljit STONER et al. SAY. 2013;310(19): 2151-0820 (http://education.[employer]/faq/TKC477) Performed By: #### 9 68T, [id number], 42A #### [facility] [address] [place] [address] Cholesterol.total/C holesterol in HDL [Mass ratio] 4.8 {ratio} Normal <5.0 [facility] Clinical Staff Pharmacist Comment on above: Order Comment: [facility] Testing performed at: [facility], [address] [facility], [address] [place], [address] [place] [address], Production Broacher: Otto Nuñez MD [facility] Date/Time: [facility] Results Received Date/Time: [facility] Reported Date/Time: Performed By: #### 9 68T, [id number], 42A #### [facility] [address] [place] [address] NON HDL CHOLESTEROL 177 mg/dL (calc) High <130 [facility] Clinical Staff Pharmacist Comment on above: Order Comment: [facility] Testing performed at: [facility], [employer] [facility], [address] [facility], [address] [place], [address] [place] [address], Production Broacher: Otto Nuñez MD [facility] Date/Time: [facility] Results Received Date/Time: [facility] Reported Date/Time: Result Comment: For patients with diabetes plus 1 major ASCVD risk factor, treating to a non-HDL-C goal of <100 mg/dL (LDL-C of <70 mg/dL) is considered a therapeutic option. Performed By: #### 9 68T, [id number], 42A #### [facility] [address] [place] [address] Triglyceride [Mass/Vol] 132 mg/dL Normal <150 [facility] Clinical Staff Pharmacist Comment on above: Order Comment: [facility] Testing performed at: [facility], [employer] [facility], [address] [facility], [address] [place] [address], [address] [place] [address], Production Broacher: Otto Nuñez MD [facility] Date/Time: [facility] Results Received Date/Time: [facility] Reported Date/Time: Performed By: #### 9 68T, [id number], 42A #### [facility] Default [address] [place] [address] Coding Summaryon 02-04-2021 Coding Summary HTMLBase 64 CxtonwxtGMl9qXb+PGh lYWQ+WL2JVQHwE35syV YevU0ZT5zYDW2TEBVFT MRILJ4NCI6fcFU8ELml C2JuekDo WoafuJVkRS62QOe7ZWP 4xOupXMqyeX7ifWRiZ9 w2HdUvUS42kM23FVeeX QTuVhW1ZmSmuuzmkKBy B0yxQcKqsPZmFzl+PHR hYmxlIHdpZHRoPScxMD UuWvCiySieRR9oVe0gI GVyLWNvbGxhcHNlOiBj p9ccVHCfGHhrPI2rzQc zS2UwvJN3VDSkw6b2Ge 48dHI+KEAqBGQ6rTpaE Adjq965FnRvg7jpUGE8 vMKmPNgyLOI6K19ua9G 9DIQgHNOsPLI7cGV1jQ 4laMrsqzcvH4QceJGpG vZ1MMD1hPKjbG5htKqk ietyiC7fQsc+J02OCQ1 OVTNOMP0ZAiv0O8SfCu wvdHI+ME72KKHaZH23d COlpMTae5ltdIs5BwMm RGQnHDO1rRfdEKmqq0B kIMNmX96ouBQvj1Q8JB YlbLjzyOBzYyUbuGD3p P8jNNveevols5jkytda Rtmlq6uqqr34dZ28V65 jNErkAYOvMRO1KOZlGX BopSjper0smH4gDn2+I Orlz0ast2rulNo3AiWp QYPvctAhmNguMFG3z5D tYw56D1GlpAdqo7ArHv d1tg81sIMwn3N6yJS5V XclOUKqiM4uPOxlJmE5 HUEmAfEbbS70wQDxXAt qZm1sgBuohNgnMF5sHD ZvefyxPUGulF8rPNFsv LWiqCkwVM3zDXXagiob b037CvCnOVN8VNMqnFY iT4WwjG1qQpTgMDOjTS IaT8SyqWKbAWbpK561H BvaIcY7CRKtrwLgJ5Yl CDRqaUdyXsR8f5A2Cf1 Zg4XhdgzqMSV3TTcnPC M1YlZ8QjSkYvW3V3IcG qm2JEGozNsfXK6eR0Dq EMGrsrdkbvzbrQY0QTJ dSQVhmH24wNWcMAzsTd 1ov7H8g398DTIlJUQoi F53Jr6wkMeuXSYhsEVC bL7mtqhwy6escmdwXyK aVCLeAIz1ASb2YJXtlM gwEhXiEKX3NyP3XMK8d IAdqN5deUdavaqpiK0w Oyc+N97iuF4hKMZ8BLN 6udzxVBOcflAgQI27XG 21T5WrAnsguTUjpFO+P KIpenBrmPrkXO2pWmWx j0kqm0RuGVnvH0VaNOD kYLlhXfa7NVHyVIK3hX A4qS2qNZKmNUitw0D2z GH7D0VxkuBwkx5nj6pq ZGRpOHulZ66gkIQta0J 7OHHzbJM7XVYqnHogQk HbrF09Xfr+PGNvbGdyb 6HqTsexs3tih5ewwJq5 IjMwJSIgdmFsaWduPSJ 7n2LxOj65F65dDOamIY RoPSIxNSUiIHZhbGlnb z2eqC3iXo4+PGNvbCB3 cCH0gG0bMOXiTzL1QCc nX280FwIhcNCwAqcqi6 iwz2nwxIt6OmPnFQRfi ySqsVqzPHP9h6FtOz78 U03zUFduKSTrENCdKYY pPCWjtGruxx2ffU7dUn 8+YC2za5glbl53mV74h HI+NNCfPPJ2iPkkUPsh EYZqlB3fHEgpWqB2YET oKfQymR08gNUmXSlxYe 4djEhbkMwjMZ3aTKJcn wjir631UlOjp4tpWFXr rADgMFfeTYV2O50ek5F 4QKDnEEYhOKV0yQS9dS 1hbGlnbjogbGVmdDsgd qWidColBYrgNRplY773 IHRvcDsnPlBhdGllbnQ pWkGaWYl3V3IxQch9BJ LukDsbUB5uxBMyYSefT j0zjGavaQvrJZ4rCHUt igrxi736UvXex1orNAR jeFQaJZxxBTB0S12ck7 U0MMHiPGKwBSF4iWF9s X7bbMkaeqzfkSHhiHrf anIgiTcqJYftQGldR16 6IHRvcDsnPkJpcnRoIE JxeDZ1QZ74EX64tCQdw 6R7bMW2Q0IoDNOyvqzj tnukiSO4ELFjXUQbvI0 8My1pzYnnLi1tEGIkVI M8JRSqkSNuY0UaeN6dY uHaVRHlKZPxN7QlaOTf JOitZ595VVlrAsK6YMU gogTaB2MvRQKveEemPt Y6d5L0Fy6RT9I5SW06K E15oYPtm5I8sTB5V3Tz OAZrvsuqbiwkmYZ4RHC sTGQrxB84Gb4rzUnqXk 0aWBGwXDY0PNSkoOEiT 6UyhB3dDnHqBORkSREl D8TzpCJhQUioL196ZDf hIlM3FPTsysWwL3UmDK RlhUsdKdO3i4R4Hw9GE Jo5YU07ZH61iENqn5I4 aVQ6J3SxPKFgruqrcza zxYJ2HSHkOXWkkN07Ql 4tuDmrSx3uZXYgKOF1A NDgtHDwY9PilM5fWtIu REUsGPPqR3TaoRUnXFt iR115PFrxLnK2RUFnwy VoS2MfKLSsaBigXmO8b 2P3Cc1JSEFoDM12DJQ5 gIA1PF56EH15X8JmNbh vdGFibGU+PHRhYmxlIH dpZHRoPScxMDAlJyBzd HzoDY5yPd5rULCqWEUc qGbepNFoToGlv3wgUKX xAMqeMX5bgZcxY0TasH G3NKDgq7k9Bw98Z01jM 3JvdXA+ODCwdKI9eAZ6 wT1aObEzKaW3NDpdD72 9KqSqaZJsHrbhz3olr3 yglKc9EzY9VCUmpbMsv UzyHAY6e9LsAc01H13f IHdpZHRoPSIxNSUiIHZ trMinns4mcL1pEm0+PG MttBQ2fZE3nH8cPsSkS mN6ZGijX121HiEauEJy Fibjm6kvy7aqsYq4ThW oYZAtwxXxzPquTPN6o6 AhWb40X5HfsYskx4KdJ sa9uc55hTXks0G9mJT3 H1AmVFMbjeukbNBaaXz rLH0nFPSjpnpfAMAmhP 0qVPFlE7c5EuFyAwZ4D VpkG8BoshC8SIRpmCPk HRugOLR5Y39qt0U3KWC jSVUaJEV7bDI3cH9wkB lnbjogbGVmdDsgdmVyd EpgDHhlVVhnR610PURa bSchNDAujF8yWQEoqVJ icJjcRR9uNOJyevbcDg hBTEwsIEpBUkVEIFNDT 6AXST05OU22hZGga4B9 nUU6L1DjMBFwgjaswmh ggDV8OPXpHKZyvL29uE ExWWknYq4vw8Q6u926K ZCjCZClqQ18Yl0fnJcm EJNkpFGCnI7kawrok0i mvcbiLnKpRKDjXPv5IT p1NNTesNkhBsWeFSY0J dI1HPA9sOEysC8jeDhp ziohqL0rLvi+MDgvMTg cUIa0JmjasMO+PHRkIH L6qSzbFPrqBUIuyB1pS CTjI4n5OhQlJrX8KHvn L7HlCJLjyhrpEo82wM3 sQdFgOeE9ACwwZ8Oqmh K1FGLyeJNrOMjgTOW5K 65be4E9OVYmMQLfKQP2 hBB2fW4dnPfyxsplbGV mdDsgdmVydGljYWwtYW wgC418WLXxfLmyTjVfA IkrRZInMD61HS02sTUx o1D9uSZ8D7GvXQWfwzb byvlrmUA3GDFbYOLwqX 71wAStSBqmQl5ij9D3q 274KRDdKJMtiL84Rm6l yKuvSKGkuKRFfL8koqd bh1wkrvixWlUuCMUmSU h9LXk0XQEumUghGwXcA LX2EeS6QPI8sAUxvL9a tEoxlcyjgG6dYxe+TUF MRTwvdGQ+ETTrAVU0yI vdHEutSWDfjZ9eZQNhD 6p7PhWyMwM2UVhfS7Rq WVUuauivVk02dU8dFmK qOdB1YFjdR5UxcbH4PS QwyVXdGEvmFNO9C13gv 8R4OASkIQXjVNK9zWF9 cX7ajDjfbguckOTpwAp gdmVydGljYWwtYWxpZ2 19LFGtbIckSa6CAW20Q K02K2KcHykrkBBdeJJ+ PHRhYmxlIHdpZHRoPSc pDUNcJkOyyIhyFX9wXd 9yZGVyLWNvbGxhcHNlO jVsq9opXMYzRHojDB4v kAvzF4VfzFA3WWVgj6a 9Wn54J48iD8AxbGG+PG XedPY9mPP6aX5fCoRlP dR4LFidE098LaVgoJMe Bcmhd8ryf3nvePk5HeM qVPFbmmLkmOpbFHE9g9 AjPz40E70gLLnoCRXmK QKxSLAzEOCgtYkpni6o sN8pWd2+GOJjjXM9bIK 5qX3zVjPkLuL6FGtmU4 77WkVfhHYuSbroX42cW 3JvdXA+NWHtRqa0MAPa qUvlHW7wuLKmXWbcLw9 gQUH9QrKyJkYbAVdjK9 ItFVGykowkoibvdXQ8G AInGXDmiA65Ku9sjYau Yc4rBIOwDDT0XKXyzCP wG4CjkT4pQgEsPOHhOJ GiS1PgbFQdAKwmS673B WzeTdG1VLHroeApS5Ld WYLhyNdyMaQ5b3H4Ds5 AcDinrZHaAI3dZmAwYR h0P5WrUtg0QZCuySfhW T5llFZeJAleKi3fpJaz sZgoMN8fYCDxbvsoq52 6ZoYss8unALNjoCNsKL zaQRY4R37jy4E6HUYyW WEwKMJ6yJZ0tS2ujKwl bjogbGVmdDsgdmVydGl kBZslCPagG050ZYGhpM pbUrCLBrk2C6HtMbn2A SHusBzkGS7grUHmPAxt Cd7djDjusAiyHT9xZAZ mgdtda671XlBjp6vtXF ErrCBlYAtlFGS0D08oq 5C8TOVvDEFmWMU7uSQ8 uP1dxFjtgxbowQKarLm gdmVydGljYWwtYWxpZ2 55MBFwdAulWq8SEql3U 0OlGdy6DJKnpMucYK6q sANuCDcbYl9vaHzjnOg uRE6tGQQzfxewl304Sc Fyu5uqHTTbkYXsJYsgC UX1X55js5B4LSNqKQMk VCS6eOJ5gE9xaUucerp gbGVmdDsgdmVydGljYW oaPSepO535FXDjcYwpU lBheWVyOjwvdGQ+PC90 xd49J5MtSrnhPzh0ZHX pTXY7gQQ0qF0kDUIiAW cyn5Y7mOF2G2KsocOqu j6dk4tjBEGwZLklA10b bGF (more content not included)... [facility] Provider Orderson 02-04-2021 Provider Orders [id number] [place] [facility] Post Vason 02-03 Post Vas Screen None [facility] Comment on above: Performed By: #### 1 [id number] #### [facility] (DEFAULT) [address] [place] [address] Semen WBC 0-2 [facility] Comment on above: Performed By: #### 1 [id number] #### [facility] (DEFAULT) [address] [place], [place] [id number] Coding Summaryon 01-28-2021 Coding Summary HTMLBase 64 WpvjtyfgRUs9qKw+PGh lYWQ+FI1GINYoU44zhT WbkI2LH3xLPL6PBRACO SSKIJ5RVY8jsGH3JVub P7EyvuFm SignoJTtMT41XFa4KYD 8eMgyJWgldI2wbFWsP3 e5JbFgOO44mZ66SFplV COaRzB5WpEptceiyTWd F2kyYpRkuYFrTst+PHR hYmxlIHdpZHRoPScxMD KiUgHmdUudJH0wGw3gN GVyLWNvbGxhcHNlOiBj m9vhZSAaAInmBY0uoMh cY6FebBC4XLDuw0o2Lp 48dHI+YNFwGCE3oGkpG Blpq706QvKvx8grKNX9 mTPtDGamKTV7V69on7U 0DLLiGZCbMXM2dYF9qB 2ejUjpgysfZ6AadZXmS pP8HMM9eVAomD0yxVhi jgdbsY8lTmf+B11VBD4 DHFJPCZ1CLlb8Y6VgXz wvdHI+SW69DQKqSF10x PBggDLwb1oveUe2GlLv EYQvHPB2eJmqPTfjq5Y rEDBmP42vxGBbn5C2HH WeqAeheMZxElTbyMQ2n Q6aHLsbmhgrd2yhppqo Lzfja5iejf45lE62T62 bHFqvEFGjGWK7OMIxMA DprRxoek6afR8gGj8+I Dffq8lvp5kwnQl6HnHh CEGgpoRzoOzlHBD9h7V gMx58H3NmrXbwo2IoSw d0pc60yQPvc9H9mTZ1M OcaQKLtnP4lBRvoRjB4 ZBQdSvMvgG55fKBbVDi kLj6bsPsnwUiiPJ6nRT OlkwoiUIHzcS7dQECpg PYhoImaTS5lWTSadhch y182AjWoZWV9CTLqxGQ uZ2ZfxU9zCnVfGZFyQQ SvD7FzbYUlEMrpU907Y BcfJvR7SUHeseAwF4As CJBwgZbuDfD0v3X7Lt0 Bs0BlrssrUYQ5EFghRF K7PwA4FvWsToR5O8GxL qw2QSDehDpvIC4oZ5Gb PIRepmnksgpwkMW5FQJ pDYHaeN49cZGoCIssDe 7cu1A2g790QDVjBNZwc I77Zd8qqTwrOZNumRLN bS8bxzjyp7xaxbivBgT eDXYoPYb8PFp3NIUjgU vpRfPuIZU3JhS6MJD9e ORxyT6mnVlehxvxaR4z Oyc+F94ijD2aCMP5WXY 5ldakJPFexaGwDQ92HP 46P3FnNxwdcCPurYS+P CDgkoVzjKamXU1sIsNj v4lhv7KoVUniW2EaRAZ oBEccTxh0RQZnCFO8lE R7dR5iFZWbMYngv8F7l YM9X0EcedJhvn7ks5uu IXVpPNiyZ56liVFoo6O 0JSZvzPG0UVDocBfnHz XyuK79Lgp+PGNvbGdyb 8PuYywcq4ojv1xdlZb8 IjMwJSIgdmFsaWduPSJ 2y6JbXd51Z02iXAxaFJ RoPSIxNSUiIHZhbGlnb d1wfF4zOs3+PGNvbCB3 zXQ2fZ3nIOBaBnY3LZa uT391UiInvVTxDhwci9 dhb6vpdGn9NdUsEKDiw oVzhPeaRFV4n6GvXm67 H26vWGjkMTWlVDOnOKM mWGVbmKrrxe5jzN5eUq 8+LY4un4drbl62tJ64z HI+QACwQJV8xIzmGEmx AMPqkI3aLFdbRxG9JQT jFyJwuF54jNRfSGebGb 4muIvovNziQZ5eIQFfn axak408QpAay5piKJXr cSQuOCxrAHQ9Z72ak4B 2EQXsDUFlMGX4lNF0uQ 1hbGlnbjogbGVmdDsgd qEhhOmnSPbbKIjfF916 IHRvcDsnPlBhdGllbnQ uWfDgTRe7Q6BmItm3TC MfuRoeNA5llLZwLQfgB i1pdCpdiTnmWQ3iCQZt gafma977WlVcz0oqYAO wgLMgSSlaERK6Q47qd7 S4YNVxLZAsIOP3hAV5s N2mqUsjytccsKRueEmt wzQjiAcjTOxvMSwlT17 6IHRvcDsnPkJpcnRoIE VdrGI5LK93RR66nCOdx 0O9mDW9L9HpBQBtzqfn azqbtQB9UHZrOUGgbB3 5Ss0zoLdgQu6qFWAuGI M2HWBswEMdW0GinD6sJ xKePGHqTKWrF8PyiWFe VDuiA739QCfwZaF1HBF wweGjK2NnXGBzpMugWv Y0a5E1Eu1TR7N5FW70K O15lEXqe6J9mGZ4O1Hh SBGnfhhiggfbqWR2QLP bBJJriR52Va4vpLrkLz 9kNCMgWCI1OMWopLZxT 9OpxT2lTtQcHMSdEFHq L3QcrHBqBBsbN035ZPa yEfU7RKBoihMoF9XsVO NfyDilOmI9e1E4Ah7YJ Db0XI55SM64rNIbc0C6 eXK8S4EgOIRcpfqccoj paNS9UUEsQIHxhR82Xg 2kmWqsJa1fGAJaLID4B PUwwMHfC3LkmS4yLpQv GGDbTMLsB6EqzVJcIGe eD428CGuwUkG7MYUdpz TpE5GbCZKecNdiIlQ5a 4Q7Og8IYNGtFT06MRT0 pHV7KP14EA94J2IeEht vdGFibGU+PHRhYmxlIH dpZHRoPScxMDAlJyBzd OfpPD9zOu7rMGEkOLMn pOvuwPPoRqDbq7lmVOG mKWhqVU1xeQfwZ2DwyZ R8PBJda5h6Ja13M26lP 3JvdXA+BEHrwTB8gYR3 iT7sJrApLfQ7RDyfU30 0GhHorVEfUdfmy2hgk1 emkMt8EnL6HSKfktXtx YfeXPL0l9SnHo42D34z IHdpZHRoPSIxNSUiIHZ wxHhnzx4cbF8kOq8+PG MmdIF6fHC3qS5lWlLfF qO1OMfkO272AdVwnISg Wqrka2aqv4bvdOg5UiJ uTSTzjmZmcWzdBXK7k6 YhHi24F1MpdVztp4RnH nu0fl53lLKij2V1cEZ1 W3AkCXUtdnujqHTytZd yZX6sEZBpqzhsEBOzmL 9qBMWzY3n8ZeYvVcX0X DkzI8WeljT8KCZgyFNu LMgjEKD3W10sp4W1ANF kFIExIRQ9xQB9dV3xlE lnbjogbGVmdDsgdmVyd ZpwOBhuQImjR969OCAw gFwgIILvfF2lEYZcfQW ieBweNK3zLZKwkhiaFv hBTEwsIEpBUkVEIFNDT 8SFOY23XJ66rOSqf7X3 mJL5Z7NoZUEyceatnya azGD3GUQiEMFjvU85mM BtRPpqAe9en2A5d460X ARlUBQhiH82Qp8mxKuy XXOzeOCIkI4lvsust1l rxuzfCoGuVOIeHRg1PT v5FUGrnJifJkIhVDT9Y xC6RSU3yZUrrH9jdQih xyuelH6bYuo+MDgvMTg fAOf1SnrfuJF+PHRkIH X1pYkhBWtpKGUfcP6dZ HAcD3c7XaHvSsL3BVen J4MeSRSfszieHl84tE6 zBnJfQbC3QOraC7Ccna Z9JPJwzGFdGFtvAPX0L 87dr2Q9OQFgPNHxRTD2 bLS4mY8qvDpqbksqwOY mdDsgdmVydGljYWwtYW xtT801IJBwrMbkQeLuU TzjOCPtKZ66EF54zDYi k7S6gJB1U7ErQVQebpd acqioxSI5SCVnTFKzuG 06aIYuKQyrAq0ll7X1f 497GHMeFCJwuG60Rp1a gRssDGCrmODXlR1wbtk vw4drcujaIdEuRVJeFH k7ACe5RQFxeKjnVgPwF KF6LnA4LXD2iMXwuL3w fMfrmpitxI3qAtu+TUF MRTwvdGQ+OHCfPXI9oL kqJAvbJKSfkY2fASSaN 2h2DpLrDsX3KGyhI6Lh KSKybvllKk48fW1gOqQ lArN4AWtlR8GwdfT5IN RmrHVoPKoyDPQ2G64px 8V1HGCnNIDwTGZ4fGJ8 hB1keBpgtsuatUCcbWf gdmVydGljYWwtYWxpZ2 15JFBzmUduDg5LWT62U P85Y1IfHgxhaZRlmUF+ PHRhYmxlIHdpZHRoPSc eCPKwIiGudHdtMJ3dHr 9yZGVyLWNvbGxhcHNlO gFjj9zdMNAqVKxrJK5d gHkzJ7EfgTB8YDQdk1j 4Kj50W54yA9EjcVL+PG MecST8gTE0bV6jWiTrF gP4LUioI244RiAovJFq Umbsx5bxc2ulrOm6YbW ePYSzphIxlEyoZPK8l8 TrTt32T04rTEsdAGAsZ NRtGCOrIZAxxIijxv0i rN1bEx1+ZOOxeVJ0eAR 4eK5yKhYhMeW5GKjkF1 49IzTyySQtZcgnJ40rT 3JvdXA+YEVhTfl0WPCf jHrtKJ0eiSDyTZkzEb4 nVDG8BzKsAiEdIJskB6 SdBCHwyqogeybexFL4H RTgZIJhjZ46Ic9orKpu Nj0pMQNmZLM4HXMciRI zL9YbcI1sTaThINDnGB TkN3DoaVTePYakC728Z WsoYxZ6QODqtgPrI2Pu JHDhaPehGrL2r7J9Fo2 RjMccnNBcKX8oFqKeOU r8K3TuReg9MICrcAbaB C5ubCVuJCosKs2hvXdk kCokKS6dWOXbyattd67 9UiFso0uyYHXsdNHwTO qrTBO6L70xc7V3GMAlY FBsFFJ0jJZ7pO4uzQxb bjogbGVmdDsgdmVydGl eIAxkOTycT092IHYzzP keHnWDWpv9E0WkTan1D FEnyKdaVU5ffSAaKTfi Hq1uvEzxpHstFM8mEAB uxgkzk593LwNir2ukDV ScrPGgCPtlIJF1B12in 8T4KJQrMBUiMEN4wSX4 yI6ieMjjvntkjJUoqOd gdmVydGljYWwtYWxpZ2 44BXBggQdtWq1HOwd6V 5PpSsf7ANHvfYsvGH1s zPQyRWstUe4mqXqyiGc hIM3jGQJmnvrad097Nv Dmj4rmNWYfaYGoZKfjY FD8T45ck1H3DNBaFUYh FVE6yYB7zM3ucTxojrn gbGVmdDsgdmVydGljYW xxFWqnC404OHYsbTlfX lBheWVyOjwvdGQ+PC90 kg16M5HuNcqfBjc1PMS oQNL4xIE9gA1tXCLdVD inm1S2kSC4Z7IgjuEss u7ye1uoZTLbYNrtR70m bGF (more content not included)... [facility] Miscellaneous Testing LCon 0 01-28-2021 Misc. Test Result LC COMMENT Invalid Interpretation Code [facility] Comment on above: Result Comment: Test Ordered: [id number] Post VAS Semen Analysis, AUA Volume 3.4 mL FU Reference Range: Not Estab. Total Immotile Sperm Note: x10E6/mL FU No sperm seen. Reference Range: <0.10 Total Motile Sperm Note: x10E6/mL FU No motile sperm seen. Reference Interval: 0.11f50W8/mL Post-Vasectomy analysis was performed on an uncentrifuged specimen. Performed At: [facility] [address] [place], [place] [id number] Davey Nolan PhD Ph:[phone] Performed At: [facility] [address] [place], [place] [id number] Enmanuel Dawson MD Ph:[phone] Performed By: #### 1 [id number] #### [facility] (DEFAULT) [address] [id number] Provider Orderson 01-27-2021 Provider Orders [id number] 33#1.00OTGTIFF [facility] Miscellaneous Testing LCon 0 01-26-2021 Test Code LC 503020 Invalid Interpretation Code [facility] Comment on above: Performed By: #### 1 [id number] #### [facility] (DEFAULT) [address] [place] [address] Test Name LC Semen Analysis postvasect Invalid Interpretation Code [facility] Comment on above: Performed By: #### 1 [id number] #### [facility] (DEFAULT) [address] [place] [id number] Vital Signs Date Time Vital Sign Value Performing Clinician Rj gonzalez 10-20-2022 09:30-0500 Body height 182.9 cm [facility] 10-20-2022 09:30-0500 Body mass index (BMI) [Ratio] 31.19 kg/m2 [facility] 10-20-2022 09:30-050 Body weight 104.33 kg [facility] Encounters Encounter Date Encounter Type Care Provider Facility Start: 03-11-2024 End: 03-11-2024 ambulatory RUGEN M WANDA Not Available Start: 11-05-2023 End: 11-05-2023 ambulatory RUGEN M WANDA Not Available Start: 07-03-2023 End: 07-03-2023 ambulatory RUGEN M WANDA Not Available Start: 10-20-2022 End: 10-23-2022 ambulatory RUGEN M WANDA [facility] Start: 10-20-2022 End: 10-22-2022 Subsequent hospital visit by physician [facility] Nuclear Room [facility] Nuclear Medicine Comment on above: RUQ abdominal pain Start: 09-27-2022 End: 09-30-2022 ambulatory RUGEN M WANDA [facility] Start: 09-27-2022 End: 09-29-2022 Subsequent hospital visit by physician [facility] Ultrasound Room [facility] Ultrasound Comment on above: Right upper [...] DTaP/Tdap/Td vaccine (2 - Td or Tdap) [facility] Start: 2022 Diabetes screen Diabetes screen [facility] Start: 03-13-2022 Influenza vaccination Flu vaccine (# 1) [facility] Start: 2005 Hepatitis C screening Hepatitis C sc reen [facility] Start: 2002 HIV screening HIV screen [facility] Start: 1999 Depression Screen Depression Screen [facility] Start: 1988 Varicella vaccine (1 of 2 - 2-dose childhood series) Varicella vaccine (1 of 2 - 2-dose childhood series) [facility] Start: 1987 COVID-19 Vaccine (#1) COVID-19 Vacci ne (#1) [facility] Payers Date Payer Category Payer Unknown [id number] [id number] 2022 Medicaid [id number] 1987 Unknown [id number] 2.16.8 [id number] 1987 Unknown [id number] 2.16.8 [id number] 1987 Unknown [id number] 2.16.84 [id number] 1987 Unknown [id number] 2.16.84 [id number] 1987 Unknown [id number] Social History Date Type Detail Facility Tobacco smoking stat [facility] Tobacco smoking consumption unknown [facility] Work Phone: Start: 1985 Sex Assigned At Not on file [facility] [employer] Phone: Evaluation note Note Date & Type Note Facility Evaluation note Diagnosis Right upper quadrant pain Abdominal pain, right upper quadrant documented in this encounter [facility] [employer] Phone: Evaluation note Note Date & Type Note Facility Evaluation note Diagnosis RUQ abdominal pain Abdominal pain, right upper quadrant documented in this encounter [facility] [employer] Phone: Summary Purpose Family History No Family [...] Procedures US GALLBLADDER RUQ Gabrielle Muñoz MD [address] [place] [address] Referral ID Status Reason Start Date Expiration Date Visits Re quested Visits Authorized [id number] Closed 09/26/2022 09/26/2023 1 1 Specialty Diagnoses / Procedures Referred By Aubrey t Referred To Contact Radiology Diagnoses RUQ abdominal pain Procedures NM HEPATOBILIARY SCAN W EJECTION FRACTION Gabrielle Muñoz MD [address] [place] [address] Referral ID Status Reason Start Date Expiration Date Visits Re quested Visits Authorized [id number] Closed 10/10/2022 10/10/2023 1 1 Additional Source Comments (unrecognized sect ion and content) No Status Records FoundNo Status Records FoundNo Status Records FoundNo Status Records Found INFORMATION SOURCE (unrecogn ized section and content) DATE CREATED AUTHOR 02/05/2021 [facility] DATE CREATED AUTHOR AUTHOR'S ORGANIZ ATION 10/09/2021 [facility] DATE CREATED AUTHOR AUTHOR'S ORGANIZ ATION 10/22/2022 [facility] DATE CREATED AUTHOR AUTHOR'S ORGANIZ ATION 03/13/2024 [facility] EPIC Reason for Visit (unrecogniz ed section and content) Specialty Diagnoses / Procedures Referred By Contac t Referred To Contact Radiology Diagnoses Right upper quadrant pain Procedures US GALLBLADDER RUQ Gabrielle Muñoz MD [address] [place] [address] Referral ID Status Reason Start Date Expiration Date Visits Re quested Visits Authorized [id number] Closed 09/26/2022 09/26/2023 1 1 Specialty Diagnoses / Procedures Referred By Contac t Referred To Contact Radiology Diagnoses RUQ abdominal pain Procedures NM HEPATOBILIARY SCAN W EJECTION FRACTION Gabrielle Muñoz MD [address] [place] [address] Referral ID Status Reason Start Date Expiration Date Visits Re quested Visits Authorized [id number] Closed 10/10/2022 10/10/2023 1 1 Care Teams (unrecognized sec tion and content) [employer] Relationship 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 [place] [address] PCP - General Family Medicine 09/26/22 [employer] Relationship 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 [place] [address] PCP - General Family Medicine [...] BE BASED ON THE PRIMARY CLINICAL RECORDS. [employer] provides no warranty or guarantee of the accuracy or completeness of information in this document.
== END 2024-04-15 08:00 | disposition home or self-care (01) ==
LOC: EC 07:59
PROVIDERS: PCP Family Medicine; Visit Provider Orthopaedic Surgery
DX: S62.51 Fracture of proximal phalanx of thumb (principal)
CPT/HCPCS: 73130

== ENCOUNTER 2024-05-12 07:47 | Outpatient (OUT) | payer MEDICAID, SELFPAY ==
--- NOTE | 2024-05-12 | XR_ITS ---
The [address] [address] Patient Name: QUAN MAHAJAN MRN: [id number] date: 1985 Sex: M Assigned Patient Location: Current Patient Location: Accession/Order Number: [id number] Exam Date: 05/12/2024 07:48 Report Date: 05/12/2024 09:21 At the request of: CARROLL CHAUDHARY Procedure: XR hand RT min 3V PROCEDURE: XR hand RT min 3V HISTORY: RIGHT HAND PAIN COMPARISON: XR hand right 04/15/2024 FINDINGS: BONES:Prior fracture and lateral plate and screw repair of first proximal phalanx. Fracture line is still visible. Prominent lucency within the marrow cavity is stable versus continues to slowly increase. SOFT TISSUES:No visible soft tissue swelling. EFFUSION:None visible. OTHER: Negative. XR/XR hand RT min 3V IMPRESSION: 1. Right hand first proximal phalanx fracture with lateral plate and screw repair; no hardware failure. 2. Fracture line is still visible and prominent lucency within the marrow cavity is still present, but may be slowly increasing over time. Electronically authenticated by: CARROLL WALTON Date: 05/12/2024 09:21
--- OUTSIDE RECORDS SUMMARY | 2024-05-12 07:50 | XMS_ITS | CCD ---
Author Organization [facility] Care Team Providers Care Graduate Student Instructor Name Role Phone Gabrielle Muñoz MD Primary Care Provider [phone] GABRIELLE MUÑOZ Referring Unavailable GABRIELLE MUÑOZ Primary [...] cholecystitis. Gallbladder ejection fraction is approximately 91%. [facility] CONSOLIDATED EXAMINATION: NUCLEAR MEDICINE HEPATOBILIARY SCINTIGRAPHY [...] 30-60 mins. Images were obtained in the SAMMARINESE projection and regions of interest were drawn [...] range is based on a limited study. [facility] Jerry Pimentel MD - 10/20/2022 EXAMINATION: [...] 30-60 mins. Images were obtained in the SAMMARINESE projection and regions of interest were drawn [...] cholecystitis. Gallbladder ejection fraction is approximately 91%. [facility] Phone: Radiology Study observation (narrative) [facility] Phone: NM HEPATOBILIARY SCAN W EJEC TION FRACTIONOrdered By: Jerry Armstrong on 10-20-2022 [employer] Phone: NM HEPATOBILIARY SCAN W PHAR MACOLOGICAL [...] 30-60 mins. Images were obtained in the SAMMARINESE projection and regions of interest were drawn [...] Jerry Armstrong MD 10/20/22 Final result Normal [facility] US GALLBLADDER RUQon 09-27- 023 US GALLBLADDER [...] Negin Bustillos MD 09/27/22 Final result Normal [facility] Unremarkable right upper quadrant ultrasound. PN RIS [...] No evidence of right upper quadrant ascites. [facility] Negin Ibarra MD - 09/27/2022 EXAMINATION: [...] ascites. IMPRESSION: Unremarkable right upper quadrant ultrasound. [facility] Phone: Radiology Study observation (narrative) [facility] Phone: US GALLBLADDER RUQOrdered By : Negin Bustillos on 09-27-2022 [employer] Phone: Q - CBC W/DIFF AND PLTon BASOABS 53 cells/uL Normal 0-200 [facility] Scanning Coordinator Comment on above: Order Comment: [facility] Testing performed at: [facility], [address] [place] [address], [address] [place] [address], [phone], Activities Concierge: Otto Nuñez MD [facility] Collection Date/Time: [id number] [facility] Results Received Date/Time: [id number] [facility] Reported Date/Time: [id number] Performed By: #### 9 68T, [id number], 42A #### [facility] Default [address] [place] [address] Basophils/100 WBC (Bld) 0.9 % Normal [facility] Scanning Coordinator Comment on above: Order Comment: [facility] Testing performed at: [facility], [address] , [address] [place] [address], [address] [place] [address], Activities Concierge: Otto Nuñez MD [facility] Collection Date/Time: [facility] Results Received Date/Time: [facility] Reported Date/Time: Performed By: #### 9 68T, 04392R, 42A #### [facility] Default [address] [place] [address] EOSABS 271 cells/uL Normal 15-500 [facility] Scanning Coordinator Comment on above: Order Comment: [facility] Testing performed at: [facility], [facility], [address] [facility], [address] [place] [address], [address] [place] [address], Activities Concierge: Otto Nuñez MD [facility] Collection Date/Time: [facility] Results Received Date/Time: [facility] Reported Date/Time: Performed By: #### 9 68T, 27016R, 42A #### [facility] [address] [place] [address] Eosinophils/100 WBC (Bld) 4.6 % Normal [facility] Scanning Coordinator Comment on above: Order Comment: [facility] Testing performed at: [facility], [address] , [address] [place] [address], [address] [place] [address], Activities Concierge: Otto Nuñez MD [facility] Collection Date/Time: [facility] Results Received Date/Time: [facility] Reported Date/Time: Performed By: #### 9 68T, [id number], 42A #### [facility] [address] [place] [address] Erythrocyte distribution width (RBC) [Ratio] 11.9 % Normal 11.0-15.0 [facility] Scanning Coordinator Comment on above: Order Comment: [facility] performed at: [facility], [address] , [address] [place] [address], [address] [place] [address], Activities Concierge: Otto Nuñez MD [facility] Collection Date/Time: [facility] Results Received Date/Time: [facility] Reported Date/Time: Performed By: #### 9 68T, [id number], 42A #### [facility] [address] [place] [address] Hematocrit (Bld) [Volume fraction] 50.9 % High 38.5-50.0 [facility] Scanning Coordinator Comment on above: Order Comment: [facility] performed at: [facility], [facility], [address] [facility], [address] [place] [address], [address] [place] [address], Activities Concierge: Otto Nuñez MD [facility] Collection Date/Time: [facility] Results Received Date/Time: [facility] Reported Date/Time: Performed By: #### 9 68T, [id number], 42A #### [facility] [address] [place] [address] Hemoglobin (Bld) [Mass/Vol] 17.3 g/dL High 13.2-17.1 [facility] Scanning Coordinator Comment on above: Order Comment: [facility] Testing performed at: [facility], [facility], [address] [place] [address], [address] [place] [address], [address] [place] [address], Activities Concierge: Otto Nuñez MD [facility] Collection Date/Time: [facility] Results Received Date/Time: [facility] Reported Date/Time: Performed By: #### 9 68T, 11654Y, 42A #### [facility] [address] [place] [address] Lymphocytes (Bld) [#/Vol] 1.611 10*3/uL Normal 850-3900 [facility] Scanning Coordinator Comment on above: Order Comment: [facility] Testing performed at: [facility], [facility], [address] [facility], [address] [place] [address], [address] [place] [address], Activities Concierge: Otto Nuñez MD [facility] Collection Date/Time: [facility] Results Received Date/Time: [facility] Reported Date/Time: Performed By: #### 9 68T, 06255A, 42A #### [facility] [address] [place] [address] Lymphocytes/100 WBC (Bld) 27.3 % Normal [facility] Scanning Coordinator Comment on above: Order Comment: [facility] Testing performed at: [facility], [facility], [address] [place] [address], [address] [place] [address], [address] [place] [address], Activities Concierge: Otto Nuñez MD [facility] Collection Date/Time: [facility] Results Received Date/Time: [facility] Reported Date/Time: Performed By: #### 9 68T, 66050I, 42A #### [facility] [address] [place] [address] MCH (RBC) [Entitic mass] 31.3 pg Normal 27.0-33.0 [facility] Scanning Coordinator Comment on above: Order Comment: [facility] Testing performed at: [facility], [address] [place] [address], [address] [place] [address], [address] [place] [address], Activities Concierge: Otto Nuñez MD [facility] Collection Date/Time: [facility] Results Received Date/Time: [facility] Reported Date/Time: Performed By: #### 9 68T, 39142P, 42A #### [facility] [address] [place] [address] MCHC (RBC) [Mass/Vol] 34.0 g/dL Normal 32.0-36.0 [facility] Scanning Coordinator Comment on above: Order Comment: [facility] Testing performed at: [facility], [address] [place] [address], [address] [place] [address], [address] [place] [address], Activities Concierge: Otto Nuñez MD [facility] Collection Date/Time: [facility] Results Received Date/Time: [facility] Reported Date/Time: Performed By: #### 9 68T, [id number], 42A #### [facility] [address] [place] [address] MCV (RBC) [Entitic vol] 92.0 fL Normal 80.0-100.0 [facility] Specialist Comment on above: Order Comment: [facility] Testing performed at: [facility], [address] [place] [address], [address] [place] [address], [address] [place] [address], Activities Concierge: Otto Nuñez MD [facility] Collection Date/Time: [facility] Results Received Date/Time: [facility] Reported Date/Time: Performed By: #### 9 68T, 47926M, 42A #### [facility] [address] [place] [address] MONOABS 726 cells/uL Normal 200-950 [facility] Comment on above: Order Comment: [facility] Testing performed at: [facility], [address] [place] [address], [address] [place] [address], [address] [place] [address], Activities Concierge: Otto Nuñez MD [facility] Collection Date/Time: [facility] Results Received Date/Time: [facility] Reported Date/Time: Performed By: #### 9 68T, 51589W, 42A #### [facility] [address] [place] [address] Monocytes/100 WBC (Bld) 12.3 % Normal [facility] Specialist Comment on above: Order Comment: [facility] Testing performed at: [facility], [address] [place] [address], [address] [place] [address], [address] [place] [address], Activities Concierge: Otto Nuñez MD [facility] Collection Date/Time: [facility] Results Received Date/Time: [facility] Reported Date/Time: Performed By: #### 9 68T, 63501J, 42A #### [facility] [address] [place] [address] Neutrophils (Bld) [#/Vol] 3.239 10*3/uL Normal 5749-0836 [facility] Specialist Comment on above: Order Comment: [facility] Testing performed at: [facility], [address] , [address] [place] [address], [address] [place] [address], Activities Concierge: Otto Nuñez MD [facility] Collection Date/Time: [facility] Results Received Date/Time: [facility] Reported Date/Time: Performed By: #### 9 68T, 59565A, 42A #### [facility] [address] [place] [address] Neutrophils/100 WBC (Bld) 54.9 % Normal [facility] Scanning Coordinator Comment on above: Order Comment: [facility] Testing performed at: [facility], [facility], [address] [place] [address], [address] [place] [address], [address] [place] [address], Activities Concierge: Otto Nuñez MD [facility] Collection Date/Time: [facility] Results Received Date/Time: [facility] Reported Date/Time: Performed By: #### 9 68T, 59576F, 42A #### [facility] [address] [place] [address] Platelet mean volume (Bld) [Entitic vol] 10.5 fL Normal 7.5-12.5 [facility] Scanning Coordinator Comment on above: Order Comment: [facility] Testing performed at: [facility], [facility], [address] [facility], [address] [place] [address], [address] [place] [address], Activities Concierge: Otto Nuñez MD [facility] Collection Date/Time: [facility] Results Received Date/Time: [facility] Reported Date/Time: Performed By: #### 9 68T, 46532S, 42A #### [facility] [address] [place] [address] Platelets (Bld) [#/Vol] 296 10*3/uL Normal 140-400 [place] Scanning Coordinator Comment on above: Order Comment: [facility] Testing performed at: [facility], [facility], [address] [facility], [address] [place] [address], [address] [place] [address], Activities Concierge: Otto Nuñez MD [facility] Collection Date/Time: [facility] Results Received Date/Time: [facility] Reported Date/Time: Performed By: #### 9 68T, 01551I, 42A #### [facility] [address] [place] [address] RBC (Bld) [#/Vol] 5.53 10*6/uL Normal 4.20-5.80 Tyrell li [place] Scanning Coordinator Comment on above: Order Comment: [facility] Testing performed at: [facility], [facility], [address] [place] [address], [address] [place] [address], [address] [place] [address], Activities Concierge: Otto Nuñez MD [facility] Collection Date/Time: [facility] Results Received Date/Time: [facility] Reported Date/Time: Performed By: #### 9 68T, 32736E, 42A #### [facility] [address] [place] [address] WBC (Bld) [#/Vol] 5.9 10*3/uL Normal 3.8-10.8 Terrance mackenzie [place] Scanning Coordinator Comment on above: Order Comment: [facility] Testing performed at: [facility], [facility], [address] [place] [address], [address] [place] [address], [address] [place] [address], Activities Concierge: Otto Nuñez MD [facility] Collection Date/Time: [facility] Results Received Date/Time: [facility] Reported Date/Time: Performed By: #### 9 68T, 59196H, 42A #### [facility] [address] [place] [address] Q - COMPREHENSIVE METABOLIC PANEL W/EGFRon 10-07-2021 Albumin [Mass/Vol] 4.4 g/dL Normal 3.6-5.1 Terrance mackenzie [place] Scanning Coordinator Comment on above: Order Comment: [facility] Testing performed at: [facility], [facility], [address] [place] [address], [address] [place] [address], [address] [place] [address], Activities Concierge: Otto Nuñez MD [facility] Collection Date/Time: [facility] Results Received Date/Time: [facility] Reported Date/Time: Performed By: #### 9 68T, 71275I, 42A #### [facility] [address] [place] [address] Albumin/Globulin [Mass ratio] 1.7 {ratio} Normal 1.0-2.5 [facility] Specialist Comment on above: Order Comment: [facility] Testing performed at: [facility], [facility], [address] [place] [address], [address] [place] [address], [address] [place] [address], Activities Concierge: Otto Nuñez MD [facility] Collection Date/Time: [facility] Results Received Date/Time: [facility] Reported Date/Time: Performed By: #### 9 68T, [id number], 42A #### [facility] [address] [place] [address] ALP [Catalytic activity/Vol] 42 U/L Normal 36-130 [facility] Scanning Coordinator Comment on above: Order Comment: [facility] Testing performed at: [facility], [facility], [address] [place] [address], [address] [place] [address], [address] [place] [address], Activities Concierge: Otto Nuñez MD [facility] Collection Date/Time: [facility] Results Received Date/Time: [facility] Reported Date/Time: Performed By: #### 9 68T, 16465X, 42A #### [facility] [address] [place] [address] ALT [Catalytic activity/Vol] 19 U/L Normal 9-46 [facility] Scanning Coordinator Comment on above: Order Comment: [facility] Testing performed at: [facility], [facility], [address] [place] [address], [address] [place] [address], [address] [place] [address], Activities Concierge: Otto Nuñez MD [facility] Collection Date/Time: [facility] Results Received Date/Time: [facility] Reported Date/Time: Performed By: #### 9 68T, 54978X, 42A #### [facility] [address] [place] [address] AST [Catalytic activity/Vol] 16 U/L Normal 10-40 [facility] Specialist Comment on above: Order Comment: [facility] Testing performed at: [facility], [facility], [address] [place] [address], [address] [place] [address], [address] [place] [address], Activities Concierge: Otto Nuñez MD [facility] Collection Date/Time: [facility] Results Received Date/Time: [facility] Reported Date/Time: Performed By: #### 9 68T, 27360N, 42A #### [facility] Default [address] [place] [address] Calcium [Mass/Vol] 9.5 mg/dL Normal 8.6-10.3 [facility] Comment on above: Order Comment: [facility] Testing performed at: [facility], [address] [place] [address], [address] [place] [address], [address] [place] [address], Activities Concierge: Otto Nuñez MD [facility] Collection Date/Time: [facility] Results Received Date/Time: [facility] Reported Date/Time: Performed By: #### 9 68T, 73388I, 42A #### [facility] [address] [place] [address] Chloride [Moles/Vol] 103 mmol/L Normal 98-110 [facility] Specialist Comment on above: Order Comment: [facility] Testing performed at: [facility], [address] [place] [address], [address] [place] [address], [address] [place] [address], Activities Concierge: Otto Nuñez MD [facility] Collection Date/Time: [facility] Results Received Date/Time: [facility] Reported Date/Time: Performed By: #### 9 68T, 60784B, 42A #### [facility] [address] [place] [address] CO2 [Moles/Vol] 26 mmol/L Normal 20-32 [facility] Scanning Coordinator Comment on above: Order Comment: [facility] Testing performed at: [facility], [facility], [address] [facility], [address] [place] [address], [address] [place] [address], Activities Concierge: Otto Nuñez MD [facility] Collection Date/Time: [facility] Results Received Date/Time: [facility] Reported Date/Time: Performed By: #### 9 68T, 95957D, 42A #### [facility] [address] [place] [address] Creatinine [Mass/Vol] 1.04 mg/dL Normal 0.60-1.35 [facility] Scanning Coordinator Comment on above: Order Comment: [facility] Testing performed at: [facility], [facility], [address] [place] [address], [address] [place] [address], [address] [place] [address], Activities Concierge: Otto Nuñez MD [facility] Collection Date/Time: [facility] Results Received Date/Time: [facility] Reported Date/Time: Performed By: #### 9 68T, 37694U, 42A #### [facility] [address] [place] [address] eGFRAA ([facility]) 108 mL/min/1.73m2 Normal > OR = 60 [facility] Scanning Coordinator Comment on above: Order Comment: [facility] Testing performed at: [facility], [facility], [address] [place] [address], [address] [place] [address], [address] [place] [address], Activities Concierge: Otto Nuñez MD [facility] Collection Date/Time: [facility] Results Received Date/Time: [facility] Reported Date/Time: Performed By: #### 9 68T, [id number], 42A #### [facility] [address] [place] [address] eGFRNAA ([facility]) 93 mL/min/1.73m2 Normal > OR = 60 [facility] Scanning Coordinator Comment on above: Order Comment: [facility] Testing performed at: [facility], [facility], [address] [place] [address], [address] [place] [address], [address] [place] [address], Activities Concierge: Otto Nuñez MD [facility] Collection Date/Time: [facility] Results Received Date/Time: [facility] Reported Date/Time: Performed By: #### 9 68T, 58538N, 42A #### [facility] Default [address] [place] [address] Globulin (S) [Mass/Vol] 2.6 g/dL Normal 1.9-3.7 [facility] Scanning Coordinator Comment on above: Order Comment: [facility] Testing performed at: [facility], [facility], [address] [place] [address], [address] [place] [address], [address], Activities Concierge: Otto Nuñez MD [facility] Collection Date/Time: [facility] Results Received Date/Time: [facility] Reported Date/Time: Performed By: #### 9 68T, 89851L, 42A #### [facility] [address] [place] [address] Glucose [Mass/Vol] 85 mg/dL Normal 65-99 [facility] Comment on above: Order Comment: [facility] Testing performed at: [facility], [facility], [address] [place] [address], [address] [place] [address], [phone], Activities Concierge: Otto Nuñez MD [facility] Collection Date/Time: [facility] Results Received Date/Time: [facility] Reported Date/Time: Result Comment: Fasting reference interval Performed By: #### 9 68T, 00330P, 42A #### [facility] [address] [place] [address] Potassium [Moles/Vol] 4.9 mmol/L Normal 3.5-5.3 [facility] Scanning Coordinator Comment on above: Order Comment: [facility] Testing performed at: [facility], [facility], [address] [place] [address], [address] [place] [address], [address], Activities Concierge: Otto Nuñez MD [facility] Collection Date/Time: [facility] Results Received Date/Time: [facility] Reported Date/Time: Performed By: #### 9 68T, 42930I, 42A #### [facility] Default [address] [place] [address] Protein [Mass/Vol] 7.0 g/dL Normal 6.1-8.1 Terrance rn [place] Scanning Coordinator Comment on above: Order Comment: [facility] Testing performed at: [facility], [facility], [address] [facility], [address] [place] [address], [address] [place] [address], Activities Concierge: Otto Nuñez MD [facility] Collection Date/Time: [facility] Results Received Date/Time: [facility] Reported Date/Time: Performed By: #### 9 68T, 27409P, 42A #### [facility] Default [address] [place] [address] Sodium [Moles/Vol] 138 mmol/L Normal 135-146 Terrance rn [place] Scanning Coordinator Comment on above: Order Comment: [facility] Testing performed at: [facility], [facility], [address] [facility], [address] [place] [address], [address] [place] [address], Activities Concierge: Otto Nuñez MD [facility] Collection Date/Time: [facility] Results Received Date/Time: [facility] Reported Date/Time: Performed By: #### 9 68T, [id number], 42A #### [facility] Default [address] [place] [address] TBIL <0.3 Normal 0.2-1.2 [facility] Scanning Coordinator Comment on above: Order Comment: [facility] Testing performed at: [facility], [facility], [address] [facility], [address] [place] [address], [address] [place] [address], Activities Concierge: Otto Nuñez MD [facility] Collection Date/Time: [facility] Results Received Date/Time: [facility] Reported Date/Time: Performed By: #### 9 68T, [id number], 42A #### [facility] Default [address] [place] [address] Urea nitrogen [Mass/Vol] 26 mg/dL High 7-25 [facility] Scanning Coordinator Comment on above: Order Comment: [facility] Testing performed at: [facility], [address] [place] [address], [address] [place] [address], [address] [place] [address], Activities Concierge: Otto Nuñez MD [facility] Collection Date/Time: [facility] Results Received Date/Time: [facility] Reported Date/Time: Performed By: #### 9 68T, [id number], 42A #### [facility] Default [address] [place] [address] Urea nitrogen/Creatinine [Mass ratio] 25 mg/mg High 6-22 [facility] Scanning Coordinator Comment on above: Order Comment: [facility] Testing performed at: [facility], [address] [place] [address], [address] [place] [address], [address] [place] [address], Activities Concierge: Otto Nuñez MD [facility] Collection Date/Time: [facility] Results Received Date/Time: [facility] Reported Date/Time: Performed By: #### 9 68T, 89170N, 42A #### [facility] [address] [place] [address] Q - Lipid Panelon 10-07-2021 Cholesterol [Mass/Vol] 224 mg/dL High <200 [facility] Scanning Coordinator Comment on above: Order Comment: [facility] Testing performed at: [facility], [address] [place] [address], [address] [place] [address], [address] [place] [address], Activities Concierge: Otto Nuñez MD [facility] Collection Date/Time: [facility] Results Received Date/Time: [facility] Reported Date/Time: Performed By: #### 9 68T, [id number], 42A #### [facility] Default [address] [place] [address] Cholesterol in HDL [Mass/Vol] 47 mg/dL Normal > OR = 40 [facility] Scanning Coordinator Comment on above: Order Comment: [facility] Testing performed at: [facility], [address] [facility], [address] [place], [address] [place] [address], Activities Concierge: Otto Nuñez MD [facility] Date/Time: [facility] Results Received Date/Time: [facility] Reported Date/Time: Performed By: #### 9 68T, 38078D, 42A #### [facility] Default [address] [place] [address] Cholesterol in LDL [Mass/Vol] 151 mg/dL High [place] Scanning Coordinator Comment on above: Order Comment: [facility] Testing performed at: [facility], [facility], [address] [place] [address], [address] [place] [address], [address] [place] [address], Activities Concierge: Otto Nuñez MD [facility] Date/Time: [facility] [...] LDL-C. Kamaljit STONER et al. SAY. 2013;310(19): 5013-9800 (http://education.cheerapp/faq/PHD688) Performed By: #### 9 68T, 01527S, 42A #### [facility] Default [address] [place] [address] Cholesterol.total/C holesterol in HDL [Mass ratio] 4.8 {ratio} Normal <5.0 [facility] Scanning Coordinator Comment on above: Order Comment: [facility] Testing performed at: [facility], [address] [facility], [address] [place], [place], [address] [place] [address], Activities Concierge: Otto Nuñez MD [facility] Date/Time: [facility] Results Received Date/Time: [facility] Reported Date/Time: Performed By: #### 9 68T, 78499F, 42A #### [facility] Default [address] [place] [address] NON HDL CHOLESTEROL 177 mg/dL (calc) High <130 [facility] Scanning Coordinator Comment on above: Order Comment: [facility] Testing performed at: [facility], [facility], [address] [facility], [address] [place], [address] [place] [address], Activities Concierge: Otto Nuñez MD [facility] Date/Time: [facility] Results Received Date/Time: [facility] Reported Date/Time: Result Comment: For patients with diabetes plus 1 major ASCVD risk factor, treating to a non-HDL-C goal of <100 mg/dL (LDL-C of <70 mg/dL) is considered a therapeutic option. Performed By: #### 9 68T, 44818I, 42A #### [facility] Default [address] [place] [address] Triglyceride [Mass/Vol] 132 mg/dL Normal <150 [facility] Scanning Coordinator Comment on above: Order Comment: [facility] Testing performed at: [facility], [facility], [address] [facility], [address] [place] [address], [address] [place] [address], Activities Concierge: Otto Nuñez MD [facility] Date/Time: [facility] Results Received Date/Time: [facility] Reported Date/Time: Performed By: #### 9 68T, 70695P, 42A #### [facility] Default [address] [place] [address] Coding Summaryon 02-04-2021 Coding Summary HTMLBase 64 FykhnihfUWj4lGn+PGh lYWQ+AC6UBYNnQ85zmM KcmR4QN8bZFO5YHYYRP LBKUA0GSR2xtBL7BGpm D6BdgtQx BppafSUtWL22PZc6ABY 3sYgeZBwsbV7esOWkL2 e5PkDjJB92sI14AAuxD PUwCaW8SzXdkhpcjRDq E4mpFiWzoESbLgi+PHR hYmxlIHdpZHRoPScxMD RmKyXtwYkcPY1hWt7wZ GVyLWNvbGxhcHNlOiBj x1kiQFOzNNdrBT4ahVq aP7EwbAQ5ATSpw7j1Hv 48dHI+AECbMQU4vTmaR Wtmz286KzPdr1vnHST7 gRPoESofXJS2L18xs3K 2KUIfVIIrWQD0mMX5cW 0hjWvxindkD8AzuZKlA fV7GLN4nOVojI1uzPqs pzranW8rHga+P62LOF5 FPVWECW1SAqu8W3RsPd wvdHI+JW33NREcKD46f TEbzIIhn1elzKo3JsTk KSZyEUM7hEbjPYvva9H vDVPeO62nkHDkn6X4GM VnhYohoHYoTnRjqAJ7z V7cDQbubppmn5ojtrbc Ivror8alpb42nY44M03 fDJlcGHYiRLE0HQBoRJ MdtWhaja8gsJ3rYj4+I Qnqc8hby2hxxXt8LbEf ERMpdlKiaLzwBIC0t1G jSy51E1InzNyvj1NwSi r2xz24zUWax2P4sMB7V HmvVYSwoA7cDChgXcO6 OKGzQjIyjI33wAOgNNq rEe3mmOldkTxrJT1tDM DevbquHQInyL2qWPBiq QSwxIrlBV4mUZVerzsu r054HuPjTBG6SOCkkCK pK6CvuV2vSpQoJPVqCW KjE3AwzIGmQFjxC432F OytCdH1VUMnthEpZ3Uw PDWcvKjiYpD8c8R0Jr1 Fj4IvczbcICR1XYobIG P2MfR8IaSgIzT2F2GtB qs8QTJnkGgtMZ6vA9Qd GJLylyvbaggihXU0AYL vZDLmfF75xULpYVdhPz 8br6M0w204HZXrLNXel G51Je8jjMbvIPAelGAN dV6izlhqa4qkpvdxMyF wNVGgELb6QGq7NWOnnR ydVfDkQIA7DjU7AAO5p TFqsY4qsVbywzsafR3w Oyc+D73uvA1zUFN9PNU 3igdzBRTycwFaWW11ZR 59F0YnMyescDVsrLW+P KMstfXotVncSG3lMlQy p3qob7YwMQgeW6LvUBS tFUrcFpf6NRWoTSB1kJ X3eI7kVFRbBWmuy9Z2a AU6T5KkrsVenj0do7wh FNCmFWaiK00mqSNrc6Y 7WNXdiCK3QONpdZtzHc UleZ06Raz+PGNvbGdyb 3DpXkixv9qmg5sqjWp1 IjMwJSIgdmFsaWduPSJ 3r1IfCb15F46pBBymZK RoPSIxNSUiIHZhbGlnb b5tgD1vEy1+PGNvbCB3 lVV8kY4mBBEhLdO7MTs qK070PmIfhUUqMabbi8 mjp7tbgYt7PsPvJALob oZdxAbxGNP7z9YbPl71 Q09gFEouUTZxPDDwOWY vJJPedPkeco3tmE2sSj 8+LN9to4wvwa80oD14r HI+EJMdLIA7fYsvGBen QLRmhF8aGFaaGbD3CKF mMqFrvB30iMZvSGggTy 4otOwjwFfwDW1jOAXhe sszl397UzJfq1mzRIYo eQGcCTzsUVO3U67rv6T 2ANHuVBLoIPS7hZM2dJ 1hbGlnbjogbGVmdDsgd yMfjOmoQCbzBShwG535 IHRvcDsnPlBhdGllbnQ zVcWtFEm8O1OvPsv2KB ZqeUooEJ1smVYsPTabX h6soFvjvLseSO0xUGPc wozfw976HfRda8mdXVM gkUQlZJikYKC9N64zd2 P1ZJMmWBKwVOD3kAZ5d O7ucBgniexsiNMilGev ipQhkGrlHVskDReyB49 6IHRvcDsnPkJpcnRoIE ArrBF7SI54ZA67oVHkm 1U3gQC4I9UmBVSswpdt vesokOH2ZSEiBGOegI9 0Ma9kwGmkPl5zEVYaFS Q1MOCvwCEkN3MpxZ3jN vHcYMSiRAVzP6SdyDTe XQnjJ397GIomXbY6BOP rsuQgH8BhCGIbaBjnBk H2j0P5Vn4UB7W4WM09L D04qMGqd3G8gBY1D7Zb SOHmeelhyinluXW4FAX dKMImyW50Pg8mrNbgLd 3sJKPhNKX1XWTviZVsC 8JxeQ5tEzIiRCLfFWFf V7AthZIoQZrmX753PWc iPnR9BVGyvkWwA0XuWO MctAljTeM6t3G5Zl0VD Es5YJ73BC67rBWhm4X2 bFC4O4NhJEYwzzzvsga dcKF8MVMmGERjdO34Ib 2jrEdcPx6gASRvDYH3H FHfqVEhV2VxdW4nIxQb FXLcVJXbP9PhcPUmEAv aT033XHqzVxY5SHYsnw WvJ1YcSHDajVgrEvU9l 2K9On5RROQwPF47WKD9 aUR9PM64IH47T7LuBsk vdGFibGU+PHRhYmxlIH dpZHRoPScxMDAlJyBzd BaeRQ0eCl1rNIRyCVUr gOoltFQhOpUre5hlCRR oRObyEX3dlBczV0UohX B0MCUtm0c6Rf05G41rY 3JvdXA+BDBwmDC2fOF0 eS8eUeTeNsD7TNheC89 3TqDbrVXbNkiet9qhd7 gdzHf5LdV5JGZszaWye KxzHER8t9ErNe07M43o IHdpZHRoPSIxNSUiIHZ cvZymjz9vhZ2sZz0+PG WvyUL6aZJ7eJ2dHdNmJ rO8EHzqB793CxXsmRCx Blfuc5seh9beyRi1IhL bRLQnhgWncNhaYCS1u2 WqAl67H3TpxHwmi6AqL cu7vx34lPBcs3U9dFP2 M5PrATAgplqjnPCbaVz rJC6pKBBewhkcALMmpS 3jTXZaO0j1OzFmMaW2C UsmH7OftbT8XQAbwNCk EWvqTSA9P68ki5S6JVV dLZQxNJX8xUU2qE9gkN lnbjogbGVmdDsgdmVyd TyxXXvyJEceX150RMTb iJljAZPpdK3lCUYycEW hlJqtFH6nAUBtvatkZz hBTEwsIEpBUkVEIFNDT 2KQRR49CZ99bXLnu6B0 eCV6P4IkGEYyguxoruk teSY6CVFtSQMsyL03fA XaEFfdPx5uz6P8g883N IVpLZIidR41Pw6ujTrk DAAuzEWIxQ8zspgcl0i vmpoqRbRdLFPhDPu4IV c3ZMBxnByrJoOjJGY7I fQ6LQG5zGMoyV3heJum ymduhW3hCdc+MDgvMTg eWFy4XsaqaFZ+PHRkIH P9dHrkVCtqNVJinJ1dO SGdS7n3IcRnXoF4UZcs N0FeSUOrjhllOh92fA3 eYpQeWeH3KSijS4Qhse Q2BQBpdXQdBLexBYE6R 35gx3F6ZRVqWZZdVQK4 zAV2gU8rfZrembbfrWI mdDsgdmVydGljYWwtYW gaZ151CEKseYtaIwUeZ QsmOXQgTL42EL36kZAe k4W9jLP2Z8AvXVFnrwo macffsCB4QZRrXQRxnT 12hXBeVVxrXe3rw3P1k 129VXCpGAPncB29Ck4w oOgnVBBxlREWhZ3tzbv ze1jclsfrPnIpMVBlXX k7CVw7APKpaKteRbNwG TG3ImT0MZV6gGVzwA9t tYddksyenV8uYkf+TUF MRTwvdGQ+QAIzTYQ6zA efTYtsOFWnqF2cNOVjL 2i5EqNqSeI2EWnqR9Bw QNEmwcilSr25wQ5kCsZ aSoO6WLkrZ4VpcsK0VU BbaYNvDLlaILW9R75dm 5L3FMLoJNRqMSN8sCL1 kD8qtSfvkfofpCHzcSu gdmVydGljYWwtYWxpZ2 11FRSjwYajBo0ZLZ19R V66O9ZuFwfuaBTulUH+ PHRhYmxlIHdpZHRoPSc gCOLvNqQlcDmnTX1hEm 9yZGVyLWNvbGxhcHNlO dMxf8ewJADsDSgfOU4z qPhwN0NeiAQ2YNNfk1y 5Kw66S43gW2DshAQ+PG HbnTO9nCP5eR0xEeBaS iU8FZywS292GfQwuQJa Pprkc6qgm7buzAt0JwM rIIKgtkGefTrhKUP6q3 HqXi53F44tDBdkTGHuB JXuXGEdVKYzxCkivv2l fO3nJt9+QBDxtLV0nOV 3mO8yEyKaTnV1ZDxaZ2 98WjZveHKnEybzZ45oL 3JvdXA+WVHsCke7ZMUy iCjpZI1trBRjNBiuPx2 gWHR6HoKbSgMeXWzfI9 TsGLMsdgeaffqzfSQ1Q LUyZCIkyF66Wo3dnAbl Hw4dIQVvDZJ0EMZgxDL vU3IjpP0vMtTkVUOrTK SdW4KokFMhPObaS313L ErgVaH1VOPswdDyW0Ue EBVigObrMhO5i9R8Hv5 UbBuajGDsRT4aMdHfPN t8Z7RoHzv1ZSIbiXvaJ Q0daFWfLYefRp4svSzq lCqbVU7eUYBnxksai07 7GcSjc5quZNTfxOQfTR uhKJK8M18wx5C1FCFaX OSzAGW9wCC7iR2kbIlr bjogbGVmdDsgdmVydGl wIVdxKVmnE552KNXpbW lpMyHANmc7G5VxZrl4O TOufDayAM8axHFwZCvb Rc8ldIlreCfjTF0qFFH ptxeez397XeAle2qbFY PxgJSyTYtrYCU3P96ph 3N8HQPvCXTwZEX8gUJ2 pW4rqUvsiwcejKDbxEt gdmVydGljYWwtYWxpZ2 56KPTckGngKc5SGcx2O 7FcGgw1KKLfjJdhNZ3f zHYxNNpiBn3hlBrqmPj pLE7yNSBwhphhr069Me Nlg6ayEMIvyHZaPBwfG YK3T80or3I5FJRjXHPv HSP1gUJ9qE5ucXecbdl gbGVmdDsgdmVydGljYW xbRUzdR213KWKvvMmsI lBheWVyOjwvdGQ+PC90 pn09D9CpFevgUuw4XUU wBTP5iDY2fO9tDDDeDE nbf2I4gVG9E5AmdeHxz n0xa8pxFCApEQopS01d bGF (more content not included)... [facility] Provider Orderson 02-04-2021 Provider Orders [id number] [place] [facility] Post Vason 02-03 Post Vas Screen None [facility] Comment on above: Performed By: #### 1 [id number] #### [facility] (DEFAULT) [address] [place] [address] Semen WBC 0-2 [facility] Comment on above: Performed By: #### 1 [id number] #### [facility] (DEFAULT) [address] [place], [place] [id number] Coding Summaryon 01-28-2021 Coding Summary HTMLBase 64 VmpxnixuHAn2wSg+PGh lYWQ+PV4IZLVoE54ajK CxqR9FQ6wXOH1NWRSNY QPBEZ3DTF2bdTE1JAtl T0XyhwLg MuvesKXjUP48SEx1RZP 2kIffTClmmM8qeXQmW1 s8TePsVQ55fI67PAcmN MLvVqP7EfQwxdtwnGVq Q6zhInCeoXHmSvd+PHR hYmxlIHdpZHRoPScxMD WxSrDmePfnTP5pGp8sX GVyLWNvbGxhcHNlOiBj r0rsMVLyQZfsGD9uoRg zZ7ZenVF6ALAbv9n1Ln 48dHI+KOLyYTF2lGujN Sons341YmFrz6spBOF9 sNXqOKuoGTR6G56qs4O 3RQUgMTToUUN0hGC0zN 0xyDnwtbafP6JwhVOxC uC8CTJ4kOXcbG9wlKrj agsfcN7gDfp+I51JZW8 SERBWUB9UGqe4M9BwRw wvdHI+UI13TAIgTJ86f WWzdSZkv6lsgIt8OcSt FXHbJFG4sUwgZWxtm4I vHTPnB15liEMcj1G1MS CfqPyidGTzQdPpbKM9j J0lFMltpkkyn0xzozjh Nbboh4wzre93fU12K93 nRIngNHNdLVP4MHVdNS AuxRhnmy6gzN6nAt0+I Mkay6qru5uzhNi2VbVp XODrstVsxFxjQCY2l8K dHz57O0IchGujb1AoQf h5ov98yZSbj3Z9oPW7V AksRNOjhJ7jJBvtQyP2 ZKLzFqYneT93cKYmDNf oWi6fnClpgAzcXJ0hMQ GfqmxgJVSuhM0aWRDez KJrvGykWC1pMNYsxwlw o125ZsBkKUJ1FSWdcXO hL3LvlM5qIeSlQGFsCJ AhU4ChlFEnILtvD130S IsqLbZ8GEDxhhGxU0Fp IRCysEjcOcB3w3B1Mw9 Pe6IvzbiqQCR6OQorXR D9ZdP2TwZlGcE4D8QmY ac6BMOeiGtySZ4tF0Nv TVNqcvwmuelbqBW1NMF yLSIqgC85jCCcFSbtLm 5hy2N6h139TZNnUJOyo O68Js1jhEqwXNUdzXJF rO8nizdha4vjrtxeFfM dPBQgPJv6WAa6SWBxyA heExXjWCL1YpM5ZNV3o OAsoX7bpYoyntjhbB0f Oyc+B33xyH6iLAR0RKY 1mzlvPWPypvGcZI16PX 03N4VbFynfiZJkyCR+P KFbejXiqHbgPY7lToVk m6xvv9GeOJokY4HfFGF oEZxyPjx4ZZFxBTA6jM U4bP9gTSYoSBfiy6N0t PM8O1NnspHfxs1rm7ob GYKlQPhwI07pcAWnw6O 1MIZwvBR4VBZjyLeuJy AoeB25Krt+PGNvbGdyb 6XwPzxxe1uxx3qbsVs9 IjMwJSIgdmFsaWduPSJ 8e1ToYv07P49tQSliMA RoPSIxNSUiIHZhbGlnb d1yiC3vXe9+PGNvbCB3 wOH9aU1yWKNqJgS7WWf sA061CdZclFNfLhdfo4 avh9larGt8YnNzHCUbi qRgeUxsKRY1f0GuXr99 A32qGTihAYWnHFMaXKQ aFGAbeVwdgj3tpM7cRo 8+HD2yb1lwju99tS28z HI+MZZeWSK7wMrlRCxw YOVdrC7tDFhpDfU3HKH wHeThbZ19wNLsOXphDd 3bvGvljOcbQM6pCSIyo qrua422UaJdv8osNUCg kKMkYNniCLH1P65jv0Z 6RXYuYMDkMWW5xKY9aG 1hbGlnbjogbGVmdDsgd tRskFpkDIheOGggN256 IHRvcDsnPlBhdGllbnQ gXdKxKCe1T1VbOpf2LO NrdYvaJP2idMJlUIztH m6pzPzmgFriED1bTJIr fdrnf914TsKxn1rpFOU cqQXySKpxXIY8N05qn3 J8TGXwDRDaNND0sVO2f O8erOgqapgbwJEnlBht deOjyLjaUGbjOVryR51 6IHRvcDsnPkJpcnRoIE OqxYS9QF78PG70iAShh 1N2cXH5H4IxPYRraskj asyvuVA9DFJyMXArgF2 6Na9wpMqzBf4hFTWgAU W5NILvcVZvF2MpxR9nP dMaKENuSLSxO6ZgaPOr VJptG256WZgyAqR3LHD ftnOfK7ObQVKlaQixYp V1n0Z4Za4ST3Z5EM23U P90aWHhr8P7kAO8C3Bj ENAlnbuzbaqeuIW7WYX iFKGggU41Ub6koAmpRk 5eJRYlZCL4KSGyqGVgH 6NwhQ4qPkHcGXWhDXLn G1QfeREpMIpzL843UCc pNvQ7RPWijxLjT0KvUB BphUhrOzX2z7D6Jg7HS Hy5AC03MF34sOItq3F4 bVE7D8YiZICsbhihpwc lhGG4HKRuPJAkeI49Ub 5kgWohNr7eGGLwQRO8N KUoxEAmM5VjxM5zHgSg WNBxILElS5EvoCErGFq vD274JGziIpI1ASLvry SwJ5IqOYCsvFwhFtB7u 7C8Fo2IBHGdPR79TBM6 lOB4WS03TR53B7NrVto vdGFibGU+PHRhYmxlIH dpZHRoPScxMDAlJyBzd NesZN2qLg1vLDZdDWDo kGnexOFtQlWvg4rxUDZ mZNbtUP1hlElnS9RdaA V9UCLar2x1Hx30H76kI 3JvdXA+BGTnkXF2mND5 qN4hJuJyJxH0GSmaE96 8JuYypWDlPsuwh6nal1 shbXc3VtU9IVYumsZif XoyFMO8j2GmBo01R27a IHdpZHRoPSIxNSUiIHZ joOwhmq2rrC2oUu4+PG CowWD1jZI4uK9cJnVjK oS1AGagG056HdHwmHIv Fqjnr9kct5ncwFt7ThW sAPHlmuAujXtyLXS6t9 PsOk42C0XnsQhem5XnO kk4en05fPVhg5H7cSK1 C0YoSXAqymgrhFPvqDw uVD0eZVAuhrxeBYShnC 5yQIYfH6h5UtSvKfM2B BcvI8XlipV9GIBasQMe IConBZM2H89hc7Q1SGF xVMSjELT8wBX2bG6omD lnbjogbGVmdDsgdmVyd GteZOhcSVvgF376VEXl zTvaRCZszX3lGSPeeJU akGciEP3oOJYcogsyWg hBTEwsIEpBUkVEIFNDT 1CPTK09RV46oGZqy7M7 nWD5K2XrAFAigxabswf hnJK4MFUbGQSdzY06eU UaLXhiHr9gd5C6l955D BWvKPPyzQ43Jk3bnQhf TYXwvFTSsM4hurksm1h lwvoxLrTgUXFbNXo0SJ v5RYQmdIxqKiAkCIT3R bA6WHI1pDOehF3rwPnr psbpiI5zEiu+MDgvMTg iEYt2OhoafVE+PHRkIH I4mDuaQKigEPKblD6aO ATmL8j0LaLhYlK5PPcd G5HnEWWixtppJv71hK4 sDeTbVfH8KDosS2Aqqz D4HBYfoRHnZBhwMVB3C 61ng0W3PRSqUJBvITT9 lYQ4eX5fxNxwbjvckMS mdDsgdmVydGljYWwtYW bcI335DLJuqBzbMpOjA ObjBURfIJ78ID73rXXl p4W4jIS1B5EmPYAnskg ajwmtfVM0KLHvCWPgbE 47xITsVVowTv4zw7P2k 433PSYyEMBtqJ76Lw1s zWgwBGQowRWCsH0ytwy xt8mvqyckTbDnZEQsPW n9HDu7IRBftCyfFcRhL NB5ZxR2ZWA4iCKauO8h vEowjofbmH1jAgz+TUF MRTwvdGQ+PHFwFYZ5mM ivKFjmEJIyyI1hLKAjP 5x8NdNrDxB4WNcuW6Sh NIQtdshySf31lS6qLfX vCcL1JWrsZ9KrbhR1PX SlkDSpCQadZCP5V39bm 0P3NFGlXPUdRGT4nOU5 xI5atWsuiajuzZZdxUq gdmVydGljYWwtYWxpZ2 07ZSImmRdgCr0OTE04U C62K2DkFoyirJYcsNB+ PHRhYmxlIHdpZHRoPSc nBNHaRmGtnUcjPP2uGn 9yZGVyLWNvbGxhcHNlO xHlb0gwYYLhPTexJM7n iQnqO2LhgLS5RJYam1n 3Nb57H15mA0RdtZM+PG WrjFJ9mYO4qY1qCxXnZ fD2TEpiY218VkEhiMQf Bgmvj7dkp8rhxAn7WgD yPHLykwXzqKrhXGZ7g7 UmTf96R85sMPhhMWIoI RTgSGWxPJFdgPkbxo2e oO8iWd1+SOMpvED3nHV 3pL2qVnMqMhN9XThsN7 96PlWuoSXvCjyeV99nJ 3JvdXA+YPUcEru9GMIg rMuvLK9dnDFoFJfaJc7 fQSZ3WrFqBpVpQPyiQ8 NcUSWblnnxyebxfIV9F VXeZWTkvL01Qn0lxYbw Po9aYGFxVDC8FEGmmHK lN3EnuR1rTeJqFHYxXL YgO0FipJCfIMfaV913O FurEyA1WZFgcwYmV5Wu UUYzzAuuLsS5y5A8Rb0 KyHhigUHpLJ0rOnGkDD c8D1AjToa4RKDimMugH U5xzQVhLHffOc1wqXfk rThwZC6oMPJbldkrj71 3PkDyp5vqUYUuvDJgXV acWUC6V77bv3C6ADGwL MLhKEP4lZH5oJ7toNvn bjogbGVmdDsgdmVydGl vOZktVTevO229SFUaqE oiGgLLMsl1J1EbBnm5A RZieTxaZP1nqEYfTZxh Ex0nyLwqwXvlQU6sBBI cdmmpf195BcEys5ypIP IbgWAkIOwrVTJ6G34ax 8J7JQGtEANxAPC0gZV5 gC8crUueufkmrJWoiUq gdmVydGljYWwtYWxpZ2 47GGJtcNveDa4DMxa2C 6UtGkd1ZOBpiQxbZV1g mFGtVPcqEk1btIiajRo jLD0sRSJsbwfcp745Ri Uuq8xrTGMnxKEgLBqdH YM4W03rv4I0CWSgRZRa NWO9gUW0gY1vuDqysyi gbGVmdDsgdmVydGljYW ccOViuQ376OORanUtpC lBheWVyOjwvdGQ+PC90 xi23P7LvLylpFzx9COI cWJG2rFP0qT7pRHMsXU iwd3S4kCN6P9SxlkEsl t2uo2gbBFHzMPoqS33c bGF (more content not included)... [facility] Miscellaneous Testing LCon 0 01-28-2021 Misc. Test Result LC COMMENT Invalid Interpretation Code [facility] Comment on above: Result Comment: Test Ordered: [id number] Post VAS Semen Analysis, AUA Volume 3.4 mL FU Reference Range: Not Estab. Total Immotile Sperm Note: x10E6/mL FU No sperm seen. Reference Range: <0.10 Total Motile Sperm Note: x10E6/mL FU No motile sperm seen. Reference Interval: 0.83d25Q2/mL Post-Vasectomy analysis was performed on an uncentrifuged specimen. Performed At: [facility] [address] [place], [place] [id number] Davey Nolan PhD Ph:[phone] Performed At: [facility] [address] [place], [place] [id number] Enmanuel Dawson MD Ph:[phone] Performed By: #### 1 [id number] #### [facility] (DEFAULT) [address] [id number] Provider Orderson 01-27-2021 Provider Orders [id number] 33#[id number] [facility] Miscellaneous Testing LCon 0 01-26-2021 Test Code LC [id number] Invalid Interpretation Code [facility] Comment on above: Performed By: #### 1 [id number] #### [facility] (DEFAULT) [address] [place] [address] Test Name LC Semen Analysis postvasect Invalid Interpretation Code [facility] Comment on above: Performed By: #### 1 [id number] #### [facility] (DEFAULT) [address] [place] [address] Vital Signs Date Time Vital Sign Value Performing Clinician Rj gonzalez 10-20-2022 09:30-0500 Body height 182.9 cm [facility] 10-20-2022 09:30-0500 Body mass index (BMI) [Ratio] 31.19 kg/m2 [facility] 10-20-2022 09:30-050 Body weight 104.33 kg [facility] Encounters Encounter Date Encounter Type Care Provider Facility Start: 03-11-2024 End: 03-11-2024 ambulatory RUGEN M WANDA Not Available Start: 11-05-2023 End: 11-05-2023 ambulatory RUGEN M WANDA Not Available Start: 07-03-2023 End: 07-03-2023 ambulatory RUGEN M WANDA Not Available Start: 10-20-2022 End: 10-23-2022 ambulatory RUGEN M WANDA [facility] Start: 10-20-2022 End: 10-22-2022 Subsequent hospital visit by physician [facility] Nuclear Room [facility] Nuclear Medicine Comment on above: RUQ abdominal pain Start: 09-27-2022 End: 09-30-2022 ambulatory RUGEN M WANDA [facility] Start: 09-27-2022 End: 09-29-2022 Subsequent hospital visit by physician [facility] Ultrasound Room [facility] Ultrasound Comment on above: Right [...] DTaP/Tdap/Td vaccine (2 - Td or Tdap) [facility] Start: 2022 Diabetes screen Diabetes screen [facility] Start: 03-13-2022 Influenza vaccination Flu vaccine (# 1) [facility] Start: 2005 Hepatitis C screening Hepatitis C sc reen [facility] Start: 2002 HIV screening HIV screen [facility] Start: 1999 Depression Screen Depression Screen [facility] Start: 1988 Varicella vaccine (1 of 2 - 2-dose childhood series) Varicella vaccine (1 of 2 - 2-dose childhood series) [facility] Start: 1987 COVID-19 Vaccine (#1) COVID-19 Vacci ne (#1) [facility] Payers Date Payer Category Payer Unknown [id number] [id number] 2022 Medicaid [id number] 1987 Unknown [id number] 2.16.8 [id number] 1987 Unknown [id number] 2.16.8 [id number] 1987 Unknown [id number] 2.16.84 [id number] 1987 Unknown [id number] 2.16.84 [id number] 1987 Unknown [id number] Social History Date Type Detail Facility Tobacco smoking stat [facility] Tobacco smoking consumption unknown [facility] Work Phone: Start: 1985 Sex Assigned At Not on file [facility] [employer] Phone: Evaluation note Note Date & Type Note Facility Evaluation note Diagnosis Right upper quadrant pain Abdominal pain, right upper quadrant documented in this encounter [facility] [employer] Phone: Evaluation note Note Date & Type Note Facility Evaluation note Diagnosis RUQ abdominal pain Abdominal pain, right upper quadrant documented in this encounter [facility] Phone: Summary Purpose Family History No Family [...] Procedures US GALLBLADDER RUQ Gabrielle Muñoz MD [address] [place] [address] Referral ID Status Reason Start Date Expiration Date Visits Re quested Visits Authorized [id number] Closed 09/26/2022 09/26/2023 1 1 Specialty Diagnoses / Procedures Referred By Aubrey t Referred To Contact Radiology Diagnoses RUQ abdominal pain Procedures NM HEPATOBILIARY SCAN W EJECTION FRACTION Gabrielle Muñoz MD [address] [place] [address] Referral ID Status Reason Start Date Expiration Date Visits Re quested Visits Authorized [id number] Closed 10/10/2022 10/10/2023 1 1 Additional Source Comments (unrecognized sect ion and content) No Status Records FoundNo Status Records FoundNo Status Records FoundNo Status Records Found INFORMATION SOURCE (unrecogn ized section and content) DATE CREATED AUTHOR 02/05/2021 [facility] DATE CREATED AUTHOR AUTHOR'S ORGANIZ ATION 10/09/2021 [facility] dical Specialist DATE CREATED AUTHOR AUTHOR'S ORGANIZ ATION 10/22/2022 [facility] DATE CREATED AUTHOR AUTHOR'S ORGANIZ ATION 03/13/2024 [facility] dical Specialists EPIC Reason for Visit (unrecogniz ed section and content) Specialty Diagnoses / Procedures Referred By Contac t Referred To Contact Radiology Diagnoses Right upper quadrant pain Procedures US GALLBLADDER RUQ Gabrielle Muñoz MD [address] [place] [address] Referral ID Status Reason Start Date Expiration Date Visits Re quested Visits Authorized [id number] Closed 09/26/2022 09/26/2023 1 1 Specialty Diagnoses / Procedures Referred By Contac t Referred To Contact Radiology Diagnoses RUQ abdominal pain Procedures NM HEPATOBILIARY SCAN W EJECTION FRACTION Gabrielle Muñoz MD [address] [place] [address] Referral ID Status Reason Start Date Expiration Date Visits Re quested Visits Authorized [id number] Closed 10/10/2022 10/10/2023 1 1 Care Teams (unrecognized sec tion and content) Graduate Student Instructor Relationship 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 [place] [address] PCP - General Family Medicine 09/26/22 Graduate Student Instructor Relationship 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 [place] [address] PCP - General Family Medicine [...] BE BASED ON THE PRIMARY CLINICAL RECORDS. [employer] provides no warranty or guarantee of the accuracy or completeness of information in this document.
== END 2024-05-12 07:48 | disposition home or self-care (01) ==
LOC: EC 07:47
PROVIDERS: PCP Family Medicine; Visit Provider Orthopaedic Surgery
DX: S62.51 Fracture of proximal phalanx of thumb (principal)
CPT/HCPCS: 73130

== ENCOUNTER 2024-06-09 07:56 | Outpatient (OUT) | payer MEDICAID, SELFPAY ==
--- NOTE | 2024-06-09 | XR_ITS ---
The [address] [address] Patient Name: QUAN MAHAJAN MRN: [id number] date: 1985 Sex: M Assigned Patient Location: Current Patient Location: Accession/Order Number: [id number] Exam Date: 06/09/2024 07:56 Report Date: 06/10/2024 10:34 At the request of: CARROLL CHAUDHARY Procedure: XR hand RT min 3V PROCEDURE: XR hand RT min 3V HISTORY: RIGHT HAND PAIN COMPARISON: XR hand right 05/12/2024 FINDINGS: BONES:Remote fracture of first proximal phalanx with lateral plate and screw repair. Fracture line is still visible and lucency within the marrow cavity continues to increase. SOFT TISSUES:No visible soft tissue swelling. EFFUSION:None visible. OTHER: Negative. XR/XR hand RT min 3V IMPRESSION: 1. Remote first proximal phalanx fracture with progression of findings suspected to represent nonhealing. 2. No hardware failure. Electronically authenticated by: CARROLL WALTON Date: 06/10/2024 10:34
--- OUTSIDE RECORDS SUMMARY | 2024-06-09 08:11 | XMS_ITS | CCD ---
Author Organization [facility] Care Team Providers Care Investments Manager Name Role Phone Gabrielle Muñoz MD Primary [...] cholecystitis. Gallbladder ejection fraction is approximately 91%. [facility] EXAMINATION: NUCLEAR MEDICINE HEPATOBILIARY SCINTIGRAPHY (HIDA SCAN) WITH EJECTION FRACTION. TECHNIQUE: Approximately 5.4 millicuries Tc99m Mebrofenin (Choletec) was administered IV. Then, dynamic images of the abdomen were obtained in the anterior projection for 60 mins. A right lateral view was also obtained at 60 mins. Slow infusion of 2.09 mcg cholecystokinin was administered intravenously over 30-60 mins. Images were obtained in the GRENADIAN projection and regions of interest were drawn [...] range is based on a limited study. [facility] Jerry Pimentel MD - 10/20/2022 EXAMINATION: [...] 30-60 mins. Images were obtained in the GRENADIAN projection and regions of interest were drawn [...] cholecystitis. Gallbladder ejection fraction is approximately 91%. Compliance Control Phone: Radiology Study observation (narrative) Compliance Control Phone: NM HEPATOBILIARY SCAN W EJEC TION FRACTIONOrdered By: Jerry Armstrong on 10-20-2022 Compliance Control Phone: NM HEPATOBILIARY SCAN W PHAR MACOLOGICAL [...] 30-60 mins. Images were obtained in the GRENADIAN projection and regions of interest were drawn [...] No evidence of right upper quadrant ascites. [facility] Negin Ibarra MD - 09/27/2022 EXAMINATION: [...] ascites. IMPRESSION: Unremarkable right upper quadrant ultrasound. Compliance Control Phone: Radiology Study observation (narrative) Compliance Control Phone: US GALLBLADDER RUQOrdered By : Negin Bustillos on 09-27-2022 Compliance Control Phone: Q - CBC W/DIFF AND PLTon BASOABS 53 cells/uL Normal 0-200 [facility] Comment on above: Order Comment: [facility] performed at: [employer], [address] [place] [address], [address] [place] [address], [phone], Him Director: Otto Nuñez MD [facility] Date/Time: [id number] [facility] Results Received Date/Time: [id number] [facility] Reported Date/Time: [id number] Performed By: #### 9 68T, [id number], 42A #### [facility] [address] [place] [address] Basophils/100 WBC (Bld) 0.9 % Normal [facility] Comment on above: Order Comment: [facility] performed at: [facility], [address] , [address] [place] [address], [address] [place] [address], Him Director: Otto Nuñez MD [facility] Date/Time: [facility] Results Received Date/Time: [facility] Reported Date/Time: Performed By: #### 9 68T, [id number], 42A #### [facility] [address] [place] [address] EOSABS 271 cells/uL Normal 15-500 [facility] Comment on above: Order Comment: [facility] performed at: [facility], [address] [facility], [address] [place] [address], [address] [place] [address], Him Director: Otto Nuñez MD [facility] Date/Time: [facility] Results Received Date/Time: [facility] Reported Date/Time: Performed By: #### 9 68T, [id number], 42A #### [facility] [address] [place] [address] Eosinophils/100 WBC (Bld) 4.6 % Normal [facility] Comment on above: Order Comment: [facility] performed at: [facility], [address] , [address] [place] [address], [address] [place] [address], Him Director: Otto Nuñez MD [facility] Date/Time: [facility] Results Received Date/Time: [facility] Reported Date/Time: Performed By: #### 9 68T, [id number], 42A #### [facility] [address] [place] [address] Erythrocyte distribution width (RBC) [Ratio] 11.9 % Normal 11.0-15.0 [facility] Comment on above: Order Comment: [facility] performed at: [facility], [address] , [address] [place] [address], [address] [place] [address], Him Director: Otto Nuñez MD [facility] Date/Time: [facility] Results Received Date/Time: [facility] Reported Date/Time: Performed By: #### 9 68T, [id number], 42A #### [facility] [address] [place] [address] Hematocrit (Bld) [Volume fraction] 50.9 % High 38.5-50.0 [facility] Comment on above: Order Comment: [facility] performed at: [facility], [address] [facility], [address] [place] [address], [address] [place] [address], Him Director: Otto Nuñez MD [facility] Date/Time: [facility] Results Received Date/Time: [facility] Reported Date/Time: Performed By: #### 9 68T, [id number], 42A #### [facility] [address] [place] [address] Hemoglobin (Bld) [Mass/Vol] 17.3 g/dL High 13.2-17.1 [facility] Comment on above: Order Comment: [facility] performed at: [facility], [address] [place] [address], [address] [place] [address], [address] [place] [address], Him Director: Otto Nuñez MD [facility] Date/Time: [facility] Results Received Date/Time: [facility] Reported Date/Time: Performed By: #### 9 68T, [id number], 42A #### [facility] [address] [place] [address] Lymphocytes (Bld) [#/Vol] 1.611 10*3/uL Normal 850-3900 [facility] Comment on above: Order Comment: [facility] performed at: [facility], [address] [facility], [address] [place] [address], [address] [place] [address], Him Director: Otto Nuñez MD [facility] Date/Time: [facility] Results Received Date/Time: [facility] Reported Date/Time: Performed By: #### 9 68T, [id number], 42A #### [facility] [address] [place] [address] Lymphocytes/100 WBC (Bld) 27.3 % Normal [facility] Comment on above: Order Comment: [facility] performed at: [facility], [address] [place] [address], [address] [place] [address], [address] [place] [address], Him Director: Otto Nuñez MD [facility] Date/Time: [facility] Results Received Date/Time: [facility] Reported Date/Time: Performed By: #### 9 68T, [id number], 42A #### [facility] [address] [place] [address] MCH (RBC) [Entitic mass] 31.3 pg Normal 27.0-33.0 [facility] Comment on above: Order Comment: [facility] performed at: [facility], [address] [place] [address], [address] [place] [address], [address] [place] [address], Him Director: Otto Nuñez MD [facility] Date/Time: [facility] Results Received Date/Time: [facility] Reported Date/Time: Performed By: #### 9 68T, [id number], 42A #### [facility] [address] [place] [address] MCHC (RBC) [Mass/Vol] 34.0 g/dL Normal 32.0-36.0 [facility] Comment on above: Order Comment: [facility] performed at: [facility], [address] [place] [address], [address] [place] [address], [address] [place] [address], Him Director: Otto Nuñez MD [facility] Date/Time: [facility] Results Received Date/Time: [facility] Reported Date/Time: Performed By: #### 9 68T, [id number], 42A #### [facility] [address] [place] [address] MCV (RBC) [Entitic vol] 92.0 fL Normal 80.0-100.0 [facility] Specialist Comment on above: Order Comment: [facility] performed at: [facility], [address] [place] [address], [address] [place] [address], [address] [place] [address], Him Director: Otto Nuñez MD [facility] Date/Time: [facility] Results Received Date/Time: [facility] Reported Date/Time: Performed By: #### 9 68T, 14656M, 42A #### [facility] [address] [place] [address] MONOABS 726 cells/uL Normal 200-950 [facility] Comment on above: Order Comment: [facility] performed at: [facility], [address] [place] [address], [address] [place] [address], [address] [place] [address], Him Director: Otto Nuñez MD [facility] Date/Time: [facility] Results Received Date/Time: [facility] Reported Date/Time: Performed By: #### 9 68T, [id number], 42A #### [facility] [address] [place] [address] Monocytes/100 WBC (Bld) 12.3 % Normal [facility] Specialist Comment on above: Order Comment: [facility] performed at: [facility], [address] [place] [address], [address] [place] [address], [address] [place] [address], Him Director: Otto Nuñez MD [facility] Date/Time: [facility] Results Received Date/Time: [facility] Reported Date/Time: Performed By: #### 9 68T, 36144I, 42A #### [facility] [address] [place] [address] Neutrophils (Bld) [#/Vol] 3.239 10*3/uL Normal 6659-3346 [facility] Comment on above: Order Comment: [facility] performed at: [facility], [address] , [address] [place] [address], [address] [place] [address], Him Director: Otto Nuñez MD [facility] Date/Time: [facility] Results Received Date/Time: [facility] Reported Date/Time: Performed By: #### 9 68T, [id number], 42A #### [facility] [address] [place] [address] Neutrophils/100 WBC (Bld) 54.9 % Normal [facility] Comment on above: Order Comment: [facility] performed at: [facility], [address] [place] [address], [address] [place] [address], [address] [place] [address], Him Director: Otto Nuñez MD [facility] Date/Time: [facility] Results Received Date/Time: [facility] Reported Date/Time: Performed By: #### 9 68T, [id number], 42A #### [facility] [address] [place] [address] Platelet mean volume (Bld) [Entitic vol] 10.5 fL Normal 7.5-12.5 [facility] Comment on above: Order Comment: [facility] performed at: [facility], [facility], [address] [place] [address], [address] [place] [address], Him Director: Otto Nuñez MD [facility] Date/Time: [facility] Results Received Date/Time: [facility] Reported Date/Time: Performed By: #### 9 68T, [id number], 42A #### [facility] [address] [place] [address] Platelets (Bld) [#/Vol] 296 10*3/uL Normal 140-400 [place] [facility] Comment on above: Order Comment: [facility] performed at: [facility], [facility], [address] [place] [address], [address] [place] [address], Him Director: Otto Nuñez MD [facility] Date/Time: [facility] Results Received Date/Time: [facility] Reported Date/Time: Performed By: #### 9 68T, [id number], 42A #### [facility] [address] [place] [address] RBC (Bld) [#/Vol] 5.53 10*6/uL Normal 4.20-5.80 Tyrell li [place] [facility] Comment on above: Order Comment: [facility] performed at: [facility], [address] [place] [address], [address] [place] [address], [address] [place] [address], Him Director: Otto Nuñez MD [facility] Date/Time: [facility] Results Received Date/Time: [facility] Reported Date/Time: Performed By: #### 9 68T, 10906C, 42A #### [facility] [address] [place] [address] WBC (Bld) [#/Vol] 5.9 10*3/uL Normal 3.8-10.8 Terrance mackenzie [place] [facility] Comment on above: Order Comment: [facility] performed at: [facility], [address] [place] [address], [address] [place] [address], [address] [place] [address], Him Director: Otto Nuñez MD [facility] Date/Time: [facility] Results Received Date/Time: [facility] Reported Date/Time: Performed By: #### 9 68T, [id number], 42A #### [facility] [address] [place] [address] Q - COMPREHENSIVE METABOLIC PANEL W/EGFRon 10-07-2021 Albumin [Mass/Vol] 4.4 g/dL Normal 3.6-5.1 Terrance mackenzie [place] [facility] Comment on above: Order Comment: [facility] performed at: [facility], [address] [place] [address], [address] [place] [address], [address] [place] [address], Him Director: Otto Nuñez MD [facility] Date/Time: [facility] Results Received Date/Time: [facility] Reported Date/Time: Performed By: #### 9 68T, [id number], 42A #### [facility] [address] [place] [address] Albumin/Globulin [Mass ratio] 1.7 {ratio} Normal 1.0-2.5 [facility] Specialist Comment on above: Order Comment: [facility] performed at: [facility], [address] [place] [address], [address] [place] [address], [address] [place] [address], Him Director: Otto Nuñez MD [facility] Date/Time: [facility] Results Received Date/Time: [facility] Reported Date/Time: Performed By: #### 9 68T, [id number], 42A #### [facility] [address] [place] [address] ALP [Catalytic activity/Vol] 42 U/L Normal 36-130 [facility] Comment on above: Order Comment: [facility] performed at: [facility], [address] [place] [address], [address] [place] [address], [address] [place] [address], Him Director: Otto Nuñez MD [facility] Date/Time: [facility] Results Received Date/Time: [facility] Reported Date/Time: Performed By: #### 9 68T, [id number], 42A #### [facility] [address] [place] [address] ALT [Catalytic activity/Vol] 19 U/L Normal 9-46 [facility] Comment on above: Order Comment: [facility] performed at: [facility], [address] [place] [address], [address] [place] [address], [address] [place] [address], Him Director: Otto Nuñez MD [facility] Date/Time: [facility] Results Received Date/Time: [facility] Reported Date/Time: Performed By: #### 9 68T, [id number], 42A #### [facility] Default [address] [place] [address] AST [Catalytic activity/Vol] 16 U/L Normal 10-40 [facility] Specialist Comment on above: Order Comment: [facility] performed at: [facility], [address] [place] [address], [address] [place] [address], [address] [place] [address], Him Director: Otto Nuñez MD [facility] Date/Time: [facility] Results Received Date/Time: [facility] Reported Date/Time: Performed By: #### 9 68T, 27294X, 42A #### [facility] [address] [place] [address] Calcium [Mass/Vol] 9.5 mg/dL Normal 8.6-10.3 [facility] Comment on above: Order Comment: [facility] performed at: [facility], [address] [place] [address], [address] [place] [address], [address] [place] [address], Him Director: Otto Nuñez MD [facility] Date/Time: [facility] Results Received Date/Time: [facility] Reported Date/Time: Performed By: #### 9 68T, [id number], 42A #### [facility] [address] [place] [address] Chloride [Moles/Vol] 103 mmol/L Normal 98-110 [facility] Specialist Comment on above: Order Comment: [facility] performed at: [facility], [address] [place] [address], [address] [place] [address], [address] [place] [address], Him Director: Otto Nuñez MD [facility] Date/Time: [facility] Results Received Date/Time: [facility] Reported Date/Time: Performed By: #### 9 68T, 70979A, 42A #### [facility] [address] [place] [address] CO2 [Moles/Vol] 26 mmol/L Normal 20-32 [facility] Comment on above: Order Comment: [facility] performed at: [facility], [address] [facility], [address] [place] [address], [address] [place] [address], Him Director: Otto Nuñez MD [facility] Date/Time: [facility] Results Received Date/Time: [facility] Reported Date/Time: Performed By: #### 9 68T, [id number], 42A #### [facility] [address] [place] [address] Creatinine [Mass/Vol] 1.04 mg/dL Normal 0.60-1.35 [facility] Comment on above: Order Comment: [facility] performed at: [facility], [address] [place] [address], [address] [place] [address], [address] [place] [address], Him Director: Otto Nuñez MD [facility] Date/Time: [facility] Results Received Date/Time: [facility] Reported Date/Time: Performed By: #### 9 68T, 61636F, 42A #### [facility] [address] [place] [address] eGFRAA ([facility]) 108 mL/min/1.73m2 Normal > OR = 60 [facility] Comment on above: Order Comment: [facility] performed at: [facility], [address] [place] [address], [address] [place] [address], [address] [place] [address], Him Director: Otto Nuñez MD [facility] Date/Time: [facility] Results Received Date/Time: [facility] Reported Date/Time: Performed By: #### 9 68T, [id number], 42A #### [facility] [address] [place] [address] eGFRNAA ([facility]) 93 mL/min/1.73m2 Normal > OR = 60 [facility] Comment on above: Order Comment: [facility] performed at: [facility], [address] [place] [address], [address] [place] [address], [address] [place] [address], Him Director: Otto Nuñez MD [facility] Date/Time: [facility] Results Received Date/Time: [facility] Reported Date/Time: Performed By: #### 9 68T, [id number], 42A #### [facility] [address] [place] [address] Globulin (S) [Mass/Vol] 2.6 g/dL Normal 1.9-3.7 [facility] Comment on above: Order Comment: [facility] performed at: [facility], [address] [place] [address], [address] [place] [address], [phone], Him Director: Otto Nuñez MD [facility] Date/Time: [facility] Results Received Date/Time: [facility] Reported Date/Time: Performed By: #### 9 68T, 67342M, 42A #### [facility] [address] [place] [address] Glucose [Mass/Vol] 85 mg/dL Normal 65-99 [facility] Comment on above: Order Comment: [facility] performed at: [facility], [address] [place] [address], [address] [place] [address], [phone], Him Director: Otto Nuñez MD [facility] Date/Time: [facility] Results Received Date/Time: [facility] Reported Date/Time: Result Comment: Fasting reference interval Performed By: #### 9 68T, 20040T, 42A #### [facility] [address] [place] [address] Potassium [Moles/Vol] 4.9 mmol/L Normal 3.5-5.3 [facility] Comment on above: Order Comment: [facility] performed at: [facility], [address] [place] [address], [address] [place] [address], [phone], Him Director: Otto Nuñez MD [facility] Date/Time: [facility] Results Received Date/Time: [facility] Reported Date/Time: Performed By: #### 9 68T, 62703D, 42A #### [facility] Default [address] [place] [address] Protein [Mass/Vol] 7.0 g/dL Normal 6.1-8.1 Terrance rn [place] [facility] Comment on above: Order Comment: [facility] performed at: [facility], [address] [facility], [address] [place] [address], [address] [place] [address], Him Director: Otto Nuñez MD [facility] Date/Time: [facility] Results Received Date/Time: [facility] Reported Date/Time: Performed By: #### 9 68T, 43056S, 42A #### [facility] [address] [place] [address] Sodium [Moles/Vol] 138 mmol/L Normal 135-146 Terrance rn [place] [facility] Comment on above: Order Comment: [facility] performed at: [facility], [address] [facility], [address] [place] [address], [address] [place] [address], Him Director: Otto Nuñez MD [facility] Date/Time: [facility] Results Received Date/Time: [facility] Reported Date/Time: Performed By: #### 9 68T, 09069C, 42A #### [facility] [address] [place] [address] TBIL <0.3 Normal 0.2-1.2 [facility] Comment on above: Order Comment: [facility] performed at: [facility], [address] [facility], [address] [place] [address], [address] [place] [address], Him Director: Otto Nuñez MD [facility] Date/Time: [facility] Results Received Date/Time: [facility] Reported Date/Time: Performed By: #### 9 68T, [id number], 42A #### [facility] Default [address] [place] [address] Urea nitrogen [Mass/Vol] 26 mg/dL High 7-25 [facility] Comment on above: Order Comment: [facility] performed at: [facility], [address] [place] [address], [address] [place] [address], [address] [place] [address], Him Director: Otto Nuñez MD [facility] Date/Time: [facility] Results Received Date/Time: [facility] Reported Date/Time: Performed By: #### 9 68T, [id number], 42A #### [facility] Default [address] [place] [address] Urea nitrogen/Creatinine [Mass ratio] 25 mg/mg High 6-22 [facility] Comment on above: Order Comment: [facility] performed at: [facility], [address] [place] [address], [address] [place] [address], [address] [place] [address], Him Director: Otto Nuñez MD [facility] Date/Time: [facility] Results Received Date/Time: [facility] Reported Date/Time: Performed By: #### 9 68T, 01630S, 42A #### [facility] [address] [place] [address] Q - Lipid Panelon 10-07-2021 Cholesterol [Mass/Vol] 224 mg/dL High <200 [facility] Comment on above: Order Comment: [facility] performed at: [facility], [address] [place] [address], [address] [place] [address], [address] [place] [address], Him Director: Otto Nuñez MD [facility] Date/Time: [facility] Results Received Date/Time: [facility] Reported Date/Time: Performed By: #### 9 68T, [id number], 42A #### [facility] [address] [place] [address] Cholesterol in HDL [Mass/Vol] 47 mg/dL Normal > OR = 40 [facility] Comment on above: Order Comment: [facility] performed at: [facility], [address] [facility], [address] [place], [address] [place] [address], Him Director: Otto Nuñez MD [facility] Date/Time: [facility] Results Received Date/Time: [facility] Reported Date/Time: Performed By: #### 9 68T, [id number], 42A #### [facility] [address] [place] [address] Cholesterol in LDL [Mass/Vol] 151 mg/dL High [place] [facility] Comment on above: Order Comment: [facility] performed at: [facility], [address] [place] [address], [address] [place] [address], [address] [place] [address], Him Director: Otto Nuñez MD [facility] Date/Time: [facility] [...] LDL-C. Kamaljit STONER et al. SAY. 2013;310(19): 5600-3129 (http://education.Apofore/faq/MFA773) Performed By: #### 9 68T, 79808A, 42A #### [facility] [address] [place] [address] Cholesterol.total/C holesterol in HDL [Mass ratio] 4.8 {ratio} Normal <5.0 [facility] Comment on above: Order Comment: [facility] performed at: [facility], [address] [facility], [address] [place], [address] [place] [address], Him Director: Otto Nuñez MD [facility] Date/Time: [facility] Results Received Date/Time: [facility] Reported Date/Time: Performed By: #### 9 68T, [id number], 42A #### [facility] [address] [place] [address] NON HDL CHOLESTEROL 177 mg/dL (calc) High <130 [facility] Comment on above: Order Comment: [facility] performed at: [facility], [address] [facility], [address] [place], [address] [place] [address], Him Director: Otto Nuñez MD [facility] Date/Time: [facility] Results Received Date/Time: [facility] Reported Date/Time: Result Comment: For patients with diabetes plus 1 major ASCVD risk factor, treating to a non-HDL-C goal of <100 mg/dL (LDL-C of <70 mg/dL) is considered a therapeutic option. Performed By: #### 9 68T, 13573L, 42A #### [facility] Default [address] [place] [address] Triglyceride [Mass/Vol] 132 mg/dL Normal <150 [facility] Comment on above: Order Comment: [facility] Testing performed at: [facility], [address] [facility], [address] [place] [address], [address] [place] [address], Him Director: Otto Nuñez MD [facility] Collection Date/Time: [facility] Results Received Date/Time: [facility] Reported Date/Time: Performed By: #### 9 68T, 41378B, 42A #### [facility] [address] [place] [address] Coding Summaryon 02-04-2021 Coding Summary HTMLBase 64 JudqqgrfVDi9sIg+PGh lYWQ+JG6IFSUaW87knE GonI1GJ5hIZR5TLSLOF BPMOI7SMR4bqQN0FPls I4UpzcId BgcnfVPnDT66CQf2YIU 3mQdlZTamjD9mzYRtX0 g2RiVsJD80qO78ROhxH BSoGlY1QcBeokrsdVSl J5paApKljJOlYgx+PHR hYmxlIHdpZHRoPScxMD AbMhHkuNglPG2qQe7nT GVyLWNvbGxhcHNlOiBj v4prMJPxBHxiPU0pwRn cR5LssUE2YCRfc9p5Nm 48dHI+WDUjEJU7jXfkM Kpxz207AqKfl7upXNP2 tEIiPLthUFC0D16gm6U 9SEUrLVVqWFB2hNF1fA 6cmKvutwtlL2RlzMFgA eT3TCF1xEWldL7hzIcj gtkztA9yOty+V80JEZ9 AAPNAEP8VMte8Q0GfMk wvdHI+VZ48TBFeCW66w NPqdMHwq2ervRz0JbRh XBSfWQU5wKgsKDzft5U tGGHbR37avNNfl0I1FK MznOfvqBMqRsNunOU9y F2rSTcslskgi8mxixit Frjep9jutk15lW14U88 yMIywZXKxIQD6YHSxPJ VswHmdms2kyW4mSs5+I Eyco4lfi3htmAz9KtAn OXEfiyJzaTfpYYQ6y2C qZu22U7SoaBlfh1GpBb u7kz57fVZxi0J8yFK9O SqoLCDpoT6hQMzhKsN4 IRMbItYyqW96rBBuTEe dXr3swKypcWhhTU7yLQ NktcwaLWFvtI4lYRYzp QQkkJunIY8aPWNmjacn g224BdIgHHN5HOYldJC qT9OckZ1dOiXvVWEqBV VwP0ZouPHnFPrnJ053P ZvrKuH6FIUyguJsI2Yn IQSziFeqVyH7r7O0Tz7 Bc4MppxlcTTV4OVwtQJ I1RyK2BjVuFxJ2E8MeO wx6DYKlyWmbUU9zL3Vs DOHyayyhanmwmBM3KKE bODBhsB78oZCgOMrvVx 4bi1B0q285CLDeFVMcs U94Av0epEilGQLrwFSV vA1nokrgx2gajsxlFnL uJUVlFDe5LOx7PPEpuU dbJmCkDYI9ToZ8SOM4w TMbuV6aiZkjbbijmS3f Oyc+Z76ymQ5aZQL7MGW 0pnzjQAJzpdOhSN82XA 42Y7FgXspxmGOmlJS+P SZgtwEedKprSZ9fUoCt d4ufl7QwKHztT6BbDPB tYLzgSjr6JGWsLRS4sD D5sS8oRQTrFMlfm7M3u LF9L2RurbEvtx6zp5li WIQmJYmvI41mgFXtt3Y 4NJOebCC8OIWehVxdKk MfdT99Rps+PGNvbGdyb 4TdAnqkc6oga3snqCv5 IjMwJSIgdmFsaWduPSJ 9g4GcOy12V77bPCpwPR RoPSIxNSUiIHZhbGlnb s3yqB6oFa3+PGNvbCB3 jHC7cK6yAZVxXaS7SAv eI277LwPjbGRdPekzy9 zkn1kemQw1MkVxUFTeo uBqaTwlNOI0h5IxPe48 W28uQBjtIXPzVAEkJYA bYVGxgPawkh3yeW7sAj 8+WF2rb8bopj75zH06f HI+ONRkJMY9dPtuMCrz JZLsfU3cNGycLaE5JUW wCtEbuG83nEXbOTmeNw 0sqDyasPpfUK5nCEOnn wyef053KoAdj5fiDPLz oQRqHTsjUWE0Z05pe1Y 9JZHxNSPkPKO5sPL4jN 1hbGlnbjogbGVmdDsgd uMccFmfADcpHKkcP117 IHRvcDsnPlBhdGllbnQ kAiRaHTb0G2SdZqt7UP LcyVomPW8rmWJbRQvnD l1weDrbzIvuJU6wSFNv kbmig657LhFry7uhXHS wtPOtHXlwQDE0R35sj9 Z8PZErNQKeXIP8eTG9d E2hbQumrlfzaBHjxRvj apTsvXitOWxdUKoxU07 6IHRvcDsnPkJpcnRoIE HgcFU4MV82NN98nJKkn 8J8pDN2F9YoDLNawtdc ckzaiAZ3HAXkFCYjlC1 4Sx5ubQwlZf0sPXQeMV M3UOXdcOLoA9XtdL6eD dAbCZKqBSTjK4FiiBFf TXuoO992MXcyIfV5HWA xpyAjA7BzOUIfvChnTq N0s2A1Vc6AU9W2QT27B O07eZJhy2U5pNE8X6Fw HQRuoopbbgwlsQW1JSF kMYXliN69Ww7leFyqAd 2lAAIzOQF0CUFmzZVgY 7TyxX1mTsKqBYFlBPHt X9SuoWAwWDowX203TOe hIkD2THXklhKvE4LoUF ZezBtzKbC9r7I8Em6RQ Hm4XX34YL91bIZqq0W2 mHE0H6UlCSXhajufxty ljBU2RNJuJQIkiK25Mv 1dgXrdHf0nJHWgKJW1U HIbuKUhM6IdqV1iSdHm WLFyERSeG5EemKKdVJt xL579KYonGnM6GTUejt AhA4RhQOXocBoqMmN1p 1O7Tq3BQMVpEH81ODO6 hJP4QQ88WJ69Q6MzZho vdGFibGU+PHRhYmxlIH dpZHRoPScxMDAlJyBzd XcpKH7oCw6zPNLyRVEb nMepsDDwXgZil7nuMJH cJDtlRT8xzKfpW0AooC F9VYMli5x9Dp08V52jR 3JvdXA+UFUwxKM7gLG6 jO7aXaFyZcW8USbzG22 5UbKxqDOzPgmur5ljr6 qoyVp2BoD3ISYowuEyp SdfGYQ4t0HqAm16L80p IHdpZHRoPSIxNSUiIHZ zdJpczr6veV3aBg6+PG AwnGA1nXF5bT3cZbJwY pS5TYebP729NiIhjOXu Sdegb5eyt0jffNj6KtM tXAFjarEcyXjeJQA7r0 AdHb50Y7StjZeck8WzO qm1eg24uENtq5I9nMN0 H4ZgAUKvqgztfXYleXh kKM2tQXLjbuxaJJVxmF 1wQLFwR4q8WrTbXzL6R MmrD6EpqiC9UDMrmBJo UEsrAEU8N01tu2F2RSJ qDVDvEVK3dEL3fT0xjJ lnbjogbGVmdDsgdmVyd PeaMWxyXDguY557QFMo xDaySFFjwC3bMTOdpDB azEskEQ8zEVJsvlwzKr hBTEwsIEpBUkVEIFNDT 1PCJA45SZ11sLNvx1M0 bMP9E1GqEXFbgdxoowu hlFX4PVIiNSKycP66xS HhYGtbTt5ka1T1s936I OIsOPUziZ03Hf7xgMts TIXbaPYYzL1yaqary6i spektQdCmWDZfUDi7UM m5QYSqhYsdKyKaJEI4A pZ3PXW6mOPuxE7foZbc rbrtcM8xDvz+MDgvMTg nGFm6WfchaUH+PHRkIH C7xZwjBKhaZGHejO1cP YGuD4i9HaPeEeA0VVpd V6ZpMIJpgwiqJk34sE0 wHjRlOiZ5FFemO3Rhrp T7NARowZPdKTgxLAF1Y 60gf8I2BNPqRWBbNXO0 yXM0jU5kzBgeupghqRN mdDsgdmVydGljYWwtYW gfZ130DICjyRseJeQiX UozEHHxET33NI80pIJn m7D5jQX5F1PiBPCkerp dvfmwrWP0YYMdDRDmvT 11uKPoNReeYz3nf2H5y 688ZFPvQUKyzT49Co0n jWzuZOKxiLOCiG9ismz mi5xzxgjbNwLgPXBaTA t7KQo5ZSJyaSzbZjTbB LO6HbY2TRL9oNMqiK6k wDvzwoljvT1qSdd+TUF MRTwvdGQ+GSIrZFA9kA iwGStmYTCzjD5mSKXuM 9x9RmNlDhO6HDroL8Um NFKhccgrDp84yL7kArH iRoN6SBroX9RmzdX0JY LunIAjSJeiDEY7H82ht 4O1VMZgZDLoBUU2wGT7 qZ4uxCuzjuobzGGpwKp gdmVydGljYWwtYWxpZ2 79DGAlcPjoPa2ILZ25M E54E7DiNblohIEdjCA+ PHRhYmxlIHdpZHRoPSc jTXUyZcBcpEosRE7uLz 9yZGVyLWNvbGxhcHNlO dObi1tgFHNlXMmpEX8u dYbqT9TqiLI9MWDst1x 6Zl46A46vL7CshVR+PG HpxVV4nRU6sA6yPtZfZ kC8JAzeR806ZjNrhFHk Jawnc4kuz9ykzIf5UjH tJFBaqqPkiAugJKA7p2 PwJv87P09yRAjhTAKnP WGtIZGuZYTzmHoeap7n wT6eZb8+XJHobJP5kXG 3hW3uCaKkUoL9DMbqG3 39JkQtvEUcGnlxX76nD 3JvdXA+ECGtHzy5VWGv qTrhMY6peZFsQPchZj5 yQCF3QzYvAyItDHugU1 JiFWWpbqkunigwhWA1U YUkPGGeqI75Si2pgDmk Mj7qWMPqVFH6TGKycEP jY7XnrN7rCqNhZWFyMW GvE8AneILoXRklY992Q AbsAsM0QEUdkxZwR9Cm YGRftLaoXgP8s2S4Io1 DzVpzhFUuFY2rMcNiAS d3U0TeDjq7VXPqtSzlI B1xxCNaSHqnXz8ygIdt iLxaPN7oMRKawvhmt77 1NsGmo7vkFRRzfPQgDQ ycBOD5K89il2B3NNJaC MLkKGE8dSW6cT4itPiw bjogbGVmdDsgdmVydGl sCUecYEsbA792BLDolN mwPgNLAgt8R7EbZmb2W FXnzEkeTJ7trWUvSMsp Tt2yoYkyjRqzJG3hUJL qwpgfo450YwLhg0suNI ScnJJwUUstJNX4Z34fj 9U8QTGgKCLmVRL6eAE0 dD0tvVqmsivvaHConJt gdmVydGljYWwtYWxpZ2 89BUPmrJaxCc7KZgn8I 3XjXms0HJVckLhuGK1k lGJhLUoeQy7wcTopqXp iMM9hDUCshfygy428Il Zpm4lfUSBpnOGsECbgJ TE6I24bu7E1JEXjLESo LQR8zYI0eF2ffLdlqma gbGVmdDsgdmVydGljYW beDDadP423FYCmfMngA lBheWVyOjwvdGQ+PC90 xg69O7SnEvkzXnp5OSO lFKR7nUE7sE8fOKMuDN add8I6zLJ8G0DasrNcp o1rv6cfYQQeLCkgT95i bGF (more content not included)... [facility] Provider Orderson 02-04-2021 Provider Orders [id number] Post Vas Screen None [facility] Comment on above: Performed By: #### 1 [id number] #### [facility] (DEFAULT) [address] [place] [address] Semen WBC 0-2 [facility] Comment on above: Performed By: #### 1 [id number] #### [facility] (DEFAULT) [address] [place], [place] [id number] Coding Summaryon 01-28-2021 Coding Summary HTMLBase 64 XbozpizcIIc5tCm+PGh lYWQ+AS4REQBfY16hyG FhxM3TB0qIKS4SXTGAX QMMQH0LFE4csQT9HMon L8IylhRr MgfoaPFuST01NUy6PJI 5jBcyDHlhsB6mkBPuD7 e6PyPiIG77gQ79ANpdV XUjYbH5BdFywrsltRCe Z8eeMsVzySBiAqd+PHR hYmxlIHdpZHRoPScxMD FoRiMuiWpmAP9kLe8wW GVyLWNvbGxhcHNlOiBj j7idWXXyJCkfQP1ubBn cW2UqtDH9PCPud7n8Jw 48dHI+KRLwZJG2zJgfS Lxkh176MzCeo8jzTPV9 jBPfZRioQSF1F49ko4A 7TROyJYAdGBR1xYD0cZ 7oaFhdgwwuY8QjuZGxP uN5RVR5bJZrvQ2ebBgw poutsU7wSlt+R63YMK8 JHBUIRY3NOvc9Q5NlBa wvdHI+TR56OLGbDN58g GPucRDax8dzxNj7EqQr WOYwBIR1fTctOKyar3Q oVVSfF88glOLuu1J9SZ WwiVikhEGcVbXnyZT2j P6oDZoscmwlj3vyqlrg Ffuhv5flqi61qH74H55 qBThsKNUeJAD8DRDhTG IivLitlv6wzQ6sAg0+I Llns5yzv6cogFt2MqCn OCJgjuAtcIhgNUG2l8Z nGa13J2BquOrbb6KcUm x7tu37yAXwr4W9tJI7O EstSBIpsA5bVSjvEbL2 RPXqVkMtkN75aKNqINf bJq1brJklaRbcAK0iAM JyjywcKHEjeL3rFMEzg RYcqBxdVD6nFHTjabgd l456IiCbIFT8WQGuxFR yO6HwkG6gIxDvJXIjII VoZ2RtiVKoWWniW537N FbiBfP1STHjknPeF7Op YINumWspRxM7h3U1Xa4 Iv5IjnqflDRC9WXikTD J5AmB4MoIwInT2V4PsW wc9WBDsyDwiYK9xE6Yp DNLoioimjaoldJW7GLB dURIgbI26tXXmBQauMz 0eb8R7t184CUUsOSBtx C64Ii1jhZzaMPRzjXRP cZ2ektovx3ljosbyOlL iUEPrHPe7MMm7EQWreQ hpHhWlXPA0NzE3XKP1y CGoqW9efBoydfcavC3w Oyc+E04fvZ6aBFG6MVJ 9ohofHGVnyuWnXD48AF 92Z4KwBkudoGJkxNP+P PFxoyJhdCsmDM1nZaLr s6osy0DwSOfvO5UpPYW rABthEjp4IHKfLAK3zX B8eZ1hEDPhQOrvn2Y4s CN3Y9LqhsRhah3yh2rl NGTjFLkfR78rdTXnc5E 3HMFtlVY8GIChrVrcAi UexA65Cev+PGNvbGdyb 8KrGclkg5roj9hutDp6 IjMwJSIgdmFsaWduPSJ 3v3GvRp94X05xWMnhUN RoPSIxNSUiIHZhbGlnb o7zlC9gDm6+PGNvbCB3 wXS5kR1eJEKyHfI5EQf vA889PxJxbJNwKconr5 eda4iiwDx9ZzJyERWmi xBbdYdgHSS8q8AsDg39 A11sLAqoJBBqZPReNDL fBMNmkMepmk1ujM4xKj 8+NS6xc4hmat65fL21a HI+IJTdSXS4yHotDEfc KTJziK9nMEqzMoM8EZH aZyViuQ37dJAlZCbvDz 2tnWunrPixIX8mLNRjf owwm692HnZyk4wjPBIc mADqPQhiPOJ9K70gp8L 1MDJrHFTjXCS5kXG0qZ 1hbGlnbjogbGVmdDsgd qXoyOkeKFwyCRdeB163 IHRvcDsnPlBhdGllbnQ gKbDdMKy2F6XjTop4PE WquRiaSO0oeAAnKMroQ z1qcKoepYvxUR9rTBUn eriyq233SvKvc6ptOQL odMXjSNikSRZ3N70og7 V2VPEsXJUkWLE0qSO8c H5xjSnlhrydbYWedHvy zmTdzPqtYYehWFovJ14 6IHRvcDsnPkJpcnRoIE DxyGQ4LA21PQ07eHMhb 9K0rEY0L7DrNCFjvpyn nopqeXF5QKGnMDPhyU3 8Sf9ykJqdUa0iMYRyLB R0FRQzgIYdU6BkqC8wR hAmZBCxHXZeW8NzjFHi RUtrA614EJqbMzW3EVD cvgKiO3RkDUKiySvzEj Z2w3E1Pu7JX6I9EH08Q D16yVOsh5Y3hUJ9R9Su NBQzvjecovyrkTO1AYO iLQIopL08Qt0zpJctLy 3pTEDtCED2EWIclAMaT 2IqgL9zEtUmIEGjNADd P6KuhIMnQKmiW829NTx xWiN2IAWaduEwZ5PuUJ AmfBajXcU7g6G9Kz2EF Rg2RD26WJ15bAGsn3T0 hSH8P3LbRGClzumzklm vrVL4QYBsWWMtgH25Ei 3dzKhvUc4yMOHsMDR0P KBytMUuR1KseV0fGoPy DKAnVFHwA9QjkWNcLFg cM971EQmlSrC0KNAvwa QlB2NpSRDtgBqdZrG5m 5U6Ii0EZLUiIM62VOX6 cFI0IJ49EU75O8RuHhb vdGFibGU+PHRhYmxlIH dpZHRoPScxMDAlJyBzd EbrWB7gMl2yZBQjUGDw yVvguZBpKsLzx2seWQS oMAnqMQ2nePolC9OriK P1VLPdq0p2Nq42S04xV 3JvdXA+XOWafZM2wGG8 zF5uZtDhTyB5QFfxR20 9ViYghOSmYijyv9wln3 hofPh6QyF9BOHycsRrb TseCPI1a7JxBb13R31g IHdpZHRoPSIxNSUiIHZ sfUjxky7vgX0mGt1+PG AspBE5cGF0dL5yYaNeC tO5SBsvH205SyXnyEDv Poudp6bya7xmmSu1UeG nOGKiawUehPniIIO8y2 VeLg72C4JdiNuuo5FrJ ob8an30uGWlt5A0wVC6 Q0FxHEXdmggwmWOvfAr zGZ0gZOYjxtktINAtyS 5eLQXvK9z9ZuTeZtA8W DlgC8CrokY9UWKugLPv WSnhBWR1Q27ky6A7ILJ pBRDxHVE9rMT7rV7owJ lnbjogbGVmdDsgdmVyd WrlFNmmGIipX307CQHr gXjoCLVcsS1nESEpyOD eoLecQY2zCCUmycpzOq hBTEwsIEpBUkVEIFNDT 5BPLZ41CY48bSRvy4R8 hJW7A5OtYBSltdpanhf rlED1SDLoZQQaqD13cR NmFCktWl0kz9M9c899Q QKfDAOdxX44Tb5umDuh FIFauGACqG4fsoxew6n wvjncSgGqPSJnNIc7LJ i6SFWahCuqSaQhTVE5V yY0EPC3jZFuiH6ivCrl lwyhsY4wLua+MDgvMTg iKEi4EunftBS+PHRkIH E8sPlkGPjxTPJnoM7vV UNjV1n3RnZyFzG0XOnv P9HvPYEjcqjwBu07pG1 fEfGkTeJ5VUrtE5Juwc A7CXTubHTxOTvwAAR0Z 51gh4K8XVPeBMWiPJF1 uIS1dB2fmUwwrqmevVL mdDsgdmVydGljYWwtYW xaD773RXOyhHypPmVwJ TaqMCZhBJ41OK49nIAw o9U2bBB8N6MkFBMifcl bixenpSM3RDHmRQGvoU 14cPUcJWclMn3qz4D8h 643FRGuELAlpJ29Yj8o dIcwXYAkcDKEpX6kkqe ju0bregqqVxSdFNXiAV r1PFa4ZGPmhXbnCsPvG CO1JnY9NTK2tZQfbC4n fGnlzphwlU9sVub+TUF MRTwvdGQ+OOKfEUK9fT crKWquKHBneQ1mPMUcY 3u5WeMeNsK0UKvoX1Kx NYLitgliDh18tO5nHpQ uYzX4NUqtR8PdxdY5TU HquGLvVNfqSEK3G07ge 9N9UPXzNPUwWQJ2lYH4 bW8gyLqwqmhfkDAhqDs gdmVydGljYWwtYWxpZ2 80GBJvgRvdOo8JEI89Z P86T3AyMyetrEYceGS+ PHRhYmxlIHdpZHRoPSc bRBVeVrXvwLobKE8gWo 9yZGVyLWNvbGxhcHNlO fIuw6sdWDBzTHrmVL1x pXujC4UbtKZ6PAToa0c 7Vk29Z27dY7MioWC+PG FjfLD0pTJ0fC4dLrZtJ yD5MKmlX141HfYsdCYc Bzfab3sjm8pyhGy9XfQ gHKCavgYzuIyrACP7a7 AaQi94S57eGCbzLUZaV KIoFZGtZSQqbEjmpm4b iW5vJk5+GNDlaNP7iJK 7mU3aDbKsWuF9USjwR3 38KlCycGJfEybeQ48cO 3JvdXA+WITrQjt4PPRr lUutXQ9ehTQkWOniTg2 lNUK1KmIbAlHaOMrjG6 BqLOGjgkqjllfcdTS7C UVzQENftX06Zw4fqDmv Lt3nBHJjJUP0RBYuiYG mO1YeuZ3hHwWaHBNxQL RlS4PusETmYTbeH771O VmjYjH0ZXZbqiUfC5Mm KHWtbAyvGmD0p8M0Hj8 FmBxddDAjEB8yAsXmAG v6I1LzJim1ZLBukHjaF D4vgMLnOXnsOd0daQwd wNwhKH3aUUKvypxlm50 7CkHpe2mvWAHanQSyJA ytCTJ3C19hb5M9GVWrN PYhDKL0eAB9aD8rrAcs bjogbGVmdDsgdmVydGl rLOmkNLfxJ934KULinN ubDpAQVfm2N3QeHsy6V FLezOpxCE1mvKFlTCye Po0noSlsqJqrJC7pCIU vivmtv980GcPye2fxDP PfgLJhCHzkVRK6S69yr 4M9BNYyGVZsLUB4cZU9 xU3pfXwfsoamrLXzyTh gdmVydGljYWwtYWxpZ2 47QWYkuRfmFz7TTog1K 7QhDbc3WHGrySsrKB8m kEFfFFjuQc6ebYfsbMn hUD4dGZFzgcwab355El Ytb0uxYVTvaDYtRLpnK FN3W32ox7V2URCqNKFs GAQ5nSK4nN9bbGjaifp gbGVmdDsgdmVydGljYW igKKhdX974ZDSkoTecO lBheWVyOjwvdGQ+PC90 az16Z5KxEwskXqf8QSU sCLL8jGQ3bM1oPPVoUM rob0A0cZB7Q9WhltZfh j5kw8aeUNHhORqxA23m bGF (more content not included)... [facility] Miscellaneous Testing LCon 0 01-28-2021 Misc. Test Result LC COMMENT Invalid Interpretation Code [facility] Comment on above: Result Comment: Test Ordered: [id number] Post VAS Semen Analysis, AUA Volume 3.4 mL FU Reference Range: Not Estab. Total Immotile Sperm Note: x10E6/mL FU No sperm seen. Reference Range: <0.10 Total Motile Sperm Note: x10E6/mL FU No motile sperm seen. Reference Interval: 0.53v24M1/mL Post-Vasectomy analysis was performed on an uncentrifuged specimen. Performed At: [facility] [address], [place] [id number] Davey Nolan PhD Ph:[phone] Performed At: [facility] [address] [place], [place] [id number] Enmanuel Dawson MD Ph:[phone] Performed By: #### 1 [id number] #### [facility] (DEFAULT) [address] [id number] Provider Orderson 01-27-2021 Provider Orders [id number] [facility] Miscellaneous Testing LCon 0 01-26-2021 Test Code LC 791081 Invalid Interpretation Code [facility] Comment on above: Performed By: #### 1 [id number] #### [facility] (DEFAULT) [address] [place] [address] Test Name LC Semen Analysis postvasect Invalid Interpretation Code [facility] Comment on above: Performed By: #### 1 [id number] #### [facility] (DEFAULT) [address] [place] [id number] Vital Signs Date Time Vital Sign Value Performing Clinician Rj gonzalez 10-20-2022 09:30-0500 Body height 182.9 cm [facility] 10-20-2022 09:30-0500 Body mass index (BMI) [Ratio] 31.19 kg/m2 [facility] 10-20-2022 09:30-050 Body weight 104.33 kg [facility] Encounters Encounter Date Encounter Type Care Provider Facility Start: 03-11-2024 End: 03-11-2024 ambulatory RUGEN M WANDA Not Available Start: 11-05-2023 End: 11-05-2023 ambulatory RUGEN M WANDA Not Available Start: 07-03-2023 End: 07-03-2023 ambulatory RUGEN M WANDA Not Available Start: 10-20-2022 End: 10-23-2022 ambulatory [facility]UG[facility] M WANDA [facility] Start: 10-20-2022 End: 10-22-2022 Subsequent hospital visit by physician [facility] Nuclear Room [facility] Nuclear Medicine Comment on above: RUQ abdominal pain Start: 09-27-2022 End: 09-30-2022 ambulatory RUGEN M WANDA [facility] Start: 09-27-2022 End: 09-29-2022 Subsequent hospital visit by physician [facility] Ultrasound Room [facility] Ultrasound Comment on above: Right upper [...] DTaP/Tdap/Td vaccine (2 - Td or Tdap) [facility] Start: 2022 Diabetes screen Diabetes screen [facility] Start: 03-13-2022 Influenza vaccination Flu vaccine (# 1) [facility] Start: 2005 Hepatitis C screening Hepatitis C sc reen [facility] Start: 2002 HIV screening HIV screen [facility] Start: 1999 Depression Screen Depression Screen [facility] Start: 1988 Varicella vaccine (1 of 2 - 2-dose childhood series) Varicella vaccine (1 of 2 - 2-dose childhood series) [facility] Start: 1987 COVID-19 Vaccine (#1) COVID-19 Vacci ne (#1) [facility] Payers Date Payer Category Payer Unknown [id number] 2022 Medicaid [id number] 1987 Unknown [id number] [id number] 1987 Unknown [id number] [id number] 1987 Unknown [id number] [id number] 1987 Unknown [id number] 2.16.84 [id number] 1987 Unknown [id number] Social History Date Type Detail Facility Tobacco smoking stat [facility] Tobacco smoking consumption unknown [facility] Work Phone: Start: 1985 Sex Assigned At Not on file [facility] [employer] Phone: Evaluation note Note Date & Type Note Facility Evaluation note Diagnosis Right upper quadrant pain Abdominal pain, right upper quadrant documented in this encounter [facility] [employer] Phone: Evaluation note Note Date & Type Note Facility Evaluation note Diagnosis RUQ abdominal pain Abdominal pain, right upper quadrant documented in this encounter [facility] [employer] Phone: Summary Purpose Family History No Family [...] Procedures US GALLBLADDER RUQ Gabrielle Muñoz MD [address] [place] [address] Referral ID Status Reason Start Date Expiration Date Visits Re quested Visits Authorized [id number] Closed 09/26/2022 09/26/2023 1 1 Specialty Diagnoses / Procedures Referred By Aubrey t Referred To Contact Radiology Diagnoses RUQ abdominal pain Procedures NM HEPATOBILIARY SCAN W EJECTION FRACTION Gabrielle Muñoz MD [address] [place] [address] Referral ID Status Reason Start Date Expiration Date Visits Re quested Visits Authorized [id number] Closed 10/10/2022 10/10/2023 1 1 Additional Source Comments (unrecognized sect ion and content) No Status Records FoundNo Status Records FoundNo Status Records FoundNo Status Records Found INFORMATION SOURCE (unrecogn ized section and content) DATE CREATED AUTHOR 02/05/2021 [facility] DATE CREATED AUTHOR AUTHOR'S ORGANIZ ATION 10/09/2021 [facility] Specialist DATE CREATED AUTHOR AUTHOR'S ORGANIZ ATION 10/22/2022 [facility] [place] [facility] DATE CREATED AUTHOR AUTHOR'S ORGANIZ ATION 03/13/2024 [facility] Specialists EPIC Reason for Visit (unrecogniz ed section and content) Specialty Diagnoses / Procedures Referred By Contac t Referred To Contact Radiology Diagnoses Right upper quadrant pain Procedures US GALLBLADDER RUQ Gabrielle Muñoz MD [address] [place] [address] Referral ID Status Reason Start Date Expiration Date Visits Re quested Visits Authorized [id number] Closed 09/26/2022 09/26/2023 1 1 Specialty Diagnoses / Procedures Referred By Contac t Referred To Contact Radiology Diagnoses RUQ abdominal pain Procedures NM HEPATOBILIARY SCAN W EJECTION FRACTION Gabrielle Muñoz MD [address] [place] [address] Referral ID Status Reason Start Date Expiration Date Visits Re quested Visits Authorized [id number] Closed 10/10/2022 10/10/2023 1 1 Care Teams (unrecognized sec tion and content) Investments Manager Relationship 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 [place] [address] PCP - General Family Medicine 09/26/22 Investments Manager Relationship 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 [place] [address] PCP - General Family Medicine [...] BE BASED ON THE PRIMARY CLINICAL RECORDS. [employer] provides no warranty or guarantee of the accuracy or completeness of information in this document.
== END 2024-06-09 07:57 | disposition home or self-care (01) ==
LOC: EC 07:56
PROVIDERS: PCP Family Medicine; Visit Provider Orthopaedic Surgery
DX: S62.51 Fracture of proximal phalanx of thumb (principal)
CPT/HCPCS: 73130

== ENCOUNTER 2024-08-18 09:38 | Outpatient (OUT) | payer MEDICAID, SELFPAY ==
--- NOTE | 2024-08-18 | XR_ITS ---
The [address] [address] Patient Name: QUAN MAHAJAN MRN: [id number] date: 1985 Sex: M Assigned Patient Location: Current Patient Location: Accession/Order Number: [id number] Exam Date: 08/18/2024 09:43 Report Date: 08/18/2024 18:47 At the request of: CARROLL CHAUDHARY Procedure: XR hand RT min 3V EXAM: XR hand RT min 3V HISTORY: RIGHT HAND PAIN COMPARISON: 06/09/2024 TECHNIQUE: 3 views the right hand were obtained. FINDINGS: Again seen is evidence of a prior fracture involving the mid aspect of the proximal phalanx of the thumb, fixated with radial hardware and multiple screws. There is satisfactory position and alignment of the fracture fragments with some osseous healing. The fracture lines remain partially visualized. There is no other evidence of an acute fracture or dislocation. The joint spaces are intact. The soft tissues appear unremarkable. XR/XR hand RT min 3V IMPRESSION: Incomplete osseous healing of the fracture involving the proximal phalanx of the thumb. Hardware remains in place. Electronically authenticated by: CHERYL PARMAR Date: 08/18/2024 18:47
== END 2024-08-18 09:39 | disposition home or self-care (01) ==
LOC: EC 09:38
PROVIDERS: PCP Family Medicine; Visit Provider Orthopaedic Surgery
DX: S62.51 Fracture of proximal phalanx of thumb (principal)
CPT/HCPCS: 73130

== ENCOUNTER 2024-11-17 07:42 | Outpatient (OUT) | payer MEDICAID, SELFPAY ==
--- NOTE | 2024-11-17 07:43 | XR_ITS ---
The [address] [address] Patient Name: QUAN MAHAJAN MRN: [id number] date: 1985 Sex: M Assigned Patient Location: Current Patient Location: Accession/Order Number: [id number] Exam Date: 11/17/2024 08:36 Report Date: 11/17/2024 08:38 At the request of: CARROLL CHAUDHARY MD Procedure: XR hand RT min 3V 3 views right hand plain film COMPARISON: 08/18/2024 HISTORY: Right thumb fixation. ACUTE FINDINGS: Stable bony alignment subtle interval healing. DEGENERATIVE CHANGE: Unremarkable SOFT TISSUE FINDINGS: Unremarkable JOINT EFFUSION: None POSTOP CHANGES: Stable hardware. BONY MINERALIZATION: Adequate XR/XR hand RT min 3V IMPRESSION: Subtle healing with stable alignment and hardware Impression dictated by: Shane Matias M.D.11/17/2024 8:38 AM Dictation Location: [place] [address] Electronically authenticated by: [id number] Y Date: 11/17/2024 08:38
== END 2024-11-17 07:43 | disposition home or self-care (01) ==
LOC: EC 07:42
PROVIDERS: PCP Family Medicine; Visit Provider Orthopaedic Surgery
DX: S62.51 Fracture of proximal phalanx of thumb (principal)
CPT/HCPCS: 73130